=== PATIENT | male | born 1980 | race Caucasian/White ===

== ENCOUNTER 2022-09-09 17:27 | Emergency (ER) | payer MEDICAID, SELFPAY ==
[2022-09-09] VITALS (7 sets, daily range): BP systolic 123–151; BP diastolic 77–93; PULSE 99–120; RESP 14–18; TEMP 35.8–36.8; O2SAT 94–98
--- NOTE | 2022-09-09 18:06 | RAD_ITS ---
EXAM: XR LEFT HUMERUS, 2 OR MORE VIEWS CLINICAL INDICATION: injury TECHNIQUE: Frontal and lateral views of the left humerus. This report was created using [employer] report generation technology. COMPARISON: None. FINDINGS: BONES/JOINTS: Comminuted proximal humeral fracture. There is no dislocation. No sclerotic or destructive changes observed. SOFT TISSUES: Unremarkable. No soft tissue swelling or gas. No radiopaque foreign body. RAD/Humerus min 2 Views IMPRESSION: Comminuted proximal humeral fracture. Electronically Signed: Gio Newton MD at 19:46 EDT ,
[2022-09-09] MEDS: Ondansetron 4 MG/2 ML Vial IV (18:20)
[2022-09-09] MEDS: Morphine 4 MG/ML Syringe IV ×4 (18:20→20:40)
[2022-09-09 18:34] LABS: Absolute Lymphocyte Count 1.13 X10^3/uL (0.83-4.51); Absolute Neutrophil Count 2.8 X10^3/uL (2.0-7.7); Basophil% 1.9 % (0-1); Eosinophil# 0.27 X10^3/uL; Eosinophils% 5.2 % (0-5); Hematocrit 20.8 % (40-54); Lymphocyte # 1.13 X10^3/ul (0.83-4.51); Lymphocyte % 21.9 % (19-41); Mean Corp Hgb Conc 28.8 g/dL (32-36); Mean Corpuscular Hgb 23.2 pg (27.0-32.0); Mean Corpuscular Volume 80.3 fL (80-94); Mean Platelet Vol. 9.6 fl (6.2-12.0); Monocyte# 0.85 X10^3/uL; Monocyte% 16.5 % (0-10); NRBC Flagged by Analyzer 0 % (0-5); Neutrophil # 2.78 X10^3/uL (2.7-7.7); Neutrophil % 53.9 % (47-70); Platelet Count 155 K/mm3 (150-450); RBC Distribution Width SD 58.2 fl (35.1-43.9); Red Blood Count 2.59 M/mm3 (4.6-6.2); White Blood Count 5.2 K/mm3 (4.4-11.0)
--- NOTE | 2022-09-09 18:34 | RAD_ITS ---
INDICATION: injury EXAMINATION/TECHNIQUE: X-RAY - LEFT XR Forearm 2 Views 2 VIEWS COMPARISON: FINDINGS: SOFT TISSUES: No soft tissue swelling or gas. No radiopaque foreign body. BONES/JOINTS: No acute fracture or subluxation.. Normal alignment. Preservation of the joint space.. No sclerotic or destructive changes observed. RAD/Forearm 2 Views IMPRESSION: Negative. Electronically Signed: Gio Newton MD at 19:53 EDT ,
[2022-09-09 18:39] LABS: International Normalized Ratio 2.2; Prothrombin Time (Protime)PT. 24.2 SECONDS (11.7-14.9)
[2022-09-09 18:40] LABS: Differential Indicated SCAN CRITERIA MET; POSITIVE COUNT NO; POSITIVE DIFFERENTIAL NO; POSITIVE MORPHOLOGY NO
--- NOTE | 2022-09-09 18:40 | ED.RN ---
HEMOGLOBIN 6.0. DR GOMEZ
[2022-09-09 18:43] LABS: AST(SGOT) 80 U/L (15-37); Alanine Aminotransfer ALT/SGPT 37 U/L (16-61); Albumin, Serum 2.2 g/dL (3.2-5.0); Alkaline Phosphatase 145 U/L (45-117); Anion Gap 6 (5-15); BUN 4 mg/dL (7-18); BUN/Creat Ratio 4.2 RATIO (10-20); Bilirubin, Direct 1.91 mg/dL (0.00-0.30); Calcium,Total 7.7 mg/dL (8.5-10.1); Chloride 106 mmol/L (98-107); Creatinine, Serum 0.94 mg/dL (0.70-1.30); EST Glomerular Filtration Rate 93 mL/min (>60); Est Glom Filt Rate - Afr Amer 112 mL/min (>60); Globulin 4.9 g/dL (2.2-4.2); Glucose 140 mg/dL (74-106); Potassium 3.2 mmol/L (3.5-5.1); Protein, Total 7.1 g/dL (6.4-8.2); Sodium Level 134 mmol/L (136-145)
--- NOTE | 2022-09-09 18:51 | EDS_ITS ---
HPI History of Present Illness Chief Complaint: Upper Extremity Injury Informant: patient and EMS Narrative Narrative: Left hand male presents mechanical fall coming into his house. He moved here from [place]. Has not seen a doctor in 10 years. EMS called brought him into a modified splint holding his arm in. Its deformed and twisted 180 hand. No medications given. No head injuries. Noted that he had abdominal distention for which she reports its progressed over 6 months. Daily alcohol use. He had 2 drinks this morning. Denies nausea or vomiting. Denies any known allergies. Denies any diagnosed medical history. PFSH PFSH Home Medications NK 09/09/22 [History Last Taken Unknown] Allergy/AdvReac Type Severity Reaction Status Date / Time No Known Allergies Allergy Verified 09/09/22 17:34 Surgical History H/O foot surgery Social History Smoking Status: Current every day smoker tobacco type: cigarettes ROS ROS ED Constitutional Constitutional ED: Denies chills, fever(s) or sweats Eyes Eyes: Denies change in vision ENT ENT ED: Denies dysphagia or sore throat Cardiovascular Cardiovascular: Denies chest pain, leg edema, palpitations or racing heartbeat Respiratory/Chest Respiratory/Chest: Denies cough, dyspnea or dyspnea on exertion Gastrointestinal Gastrointestinal: Denies abdominal pain, diarrhea, nausea or vomiting Genitourinary Genitourinary ED: Denies dysuria, hematuria or urinary frequency Musculoskeletal Musculoskeletal: Reports extremity pain; Denies back pain or neck pain Integumentary Denies rash or wounds Neurologic Neurologic: Denies headache(s), paresthesias or weakness EXAM Physical Exam Const Vital Signs: 09/09/22 17:34 09/09/22 17:39 Temperature 96.4 F L Temperature Source Temporal Pulse Rate 99 Respiratory Rate 18 Respiratory Effort Normal Non-Labored Respiratory Pattern Normal Blood Pressure 133/86 H Blood Pressure Mean 101 Pulse Ox 97 Oxygen Delivery Method Room Air Positive well nourished, well developed and obese Constitutional Narrative: GCS 15, left arm tied held as a swath. General Appearance ED: well developed and NAD Nutritional Appearance: obese HEENT Reports moist mucous membranes normocephalic and atraumatic Eyes PERRL and EOMs intact bilaterally Eyes Narrative: Scleral icterus slightly General Eye ED: Yes normal appearance of both eyes Neck full ROM, no lymphadenopathy and supple General: Negative for tenderness Chest Wall inspection of chest normal and palpation of chest normal Chest: Negative for tenderness Resp normal respiratory effort and normal air movement Effort and Inspection: symmetric chest movement; Negative for respiratory distress Cardio regular rate, regular rhythm and no murmurs Peripheral Pulses: pulses 2+ throughout GI GI Narrative: Distended abdomen reducible umbilical hernia nontender Palpation: Negative for guarding or rebound tenderness present Back/Spine no CVA tenderness and no thoracic nor lumbar tenderness Extremity Extremity Narrative: Lower extremities nontender. Right upper extremity nontender. Left upper extre mity held closely by a modified swath, distal arm was rotated 180. Sensation intact distally radial pulse was intact. General Extremety ED: Negative for edema or tenderness General Extremity: Negative for edema Neuro oriented x3 Sensorium / Orientation: awake and alert Skin no rashes or lesions noted and no wounds MDM MDM MDM Narrative Medical decision making narrative: Interventions / MDM: Differential diagnosis: Left upper extremity fracture, liver cirrhosis, electrolyte abnormalities, alcohol dependence Diagnosis considered but do not suspect: N/A My EKG interpretation: N/A Imaging independently reviewed and interpreted by myself: Left forearm 2 views: No fracture or dislocation. Left humerus 1 view seen bedside he has a comminuted proximal humerus fracture. External documents reviewed: N/A Test considered but not ordered:N/A ED course: Patient mechanical fall to forearm left arm rotated 180 degrees distally. No open wounds. IV was established morphine Zofran given. 2 views humerus and forearm obtain concerning for comminuted proximal humeral fracture causing the rotation. Give additional pain medicine stating reduced and aligned bedside and splinted posterior long-arm splint with coaptation for stability. He was able to extend his extensor mechanism of the wrist therefore radial nerve is intact. History of alcohol clinical concerns for developing cirrhosis or hepatitis with his scleral icterus. His distended abdomen worsen over 6 months. He has no abdominal pain no fevers. Labs significant for hemoglobin of 6 guaiac obtained which was negative with brown stools. I sent for iron studies. He is ordered for 1 unit of blood. Consent was obtained. Also findings of sodium 134 potassium 3.2 creatinine 0.94. Direct bili 1.9 AST 80 ALT 37 alk phos 145 INR was 2.2 not on anticoag's. Vitamin B12 1421. Folate normal at 4.7. With his anemia and clinical signs of potential cirrhosis I do feel he will be nefit from admission. However with his fracture I spoke with on-call orthopedist Dr. Benjamin, who reviewed his imagings, he did feel this would need more urgent repair and recommended by an upper extremity specialist. Discussed with patient and mother, I spoke with [facility] transfer line who reach out to upper extremity specialist Dr. Vera, who recommended ED to ED transfer to be seen by orthopedics there for planned disposition. I spoke with the ED physician Dr. Johnson updated on patient's fracture and findings. He is excepted to the ED there. Patient and family updated. Awaiting transport. Re-evaluation: stable Disposition discussed with patient/family/significant other: Patient and mother Case discussed with consulting clinician: [place]ra orthopedist Dr. Benjamin, [facility] transferring ED physician Dr. Johnson, upper extremity orthopedist [facility] Dr. Vera Lab Data Labs: Laboratory Results - last 24 hr 09/09/22 09/09/22 09/09/22 17:45 17:45 17:45 WBC 5.2 RBC 2.59 L Hgb 6.0 L* Hct 20.8 L MCV 80.3 MCH 23.2 L MCHC 28.8 L RDW Std Deviation 58.2 H RDW Coeff of Jeff 20.0 H Plt Count 155 MPV 9.6 Immature Gran % (Auto) 0.600 Neut % (Auto) 53.9 Lymph % (Auto) 21.9 Platte % (Auto) 16.5 H Eos % (Auto) 5.2 H Baso % (Auto) 1.9 H Absolute Neuts (auto) 2.8 Absolute Lymphs (auto) 1.13 Nucleated RBC % 0 PT 24.2 H INR 2.2 Sodium 134 L Potassium 3.2 L Chloride 106 Carbon Dioxide 22.0 Anion Gap 6 BUN 4 L Creatinine 0.94 Est GFR (MDRD) Af Amer 112 Est GFR (MDRD) Non-Af 93 BUN/Creatinine Ratio 4.2 L Glucose 140 H Calcium 7.7 L Total Bilirubin 3.70 H Direct Bilirubin 1.91 H AST 80 H ALT 37 Alkaline Phosphatase 145 H Total Protein 7.1 Albumin 2.2 L Globulin 4.9 H Critical Care Time Critical Care Time: Yes Critical care time (excluding procedures): 30-74 minutes, Discussing w/Patient &/or Family/Broommaker, Discussing w/Consultants, Arranging Admission or Transfer, Performing Direct Patient Care at Bedside and - (50 minutes) Discharge Plan Triage Chief Complaint: Upper Extremity Injury ED Provider: Cameron Henderson Dx/Rx/DC Orders Clinical Impression: Comminuted left humeral fracture, Fall, Anemia, Alcohol dependence, Acute alcoholic hepatitis, Elevated INR, Iron deficiency anemia Prescriptions: No Action NK Primary Care Provider: Care Physician,No Primary Referrals: NOT,DEFINED [Non-Staff] - Disposition Disposition: DC/Tx to Another Type of HCF
[2022-09-09 19:03] LABS: Anisocytosis 1+; Hypochromasia 1+; Microcytosis 1+; Platelet Estimate ADEQUATE (ADEQ); Red Cell Morphology N CHROM NORMAL (NORM C&C); Target Cells RARE
[2022-09-09] MEDS: 0.9% Normal Saline 1,000 ML 1000 ML IV (19:20)
--- NOTE | 2022-09-09 19:45 | RAD_ITS ---
STUDY: XR Humerus Min 2 Views REASON FOR EXAM: Male, 42 years old. Post reduction TECHNIQUE: XR Humerus Min 2 Views COMPARISON: Study done earlier. FINDINGS: Plaster splint in place. Improved apposition of the fracture of the humerus. Oblique comminuted proximal humeral fracture. There is no demonstrated soft tissue abnormality. RAD/Humerus min 2 Views IMPRESSION: Improved apposition of the fracture of the humerus. Electronically Signed: Gio Newton MD at 20:21 EDT ,
--- NOTE | 2022-09-09 21:23 | ED.RN ---
[facility] called for transfer. Dr. Henderson on phone with transfer line
[2022-09-09 21:25] LABS: Vitamin B12 1421 pg/mL (211-911)
[2022-09-09 21:36] LABS: Ferritin 32 ng/mL (26-388); Iron 9 ug/dL (65-175); Iron Binding Capacity,Total 254 ug/dL (250-450); PERCENT IRON SATURATION 3.5 % (15.0-55.0)
[2022-09-10] VITALS (7 sets, daily range): BP systolic 133–153; BP diastolic 76–99; PULSE 113–119; RESP 14–18; TEMP 36.9–37.1; O2SAT 93–96
[2022-09-10] MEDS: Ondansetron 4 MG/2 ML Vial IV (01:30)
[2022-09-10] MEDS: Morphine 4 MG/ML Syringe IV (01:30)
[2022-09-10 13:31] LABS: Pathologist Review Reviewed
== END 2022-09-10 04:25 | disposition other institution (70) ==
PROVIDERS: Emergency Provider Emergency Medicine; Visit Provider Emergency Medicine
DX: S42.202A Unspecified fracture of upper end of left humerus, initial encounter for closed fracture (principal); F10.20 Alcohol dependence, uncomplicated; D50.9 Iron deficiency anemia, unspecified; F17.210 Nicotine dependence, cigarettes, uncomplicated; K70.10 Alcoholic hepatitis without ascites; E66.9 Obesity, unspecified; W19.XXXA Unspecified fall, initial encounter
CPT/HCPCS: 23605; 36430; 73060; 73090; 80048; 80076; 82274; 82607; 82728; 82746; 83540; 83550; 85025; 85610; 86850; 86900; 86901; 86920; 86922; 96361; 96374; 96376; 99285; J7040; P9016; A4216; J2405

== ENCOUNTER → 2022-10-15 | Outpatient (CLI) | payer OTHER, MEDICAID, SELFPAY ==
[2022-10-15 12:53] LABS: Absolute Lymphocyte Count 0.85 X10^3/uL (0.83-4.51); Absolute Neutrophil Count 3.8 X10^3/uL (2.0-7.7); Basophil# 0.09 X10^3/uL; Basophil% 1.6 % (0-1); Eosinophil# 0.22 X10^3/uL; Hematocrit 35.9 % (40-54); Hemoglobin 11.5 g/dL (13.0-16.5); Lymphocyte # 0.85 X10^3/ul (0.83-4.51); Lymphocyte % 15.5 % (19-41); Mean Corpuscular Hgb 27.3 pg (27.0-32.0); Mean Corpuscular Volume 85.1 fL (80-94); Mean Platelet Vol. 8.3 fl (6.2-12.0); Monocyte# 0.55 X10^3/uL; NRBC Flagged by Analyzer 0 % (0-5); Neutrophil # 3.76 X10^3/uL (2.7-7.7); Neutrophil % 68.5 % (47-70); POSITIVE MORPHOLOGY YES; Platelet Count 146 K/mm3 (150-450); RBC Distribution Width CV 27.9 % (11.6-14.6); RBC Distribution Width SD 80.7 fl (35.1-43.9); Red Blood Count 4.22 M/mm3 (4.6-6.2); White Blood Count 5.5 K/mm3 (4.4-11.0)
[2022-10-15 12:55] LABS: Differential Indicated SCAN CRITERIA MET
[2022-10-15 13:25] LABS: Anisocytosis 1+
[2022-10-15 13:33] LABS: ALB/GLOB Ratio 0.5 RATIO (0.9-2.4); AST(SGOT) 62 U/L (15-37); Alanine Aminotransfer ALT/SGPT 49 U/L (16-61); Alkaline Phosphatase 255 U/L (45-117); Anion Gap 9 (5-15); BUN 17 mg/dL (7-18); BUN/Creat Ratio 17.2 RATIO (10-20); Calcium,Total 8.9 mg/dL (8.5-10.1); Chloride 103 mmol/L (98-107); Cholesterol 199 mg/dL (200); Creatinine, Serum 0.99 mg/dL (0.70-1.30); EST Glomerular Filtration Rate 88 mL/min (>60); Est Glom Filt Rate - Afr Amer 106 mL/min (>60); Ferritin 131 ng/mL (26-388); Globulin 5.6 g/dL (2.2-4.2); Glucose 154 mg/dL (74-106); High Density Lipoprotein 76 mg/dL; Iron 87 ug/dL (65-175); Iron Binding Capacity,Total 350 ug/dL (250-450); PERCENT IRON SATURATION 24.9 % (15.0-55.0); Potassium 4.4 mmol/L (3.5-5.1); Protein, Total 8.6 g/dL (6.4-8.2); Sodium Level 135 mmol/L (136-145); Triglycerides 73 mg/dL; Very Low Density Lipoprotein 15 mg/dL (5-40)
[2022-10-17 12:09] LABS: Ceruloplasmin 17.1 mg/dL (16.0-31.0); Copper, Serum or Plasma 87 ug/dL (69-132)
== END | disposition home or self-care (01) ==
LOC: BIMLAB 10:55
PROVIDERS: PCP Internal Medicine; Visit Provider Internal Medicine
DX: K70.31 Alcoholic cirrhosis of liver with ascites (principal); R79.0 Abnormal level of blood mineral; Z13.6 Encounter for screening for cardiovascular disorders
CPT/HCPCS: 36415; 80053; 80061; 82390; 82525; 82728; 83540; 83550; 85025

== ENCOUNTER → 2022-10-24 | Outpatient (CLI) | payer OTHER, MEDICAID, SELFPAY ==
[2022-10-24 08:27] LABS: Hematocrit 35.8 % (40-54); Hemoglobin 11.6 g/dL (13.0-16.5); Mean Corp Hgb Conc 32.4 g/dL (32-36); Mean Corpuscular Hgb 27.7 pg (27.0-32.0); Mean Corpuscular Volume 85.4 fL (80-94); Mean Platelet Vol. 8.9 fl (6.2-12.0); POSITIVE MORPHOLOGY YES; Platelet Count 130 K/mm3 (150-450); Red Blood Count 4.19 M/mm3 (4.6-6.2); White Blood Count 7.6 K/mm3 (4.4-11.0)
[2022-10-24 08:35] LABS: International Normalized Ratio 1.5; Prothrombin Time (Protime)PT. 17.7 SECONDS (11.7-14.9)
[2022-10-24 08:55] LABS: Iron 69 ug/dL (65-175)
[2022-10-24 09:22] LABS: Scan Indicated on CBC? Y/N YES- FLAGS NOTED
[2022-10-25 04:07] LABS: AFP, Tumor Marker 9.5 ng/mL (0.0-6.9)
== END | disposition home or self-care (01) ==
LOC: LAB 07:44
PROVIDERS: PCP Internal Medicine; Referring Provider Internal Medicine Gastroenterology; Visit Provider Internal Medicine Gastroenterology
DX: K74.60 Unspecified cirrhosis of liver (principal)
CPT/HCPCS: 36415; 82105; 83540; 85027; 85610; 85730

== ENCOUNTER → 2022-11-10 | Outpatient (CLI) | payer OTHER, MEDICAID, SELFPAY ==
--- NOTE | 2022-11-10 10:39 | MRI_ITS ---
MR Abdomen WO/W Contrast 11/10/2022 11:11 AM COMPARISON: None CLINICAL HISTORY: CIRRHOSIS,ALCOHOL,ANEMIA,BLOOD LOSS, no pain TECHNIQUE: Multiplanar T1 and T2 weighted, diffusion and dynamic post-gadolinium images were obtained through the abdomen. FINDINGS: Liver: No suspicious arterially hyperenhancing or delayed washout lesion. There is moderate contour nodularity consistent with cirrhosis. Gallbladder: Unremarkable Spleen: Unremarkable Pancreas: Unremarkable Adrenal Glands: Unremarkable Kidneys: Unremarkable GI Tract: Unremarkable Lymphadenopathy: Absent Ascites: Absent Bones: No suspicious lesions MRI/MRI Abd WITH and W/O Contrast IMPRESSION: Cirrhotic liver without evidence of portal hypertension. No suspicious liver mass. Recommend continued HCC surveillance every 4-6 months. NOTE: The LI-RADS / OPTN classification of liver lesions has been adopted to standardize MRI and CT scan reporting in patients at risk for hepatocellular carcinoma. The imaging criteria for definite hepatocellular carcinoma are the same for the LI-RADS and OPTN systems. LI-RADS criteria and documentation are available online at www.acr.org/LIRADS LI-RADS 5 = OPTN 5 = Definitely hepatocellular carcinoma LI-RADS 4 = Probably hepatocellular carcinoma LI-RADS 3 = Indeterminate LI-RADS 2 = Probably benign LI-RADS 1 = Definitely benign END OF IMPRESSION: Electronically Signed: Denzel Julio MD at 19:46 EDT ,
== END | disposition home or self-care (01) ==
PROVIDERS: PCP Internal Medicine; Referring Provider Internal Medicine Gastroenterology; Visit Provider Internal Medicine Gastroenterology
DX: K70.30 Alcoholic cirrhosis of liver without ascites (principal); D50.9 Iron deficiency anemia, unspecified; D62 Acute posthemorrhagic anemia
CPT/HCPCS: 74183; A9575; A4216

== ENCOUNTER → 2023-01-05 | Outpatient (CLI) | payer OTHER, MEDICAID, SELFPAY ==
[2023-01-05 18:08] LABS: Hematocrit 34.8 % (40-54); Hemoglobin 11.9 g/dL (13.0-16.5); International Normalized Ratio 1.3; Mean Corp Hgb Conc 34.2 g/dL (32-36); Mean Corpuscular Hgb 33.1 pg (27.0-32.0); Mean Corpuscular Volume 96.9 fL (80-94); Mean Platelet Vol. 9.4 fl (6.2-12.0); Platelet Count 124 K/mm3 (150-450); Prothrombin Time (Protime)PT. 16.6 SECONDS (11.7-14.9); RBC Distribution Width CV 14.4 % (11.6-14.6); RBC Distribution Width SD 51.6 fl (35.1-43.9); Red Blood Count 3.59 M/mm3 (4.6-6.2); White Blood Count 5.4 K/mm3 (4.4-11.0)
[2023-01-05 18:09] LABS: Partial Thromboplast Time 40.4 Seconds (24.1-36.2)
[2023-01-05 18:45] LABS: ALB/GLOB Ratio 0.7 RATIO (0.9-2.4); AST(SGOT) 52 U/L (15-37); Alanine Aminotransfer ALT/SGPT 45 U/L (16-61); Albumin, Serum 3.2 g/dL (3.2-5.0); Alkaline Phosphatase 204 U/L (45-117); Anion Gap 6 (5-15); BUN 18 mg/dL (7-18); BUN/Creat Ratio 16.8 RATIO (10-20); Calcium,Total 8.9 mg/dL (8.5-10.1); Chloride 107 mmol/L (98-107); Creatinine, Serum 1.07 mg/dL (0.70-1.30); EST Glomerular Filtration Rate 80 mL/min (>60); Est Glom Filt Rate - Afr Amer 97 mL/min (>60); Globulin 4.4 g/dL (2.2-4.2); Glucose 86 mg/dL (74-106); Potassium 3.8 mmol/L (3.5-5.1); Protein, Total 7.6 g/dL (6.4-8.2); Sodium Level 137 mmol/L (136-145)
[2023-01-07 08:12] LABS: AFP, Tumor Marker 17.8 ng/mL (0.0-6.9)
== END | disposition home or self-care (01) ==
PROVIDERS: PCP Internal Medicine; Referring Provider Internal Medicine Gastroenterology; Visit Provider Internal Medicine Gastroenterology
DX: K74.60 Unspecified cirrhosis of liver (principal)
CPT/HCPCS: 36415; 80053; 82105; 85027; 85610; 85730

== ENCOUNTER → 2023-02-19 | Outpatient (CLI) | payer MEDICAID, SELFPAY ==
[2023-02-19 11:27] LABS: Anion Gap 3 (5-15); BUN 15 mg/dL (7-18); BUN/Creat Ratio 17.3 RATIO (10-20); Calcium,Total 8.8 mg/dL (8.5-10.1); Chloride 108 mmol/L (98-107); Creatinine, Serum 0.87 mg/dL (0.70-1.30); EST Glomerular Filtration Rate 102 mL/min (>60); Est Glom Filt Rate - Afr Amer 123 mL/min (>60); Glucose 92 mg/dL (74-106); Sodium Level 137 mmol/L (136-145)
== END | disposition home or self-care (01) ==
LOC: PAVLAB 10:49
PROVIDERS: PCP Internal Medicine; Referring Provider Internal Medicine Gastroenterology; Visit Provider Internal Medicine Gastroenterology
DX: K70.30 Alcoholic cirrhosis of liver without ascites (principal)
CPT/HCPCS: 36415; 80048

== ENCOUNTER → 2023-04-20 | Outpatient (CLI) | payer MEDICAID, SELFPAY ==
[2023-04-20 18:01] LABS: Hematocrit 40.3 % (40-54); Hemoglobin 13.8 g/dL (13.0-16.5); Mean Corp Hgb Conc 34.2 g/dL (32-36); Mean Corpuscular Hgb 32.4 pg (27.0-32.0); Mean Corpuscular Volume 94.6 fL (80-94); Mean Platelet Vol. 9.5 fl (6.2-12.0); Platelet Count 126 K/mm3 (150-450); RBC Distribution Width CV 13.7 % (11.6-14.6); RBC Distribution Width SD 47.4 fl (35.1-43.9); Red Blood Count 4.26 M/mm3 (4.6-6.2); White Blood Count 6.3 K/mm3 (4.4-11.0)
[2023-04-20 18:04] LABS: International Normalized Ratio 1.3; Prothrombin Time (Protime)PT. 15.9 SECONDS (11.7-14.9)
[2023-04-20 18:05] LABS: Partial Thromboplast Time 42.8 Seconds (24.1-36.2)
[2023-04-20 18:09] LABS: AST(SGOT) 41 U/L (15-37); Alanine Aminotransfer ALT/SGPT 44 U/L (16-61); Albumin, Serum 3.4 g/dL (3.2-5.0); Alkaline Phosphatase 190 U/L (45-117); Bilirubin, Direct 1.01 mg/dL (0.00-0.30); Globulin 4.3 g/dL (2.2-4.2); Protein, Total 7.7 g/dL (6.4-8.2)
[2023-04-22 04:07] LABS: AFP, Tumor Marker 11.6 ng/mL (0.0-6.9)
== END | disposition home or self-care (01) ==
LOC: MTLAB 14:25
PROVIDERS: PCP Internal Medicine; Referring Provider Internal Medicine Gastroenterology; Visit Provider Internal Medicine Gastroenterology
DX: K74.60 Unspecified cirrhosis of liver (principal)
CPT/HCPCS: 36415; 80076; 82105; 85027; 85610; 85730

== ENCOUNTER → 2023-04-24 | Outpatient (CLI) | payer MEDICAID, SELFPAY ==
--- NOTE | 2023-04-24 07:13 | US_ITS ---
STUDY: ABDOMINAL ULTRASOUND - RIGHT UPPER QUADRANT REASON FOR VISIT: Male, 43 years old elevated LFTs TECHNIQUE: Ultrasound evaluation of the right upper quadrant was performed with real-time and static herman-scale imaging. TECHNICAL QUALITY: Adequate. COMPARISON: None. FINDINGS: Liver: The liver measures 19.5 cm. There is a heterogeneous echogenicity of the liver. The bile ducts are within normal limits. The borders of the liver are nodular suggesting underlying cirrhosis. There is hepatic color flow. The direction of portal flow is hepatopetal. There is no demonstrated mass lesion. Gallbladder: There is a distended gallbladder. The gallbladder wall measures 2 mm. There is a negative sonographic Gifford''s sign. There is no pericholecystic fluid. There are multiple echogenic structures within the gallbladder, consistent with multiple gallstones. Common Bile Duct (C.B.D.): The common bile duct measures 6 mm. Pancreas: Normal size of the head, body and tail of the pancreas. There is normal echogenicity of the pancreas. There is no demonstrated pancreatic mass or cyst. Right Kidney: Normal size of the right kidney. The right kidney measures 10.9 x 6.8 x 5.2 cm. Normal renal cortex. The right cortex measures 1.5 cm. There is no demonstrated renal mass or cyst. There is no right hydronephrosis. US/Abdomen Limited IMPRESSION: Heterogeneous echotexture of the liver with nodular border suggesting underlying cirrhosis. No discrete lesion Distended gallbladder with multiple gallstones but no sonographic evidence of acute gallbladder disease. Specifically, there is no wall thickening, pericholecystic fluid or biliary dilatation, and the radio talk show host notes a negative Gifford sign Electronically Signed: Arnoldo Scott MD at 13:01 EST ,
== END | disposition home or self-care (01) ==
LOC: US 07:10
PROVIDERS: PCP Internal Medicine; Referring Provider Internal Medicine Gastroenterology; Visit Provider Internal Medicine Gastroenterology
DX: K70.30 Alcoholic cirrhosis of liver without ascites (principal); F10.10 Alcohol abuse, uncomplicated
CPT/HCPCS: 76705

== ENCOUNTER → 2023-10-07 | Outpatient (CLI) | payer MEDICAID, SELFPAY ==
[2023-10-07 10:16] LABS: Absolute Neutrophil Count 3.4 X10^3/uL (2.0-7.7); Basophil# 0.07 X10^3/uL; Basophil% 1.2 % (0-1); Eosinophil# 0.19 X10^3/uL; Eosinophils% 3.2 % (0-5); Hematocrit 39.7 % (40-54); Lymphocyte % 28.7 % (19-41); Mean Corp Hgb Conc 35.3 g/dL (32-36); Mean Corpuscular Hgb 32.7 pg (27.0-32.0); Mean Corpuscular Volume 92.8 fL (80-94); Mean Platelet Vol. 9.7 fl (6.2-12.0); Monocyte# 0.58 X10^3/uL; Monocyte% 9.8 % (0-10); NRBC Flagged by Analyzer 0 % (0-5); Neutrophil # 3.36 X10^3/uL (2.7-7.7); Neutrophil % 56.8 % (47-70); Platelet Count 130 K/mm3 (150-450); RBC Distribution Width CV 13.4 % (11.6-14.6); RBC Distribution Width SD 45.6 fl (35.1-43.9); Red Blood Count 4.28 M/mm3 (4.6-6.2); White Blood Count 5.9 K/mm3 (4.4-11.0)
[2023-10-07 11:01] LABS: ALB/GLOB Ratio 0.8 RATIO (0.9-2.4); AST(SGOT) 39 U/L (15-37); Alanine Aminotransfer ALT/SGPT 38 U/L (16-61); Albumin, Serum 3.2 g/dL (3.2-5.0); Alkaline Phosphatase 166 U/L (45-117); Anion Gap 8 (5-15); BUN 13 mg/dL (7-18); BUN/Creat Ratio 14.7 RATIO (10-20); Chloride 108 mmol/L (98-107); Cholesterol 184 mg/dL (200); Creatinine, Serum 0.88 mg/dL (0.70-1.30); EST Glomerular Filtration Rate 99 mL/min (>60); Est Glom Filt Rate - Afr Amer 120 mL/min (>60); Globulin 3.9 g/dL (2.2-4.2); Glucose 96 mg/dL (74-106); High Density Lipoprotein 76 mg/dL; Protein, Total 7.1 g/dL (6.4-8.2); Sodium Level 137 mmol/L (136-145); Triglycerides 65 mg/dL; Very Low Density Lipoprotein 13 mg/dL (5-40)
== END | disposition home or self-care (01) ==
LOC: LAB 09:01
PROVIDERS: PCP Internal Medicine; Referring Provider Internal Medicine; Visit Provider Internal Medicine
DX: K70.31 Alcoholic cirrhosis of liver with ascites (principal); F10.11 Alcohol abuse, in remission; Z13.6 Encounter for screening for cardiovascular disorders
CPT/HCPCS: 36415; 80053; 80061; 82306; 85025

== ENCOUNTER 2023-11-17 09:30 | Outpatient (CLI) | payer MEDICAID, SELFPAY ==
[2023-11-17 10:17] LABS: Hematocrit 42.4 % (40-54); Hemoglobin 14.3 g/dL (13.0-16.5); Mean Corp Hgb Conc 33.7 g/dL (32-36); Mean Corpuscular Hgb 32.2 pg (27.0-32.0); Mean Corpuscular Volume 95.5 fL (80-94); Mean Platelet Vol. 9.8 fl (6.2-12.0); Platelet Count 143 K/mm3 (150-450); RBC Distribution Width CV 13.6 % (11.6-14.6); RBC Distribution Width SD 47.6 fl (35.1-43.9); Red Blood Count 4.44 M/mm3 (4.6-6.2); White Blood Count 5.8 K/mm3 (4.4-11.0)
[2023-11-17 10:29] LABS: International Normalized Ratio 1.3; Prothrombin Time (Protime)PT. 16.1 SECONDS (11.7-14.9)
[2023-11-17 10:30] LABS: Partial Thromboplast Time 34.2 Seconds (24.1-36.2)
[2023-11-17 11:06] LABS: ALB/GLOB Ratio 0.8 RATIO (0.9-2.4); AST(SGOT) 38 U/L (15-37); Alanine Aminotransfer ALT/SGPT 42 U/L (16-61); Albumin, Serum 3.2 g/dL (3.2-5.0); Alkaline Phosphatase 181 U/L (45-117); Anion Gap 6 (5-15); BUN 15 mg/dL (7-18); BUN/Creat Ratio 14.3 RATIO (10-20); Calcium,Total 9.2 mg/dL (8.5-10.1); Chloride 111 mmol/L (98-107); Creatinine, Serum 1.05 mg/dL (0.70-1.30); EST Glomerular Filtration Rate 81 mL/min (>60); Est Glom Filt Rate - Afr Amer 98 mL/min (>60); Globulin 4.1 g/dL (2.2-4.2); Glucose 94 mg/dL (74-106); Potassium 4.3 mmol/L (3.5-5.1); Protein, Total 7.3 g/dL (6.4-8.2); Sodium Level 141 mmol/L (136-145)
[2023-11-18 15:09] LABS: AFP, Tumor Marker 6.2 ng/mL (0.0-6.9)
== END 2023-11-17 23:59 | disposition home or self-care (01) ==
LOC: LAB 09:32
PROVIDERS: PCP Internal Medicine; Referring Provider Internal Medicine Gastroenterology; Visit Provider Internal Medicine Gastroenterology
DX: K74.60 Unspecified cirrhosis of liver (principal); D69.6 Thrombocytopenia, unspecified
CPT/HCPCS: 36415; 80053; 82105; 85027; 85610; 85730

== ENCOUNTER → 2024-05-02 | Outpatient (CLI) | payer MEDICAID, SELFPAY ==
[2024-05-02 17:45] LABS: Hematocrit 42.1 % (40-54); Hemoglobin 14.3 g/dL (13.0-16.5); Mean Corpuscular Hgb 31.2 pg (27.0-32.0); Mean Corpuscular Volume 91.7 fL (80-94); Mean Platelet Vol. 9.7 fl (6.2-12.0); Platelet Count 156 K/mm3 (150-450); RBC Distribution Width CV 13.2 % (11.6-14.6); RBC Distribution Width SD 44.7 fl (35.1-43.9); Red Blood Count 4.59 M/mm3 (4.6-6.2); White Blood Count 7.6 K/mm3 (4.4-11.0)
[2024-05-02 17:48] LABS: International Normalized Ratio 1.3; Prothrombin Time (Protime)PT. 15.9 SECONDS (11.7-14.9)
[2024-05-02 17:49] LABS: Partial Thromboplast Time 33.4 Seconds (24.1-36.2)
[2024-05-02 18:46] LABS: ALB/GLOB Ratio 0.9 RATIO (0.9-2.4); AST(SGOT) 38 U/L (15-37); Alanine Aminotransfer ALT/SGPT 43 U/L (16-61); Albumin, Serum 3.5 g/dL (3.2-5.0); Alkaline Phosphatase 162 U/L (45-117); Anion Gap 4 (5-15); BUN 13 mg/dL (7-18); BUN/Creat Ratio 13.9 RATIO (10-20); Calcium,Total 9.5 mg/dL (8.5-10.1); Chloride 108 mmol/L (98-107); Creatinine, Serum 0.93 mg/dL (0.70-1.30); EST Glomerular Filtration Rate 93 mL/min (>60); Est Glom Filt Rate - Afr Amer 113 mL/min (>60); Globulin 4.1 g/dL (2.2-4.2); Glucose 102 mg/dL (74-106); Potassium 3.9 mmol/L (3.5-5.1); Protein, Total 7.6 g/dL (6.4-8.2); Sodium Level 137 mmol/L (136-145)
[2024-05-04 04:07] LABS: AFP, Tumor Marker 3.8 ng/mL (0.0-6.9)
== END | disposition home or self-care (01) ==
PROVIDERS: PCP Internal Medicine; Referring Provider Internal Medicine Gastroenterology; Visit Provider Internal Medicine Gastroenterology
DX: K74.60 Unspecified cirrhosis of liver (principal)
CPT/HCPCS: 36415; 80053; 82105; 85027; 85610; 85730

== ENCOUNTER → 2024-06-15 | Outpatient (CLI) | payer MEDICAID, SELFPAY ==
[2024-06-15 12:26] LABS: Absolute Lymphocyte Count 1.31 X10^3/uL (0.83-4.51); Basophil# 0.05 X10^3/uL; Basophil% 0.8 % (0-1); Eosinophil# 0.15 X10^3/uL; Eosinophils% 2.4 % (0-5); Hematocrit 42.1 % (40-54); Hemoglobin 14.1 g/dL (13.0-16.5); Lymphocyte # 1.31 X10^3/ul (0.83-4.51); Lymphocyte % 21.4 % (19-41); Mean Corp Hgb Conc 33.5 g/dL (32-36); Mean Corpuscular Hgb 30.8 pg (27.0-32.0); Mean Corpuscular Volume 91.9 fL (80-94); Monocyte# 0.64 X10^3/uL; Monocyte% 10.4 % (0-10); NRBC Flagged by Analyzer 0 % (0-5); Neutrophil # 3.96 X10^3/uL (2.7-7.7); Neutrophil % 64.7 % (47-70); Platelet Count 163 K/mm3 (150-450); RBC Distribution Width CV 13.6 % (11.6-14.6); RBC Distribution Width SD 46.1 fl (35.1-43.9); Red Blood Count 4.58 M/mm3 (4.6-6.2); White Blood Count 6.1 K/mm3 (4.4-11.0)
[2024-06-15 12:27] LABS: Erythrocyte Sedimentation Rate 19 mm/hr (0-20)
[2024-06-15 12:36] LABS: ALB/GLOB Ratio 0.8 RATIO (0.9-2.4); AST(SGOT) 34 U/L (15-37); Alanine Aminotransfer ALT/SGPT 42 U/L (16-61); Albumin, Serum 3.4 g/dL (3.2-5.0); Alkaline Phosphatase 189 U/L (45-117); Anion Gap 9 (5-15); BUN 12 mg/dL (7-18); BUN/Creat Ratio 13.9 RATIO (10-20); CRP < 2.90 mg/L (0.0-3.0); Calcium,Total 8.8 mg/dL (8.5-10.1); Chloride 109 mmol/L (98-107); Creatinine, Serum 0.86 mg/dL (0.70-1.30); EST Glomerular Filtration Rate 102 mL/min (>60); Est Glom Filt Rate - Afr Amer 123 mL/min (>60); Glucose 112 mg/dL (74-106); Potassium 4.4 mmol/L (3.5-5.1); Protein, Total 7.4 g/dL (6.4-8.2); Sodium Level 140 mmol/L (136-145)
== END | disposition home or self-care (01) ==
LOC: BIMLAB 09:10
PROVIDERS: PCP Internal Medicine; Visit Provider Physician Assistant
DX: D50.9 Iron deficiency anemia, unspecified (principal); K70.31 Alcoholic cirrhosis of liver with ascites
CPT/HCPCS: 36415; 80053; 85025; 85652; 86140

== ENCOUNTER → 2024-06-17 | Outpatient (CLI) | payer MEDICAID, SELFPAY ==
--- NOTE | 2024-06-17 08:30 | MRI_ITS ---
PROCEDURE: MRI ABD WITH AND W/O CONTRAST REASON FOR EXAM: Cirrhosis. Minor abdominal pain. TECHNIQUE: Multiplanar, multisequence MRI of the upper abdomen without and with intravenous gadolinium-based contrast. CONTRAST: 25 cc Clariscan intravenously. COMPARISON: MRI abdomen October 2022 FINDINGS: Liver: Severe cirrhosis. No liver lesions identified. Specifically, no arterially hyperenhancing lesions to suggest dysplastic nodule or hepatocellular carcinoma. Umbilical vein recanalization noted. Distal esophageal and perigastric varices noted. Biliary: Stones or sludge in the gallbladder with no signs of acute cholecystitis. Pancreas: Normal pancreas. No ductal dilatation. Spleen: Borderline spleen size at 13.7 cm. Spleen is otherwise unremarkable. Adrenals: Normal. Kidneys: Kidneys are normal bilaterally. Peritoneum / Retroperitoneum: No ascites. Lymph Nodes: No upper abdominal lymphadenopathy. Major Vessels: The abdominal aorta and IVC are unremarkable. The portal and hepatic veins are patent. Bones: Minimal superior endplate fracture of L1, chronic and unchanged. No suspicious marrow lesions. Miscellaneous: Moderate colonic stool suggesting constipation. Small fat containing umbilical hernia, herniated fat is edematous. Hernia defect measures approximately 1 cm in the herniated edematous fat measures approximately 4.2 cm. MRI/MRI Abd WITH and W/O Contrast IMPRESSION: Cirrhosis with no evidence of dysplastic nodule or hepatocellular carcinoma. 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 No ascites. Incidental findings as noted. Reading Location: [facility]
== END | disposition home or self-care (01) ==
LOC: MRI 08:07
PROVIDERS: PCP Internal Medicine; Referring Provider Internal Medicine Gastroenterology; Visit Provider Internal Medicine Gastroenterology
DX: K74.60 Unspecified cirrhosis of liver (principal)
CPT/HCPCS: 74183; A9575; A4216

== ENCOUNTER → 2024-11-05 | Outpatient (CLI) | payer MEDICAID, SELFPAY ==
--- OUTSIDE RECORDS SUMMARY | 2024-11-05 08:55 | XMS RPT_ITS | CCD ---
Author Organization [facility] Care Team Providers Care Production Support Specialist Name Role Phone Unavailable Primary Care Provider UnavailJEROME Adams Attending Unavailable TAMAR LAMAR Referring Unavailable SELENE FLEMING MD Primary Care Physician [phone] Care Physician, No Primary Primary Care Provider Unavailable Care Physician, No Primary Referring Provider Un available Dr. Selene Fleming Attending Provider LYN FITZGERALD, DR CHUN Attending UnavailSELENE Roman MD Primary Care Unavailable Dr. Selene Fleming Primary Care Provider Dr. Selene Fleming Attending Provider [phone] Dr. Selene Fleming Referring Provider DR ANUP NICHOLSON MD Attending SELENE Ceja MD Primary Care Unavailable SELENE FLEMING MD Primary Care Unavailable DR ANUP NICHOLSON MD Attending Dr. Selene Ceja MD Primary Care Provider [phone] Dr. Selene Fleming MD Attending Provider Dr. Selene Fleming MD Referring Provider Selene Fleming Primary Care Unavailable Anup Nicholson Attending Unavailable Anup Nicholson Referring Unavailable Anup Nicholson Attending Unavailable Anup Nicholson Referring Unavailable Selene Fleming Primary Care Unavailable Anup Nicholson Referring Unavailable Selene Fleming Primary Care Unavailable Anup Nicholson Attending Unavailable Israel Garcia Attending Unavailable Selene Fleming Primary Care Unavailable Selene Fleming Attending Unavailable Selene Fleming Referring Unavailable Selene Fleming Primary Care Unavailable Lonnie Selene Primary Care Unavailable Joshua Flemingia Attending Unavailable Serjio Flemingycia Referring Unavailable Lonnie Selene Referring Unavailable Joshua Flemingia Primary Care Unavailable Israel Garcia Attending Unavailable Medications Current Medications Medication Drug Class(es) Dates Sig (Normalized) Sig (Original) acamprosate calcium 333 mg delayed release oral tablet (4 sources) Start: 09-24-2022 End: 03-23-2023 take 2 tablets by mouth three times daily acamprosate 333 mg oral delayed release tablet TAKE 2 TABLETS BY MOUTH THREE TIMES DAILY Start Date: 10/29/22 Status: Ordered Repeat number: 1 Comment on above: Take 2 tablets by mo ut three times daily. calcium ascorbate 500 mg oral tablet (5 sources) Start: 10-15-2022 take 1 tablet by mouth once daily Ascorbate Calcium (Vitamin C) 500 mg tablet Active 500 mg PO DAILY October 15, 2022 12:00am carvedilol 3.125 mg oral tablet (4 sources) alpha-Adrenergic Sue, beta-Adrenergic Sue Start: 04-07-2023 carvedilol 3.125 mg oral tablet Dose : 3.125 mg = 1 tab(s), Oral, Daily, 0 Refill(s) Start Date: 07/11/24 Status: Ordered Repeat number: 1 FeroSul 325 mg (65 mg elemental iron) oral tablet (2 sources) Start: 10-29-2022 FeroSul 325 mg (65 mg elemental iron) oral tablet TAKE 1 TABLET BY MOUTH ON THURSDAY, THURSDAY AND THURSDAY Start Date: 10/29/22 Status: Ordered Repeat number: 1 Start: 10-29-2022 FeroSul 325 mg (65 mg elemental iron) oral tablet TAKE 1 TABLET BY MOUTH ON THURSDAY, THURSDAY AND THURSDAY Start Date: 10/29/22 Status: Ordered ferrous sulfate 325 mg oral tablet (10 sources) Start: 10-15-2022 take 1 tablet by mouth every other day Ferrous Sulfate 325 mg (65 mg iron) tablet Active 325 mg PO every other day October 15, 2022 12:00am Start: 09-19-2022 End: 10-19-2022 take 1 tablet by mouth once ferrous sulfate 325 mg (65 mg iron) tabl et Take 1 tablet by mouth every Thursday,Thursday,Thursday. 12 tablet 0 09/19/2022 10/19/2022 Active Comment on above: Take 1 tablet by namita th every Thursday,Thursday,Thursday. furosemide 40 mg oral tablet (20 sources) Loop Diuretic Start: 023 End: 025 take 1 tablet by mouth once daily Furosemide 40 mg tablet Active 40 mg PO DAILY October 24, 2024 8:33am Start: 10-15-2022 End: 04-07-2023 Furosemide 40 mg tablet Disc ontinued 60 mg PO DAILY March 31, 2023 1:28pm April 07, 2023 3:27pm Start: 10-15-2022 End: 04-07-2023 take 60 mg by mouth once daily Furosemide Discontinued 60 MG PO DAILY March 31, 2023 12:28pm April 07, 2023 2:27pm Start: 09-24-2022 End: 12-23-2022 take 1 tablet by mouth once daily furosemide (LASIX) 20 mg tablet Indications: Encounter for immunization Take 1 tablet by mouth once daily. 30 tablet 2 09/24/2022 12/23/2022 Active Start: 09-18-2022 take 1 tablet by namita th once daily furosemide (LASIX) 40 mg tablet Take 1 tablet by mouth once daily. 30 tablet 1 09/18/2022 Active Comment on above: Take 1 tablet by namita th once daily. lactulose 667 mg/ml oral solution (20 sources) Osmotic Laxative Start: 05-04-2023 End: 07-30-2024 Lactulose 20 gram/30 mL solution Active 30 g PO .4 times daily [id number] 30, 2024 12:54pm Start: 10-15-2022 End: 05-04-2023 take 30 g by mouth every other day Lactulose 20 gram/30 mL solution Discontinued 30 g PO .5 times daily [id number] 04, 2023 9:17am May 04, 2023 1:47pm Start: 09-24-2022 End: 12-23-2022 take 30 mL by mouth three times daily lactulose 20 gram/30 mL solution Indications: Alcoholic cirrhosis of liver with ascites (HCC) Take 30 mL by mouth three times daily. 2700 mL 2 09/24/2022 12/23/2022 Active Comment on above: Take 30 mL by mouth three times daily. M- Plus oral tablet (2 sources) Start: 10-29-2022 take 1 tablet by mouth once daily M- Plus oral tablet TAKE 1 TABLET BY MOUTH ONCE DAILY Start Date: 10/29/22 Status: Ordered Repeat number: 1 Start: 10-29-2022 take 1 tablet by mouth once da adia M-Emily Plus oral tablet TAKE 1 TABLET BY MOUTH ONCE DAILY Start Date: 10/29/22 Status: Ordered Nicotine (20 sources) Cholinergic Nicotinic Agonist Start: 10-29-2022 apply 1 dose transdermal route once daily NICOTINE TD 14MG/24HDIS APPLY 1 PATCH TOPICALLY ONCE DAILY Start Date: 10/29/22 Status: Ordered Repeat number: 1 Start: 10-29-2022 apply 1 dose transde rmal route once daily NICOTINE TD 14MG/24HDIS APPLY 1 PATCH TOPICALLY ONCE DAILY Start Date: 10/29/22 Status: Ordered Start: 10-15-2022 End: 10-15-2022 apply 1 dose transdermal route every twenty-four hours Nicotine 14 mg/24 hr patch 24 hour Active 1 NMA TD DAILY October 15, 2022 10:24am Start: 10-15-2022 Nicotine (Willian crilex) (Nicorette) 2 mg lozenge Active 2 mg BUCCAL Q4H as needed for nicotine cravings October 15, 2022 12:00am Start: 10-15-2022 End: 10-15-2022 apply 1 dose transdermal route once daily Nicotine Active 1 PATCH TD DAILY October 15, 2022 9:24am Start: 09-18-2022 apply 1 dose transde rmal route once daily nicotine (NICODERM) 14 mg/24 hr Apply 1 Patch as directed once daily. 28 Patch 0 09/18/2022 Active Comment on above: Apply 1 Patch as dir ected once daily. Pnv,Calcium 00-Ihgu-Eqlgz Acid (M-Emily Plus) 27 mg iron- 1 mg tablet (12 sources) Start: 09-01-2023 Pnv,Calcium 57-Ylfs-Mihen Acid (M-Emily Plus) 27 mg iron- 1 mg tablet Active 1 {tbl} PO DAILY September 01, 2023 12:21pm Start: 04-07-2023 End: 09-01-2023 Pnv,Calcium 22-Dbwg-Gdhnb Ac id (M-Emily Plus) 27 mg iron- 1 mg tablet Discontinued 1 {tbl} PO DAILY April 07, 2023 3:49pm September 01, 2023 12:21pm Start: 04-07-2023 take 1 tablet by namita th once daily Pnv,Calcium 32-Pbow-Nsvow Acid (M- Plus) 27 mg iron- 1 mg tablet Active 1 TABLET PO DAILY April 07, 2023 2:49pm Start: 01-15-2023 End: 04-07-2023 Pnv,Calcium 37-Bqnw-Rrwqj Ac id (M-Emily Plus) 27 mg iron- 1 mg tablet Discontinued 1 {tbl} PO DAILY January 15, 2023 3:07pm April 07, 2023 3:49pm Start: 01-15-2023 End: 04-07-2023 take 1 tablet by mouth once daily Pnv,Calcium 17-Dcvh-Ipspq Acid (M- Plus) 27 mg iron- 1 mg tablet Discontinued 1 TABLET PO DAILY January 15, 2023 2:07pm April 07, 2023 2:49pm Start: 10-15-2022 End: 01-15-2023 Pnv,Calcium 11-Hrbq-Ktxbn Ac id (M-Emily Plus) 27 mg iron- 1 mg tablet Discontinued 1 {tbl} PO DAILY October 15, 2022 12:00am January 15, 2023 3:07pm Start: 10-15-2022 End: 01-15-2023 take 1 tablet by mouth once daily Pnv,Calcium 99-Imna-Bqfly Acid (M- Plus) 27 mg iron- 1 mg tablet Discontinued 1 TABLET PO DAILY October 14, 2022 11:00pm January 15, 2023 2:07pm Start: 10-15-2022 take 1 tablet by namita th once daily Pnv,Calcium 36-Ccup-Zidoz Acid (M- Plus) 27 mg iron- 1 mg tablet Active 1 TABLET PO DAILY October 15, 2022 12:00am spironolactone 100 mg oral tablet (20 sources) Aldosterone Antagonist Start: 10-29-2022 take 1 tablet by mouth once daily spironolactone 100 mg oral tablet TAKE 1 & 1/2 (ONE & ONE-HALF) TABLETS BY MOUTH ONCE DAILY Start Date: 10/29/22 Status: Ordered Repeat number: 1 Start: 10-15-2022 End: 07-05-2024 Spironolactone 100 mg tablet Active 150 mg PO DAILY July 05, 2024 3:46pm Start: 10-15-2022 End: 04-21-2023 take 150 mg by mouth once daily Spironolactone Discontinued 150 MG PO DAILY April 17, 2023 3:54pm April 21, 2023 7:42pm Start: 09-24-2022 End: 12-23-2022 take 1 tablet by mouth once daily spironolactone (ALDACTONE) 50 mg tablet Indications: Alcoholic cirrhosis of liver with ascites (HCC) Take 1 tablet by mouth once daily. 30 tablet 2 09/24/2022 12/23/2022 Active Start: 09-18-2022 take 1 tablet by namita th once daily spironolactone (ALDACTONE) 100 mg tablet Take 1 tablet by mouth once daily. 30 tablet 1 09/18/2022 Active Comment on above: Take 1 tablet by namita th once daily. thiamine 100 mg oral tablet (20 sources) Start: 10-15-2022 End: 06-15-2023 take 1 tablet by mouth once daily Thiamine Hcl (Vitamin B1) 100 mg tablet Active 0 .ROUTE .COMPLEX 90 June 15, 2023 6:58pm Take 1 tablet by mouth once daily Start: 09-17-2022 End: 12-09-2022 take 1 tablet by mouth three times daily thiamine (VITAMIN B1) 100 mg tablet 1 tablet by ORAL/FEEDING TUBE route three times daily for 248 doses. 90 tablet 2 09/17/2022 12/09/2022 Active Comment on above: 1 tablet by ORAL/FEE DING TUBE route three times daily for 248 doses. Completed/Discontinued Medications Medication Drug Class(es) Dates Sig (Normalized) Sig (Original) M- PLUS 27 mg iron- 1 mg (2 sources) Start: 09-18-2022 take 1 tablet by mouth once daily M-EMILY PLUS 27 mg iron- 1 mg Take 1 tablet by mouth once daily. 0 09/18/2022 Active Comment on above: Take 1 tablet by namita th once daily. melatonin 3 mg oral capsule (10 sources) Start: 10-15-2022 End: 10-06-2023 take 1 capsule by mouth at bedtime as needed Melatonin 3 mg capsule Discontinued 3 mg PO BEDTIME as needed October 15, 2022 12:00am October 06, 2023 1:58pm Start: 09-17-2022 take 1 tablet by namita th every twenty-four hours as needed melatonin 3 mg tablet Take 1 tablet by mouth at bedtime as needed for for insomnia. 30 tablet 0 09/17/2022 Active Comment on above: Take 1 tablet by namita th at bedtime as needed for for insomnia. vitamin with folic acid 1 mg 60 mg iron-1 mg tab (5 sources) Start: 09-18-2022 take 1 tablet by mouth once daily vitamin with folic acid 1 mg 60 mg iron-1 mg tab Take 1 tablet by mouth once daily. 90 tablet 0 09/18/2022 Active Comment on above: Take 1 tablet by namita th once daily. simethicone 80 mg chewable tablet (5 sources) Start: 09-17-2022 take 1 tablet by mouth every six hours as needed simethicone, chewable (MYLICON) 80 mg chewable tablet Take 1 tablet by mouth four times daily as needed. 30 tablet 0 09/17/2022 Active Comment on above: Take 1 tablet by namita th four times daily as needed. Problems Active Problems Problem Classification Problem Date Documented Da te Episodic/Chronic Abdominal hernia (10 sources) Umbilical hernia; Translations: [Umbilical hernia without obstruction or gangrene] 10-15-2022 Episodic Abdominal pain (1 source) Right flank pain; Translations: [Unspecified abdominal pain] 06-15-2024 Episodic Administrative/social admission (2 sources) Persons encountering health services in other specified circumstances; Translations: [Other reasons for seeking consultation] 10-15-2022 Episodic Alcohol-related disorders (20 sources) Alcohol dependence; Translations: [Alcohol dependence, uncomplicated] Onset: 09-17-2022 09-09-2022 Chronic Anxiety disorders (5 sources) Mixed anxiety and depressive disorder; Translations: [Anxiety disorder, unspecified] 10-15-2022 Chronic Deficiency and other anemia (11 sources) Anemia; Translations: [Anemia, unspecified] 09-09-2022 Episodic Deficiency and other anemia (6 sources) Iron deficiency anemia; Translations: [Iron deficiency anemia, unspecified] 09-09-2022 Episodic Deficiency and other anemia (2 sources) Anemia, unspecified; Translations: [Anemia, unspecified] 10-15-2022 Episodic E Codes: Fall (6 sources) Fall; Translations: [Unspecified fall, initial encounter] 09-09-2022 Episodic Esophageal disorders (1 source) Secondary esophageal varices without bleeding; Translations: [Secondary esophageal varices without bleeding] Onset: 07-11-2024 Chronic Fracture of upper limb (19 sources) Fracture of humerus ; Translations: [Unspecified fracture of shaft of humerus, left arm, initial encounter for closed fracture] Onset: 09-17-2022 09-09-2022 Episodic Immunizations and screening for infectious disease (4 sources) Patient encounter status; Translations: [Encounter for immunization] Onset: 09-24-2022 Episodic Nonspecific chest pain (1 source) Pain of intercostal space; Translations: [Intercostal pain] 06-15-2024 Episodic Nutritional deficiencies (7 sources) Malnutrition (calorie); Translations: [Moderate protein-calorie malnutrition] Onset: 09-12-2022 09-17-2022 Chronic Other aftercare (2 sources) Encounter for follow-up examination after completed treatment for conditions other than malignant neoplasm; Translations: [Other follow-up examination] 10-15-2022 Episodic Other aftercare (1 source) Other intermediate (current) drug therapy; Translations: [Other intermediate (current) drug therapy] Onset: 07-11-2024 Episodic Other liver diseases (5 sources) Cirrhosis of liver; Translations: [Unspecified cirrhosis of liver] Onset: 09-10-2022 09-17-2022 Chronic Other liver diseases (5 sources) Hepatic failure; Translations: [Other cirrhosis of liver] Onset: 09-16-2022 09-17-2022 Chronic Other liver diseases (4 sources) Unspecified cirrhosis of liver; Translations: [Unspecified cirrhosis of liver] Onset: 11-03-2022 Chronic Other liver diseases (1 source) Portal hypertension; Translations: [Portal hypertension] Onset: 07-11-2024 Chronic Other male genital disorders (3 sources) Male erectile dysfunction, unspecified; Translations: [Impotence of organic origin] Onset: 10-31-2024 04-07-2023 Chronic Other nervous system disorders (2 sources) Meralgia paresthetica, unspecified lower limb; Translations: [Meralgia paresthetica] 04-07-2023 Chronic Other nutritional; endocrine; and metabolic disorders (2 sources) Disorder of copper metabolism, unspecified; Translations: [Disorders of copper metabolism] 10-15-2022 Chronic Other nutritional; endocrine; and metabolic disorders (1 source) Morbid obesity; Translations: [Morbid (severe) obesity due to excess calories] 10-31-2024 Chronic Other nutritional; endocrine; and metabolic disorders (1 source) Body mass index 30+ - obesity; Translations: [Obesity, unspecified] 10-31-2024 Chronic Other nutritional; endocrine; and metabolic disorders (1 source) Morbid (severe) obesity due to excess calories; Translations: [Morbid (severe) obesity due to excess calories] Onset: 10-31-2024 Chronic Other screening for suspected conditions (not mental disorders or infectious disease) (12 sources) INR raised; Translations: [Abnormal coagulation profile] Onset: 10-31-2024 09-09-2022 Episodic Substance-related disorders (16 sources) Nicotine dependence; Translations: [Nicotine dependence, unspecified, uncomplicated] Onset: 09-11-2022 09-17-2022 Chronic Unclassified (1 source) Left Shoulder Fracture Onset: 09-10-2022 Past or Other Problems Problem Classification Problem Date Documented Da te Episodic/Chronic Deficiency and other anemia (1 source) Iron deficiency anemia, unspecified; Translations: [Iron deficiency anemia, unspecified] Onset: 07-05-2024 Episodic Other skin disorders (2 sources) Rash and other nonspecific skin eruption; Translations: [Rash and other nonspecific skin eruption] 04-07-2023 Episodic Results Test Name Value Interpretation Reference Range Facility Internal Medicine Office Vis keon 10-29-2024 Internal Medicine Office Visit [facility] [address] [place] [id number] OFFICE VISIT Date of Service: 10/31/24 MR#: [id number] Acct: [id number] Name: CAROLYNN LEE Rep #: [id number] : 1980 Provider: Dr. Selene jeffrey MD Age/Sex: 44/M Location[place] [facility] Status: Signed Intake Vital Signs 05/02/24 14:01 06/15/24 07:59 10/31/24 14:38 Height 5 ft 11 in 5 ft 11 in 5 ft 11 in Weight: 310 lb BMI 43.2 BP 128/78 H Blood Pressure Location Lt brachial Position Sitting Respiration 18 Pulse 74 Pulse Source Monitor Temp 98 F Temp Source Temporal Pulse Oximetry (%) 98 Oxygen Delivery Method room air Intake Visit Reasons: 6 M FU Fios Line Installer Required: No Is patient in pain?: No Allergies No Known Allergies Allergy (Verified 10/31/24 14:28) Medications ???Medication ???Instructions ???Recorded ???Confirmed ???Type ascorbate calcium (vitamin C) 500 500 mg PO DAILY 10/15/22 10/31/24 History mg tablet ferrous sulfate 325 mg (65 mg 325 mg PO Q OTHER DAY 10/15/22 History iron) tablet nicotine (polacrilex) 2 mg buccal 2 mg buccal Q4H PRN nicotine 09/1710/31/24 Rx lozenge (Nicorette) cravings #108 ea nicotine 14 mg/24 hr daily 1 patch transdermal DAILY #28 ea 0 10/15/22 10/31/24 Rx transdermal patch carvedilol 3.125 mg tablet 3.125 mg PO QHS 04/07/23 10/31/24 History thiamine HCl (vitamin B1) 100 mg See Rx Instructions .Route 4 10/31/24 Rx tablet .COMPLEX #90 tabs vitamin with calcium 1 tab PO DAILY #90 tabs 09/01/23 0 10/31/24 Rx no.72-iron 27 mg-folic acid 1 mg tablet (M- Plus) spironolactone 100 mg tablet 150 mg (1.5 x 100 mg) PO DAILY #45 07/05/24 10/31/24 Rx tabs lactulose 20 gram/30 mL oral 30 g (45 mL) PO .4 times daily 10/31/24 Rx solution #1,200 mL furosemide 40 mg tablet 40 mg PO DAILY #90 tabs 10/24/24 0 10/31/24 Rx Nurse's Note: Pt states he has noticed weight has picked up a bit he states there has been no change in diet or exercise, he is still keeping an eye on portions, and eats the same meals. Pt inquiring about ED medication, he is more active in dating life, and states he is having some side effects from Lasix he is on. Pt is having issues getting an erection. [facility] Medical History Gallstones Anxiety and depression Asthma Alcohol abuse Surgical History History of esophageal surgery H/O esophagogastroduodenoscopy H/O foot surgery Family History Grandfather Alcoholism Father Alcoholism Anxiety Asthma Depression Diabetes Mental disorder Brother Anxiety Asthma Depression Mental disorder Sister Anxiety Depression Mental disorder Grandmother Diabetes Grandmother Heart disease Hypertension Social History (Updated 10/31/24 @ 14:[address] 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 1. Little interest or pleasure in doing things: not at all 2. Feeling down, depressed, or hopeless: not at all 3. Trouble falling or staying asleep, or sleeping too much: not at all 4. Feeling tired or having little energy: several days 5. Poor appetite or overeating: not at all 6. Feeling bad about yourself - or that you are a failure or have let yourself and your family down: not at all 7. Trouble concentrating on things, such as reading the newspaper or watching television: not at all 8. Moving or speaking so slowly that other people could have noticed? - Or the opposite - being so fidgety or restless that you have been moving around a lot more than usual: not at all 9. Thoughts that you would be better off or of hurting yourself in some way: not at all Total score: 1 If you checked off any problems, how difficult have these problems made it for you to do your work, take care of things at home, or get along with other people?: not difficult at all Source: Developed by Drs. Devonte Meehan, Cici Strange, Nima Barahona and colleagues, with an educational kamron from [employer]. [facility] HPI Details: CAROLYNN LEE, is a 44 M who presents to the office today for a follow up. He is due for some routine blood work. He is du (more content not included)... Normal [facility] MRI Abd WITH and W/O Contras ton 06-17-2024 MRI Abd WITH and W/O Contrast [facility] [address], [place] [address] MRI Abd WITH and W/O Contrast MR#: [id number] Acct: [id number] Name: CAROLYNN LEE Rep #: [id number] : 1980 M 44 From: Alma Medina DO PCP: Dr. Selene Fleming MD Status: REG CLI Study: MRI Abd WITH and W/O Contrast Date of Exam: Exam# [id number] Ordering Dr: Anup Nicholson MD PROCEDURE: MRI ABD WITH AND W/O CONTRAST REASON FOR EXAM: Cirrhosis. Minor abdominal pain. TECHNIQUE: Multiplanar, multisequence MRI of the upper abdomen without and with intravenous gadolinium-based contrast. CONTRAST: 25 cc Clariscan intravenously. COMPARISON: MRI abdomen October 2022 FINDINGS: Liver: Severe cirrhosis. No liver lesions identified. Specifically, no arterially hyperenhancing lesions to suggest dysplastic nodule or hepatocellular carcinoma. Umbilical vein recanalization noted. Distal esophageal and perigastric varices noted. Biliary: Stones or sludge in the gallbladder with no signs of acute cholecystitis. Pancreas: Normal pancreas. No ductal dilatation. Spleen: Borderline spleen size at 13.7 cm. Spleen is otherwise unremarkable. Adrenals: Normal. Kidneys: Kidneys are normal bilaterally. Peritoneum / Retroperitoneum: No ascites. Lymph Nodes: No upper abdominal lymphadenopathy. Major Vessels: The abdominal aorta and IVC are unremarkable. The portal and hepatic veins are patent. Bones: Minimal superior endplate fracture of L1, chronic and unchanged. No suspicious marrow lesions. Miscellaneous: Moderate colonic stool suggesting constipation. Small fat containing umbilical hernia, herniated fat is edematous. Hernia defect measures approximately 1 cm in the herniated edematous fat measures approximately 4.2 cm. MRI/MRI Abd WITH and W/O Contrast IMPRESSION: Cirrhosis with no evidence of dysplastic nodule or hepatocellular carcinoma. Distal esophageal and upper abdominal varices. No ascites. Incidental findings as noted. Reading Location: [facility] CC: Dr. Selene Fleming MD; Dr. Anup Nicholson MD Law Examiner: Signed Normal [facility] CBC W/Diff, Automatedon 05-19 Absolute Neut 4.0 X10 3/uL Normal 2.0-7.7 [facility] Comment on above: Performed By: #### L 101.9900, L100.0100, L500.4050, L501.6710 #### [facility] [address] [place], [address] Erythrocyte distribution width (RBC) [Ratio] 13.6 % Normal 11.6-14.6 [facility] Comment on above: Performed By: #### L 101.9900, L100.0100, L500.4050, L501.6710 #### [facility] [address] [place], [address] Hematocrit (Bld) [Volume fraction] 42.1 % Normal 40-54 [facility] Comment on above: Performed By: #### L 101.9900, L100.0100, L500.4050, L501.6710 #### [facility] [address] [place], [address] Hemoglobin (Bld) [Mass/Vol] 14.1 g/dL Normal 13.0-16.5 [facility] Comment on above: Performed By: #### L 101.9900, L100.0100, L500.4050, L501.6710 #### [facility] [address] [place], [address] MCH (RBC) [Entitic mass] 30.8 pg Normal 27.0-32.0 [facility] Comment on above: Performed By: #### L 101.9900, L100.0100, L500.4050, L501.6710 #### [facility] [address] [place], [address] MCHC (RBC) [Mass/Vol] 33.5 g/dL Normal 32-36 [facility] Comment on above: Performed By: #### L 101.9900, L100.0100, L500.4050, L501.6710 #### [facility] [address] [place], [address] MCV (RBC) [Entitic vol] 91.9 fL Normal 80-94 [facility] Comment on above: Performed By: #### L 101.9900, L100.0100, L500.4050, L501.6710 #### [facility] [address] [place], [address] Neutrophils/100 WBC (Bld) 64.7 % Normal 47-70 [facility] Comment on above: Performed By: #### L 101.9900, L100.0100, L500.4050, L501.6710 #### [facility] [address] [place], [address] Platelets (Bld) [#/Vol] 163 10*3/uL Normal 150-450 [facility] Comment on above: Performed By: #### L 101.9900, L100.0100, L500.4050, L501.6710 #### [facility] [address] [place], [address] RBC (Bld) [#/Vol] 4.58 10*6/uL Low 4.6-6.2 [facility] Comment on above: Performed By: #### L 101.9900, L100.0100, L500.4050, L501.6710 #### [facility] [address] [place], [address] RDW SD 46.1 fl High 35.1-43.9 [facility] Comment on above: Performed By: #### L 101.9900, L100.0100, L500.4050, L501.6710 #### [facility] [address] [place], [address] WBC (Bld) [#/Vol] 6.1 10*3/uL Normal 4.4-11.0 [facility] Comment on above: Performed By: #### L 101.9900, L100.0100, L500.4050, L501.6710 #### [facility] [address] [place], [address] CRPon 06-15-2024 C-REACTIVE PROT < 2.90 Normal 0.0-3.0 [facility] Comment on above: Result Comment: C-Re active Protein (CRP) provides useful information for the diagnosis, therapy and monitoring of inflammatory processes and associated diseases. For the evaluation of Relative Risk for Cardiovascular Disease, a High Sensitivity CRP (HSCRP) should be ordered. Performed By: #### L 101.9900, L100.0100, L500.4050, L501.6710 ####[facility] [address] [place], [address] Comprehensive Metabolic Prof ilon 06-15-2024 Albumin [Mass/Vol] 3.4 g/dL Normal 3.2-5.0 [facility] Comment on above: Performed By: #### L 101.9900, L100.0100, L500.4050, L501.6710 ####[facility] [address] [place], [address] Albumin/Globulin [Mass ratio] 0.8 {ratio} Low 0.9-2.4 [facility] Comment on above: Performed By: #### L 101.9900, L100.0100, L500.4050, L501.6710 ####[facility] [address] [place], [address] ALK P 189 U/L High 45-117 [facility] Comment on above: Performed By: #### L 101.9900, L100.0100, L500.4050, L501.6710 ####[facility] [address] [place], [address] ALT [Catalytic activity/Vol] 42 U/L Normal 16-61 [facility] Comment on above: Performed By: #### L 101.9900, L100.0100, L500.4050, L501.6710 ####[facility] [address] [place], [address] AST [Catalytic activity/Vol] 34 U/L Normal 15-37 [facility] Comment on above: Performed By: #### L 101.9900, L100.0100, L500.4050, L501.6710 ####[facility] [address] [place], [address] Bilirubin [Mass/Vol] 2.60 mg/dL High 0.20-1.00 [facility] Comment on above: Result Comment: For patients on eltrombopag therapy, use of Dimension Seibert TBIL is not recommended. Performed By: #### L 101.9900, L100.0100, L500.4050, L501.6710 ####[facility] [address] [place], [address] BUN/CRE 13.9 RATIO Normal 10-20 [facility] Comment on above: Performed By: #### L 101.9900, L100.0100, L500.4050, L501.6710 ####[facility] [address] [place], [address] CA,Total 8.8 mg/dL Normal 8.5-10.1 [facility] Comment on above: Performed By: #### L 101.9900, L100.0100, L500.4050, L501.6710 ####[facility] [address] [place], [address] Chloride [Moles/Vol] 109 mmol/L High 98-107 [facility] Comment on above: Performed By: #### L 101.9900, L100.0100, L500.4050, L501.6710 ####[facility] [address] [place], [address] CO2 [Moles/Vol] 22.0 mmol/L Normal 21.0-32.0 [facility] Comment on above: Performed By: #### L 101.9900, L100.0100, L500.4050, L501.6710 ####[facility] [address] [place], [address] Creatinine [Mass/Vol] 0.86 mg/dL Normal 0.70-1.30 [facility] Comment on above: Result Comment: The validity of the calculated GFR GFRAA in patients over 70 years has not been determined. Clinical correlation is essential. Performed By: #### L 101.9900, L100.0100, L500.4050, L501.6710 ####[facility] [address] [place], [address] EST GFR - AA 123 mL/min Normal >60 [facility] Comment on above: Result Comment: Afri can Cameroonian GFR Calc Performed By: #### L 101.9900, L100.0100, L500.4050, L501.6710 ####[facility] [address] [place], [address] GAP 9 Normal 5-15 [facility] Comment on above: Performed By: #### L 101.9900, L100.0100, L500.4050, L501.6710 ####[facility] [address] [place], [address] GFR/1.73 sq M.predicted among non-blacks MDRD (S/P/Bld) [Vol rate/Area] 102 mL/min/{1.73_m2} Normal >60 [facility] Comment on above: Result Comment: Non- GFR Calc Performed By: #### L 101.9900, L100.0100, L500.4050, L501.6710 ####[facility] [address] [place], [address] Globulin (S) [Mass/Vol] 4.0 g/dL Normal 2.2-4.2 [facility] Comment on above: Performed By: #### L 101.9900, L100.0100, L500.4050, L501.6710 ####[facility] [address] [place], [address] Glucose [Mass/Vol] 112 mg/dL High 74-106 [facility] Comment on above: Result Comment: Fast ing Glucose result from 100 to 125 mg/dL suggests IMPAIRED HOMEOSTASIS per A.D.A. criteria. Performed By: #### L 101.9900, L100.0100, L500.4050, L501.6710 ####[facility] [address] [place], [address] Potassium [Moles/Vol] 4.4 mmol/L Normal 3.5-5.1 [facility] Comment on above: Performed By: #### L 101.9900, L100.0100, L500.4050, L501.6710 ####[facility] [address] [place], [address] Sodium [Moles/Vol] 140 mmol/L Normal 136-145 [facility] Comment on above: Performed By: #### L 101.9900, L100.0100, L500.4050, L501.6710 ####[facility] [address] [place], [address] T PROT 7.4 g/dL Normal 6.4-8.2 [facility] Comment on above: Performed By: #### L 101.9900, L100.0100, L500.4050, L501.6710 ####[facility] [address] [place], [address] Urea nitrogen [Mass/Vol] 12 mg/dL Normal 7-18 [facility] Comment on above: Performed By: #### L 101.9900, L100.0100, L500.4050, L501.6710 ####[facility] [address] [place], [address] Erythrocyte Sed Rateon 06-15 SED RATE 19 mm/hr Normal 0-20 [facility] Comment on above: Performed By: #### L 101.9900, L100.0100, L500.4050, L501.6710 ####[facility] [address] [place], [address] Internal Medicine Office Vis ito 06-15-2024 Internal Medicine Office Visit [facility] [address] [place] [address] [place] [address] OFFICE VISIT Date of Service: 06/15/24 MR#: [id number] Acct: [id number] Name: CAROLYNN LEE Rep #: [id number] : 1980 Provider: RORY Campo Age/Sex: 44/M Location[place] [facility] Status: Signed Intake Vital Signs 05/02/24 14:01 06/15/24 07:59 Height 5 ft 11 in 5 ft 11 in Weight: 269 lb 284 lb BMI 37.5 39.6 BP 122/62 H 118/72 Blood Pressure Location Lt brachial Lt brachial Position Sitting Sitting Respiration 16 16 Pulse 84 74 Pulse Source Monitor Monitor Temp 97.8 F 97.4 F L Temp Source Temporal Temporal Pulse Oximetry (%) 98 99 Oxygen Delivery Method room air room air Intake Visit Reasons: ACUTE - ABDOMINAL PAIN/'LIVER AREA Chief Complaint: abd pain Fios Line Installer Required: No Accompanied by: Self Is patient in pain?: Yes (lower left ABD pain dependent upon position ) Pain scale (1-10): 1 Allergies No Known Allergies Allergy (Verified 06/15/24 07:55) Medications ???Medication ???Instructions ???Recorded ???Confirmed ???Type ascorbate calcium (vitamin C) 500 500 mg PO DAILY 10/15/22 06/15/24 History mg tablet ferrous sulfate 325 mg (65 mg 325 mg PO Q OTHER DAY 10/15/22 06/15/24 History iron) tablet nicotine (polacrilex) 2 mg buccal 2 mg buccal Q4H PRN nicotine 10/15/22 06/15/24 Rx lozenge (Nicorette) cravings #108 ea nicotine 14 mg/24 hr daily 1 patch transdermal DAILY #28 ea 10/15/22 06/15/24 Rx transdermal patch carvedilol 3.125 mg tablet 3.125 mg PO QHS 04/07/23 06/15/24 History thiamine HCl (vitamin B1) 100 mg See Rx Instructions .Route 06/15/23 06/15/24 Rx tablet .COMPLEX #90 tabs vitamin with calcium 1 tab PO DAILY #90 tabs 09/01/23 06/15/24 Rx no.72-iron 27 mg-folic acid 1 mg tablet (M- Plus) spironolactone 100 mg tablet 150 mg (1.5 x 100 mg) PO DAILY #45 12/30/23 06/15/24 Rx tabs furosemide 40 mg tablet 40 mg PO DAILY #45 tabs 02/01/24 06/15/24 Rx lactulose 20 gram/30 mL oral 30 g (45 mL) PO .4 times daily 02/19/24 06/15/24 Rx solution #1,200 mL [facility] Medical History Gallstones Anxiety and depression Asthma Alcohol abuse Surgical History H/O foot surgery Family History Grandfather Alcoholism Father Alcoholism Anxiety Asthma Depression Diabetes Mental disorder Brother Anxiety Asthma Depression Mental disorder Sister Anxiety Depression Mental disorder Grandmother Diabetes Grandmother Heart disease Hypertension Social History household members: family current occupational status: unemployed 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 He states that the pains are very localized to the side without any radiation of the pains. He does have a history of Cirrhosis of the liver as well as gallstones. He sees a specialist for the Cirrhosis and when he called them he couldn't get in until the end of next month and they told him to see his PCP. Pains are described as intermittent pains (Patient states that he is not having any pains the past 1-2 days). He has noticed that the pains have never been present in the morning and he notices them more towards the end of the day. He states that there can be some sharper pains that last a few seconds and that there can be dull pains towards the end of the day that can feel like they are there for hours. He states that he can feel a little soreness in the area if he pushes on the area at night or if he is on his feet and physically active later in the day. He has not noticed any relationship to food. He states that he has had a small increase in spicy foods that he has been consuming the past week. He denies having any nausea or vomiting and has not had any change in his bowels. He has not noticed any changes in his urinary habits having no symptoms of abnormalities. He does drink water and iced tea during the day. ROS Const Constitutional: No body ache, chills, excessive sweating, fatigue, fever(s), frequent falls, headache(s), snoring, weakness, weight change or change in appetite Eyes Eyes: No blurry vision, change in vision, eye pain or Light sensitivity ENT ENT: No abnorm (more content not included)... Normal [facility] AFP, Tumor Markeron 12-18-20 24 AFP TUMOR HILDA 3.8 ng/mL Normal 0.0-6.9 [facility] Comment on above: Order Comment: N Result Comment: [facility] Electrochemiluminescence Immunoassay (ECLIA) Values obtained with different assay methods or kits cannot be used interchangeably. Results cannot be interpreted as absolute evidence of the presence or absence of malignant disease. This test is not interpretable in females. Performed at: [address] [id number] Casing Splitter: Anup Martin PhD, Phone: [phone] Performed By: #### L 100.0500, L300.4310, L300.3900, L3300.0700, L500.4050 #### [facility] [address] [facility] [place], [address] CBC-Complete Blood Cnt No Di ffon 05-02-2024 Erythrocyte distribution width (RBC) [Ratio] 13.2 % Normal 11.6-14.6 [facility] Comment on above: Performed By: #### L 100.0500, L300.4310, L300.3900, L3300.0700, L500.4050 #### [facility] [address] [facility] [place], [address] Hematocrit (Bld) [Volume fraction] 42.1 % Normal 40-54 [facility] Comment on above: Performed By: #### L 100.0500, L300.4310, L300.3900, L3300.0700, L500.4050 #### [facility] [address] [place], [address] Hemoglobin (Bld) [Mass/Vol] 14.3 g/dL Normal 13.0-16.5 [facility] Comment on above: Performed By: #### L 100.0500, L300.4310, L300.3900, L3300.0700, L500.4050 #### [facility] [address] [place], [address] MCH (RBC) [Entitic mass] 31.2 pg Normal 27.0-32.0 [facility] Comment on above: Performed By: #### L 100.0500, L300.4310, L300.3900, L3300.0700, L500.4050 #### [facility] [address] [place], [address] MCHC (RBC) [Mass/Vol] 34.0 g/dL Normal 32-36 [facility] Comment on above: Performed By: #### L 100.0500, L300.4310, L300.3900, L3300.0700, L500.4050 #### [facility] [address] [place], [address] MCV (RBC) [Entitic vol] 91.7 fL Normal 80-94 [facility] Comment on above: Performed By: #### L 100.0500, L300.4310, L300.3900, L3300.0700, L500.4050 #### [facility] [address] [place], [address] Platelet mean volume (Bld) [Entitic vol] 9.7 fL Normal 6.2-12.0 [facility] Comment on above: Performed By: #### L 100.0500, L300.4310, L300.3900, L3300.0700, L500.4050 #### [facility] [address] [place], [address] Platelets (Bld) [#/Vol] 156 10*3/uL Normal 150-450 [facility] Comment on above: Performed By: #### L 100.0500, L300.4310, L300.3900, L3300.0700, L500.4050 #### [facility] [address] [place], [address] RBC (Bld) [#/Vol] 4.59 10*6/uL Low 4.6-6.2 [facility] Comment on above: Performed By: #### L 100.0500, L300.4310, L300.3900, L3300.0700, L500.4050 #### [facility] [address] [place], [address] RDW SD 44.7 fl High 35.1-43.9 [facility] Comment on above: Performed By: #### L 100.0500, L300.4310, L300.3900, L3300.0700, L500.4050 #### [facility] [address] [place], [address] WBC (Bld) [#/Vol] 7.6 10*3/uL Normal 4.4-11.0 [facility] Comment on above: Performed By: #### L 100.0500, L300.4310, L300.3900, L3300.0700, L500.4050 #### [facility] [address] [place], [address] Comprehensive Metabolic Prof [facility] 05-02-2024 Albumin [Mass/Vol] 3.5 g/dL Normal 3.2-5.0 [facility] Comment on above: Performed By: #### L 100.0500, L300.4310, L300.3900, L3300.0700, L500.4050 #### [facility] [address] [place], [address] Albumin/Globulin [Mass ratio] 0.9 {ratio} Normal 0.9-2.4 [facility] Comment on above: Performed By: #### L 100.0500, L300.4310, L300.3900, L3300.0700, L500.4050 #### [facility] [address] [place], [address] ALK P 162 U/L High 45-117 [facility] Comment on above: Performed By: #### L 100.0500, L300.4310, L300.3900, L3300.0700, L500.4050 #### [facility] [address] [place], [address] ALT [Catalytic activity/Vol] 43 U/L Normal 16-61 [facility] Comment on above: Performed By: #### L 100.0500, L300.4310, L300.3900, L3300.0700, L500.4050 #### [facility] [address] [place], [address] AST [Catalytic activity/Vol] 38 U/L High 15-37 [facility] Comment on above: Performed By: #### L 100.0500, L300.4310, L300.3900, L3300.0700, L500.4050 #### [facility] [address] [place], [address] Bilirubin [Mass/Vol] 2.40 mg/dL High 0.20-1.00 [facility] Comment on above: Result Comment: For patients on eltrombopag therapy, use of Dimension Seibert TBIL is not recommended. Performed By: #### L 100.0500, L300.4310, L300.3900, L3300.0700, L500.4050 #### [facility] [address] [place], [address] BUN/CRE 13.9 RATIO Normal 10-20 [facility] Comment on above: Performed By: #### L 100.0500, L300.4310, L300.3900, L3300.0700, L500.4050 #### [facility] [address] [place], [address] CA,Total 9.5 mg/dL Normal 8.5-10.1 [facility] Comment on above: Performed By: #### L 100.0500, L300.4310, L300.3900, L3300.0700, L500.4050 #### [facility] [address] [place], [address] Chloride [Moles/Vol] 108 mmol/L High 98-107 [facility] Comment on above: Performed By: #### L 100.0500, L300.4310, L300.3900, L3300.0700, L500.4050 #### [facility] [address] [place], [address] CO2 [Moles/Vol] 25.0 mmol/L Normal 21.0-32.0 [facility] Comment on above: Performed By: #### L 100.0500, L300.4310, L300.3900, L3300.0700, L500.4050 #### [facility] [address] [place], [address] Creatinine [Mass/Vol] 0.93 mg/dL Normal 0.70-1.30 [facility] Comment on above: Result Comment: The validity of the calculated GFR GFRAA in patients over 70 years has not been determined. Clinical correlation is essential. Performed By: #### L 100.0500, L300.4310, L300.3900, L3300.0700, L500.4050 #### [facility] [address] [place], [address] EST GFR - AA 113 mL/min Normal >60 [facility] Comment on above: Result Comment: Afri can Cameroonian GFR Calc Performed By: #### L 100.0500, L300.4310, L300.3900, L3300.0700, L500.4050 #### [facility] [address] [place], [address] GAP 4 Low 5-15 [facility] Comment on above: Performed By: #### L 100.0500, L300.4310, L300.3900, L3300.0700, L500.4050 #### [facility] [address] [place], [address] GFR/1.73 sq M.predicted among non-blacks MDRD (S/P/Bld) [Vol rate/Area] 93 mL/min/{1.73_m2} Normal >60 [facility] Comment on above: Result Comment: Non- GFR Calc Performed By: #### L 100.0500, L300.4310, L300.3900, L3300.0700, L500.4050 #### [facility] [address] [place], [address] Globulin (S) [Mass/Vol] 4.1 g/dL Normal 2.2-4.2 [facility] Comment on above: Performed By: #### L 100.0500, L300.4310, L300.3900, L3300.0700, L500.4050 #### [facility] [address] [place], [address] Glucose [Mass/Vol] 102 mg/dL Normal 74-106 [facility] Comment on above: Result Comment: Fast ing Glucose result from 100 to 125 mg/dL suggests IMPAIRED HOMEOSTASIS per A.D.A. criteria. Performed By: #### L 100.0500, L300.4310, L300.3900, L3300.0700, L500.4050 #### [facility] [address] [place], [address] Potassium [Moles/Vol] 3.9 mmol/L Normal 3.5-5.1 [facility] Comment on above: Performed By: #### L 100.0500, L300.4310, L300.3900, L3300.0700, L500.4050 #### [facility] [address] [place], [address] Sodium [Moles/Vol] 137 mmol/L Normal 136-145 [facility] Comment on above: Performed By: #### L 100.0500, L300.4310, L300.3900, L3300.0700, L500.4050 #### [facility] [address] [place], [address] T PROT 7.6 g/dL Normal 6.4-8.2 [facility] Comment on above: Performed By: #### L 100.0500, L300.4310, L300.3900, L3300.0700, L500.4050 #### [facility] [address] [place], [address] Urea nitrogen [Mass/Vol] 13 mg/dL Normal 7-18 [facility] Comment on above: Performed By: #### L 100.0500, L300.4310, L300.3900, L3300.0700, L500.4050 #### [facility] [address] [place], [address] Partial Thromboplast Timeon 05-02-2024 aPTT Coag (Bld) [Time] 33.4 s Normal 24.1-36.2 [facility] Comment on above: Performed By: #### L 100.0500, L300.4310, L300.3900, L3300.0700, L500.4050 #### [facility] [address] [place], [address] Prothrombin Time w/INRon INR Coag (PPP) [Relative time] 1.3 {INR} Normal [facility] Comment on above: Performed By: #### L 100.0500, L300.4310, L300.3900, L3300.0700, L500.4050 #### [facility] [address] [place], [address] PT Coag (PPP) [Time] 15.9 s High 11.7-14.9 [facility] Comment on above: Performed By: #### L 100.0500, L300.4310, L300.3900, L3300.0700, L500.4050 #### [facility] [place], [address] Internal Medicine Office Vis keon 04-28-2024 Internal Medicine Office Visit [facility] [address] [place] [address] OFFICE VISIT Date of Service: 05/02/24 MR#: [id number] Acct: [id number] Name: CAROLYNN LEE Rep #: [id number] : 1980 Provider: Dr. Selene jeffrey MD Age/Sex: 44/M Location[place] [facility] Status: Signed Intake Vital Signs 10/06/23 13:56 05/02/24 14:01 Height 5 ft 11 in 5 ft 11 in Weight: 269 lb BMI 37.5 BP 122/62 H Blood Pressure Location Lt brachial Position Sitting Respiration 16 Pulse 84 Pulse Source Monitor Temp 97.8 F Temp Source Temporal Pulse Oximetry (%) 98 Oxygen Delivery Method room air Intake Visit Reasons: 6 M FU Chief Complaint: 6 M FU Fios Line Installer Required: No Accompanied by: Self Is patient in pain?: No Allergies No Known Allergies Allergy (Verified 05/02/24 13:58) Medications ???Medication ???Instructions ???Recorded ???Confirmed ???Type ascorbate calcium (vitamin C) 500 500 mg PO DAILY 10/15/22 05/02/24 History mg tablet ferrous sulfate 325 mg (65 mg 325 mg PO Q OTHER DAY 10/15/22 05/02/24 History iron) tablet nicotine (polacrilex) 2 mg buccal 2 mg buccal Q4H PRN nicotine 10/15/22 05/02/24 Rx lozenge (Nicorette) cravings #108 ea nicotine 14 mg/24 hr daily 1 patch transdermal DAILY #28 ea 10/15/22 05/02/24 Rx transdermal patch carvedilol 3.125 mg tablet 3.125 mg PO QHS 04/07/23 05/02/24 History thiamine HCl (vitamin B1) 100 mg See Rx Instructions .Route 06/15/23 05/02/24 Rx tablet .COMPLEX #90 tabs vitamin with calcium 1 tab PO DAILY #90 tabs 09/01/23 05/02/24 Rx no.72-iron 27 mg-folic acid 1 mg tablet (M-Emily Plus) spironolactone 100 mg tablet 150 mg (1.5 x 100 mg) PO DAILY #45 12/30/23 05/02/24 Rx tabs furosemide 40 mg tablet 40 mg PO DAILY #45 tabs 02/01/24 05/02/24 Rx lactulose 20 gram/30 mL oral 30 g (45 mL) PO .4 times daily 02/19/24 05/02/24 Rx solution #1,200 mL [facility] Medical History Gallstones Anxiety and depression Asthma Alcohol abuse Surgical History H/O foot surgery Family History Grandfather Alcoholism Father Alcoholism Anxiety Asthma Depression Diabetes Mental disorder Brother Anxiety Asthma Depression Mental disorder Sister Anxiety Depression Mental disorder Grandmother Diabetes Grandmother Heart disease Hypertension Social History (Updated 05/02/24 @ 14:03 by Maritza White MA) household members: family current occupational status: unemployed 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 He is up to date on his routine blood work. He isn't due for any screening and doesn't want a flu shot. He states he is still smoking 5-10 cigarettes per day. He reports the patches were working but he would sometimes still get cravings. He reports overall, he is eating healthy and monitoring his portions. He is active at work, walking more than 10,000 steps per day. The patient continues to do well off the alcohol. He continues to follow with AA routinely, around 4-6 meetings per week. He reports next week will be 20 months sober. He has been doing well without it. He continues to follow with gastroenterology regularly and sees him again later today. He is taking his medications as prescribed without problems, but does feel his legs are swelling up a little more. He hasn't been as vigilant in terms of monitoring his salt intake or his weights. He has not needed any paracenteses since he was last seen. He has no questions or concerns at this time. ROS Const Constitutional: Positive for fatigue (at end of day) and weight change; No body ache, chills, excessive sweating, fever(s), frequent falls, headache(s), snoring, weakness or change in appetite Eyes Eyes: No blurry vision, change in vision, eye pain or Light sensitivity ENT ENT: Positive for nasal congestion (from smoking); No abnormal hearing, ear or mastoid pain, tinnitus, headache(s), neck pain or sore throat Resp Respiratory: Positive for cough (from smoking); No shortness of breath, snoring or wheezing Cardio Cardiology: Positive for other (leg swelling); No chest pain at rest, chest pain with exertion, excessive sweating, dyspnea on exertion, lightheadedness, orthopnea or palpitations Gastro GI: No abdomina (more content not included)... Normal [facility] AFP, Tumor Markeron 11-18-19 24 AFP TUMOR HILDA 6.2 ng/mL Normal 0.0-6.9 [facility] Comment on above: Order Comment: NUNK Result Comment: [facility] Electrochemiluminescence Immunoassay (ECLIA) Values obtained with different assay methods or kits cannot be used interchangeably. Results cannot be interpreted as absolute evidence of the presence or absence of malignant disease. This test is not interpretable in females. Performed at: [facility] [address] [id number] Casing Splitter: Anup Martin PhD, Phone: [phone] Performed By: #### L 300.3900, L3300.0700, L100.0500, L500.4050, L300.4310 ####[facility] [address] [place], [address] CBC-Complete Blood Cnt No Di ffon 11-17-2023 Erythrocyte distribution width (RBC) [Ratio] 13.6 % Normal 11.6-14.6 [facility] Comment on above: Performed By: #### L 300.3900, L3300.0700, L100.0500, L500.4050, L300.4310 ####[facility] [address] [place], [address] Hematocrit (Bld) [Volume fraction] 42.4 % Normal 40-54 [facility] Comment on above: Performed By: #### L 300.3900, L3300.0700, L100.0500, L500.4050, L300.4310 ####[facility] [address] [place], [address] Hemoglobin (Bld) [Mass/Vol] 14.3 g/dL Normal 13.0-16.5 [facility] Comment on above: Performed By: #### L 300.3900, L3300.0700, L100.0500, L500.4050, L300.4310 ####[facility] [address] [place], [address] MCH (RBC) [Entitic mass] 32.2 pg High 27.0-32.0 [facility] Comment on above: Performed By: #### L 300.3900, L3300.0700, L100.0500, L500.4050, L300.4310 ####[facility] [address] [place], [address] MCHC (RBC) [Mass/Vol] 33.7 g/dL Normal 32-36 [facility] Comment on above: Performed By: #### L 300.3900, L3300.0700, L100.0500, L500.4050, L300.4310 ####[facility] [address] [place], [address] MCV (RBC) [Entitic vol] 95.5 fL High 80-94 [facility] Comment on above: Performed By: #### L 300.3900, L3300.0700, L100.0500, L500.4050, L300.4310 ####[facility] [address] [place], [address] Platelet mean volume (Bld) [Entitic vol] 9.8 fL Normal 6.2-12.0 [facility] Comment on above: Performed By: #### L 300.3900, L3300.0700, L100.0500, L500.4050, L300.4310 ####[facility] [address] [place], [address] Platelets (Bld) [#/Vol] 143 10*3/uL Low 150-450 [facility] Comment on above: Performed By: #### L 300.3900, L3300.0700, L100.0500, L500.4050, L300.4310 ####[facility] [address] [place], [address] RBC (Bld) [#/Vol] 4.44 10*6/uL Low 4.6-6.2 [facility] Comment on above: Performed By: #### L 300.3900, L3300.0700, L100.0500, L500.4050, L300.4310 ####[facility] [address] [place], [address] RDW SD 47.6 fl High 35.1-43.9 [facility] Comment on above: Performed By: #### L 300.3900, L3300.0700, L100.0500, L500.4050, L300.4310 ####[facility] [address] [place], [address] WBC (Bld) [#/Vol] 5.8 10*3/uL Normal 4.4-11.0 [facility] Comment on above: Performed By: #### L 300.3900, L3300.0700, L100.0500, L500.4050, L300.4310 ####[facility] [address] [place], [address] Comprehensive Metabolic Prof ilon 11-17-2023 Albumin [Mass/Vol] 3.2 g/dL Normal 3.2-5.0 [facility] Comment on above: Order Comment: UNK Performed By: #### L 300.3900, L3300.0700, L100.0500, L500.4050, L300.4310 ####[facility] [address] [place], [address] Albumin/Globulin [Mass ratio] 0.8 {ratio} Low 0.9-2.4 [facility] Comment on above: Order Comment: UNK Performed By: #### L 300.3900, L3300.0700, L100.0500, L500.4050, L300.4310 ####[facility] [address] [place], [address] ALK P 181 U/L High 45-117 [facility] Comment on above: Order Comment: UNK Performed By: #### L 300.3900, L3300.0700, L100.0500, L500.4050, L300.4310 ####[facility] [address] [place], [address] ALT [Catalytic activity/Vol] 42 U/L Normal 16-61 [facility] Comment on above: Order Comment: UNK Performed By: #### L 300.3900, L3300.0700, L100.0500, L500.4050, L300.4310 ####[facility] [address] [place], [address] AST [Catalytic activity/Vol] 38 U/L High 15-37 [facility] Comment on above: Order Comment: UNK Performed By: #### L 300.3900, L3300.0700, L100.0500, L500.4050, L300.4310 ####[facility] [address] [place], [address] Bilirubin [Mass/Vol] 2.50 mg/dL High 0.20-1.00 [facility] Comment on above: Order Comment: UNK Result Comment: For patients on eltrombopag therapy, use of Dimension Seibert TBIL is not recommended. Performed By: #### L 300.3900, L3300.0700, L100.0500, L500.4050, L300.4310 ####[facility] [address] [place], [address] BUN/CRE 14.3 RATIO Normal 10-20 [facility] Comment on above: Order Comment: UNK Performed By: #### L 300.3900, L3300.0700, L100.0500, L500.4050, L300.4310 ####[facility] [address] [place], [address] CA,Total 9.2 mg/dL Normal 8.5-10.1 [facility] Comment on above: Order Comment: UNK Performed By: #### L 300.3900, L3300.0700, L100.0500, L500.4050, L300.4310 ####[facility] [address] [place], [address] Chloride [Moles/Vol] 111 mmol/L High 98-107 [facility] Comment on above: Order Comment: UNK Performed By: #### L 300.3900, L3300.0700, L100.0500, L500.4050, L300.4310 ####[facility] [address] [place], [address] CO2 [Moles/Vol] 24.0 mmol/L Normal 21.0-32.0 [facility] Comment on above: Order Comment: UNK Performed By: #### L 300.3900, L3300.0700, L100.0500, L500.4050, L300.4310 ####[facility] [address] [place], [address] Creatinine [Mass/Vol] 1.05 mg/dL Normal 0.70-1.30 [facility] Comment on above: Order Comment: UNK Result Comment: The validity of the calculated GFR GFRAA in patients over 70 years has not been determined. Clinical correlation is essential. Performed By: #### L 300.3900, L3300.0700, L100.0500, L500.4050, L300.4310 ####[facility] [address] [place], [address] EST GFR - AA 98 mL/min Normal >60 [facility] Comment on above: Order Comment: UNK Result Comment: Afri can Cameroonian GFR Calc Performed By: #### L 300.3900, L3300.0700, L100.0500, L500.4050, L300.4310 ####[facility] [address] [place], [address] GAP 6 Normal 5-15 [facility] Comment on above: Order Comment: UNK Performed By: #### L 300.3900, L3300.0700, L100.0500, L500.4050, L300.4310 ####[facility] [address] [place], [address] GFR/1.73 sq M.predicted among non-blacks MDRD (S/P/Bld) [Vol rate/Area] 81 mL/min/{1.73_m2} Normal >60 [facility] Comment on above: Order Comment: UNK Result Comment: Non- GFR Calc Performed By: #### L 300.3900, L3300.0700, L100.0500, L500.4050, L300.4310 ####[facility] [address] [place], [address] Globulin (S) [Mass/Vol] 4.1 g/dL Normal 2.2-4.2 [facility] Comment on above: Order Comment: UNK Performed By: #### L 300.3900, L3300.0700, L100.0500, L500.4050, L300.4310 ####[facility] [address] [place], [address] Glucose [Mass/Vol] 94 mg/dL Normal 74-106 [facility] Comment on above: Order Comment: UNK Performed By: #### L 300.3900, L3300.0700, L100.0500, L500.4050, L300.4310 ####[facility] [address] [place], [address] Potassium [Moles/Vol] 4.3 mmol/L Normal 3.5-5.1 [facility] Comment on above: Order Comment: UNK Performed By: #### L 300.3900, L3300.0700, L100.0500, L500.4050, L300.4310 ####[facility] [address] [place], [address] Sodium [Moles/Vol] 141 mmol/L Normal 136-145 [facility] Comment on above: Order Comment: UNK Performed By: #### L 300.3900, L3300.0700, L100.0500, L500.4050, L300.4310 ####[facility] [address] [place], [address] T PROT 7.3 g/dL Normal 6.4-8.2 [facility] Comment on above: Order Comment: UNK Performed By: #### L 300.3900, L3300.0700, L100.0500, L500.4050, L300.4310 ####[facility] [address] [place], [address] Urea nitrogen [Mass/Vol] 15 mg/dL Normal 7-18 [facility] Comment on above: Order Comment: UNK Performed By: #### L 300.3900, L3300.0700, L100.0500, L500.4050, L300.4310 ####[facility] [address] [place], [address] Partial Thromboplast Timeon 11-17-2023 aPTT Coag (Bld) [Time] 34.2 s Normal 24.1-36.2 [facility] Comment on above: Performed By: #### L 300.3900, L3300.0700, L100.0500, L500.4050, L300.4310 ####[facility] [address] [place], [address] Prothrombin Time w/INRon INR Coag (PPP) [Relative time] 1.3 {INR} Normal [facility] Comment on above: Performed By: #### L 300.3900, L3300.0700, L100.0500, L500.4050, L300.4310 ####[facility] [address] [place], [address] PT Coag (PPP) [Time] 16.1 s High 11.7-14.9 [facility] Comment on above: Performed By: #### L 300.3900, L3300.0700, L100.0500, L500.4050, L300.4310 ####[facility] [address] [place], [place], [phone] Basophil percentageOrdered B y: Anup Nicholson on 04-20-2023 Bilirubin [Mass/Vol] 4.00 mg/dL 0.20-1.00 [facility] Comment on above: For patients on eltr ombopag therapy, use of Dimension Seibert TBIL is not recommended. Protein [Mass/Vol] 7.7 g/dL 6.4-8.2 [facility] WBC (Bld) [#/Vol] 6.3 10*3/uL 4.4-11.0 [facility] Blood erythrocytes count (nu mber/volume)Ordered By: Anup Nicholson on 04-20-2023 RBC (Bld) [#/Vol] 4.26 10*6/uL 4.6-6.2 [facility] Blood hemoglobin measurement (mass/volume)Ordered By: Anup Nicholson on 04-20-2023 Hemoglobin (Bld) [Mass/Vol] 13.8 g/dL 13.0-16.5 [facility] Blood platelet mean volumeOr dered By: Anup Nicholson on 04-20-2023 Platelet mean volume (Bld) [Entitic vol] 9.5 fL 6.2-12.0 [facility] Determination of erythrocyte mean corpuscular volume (MCV)Ordered By: Anup Nicholson on 04-20-2023 MCV (RBC) [Entitic vol] 94.6 fL 80-94 [facility] Direct bilirubinOrdered By: Anup Nicholson on 04-20-2023 Bilirubin.direct [Mass/Vol] 1.01 mg/dL 0.00-0.30 [facility] Hematocrit Auto (Bld) [Volum e fraction]Ordered By: Anup Nicholson on 04-20-2023 Hematocrit (Bld) [Volume fraction] 40.3 % 40-54 [facility] INR in Blood by Coagulation assayOrdered By: Anup Nicholson on 04-20-2023 INR Coag (Bld) [Relative time] 1.3 {INR} [facility] Laboratory - Chemistry and C hemistry - challengeOrdered By: Anup Nicholson on 04-20-2023 ALP [Catalytic activity/Vol] 190 U/L 45-117 [facility] ALT [Catalytic activity/Vol] 44 U/L 16-61 [facility] Globulin (S) [Mass/Vol] 4.3 g/dL 2.2-4.2 [facility] Laboratory - CoagulationOrde red By: Anup Nicholson on 04-20-2023 aPTT Coag (Bld) [Time] 42.8 s 24.1-36.2 [facility] PT Coag (PPP) [Time] 15.9 s 11.7-14.9 [facility] Laboratory - Hematology and Cell countsOrdered By: Anup Nicholson on 04-20-2023 Erythrocyte distribution width (RBC) [Entitic vol] 47.4 fL 35.1-43.9 [facility] Erythrocyte distribution width (RBC) [Ratio] 13.7 % 11.6-14.6 [facility] MCH (RBC) [Entitic mass] 32.4 pg 27.0-32.0 [facility] MCHC Auto (RBC) [Mass/Vol]Or dered By: Anup Nicholson on 04-20-2023 MCHC (RBC) [Mass/Vol] 34.2 g/dL 32-36 [facility] Platelets bldOrdered By: Rodolfo Nicholson on 04-20-2023 Platelets (Bld) [#/Vol] 126 10*3/uL 150-450 [facility] Serum or plasma albumin janine urement (mass/volume)Ordered By: Anup Nicholson on 04-20-2023 Albumin [Mass/Vol] 3.4 g/dL 3.2-5.0 [facility] Serum or plasma avhtx-4-vuly protein tumor marker measurement (units/volume)Ordered By: Anup Nicholson on 04-20-2023 AFP.tumor marker Qn 11.6 ng/mL 0.0-6.9 [facility] Comment on above: [facility] El ectrochemiluminescence Immunoassay(ECLIA)Values obtained with different assay methods or kits cannotbe used interchangeably. Results cannot be interpreted asabsolute evidence of the presence or absence of malignantdisease.This test is not interpretable in females.Performed at: [address] [id number] Director: Anup Martin PhD, Phone: [phone] Thin prep Papanicolaou smear with manual screeningOrdered By: Anup Nicholson on 04-20-2023 Thin prep Papanicolaou smear with manual screening 41 U/L 15-37 [facility] Basophil percentageOrdered B y: Anup Nicholson on 02-19-2023 Chloride [Moles/Vol] 108 mmol/L 98-107 [facility] Glucose [Mass/Vol] 92 mg/dL 74-106 [facility] Potassium [Moles/Vol] 4.0 mmol/L 3.5-5.1 [facility] Sodium [Moles/Vol] 137 mmol/L 136-145 [facility] Laboratory - Chemistry and C hemistry - challengeOrdered By: Anup Nicholson on 02-19-2023 CO2 [Moles/Vol] 26.0 mmol/L 21.0-32.0 [facility] Urea nitrogen/Creatinine [Mass ratio] 17.3 mg/mg 10-20 [facility] No Panel InformationOrdered By: Anup Nicholson on 02-19-2023 Estimated GFR (MDRD) Amer 123 mL/min >60 [facility] Comment on above: GFR Calc Estimated GFR (MDRD) Non-Af Amer 102 mL/min >60 [facility] Comment on above: Non- GFR Calc Serum or plasma calcium janine urement (mass/volume)Ordered By: Anup Nicholson on 02-19-2023 Calcium [Mass/Vol] 8.8 mg/dL 8.5-10.1 [facility] Serum or plasma creatinine m easurement (mass/volume)Ordered By: Anup Nicholson on 02-19-2023 Creatinine [Mass/Vol] 0.87 mg/dL 0.70-1.30 [facility] Comment on above: The validity of the calculated GFR & GFRAA in patients over 70 years has not been determined. Clinical correlation is essential. Serum or plasma urea nitroge n measurement (mass/volume)Ordered By: Anup Nicholson on 02-19-2023 Urea nitrogen [Mass/Vol] 15 mg/dL 7-18 [facility] Thin prep Papanicolaou smear with manual screeningOrdered By: Anup Nicholson on 02-19-2023 Thin prep Papanicolaou smear with manual screening 3 5-15 [facility] Basophil percentageOrdered B y: Anup Nicholson on 01-05-2023 Bilirubin [Mass/Vol] 4.20 mg/dL 0.20-1.00 [facility] Comment on above: For patients on eltr ombopag therapy, use of Dimension Seibert TBIL is not recommended. Chloride [Moles/Vol] 107 mmol/L 98-107 [facility] Glucose [Mass/Vol] 86 mg/dL 74-106 [facility] Potassium [Moles/Vol] 3.8 mmol/L 3.5-5.1 [facility] Protein [Mass/Vol] 7.6 g/dL 6.4-8.2 [facility] Sodium [Moles/Vol] 137 mmol/L 136-145 [facility] WBC (Bld) [#/Vol] 5.4 10*3/uL 4.4-11.0 [facility] Blood erythrocytes count (nu mber/volume)Ordered By: Anup Nicholson on 01-05-2023 RBC (Bld) [#/Vol] 3.59 10*6/uL 4.6-6.2 [facility] Blood hemoglobin measurement (mass/volume)Ordered By: Anup Nicholson on 01-05-2023 Hemoglobin (Bld) [Mass/Vol] 11.9 g/dL 13.0-16.5 [facility] Blood platelet mean volumeOr dered By: Anup Nicholson on 01-05-2023 Platelet mean volume (Bld) [Entitic vol] 9.4 fL 6.2-12.0 [facility] Determination of erythrocyte mean corpuscular volume (MCV)Ordered By: Anup Nicholson on 01-05-2023 MCV (RBC) [Entitic vol] 96.9 fL 80-94 [facility] Hematocrit Auto (Bld) [Volum e fraction]Ordered By: Anup Nicholson on 01-05-2023 Hematocrit (Bld) [Volume fraction] 34.8 % 40-54 [facility] INR in Blood by Coagulation assayOrdered By: Anup Nicholson on 01-05-2023 INR Coag (Bld) [Relative time] 1.3 {INR} [facility] - Chemistry and C hemistry - challengeOrdered By: Anup Nicholson on 01-05-2023 ALP [Catalytic activity/Vol] 204 U/L 45-117 [facility] ALT [Catalytic activity/Vol] 45 U/L 16-61 [facility] CO2 [Moles/Vol] 24.0 mmol/L 21.0-32.0 [facility] Globulin (S) [Mass/Vol] 4.4 g/dL 2.2-4.2 [facility] Urea nitrogen/Creatinine [Mass ratio] 16.8 mg/mg 10-20 [facility] - CoagulationOrde red By: Anup Nicholson on 01-05-2023 aPTT Coag (Bld) [Time] 40.4 s 24.1-36.2 [facility] PT Coag (PPP) [Time] 16.6 s 11.7-14.9 [facility] Laboratory - Hematology and Cell countsOrdered By: Anup Nicholson on 01-05-2023 Erythrocyte distribution width (RBC) [Entitic vol] 51.6 fL 35.1-43.9 [facility] Erythrocyte distribution width (RBC) [Ratio] 14.4 % 11.6-14.6 [facility] MCH (RBC) [Entitic mass] 33.1 pg 27.0-32.0 [facility] MCHC Auto (RBC) [Mass/Vol]Or dered By: Anup Nicholson on 01-05-2023 MCHC (RBC) [Mass/Vol] 34.2 g/dL 32-36 [facility] No Panel InformationOrdered By: Anup Nicholson on 01-05-2023 Estimated GFR (MDRD) Amer 97 mL/min >60 [facility] Comment on above: GFR Calc Estimated GFR (MDRD) Non-Af Amer 80 mL/min >60 [facility] Comment on above: Non- GFR Calc Platelets bldOrdered By: Rodolfo Nicholson on 01-05-2023 Platelets (Bld) [#/Vol] 124 10*3/uL 150-450 [facility] Serum or plasma albumin janine urement (mass/volume)Ordered By: Anup Nicholson on 01-05-2023 Albumin [Mass/Vol] 3.2 g/dL 3.2-5.0 [facility] Serum or plasma albumin/glob ulin mass ratioOrdered By: Anup Nicholson on 01-05-2023 Albumin/Globulin [Mass ratio] 0.7 {ratio} 0.9-2.4 [facility] Serum or plasma amdbl-8-dzvp protein tumor marker measurement (units/volume)Ordered By: Anup Nicholson on 01-05-2023 AFP.tumor marker Qn 17.8 ng/mL 0.0-6.9 [facility] Comment on above: [email or web address] El ectrochemiluminescence Immunoassay(ECLIA)Values obtained with different assay methods or kits cannotbe used interchangeably. Results cannot be interpreted asabsolute evidence of the presence or absence of malignantdisease.This test is not interpretable in females.Performed at: [facility] [id number] Director: Anup Martin PhD, Phone: [phone] Serum or plasma calcium janine urement (mass/volume)Ordered By: Anup Nicholson on 01-05-2023 Calcium [Mass/Vol] 8.9 mg/dL 8.5-10.1 [facility] Serum or plasma creatinine m easurement (mass/volume)Ordered By: Anup Nicholson on 01-05-2023 Creatinine [Mass/Vol] 1.07 mg/dL 0.70-1.30 [facility] Comment on above: The validity of the calculated GFR & GFRAA in patients over 70 years has not been determined. Clinical correlation is essential. Serum or plasma urea nitroge n measurement (mass/volume)Ordered By: Anup Nicholson on 01-05-2023 Urea nitrogen [Mass/Vol] 18 mg/dL 7-18 [facility] Thin prep Papanicolaou smear with manual screeningOrdered By: Anup Nicholson on 01-05-2023 Thin prep Papanicolaou smear with manual screening 52 U/L 15-37 [facility] Thin prep Papanicolaou smear with manual screening 6 5-15 [facility] Final Surgical Pathology Rep [facility] 11-05-2022 Final Surgical Pathology Report . Pathology Reports Accession: Collected Date/Time: Received Date/Time: Pathologist: [id number] 11/03/2022 10:29 EDT 11/04/2022 07:41 EDT JOHN MA MD Final Surgical Pathology Report DIAGNOSIS: ESOPHAGUS, BIOPSY: - GASTRIC FUNDIC AND CARDIAC TYPE MUCOSA WITH MILD CHRONIC INFLAMMATION. NO INTESTINAL METAPLASIA. SQUAMOUS MUCOSA IS NOT PRESENT. 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 TS-1 Lindy Kc, Grossing Evaporator Operator/ Dr. John Ma, Pathologist Dictated by Lindy Kc MICROSCOPIC DESCRIPTION: The microscopic examination is performed, except in the case of Gross Only. Electronically Signed by Pathology Report verified by [facility] JOHN MA Sign out Date: 11/05/2022 14:51 Performing Lab: [facility], [address] [place] [address] Pathology Dept Disclaimer If ancillary studies were utilized, the following Laboratory Developed Test (LDT) disclaimer will apply: Under CLIA requirements, [facility] is qualified to perform high complexity testing. For all ancillary stains, positive and negative controls stain appropriately. Performance characteristics of immunohistochemical and chromogenic in-situ hybridization tests have been determined by [facility]. These tests are used for clinical purposes, They should not be regarded as investigational or for research. Normal [facility] ([place]) Basophil percentageOrdered B y: Anup Nicholson on 10-24-2022 WBC (Bld) [#/Vol] 7.6 10*3/uL 4.4-11.0 [facility] Blood erythrocytes count (nu mber/volume)Ordered By: Anup Nicholson on 10-24-2022 RBC (Bld) [#/Vol] 4.19 10*6/uL 4.6-6.2 [facility] Blood hemoglobin measurement (mass/volume)Ordered By: Anup Nicholson on 10-24-2022 Hemoglobin (Bld) [Mass/Vol] 11.6 g/dL 13.0-16.5 [facility] Blood manual differential co mment interpretation (narrative result)Ordered By: Anup Nicholson on 10-24-2022 Manual differential comment Hever (Bld) [Interp] COMMENT [facility] Comment on above: SLIDE SCANNED - DIMO RPHIC RBC POPULATION NOTED UPON SLIDE REVIEW Blood platelet mean volumeOr dered By: Anup Nicholson on 10-24-2022 Platelet mean volume (Bld) [Entitic vol] 8.9 fL 6.2-12.0 [facility] Determination of erythrocyte mean corpuscular volume (MCV)Ordered By: Anup Nicholson on 10-24-2022 MCV (RBC) [Entitic vol] 85.4 fL 80-94 [facility] Hematocrit Auto (Bld) [Volum e fraction]Ordered By: Anup Nicholson on 10-24-2022 Hematocrit (Bld) [Volume fraction] 35.8 % 40-54 [facility] INR in Blood by Coagulation assayOrdered By: Anup Nicholson on 10-24-2022 INR Coag (Bld) [Relative time] 1.5 {INR} [facility] Iron measurement (mass/mass) Ordered By: Anup Nicholson on 10-24-2022 Iron (Unsp spec) [Mass/Mass] 69 ug/dL 65-175 [facility] Laboratory - CoagulationOrde red By: Anup Nicholson on 10-24-2022 aPTT Coag (Bld) [Time] 40.0 s 24.1-36.2 [facility] PT Coag (PPP) [Time] 17.7 s 11.7-14.9 [facility] Laboratory - Hematology and Cell countsOrdered By: Anup Nicholson on 10-24-2022 MCH (RBC) [Entitic mass] 27.7 pg 27.0-32.0 [facility] MCHC Auto (RBC) [Mass/Vol]Or dered By: Anup Nicholson on 10-24-2022 MCHC (RBC) [Mass/Vol] 32.4 g/dL 32-36 [facility] No Panel InformationOrdered By: Anup Nicholson on 10-24-2022 RDW Coefficient of Variation Not Reportable [facility] RDW Standard Deviation Not Reportable [facility] Platelets bldOrdered By: Rodolfo Nicholson on 10-24-2022 Platelets (Bld) [#/Vol] 130 10*3/uL 150-450 [facility] Serum or plasma [id number] protein tumor marker measurement (units/volume)Ordered By: Anup Nicholson on 10-24-2022 AFP.tumor marker Qn 9.5 ng/mL 0.0-6.9 [facility] Comment on above: [facility] [employer] El ectrochemiluminescence Immunoassay(ECLIA)Values obtained with different assay methods or kits cannotbe used interchangeably. Results cannot be interpreted asabsolute evidence of the presence or absence of malignantdisease.This test is not interpretable in females.Performed at: - [facility] [id number] Director: Anup Martin PhD, Phone: [phone] Absolute lymphocyte countOrd ered By: Selene Fleming on 10-15-2022 Lymphocytes Auto (Unsp spec) [#/Vol] 0.85 10*3/uL 0.83-4.51 [facility] Basophil percentageOrdered B y: Selene Fleming on 10-15-2022 Basophils/100 WBC (Bld) 1.6 % 0-1 [facility] Bilirubin [Mass/Vol] 3.00 mg/dL 0.20-1.00 [facility] Comment on above: For patients on eltr ombopag therapy, use of Dimension Seibert TBIL is not recommended. Chloride [Moles/Vol] 103 mmol/L 98-107 [facility] Cholesterol [Mass/Vol] 199 mg/dL <200 [facility] Comment on above: <200 mg/dL Desirable 200-240 mg/dL Borderline >240 mg/dL High Risk Eosinophils/100 WBC (Bld) 4.0 % 0-5 [facility] Glucose [Mass/Vol] 154 mg/dL 74-106 [facility] Comment on above: Fasting Glucose resu lt greater than or equal to 126 mg/dL suggests DIABETES MELLITUS per A.D.A. criteria. Neutrophils (Bld) [#/Vol] 3.8 10*3/uL 2.0-7.7 [facility] Neutrophils/100 WBC (Bld) 68.5 % 47-70 [facility] Potassium [Moles/Vol] 4.4 mmol/L 3.5-5.1 [facility] Protein [Mass/Vol] 8.6 g/dL 6.4-8.2 [facility] Sodium [Moles/Vol] 135 mmol/L 136-145 [facility] Triglyceride [Mass/Vol] 73 mg/dL <199 [facility] Comment on above: The drugs N-Acetylcy steine and Metamizole may falsely depress this assay.Serum Triglycerides Reference Interval Normal <150 mg/dL Borderline high 150 - 199 mg/dL High 200 - 499 mg/dL Very High > or = 500 mg/dL WBC (Bld) [#/Vol] 5.5 10*3/uL 4.4-11.0 [facility] Blood erythrocytes count (nu mber/volume)Ordered By: Selene Fleming on 10-15-2022 RBC (Bld) [#/Vol] 4.22 10*6/uL 4.6-6.2 [facility] Blood hemoglobin measurement (mass/volume)Ordered By: Selene Fleming on 10-15-2022 Hemoglobin (Bld) [Mass/Vol] 11.5 g/dL 13.0-16.5 [facility] Blood lymphocytes/100 leukoc ytesOrdered By: Selene Fleming on 10-15-2022 Lymphocytes/100 WBC (Bld) 15.5 % 19-41 [facility] Blood monocytes/100 leukocyt esOrdered By: Selene Fleming on 10-15-2022 Monocytes/100 WBC (Bld) 10.0 % 0-10 [facility] Blood platelet mean volumeOr dered By: Selene Fleming on 10-15-2022 Platelet mean volume (Bld) [Entitic vol] 8.3 fL 6.2-12.0 [facility] Determination of erythrocyte mean corpuscular volume (MCV)Ordered By: Selene Fleming on 10-15-2022 MCV (RBC) [Entitic vol] 85.1 fL 80-94 [facility] Hematocrit Auto (Bld) [Volum e fraction]Ordered By: Selene Fleming on 10-15-2022 Hematocrit (Bld) [Volume fraction] 35.9 % 40-54 [facility] Iron measurement (mass/mass) Ordered By: Selene Fleming on 10-15-2022 Iron (Unsp spec) [Mass/Mass] 87 ug/dL 65-175 [facility] Laboratory - Chemistry and C hemistry - challengeOrdered By: Selene Fleming on 10-15-2022 ALP [Catalytic activity/Vol] 255 U/L 45-117 [facility] ALT [Catalytic activity/Vol] 49 U/L 16-61 [facility] CO2 [Moles/Vol] 23.0 mmol/L 21.0-32.0 [facility] Globulin (S) [Mass/Vol] 5.6 g/dL 2.2-4.2 [facility] Urea nitrogen/Creatinine [Mass ratio] 17.2 mg/mg 10-20 [facility] Laboratory - Hematology and Cell countsOrdered By: Selene Fleming on 10-15-2022 Anisocytosis Ql (Bld) 1+ [facility] Erythrocyte distribution width (RBC) [Entitic vol] 80.7 fL 35.1-43.9 [facility] Erythrocyte distribution width (RBC) [Ratio] 27.9 % 11.6-14.6 [facility] Immature granulocytes/100 WBC (Bld) 0.400 % 0.0-0.9 [facility] Comment on above: IG% - Immature Granu locytes (promyelocytes, myelocytes and metamyelocytes) > 1% indicates that a LEFT SHIFT is Present. MCH (RBC) [Entitic mass] 27.3 pg 27.0-32.0 [facility] Nucleated RBC/100 WBC (Bld) [Ratio] 0 % 0-5 [facility] MCHC Auto (RBC) [Mass/Vol]Or dered By: Selene Fleming on 10-15-2022 MCHC (RBC) [Mass/Vol] 32.0 g/dL 32-36 [facility] No Panel InformationOrdered By: Selene Fleming on 10-15-2022 Ceruloplasmin 17.1 mg/dL 16.0-31.0 [facility] Estimated GFR (MDRD) Amer 106 mL/min >60 [facility] Comment on above: GFR Calc Estimated GFR (MDRD) Non-Af Amer 88 mL/min >60 [facility] Comment on above: Non- GFR Calc Total Iron Binding Capacity 350 ug/dL 250-450 [facility] Platelets bldOrdered By: Félix Fleming on 10-15-2022 Platelets (Bld) [#/Vol] 146 10*3/uL 150-450 [facility] Serum or plasma albumin janine urement (mass/volume)Ordered By: Selene Fleming on 10-15-2022 Albumin [Mass/Vol] 3.0 g/dL 3.2-5.0 [facility] Serum or plasma albumin/glob ulin mass ratioOrdered By: Selene Fleming on 10-15-2022 Albumin/Globulin [Mass ratio] 0.5 {ratio} 0.9-2.4 [facility] Serum or plasma calcium janine urement (mass/volume)Ordered By: Selene Fleming on 10-15-2022 Calcium [Mass/Vol] 8.9 mg/dL 8.5-10.1 [facility] Serum or plasma cholesterol in HDL measurement (mass/volume)Ordered By: Selene Fleming on 10-15-2022 Cholesterol in HDL [Mass/Vol] 76 mg/dL >40 [facility] Comment on above: The drugs N-Acetylcy steine and Metamizole may falsely depress this assay. Reference Range HDL <40 mg/dL Low HDL Cholesterol HDL >or= 60 mg/dL High HDL Cholesterol Serum or plasma cholesterol in VLDL measurement (mass/volume)Ordered By: Selene Fleming on 10-15-2022 Cholesterol in VLDL [Mass/Vol] 15 mg/dL 5-40 [facility] Serum or plasma creatinine m easurement (mass/volume)Ordered By: Selene Fleming on 10-15-2022 Creatinine [Mass/Vol] 0.99 mg/dL 0.70-1.30 [facility] Comment on above: The validity of the calculated GFR & GFRAA in patients over 70 years has not been determined. Clinical correlation is essential. Serum or plasma ferritin jesse surement (mass/volume)Ordered By: Selene Fleming on 10-15-2022 Ferritin [Mass/Vol] 131 ng/mL 26-388 [facility] Serum or plasma iron saturat ion measurement (mass fraction)Ordered By: Selene Fleming on 10-15-2022 Iron saturation [Mass fraction] 24.9 % 15.0-55.0 [facility] Serum or plasma low density lipoprotein (LDL) cholesterol measurement (mass/volume)Ordered By: Selene Fleming on 10-15-2022 Cholesterol in LDL [Mass/Vol] 108 mg/dL 0-130 [facility] Serum or plasma urea nitroge n measurement (mass/volume)Ordered By: Selene Fleming on 10-15-2022 Urea nitrogen [Mass/Vol] 17 mg/dL 7-18 [facility] Thin prep Papanicolaou smear with manual screeningOrdered By: Selene Fleming on 10-15-2022 Thin prep Papanicolaou smear with manual screening 62 U/L 15-37 [facility] Thin prep Papanicolaou smear with manual screening 9 5-15 [facility] Thin prep Papanicolaou smear with manual screening 87 ug/dL 69-132 [facility] Comment on above: Detection Limit = 5P erformed at: [facility] [address] [id number] Director: Anup Martin PhD, Phone: [phone] at: [facility] [address] [id number] Director: Av Horn MD, Phone: [phone] [facility] Telephone (AGGASTW) CAROLYNN LEE ([id number]) 1980 M Date Time Provider Department 10/02/22 VIOLET CURRAN AGGASTW During your visit today, we recorded the following information about you: Rasta Gonsalves 10/02/2022 11:45 AM Signed OFFICE SPOKE WITH THE PATIENT AND THE PATIENT STATED THAT OUR OFFICE IS OUT OF NETWORK. PT DECLINED APPT Rasta Gonsalves October 02, 2022 11:44 AM Allergies As of Date: 10/02/2022 (No Known Allergies) Date Reviewed: 09/24/2022 Reviewed by: Carmelo Buenrostro LPN - Fully Assessed Reason for Visit: Appointment [186] Prescriptions as of 10/02/2022 - M-EMILY PLUS 27 mg iron- 1 mg Take 1 tablet by mouth once daily. - spironolactone (ALDACTONE) 50 mg tablet Take 1 tablet by mouth once daily. - furosemide (LASIX) 20 mg tablet Take 1 tablet by mouth once daily. - acamprosate DR (CAMPRAL) 333 mg tablet Take 2 tablets by mouth three times daily. - lactulose 20 gram/30 mL solution Take 30 mL by mouth three times daily. - ferrous sulfate 325 mg (65 mg iron) tablet Take 1 tablet by mouth every Thursday,Thursday,Thursday. - furosemide (LASIX) 40 mg tablet Take 1 tablet by mouth once daily. - melatonin 3 mg tablet Take 1 tablet by mouth at bedtime as needed for for insomnia. - nicotine (NICODERM) 14 mg/24 hr Apply 1 Patch as directed once daily. - spironolactone (ALDACTONE) 100 mg tablet Take 1 tablet by mouth once daily. - thiamine (VITAMIN B1) 100 mg tablet 1 tablet by ORAL/FEEDING TUBE route three times daily for 248 doses. - simethicone, chewable (MYLICON) 80 mg chewable tablet Take 1 tablet by mouth four times daily as needed. - vitamin with folic acid 1 mg 60 mg iron-1 mg tab Take 1 tablet by mouth once daily. Problem List As Of Date 10/02/2022 Noted Resolved Cirrhosis (HCC) [K74.60] 09/10/2022 Nicotine use disorder, F17.2 [F17.200] 09/11/2022 Malnutrition of moderate degree (HCC) [E44.0] 09/12/2022 Decompensated liver disease (HCC) [K74.69] 09/16/2022 Closed displaced segmental fracture of shaft of*09/17/2022 Encounter Status:Closed by RASTA GONSALVES on 10/02/22 Normal [facility] CBC W Auto Differential pane l (Bld)on 09-24-2022 Basophils (Bld) [#/Vol] 0.13 10*3/uL High <0.11 [facility] Comment on above: Order Comment: Speci men Type: BLOOD SPECIMENOrdering Facility: [facility] Address: [address] [place] [id number] Performed By: #### 5 7021-8 ####[facility] LABORATORYCLIA [id number] [place] [address] [place] Basophils/100 WBC (Bld) 1.6 % Normal [facility] Comment on above: Order Comment: Speci men Type: BLOOD SPECIMENOrdering Facility: [facility] Address: [address] [place] [address] Performed By: #### 5 7021-8 ####[facility] LABORATORYCLIA [id number] [address] Differential cell count method Nom (Bld) Auto Normal [facility] Comment on above: Order Comment: Speci men Type: BLOOD SPECIMENOrdering Facility: [facility] Address: [address] [place] [address] Performed By: #### 5 7021-8 ####[facility] LABORATORYCLIA [id number] [address] Eosinophils (Bld) [#/Vol] 0.41 10*3/uL Normal <0.46 [facility] Comment on above: Order Comment: Speci men Type: BLOOD SPECIMENOrdering Facility: [facility] Address: [address] [place] [address] Performed By: #### 5 7021-8 ####[facility] LABORATORYCLIA [id number] [address] Eosinophils/100 WBC (Bld) 5.0 % Normal [facility] Comment on above: Order Comment: Speci men Type: BLOOD SPECIMENOrdering Facility: [facility] Address: [address] [place] [address] Performed By: #### 5 7021-8 ####[facility] LABORATORYCLIA [id number] [address] Erythrocyte distribution width (RBC) [Ratio] 26.5 % High 11.5-15.0 [facility] Comment on above: Order Comment: Speci men Type: BLOOD SPECIMENOrdering Facility: [facility] Address: [address] [place] [address] Performed By: #### 5 7021-8 ####[facility] LABORATORYCLIA [id number] [address] Hematocrit (Bld) [Volume fraction] 28.2 % Low 39.0-51.0 [facility] Comment on above: Order Comment: Speci men Type: BLOOD SPECIMENOrdering Facility: [facility] Address: [address] [place] [address] Performed By: #### 5 7021-8 ####[facility] LABORATORYCLIA [id number] [place] [address] [place] Hemoglobin (Bld) [Mass/Vol] 8.8 g/dL Low 13.0-17.0 [facility] Comment on above: Order Comment: Speci men Type: BLOOD SPECIMENOrdering Facility: [facility] Address: [address] [place] [address] Performed By: #### 5 7021-8 ####[facility] LABORATORYCLIA [id number] [address] [place] Immature granulocytes (Bld) [#/Vol] 0.03 10*3/uL Normal <0.10 [facility] Comment on above: Order Comment: Speci men Type: BLOOD SPECIMENOrdering Facility: [facility] Address: [address] [place] [address] Performed By: #### 5 7021-8 ####[facility] LABORATORYCLIA [id number] [address] [place] Immature granulocytes/100 WBC (Bld) 0.4 % Normal [facility] Comment on above: Order Comment: Speci men Type: BLOOD SPECIMENOrdering Facility: [facility] Address: [address] [place] [address] Performed By: #### 5 7021-8 ####[facility] LABORATORYCLIA [id number] [place] [address] [place] Lymphocytes (Bld) [#/Vol] 1.07 10*3/uL Normal 1.00-4.00 [facility] Comment on above: Order Comment: Speci men Type: BLOOD SPECIMENOrdering Facility: [facility] Address: [address] [place] [address] Performed By: #### 5 7021-8 ####[facility] LABORATORYCLIA [id number] [address] Lymphocytes/100 WBC (Bld) 13.0 % Normal [facility] Comment on above: Order Comment: Speci men Type: BLOOD SPECIMENOrdering Facility: [facility] Address: [address] [place] [address] Performed By: #### 5 7021-8 ####[facility] LABORATORYCLIA [id number] [address] MCH (RBC) [Entitic mass] 26.1 pg Normal 26.0-34.0 [facility] Comment on above: Order Comment: Speci men Type: BLOOD SPECIMENOrdering Facility: [facility] Address: [address] [place] [address] Performed By: #### 5 7021-8 ####[facility] LABORATORYCLIA [id number] [address] MCHC (RBC) [Mass/Vol] 31.2 g/dL Normal 30.5-36.0 [facility] Comment on above: Order Comment: Speci men Type: BLOOD SPECIMENOrdering Facility: [facility] Address: [address] [place] [address] Performed By: #### 5 7021-8 ####[facility] LABORATORYCLIA [id number] [address] MCV (RBC) [Entitic vol] 83.7 fL Normal 80.0-100.0 [facility] Comment on above: Order Comment: Speci men Type: BLOOD SPECIMENOrdering Facility: [facility] Address: [address] [place] [address] Performed By: #### 5 7021-8 ####[facility] LABORATORYCLIA [id number] [address] Monocytes (Bld) [#/Vol] 1.03 10*3/uL High <0.87 [facility] Comment on above: Order Comment: Speci men Type: BLOOD SPECIMENOrdering Facility: [facility] Address: [address] [place] [address] Performed By: #### 5 7021-8 ####[facility]ORATORYCLIA [id number] [address] [place] Monocytes/100 WBC (Bld) 12.5 % Normal [facility] Comment on above: Order Comment: Speci men Type: BLOOD SPECIMENOrdering Facility: [facility] Address: [address] [place] [address] Performed By: #### 5 7021-8 ####[facility] LABORATORYCLIA [id number] [address] [place] Neutrophils (Bld) [#/Vol] 5.57 10*3/uL Normal 1.45-7.50 [facility] Comment on above: Order Comment: Speci men Type: BLOOD SPECIMENOrdering Facility: [facility] Address: [address] [place] [address] Performed By: #### 5 7021-8 ####[facility] LABORATORYCLIA [id number] [address] [place] Neutrophils/100 WBC (Bld) 67.5 % Normal [facility] Comment on above: Order Comment: Speci men Type: BLOOD SPECIMENOrdering Facility: [facility] Address: [address] [place] [address] Performed By: #### 5 7021-8 ####[facility]ORATORYCLIA [id number] [address] [place] Nucleated RBC (Bld) [#/Vol] 10*3/uL Normal <0.01 [facility] Comment on above: Order Comment: Speci men Type: BLOOD SPECIMENOrdering Facility: [facility] Address: [address] [place] [address] Performed By: #### 5 7021-8 ####[facility]ATORYCLIA [id number] [address] [place] Nucleated RBC/100 WBC (Bld) [Ratio] 0.0 /100 WBC Normal [facility] Comment on above: Order Comment: Speci men Type: BLOOD SPECIMENOrdering Facility: [facility] Address: [address] [place] [address] Performed By: #### 5 7021-8 ####[facility] LABORATORYCLIA [id number] [place] [address] [place] Platelet mean volume (Bld) [Entitic vol] 8.4 fL Low 9.0-12.7 [facility] Comment on above: Order Comment: Speci men Type: BLOOD SPECIMENOrdering Facility: [facility] Address: [address] [place] [address] Performed By: #### 5 7021-8 ####[facility] LABORATORYCLIA [id number] [place] [address] [place] Platelets (Bld) [#/Vol] 200 10*3/uL Normal 150-400 [facility] Comment on above: Order Comment: Speci men Type: BLOOD SPECIMENOrdering Facility: [facility] Address: [address] [place] [address] Performed By: #### 5 7021-8 ####[facility] LABORATORYCLIA [id number] [place] [address] [place] RBC (Bld) [#/Vol] 3.37 10*6/uL Low 4.20-6.00 [facility] Comment on above: Order Comment: Speci men Type: BLOOD SPECIMENOrdering Facility: [facility] Address: [address] [place] [address] Performed By: #### 5 7021-8 ####[facility] LABORATORYCLIA [id number] [address] [place] WBC (Bld) [#/Vol] 8.24 10*3/uL Normal 3.70-11.00 [facility] Comment on above: Order Comment: Speci men Type: BLOOD SPECIMENOrdering Facility: [facility] Address: [address] [place] [address] Performed By: #### 5 7021-8 ####[facility] LABORATORYCLIA [id number] [place] [address] [place] Basophils (Bld) [#/Vol] 0.13 10*3/uL High <0.11 k/uL [facility] Basophils/100 WBC (Bld) 1.6 % [facility] Differential cell count method Nom (Bld) Auto [facility] Eosinophils (Bld) [#/Vol] 0.41 10*3/uL <0.46 k/uL [facility] Eosinophils/100 WBC (Bld) 5.0 % [facility] Erythrocyte distribution width (RBC) [Ratio] 26.5 % High 11.5 - 15.0 % [facility] Hematocrit (Bld) [Volume fraction] 28.2 % Low 39.0 - 51.0 % [facility] Hemoglobin (Bld) [Mass/Vol] 8.8 g/dL Low 13.0 - 17.0 g/dL [facility] Immature granulocytes (Bld) [#/Vol] 0.03 10*3/uL <0.10 k/uL [facility] Immature granulocytes/100 WBC (Bld) 0.4 % [facility] Lymphocytes (Bld) [#/Vol] 1.07 10*3/uL 1.00 - 4.00 k/uL [facility] Lymphocytes/100 WBC (Bld) 13.0 % [facility] MCH (RBC) [Entitic mass] 26.1 pg 26.0 - 34.0 pg [facility] MCHC (RBC) [Mass/Vol] 31.2 g/dL 30.5 - 36.0 g/dL [facility] MCV (RBC) [Entitic vol] 83.7 fL 80.0 - 100.0 fL [facility] Monocytes (Bld) [#/Vol] 1.03 10*3/uL High <0.87 k/uL [facility] Monocytes/100 WBC (Bld) 12.5 % [facility] Neutrophils (Bld) [#/Vol] 5.57 10*3/uL 1.45 - 7.50 k/uL [facility] Neutrophils/100 WBC (Bld) 67.5 % [facility] Nucleated RBC (Bld) [#/Vol] <0.01 k/uL [facility] Nucleated RBC/100 WBC (Bld) [Ratio] 0.0 /100 WBC [facility] Platelet mean volume (Bld) [Entitic vol] 8.4 fL Low 9.0 - 12.7 fL [facility] Platelets (Bld) [#/Vol] 200 10*3/uL 150 - 400 k/uL [facility] RBC (Bld) [#/Vol] 3.37 10*6/uL Low 4.20 - 6.0 0 m/uL [facility] WBC (Bld) [#/Vol] 8.24 10*3/uL 3.70 - 11. 00 k/uL [facility] CNOVon 09-24-2022 CNOV Office Visit ([facility]) CAROLYNN LEE ([id number]) 1980 M Date Time Provider Department 09/24/22 10:20 AM JEROME STUART During your visit today, we recorded the following information about you: Temperature Pulse Respiration Blood pressure 98.2 degrees 86/minute 18/minute 126/65 Weight Height 108.4 kg 1.778 m Jerome Stuart DO 09/24/2022 4:19 PM Signed [facility] Jerome Stuart DO ASSESSMENT/PLAN: 1. Alcoholic cirrhosis of liver with ascites (HCC) - ICD9: 571.2, ICD10: K70.31 (primary diagnosis) Alcohol use: Patient highly motivated to continue to abstain from drinking. Reports to have good social support system and enrolled with AA. Start acamprosate 333 mg 3 times daily to negate any cravings. Refrained from methylnaltrexone given cirrhosis. Fluid status: Patient still looks fluid overloaded and Will increase diuretic regimen: Spironolactone 150 and Lasix 60. Placed BMP and magnesium to be completed within 1 week to monitor for any electrolyte abnormalities. Administered hep A hep B vaccine today in office. Consult to gastroenterology placed for further evaluation including evaluation and work-up for possible transplant and esophageal varices surveillance. Will start patient on lactulose today if with a goal of 2-3 bowel movements per day titrate as needed. Unable to calculate an accurate [place] or MELD score at today's visit, will reassess after obtaining repeat CMP and PT/INR within a week. Educated patient on increasing protein intake and decreasing salt intake. Reinforced the importance of continuing to stay abstinent from alcohol going forward. At this time, no need for weekly or scheduled paracentesis unless patient noted to have refractory ascites in the setting of diuretic use. Patient voiced understanding and agreement with plan. 2. Encounter for immunization - ICD9: V03.89, ICD10: Z23 - HEP A-HEP B VACCINE ([place]) 3. Closed displaced segmental fracture of shaft of left humerus with routine healing, subsequent encounter - ICD9: V54.11, ICD10: S42.362D -Arranging follow-up with orthopedics closer to home -Since discharge overall stable and able to manage left sling Jerome Nava Stuart, DO SUBJECTIVE: Carolynn Lee is a 42 year old male here today for hospital follow up[09/10/2022-09/18/2022]. Patient initially presented from outside ED in the setting of mechanical fall leading to left humeral fracture. At the time of work-up, patient noted to have anemia requiring PRBC transfusion and concerns for new onset cirrhosis. Patient was admitted under house medicine services, during this time he underwent IR guided paracentesis with a total removal of 29 L during the admission subsequently requiring albumin transfusion. Patient was diagnosed with new onset decompensated cirrhosis likely in the setting of alcohol use with no evidence of infectious or autoimmune etiologies. Hospital course was complicated by additional blood transfusion and informal heme-onc consult work-up revealed low copper and low ceruloplasmin. At the time of discharge hemoglobin was noted to be 7.5. Patient was initiated on Lasix and spironolactone which was slowly titrated up to 40: 100 at the time of discharge. In regards to his left humeral fracture, orthopedics had placed humeral cuff with repeat x-ray showing good alignment. PT OT evaluated patient safe to be discharged home. Since being discharged, patient tried to follow-up with orthopedics on outpatient basis however given lack of insurance coverage patient will redirect his follow-up with [facility]. Patient working on setting up follow-up with orthopedics closer to home in [place]. At today's visit, patient was accompanied by mom. Overall patient appeared to be pleasant in nature. Upon further discussion, patient notes to have about 23 years of alcohol use starting at age 29 he noted an increased and alcohol intake consisting of 1-2 mixed drinks daily. Over the past year, patient admits to having 5-6 daily mixed drinks. He states that this was at a time of great emotional stress and was living alone which allowed him to continue this habit throughout. Since being discharged, patient is currently living with family consisting of mom dad and grandma. He understands the importance of continuing to stay abstinence and has implemented social support, alcohol Anonymous at this time. Prior to discharge from the hospital patient states that weight was 260 with the humeral cuff present. On Thursday, patient weighed himself and noted to be 251 and is reported to be 239 pounds today. Has been tolerating diuretics well at home. Noticed blood in stool x1 due to constipation. Denies any chest pain shortness of breath, nausea, vomiting, diarrhea, abdominal pain, reciprocal sleep schedule pattern or any other acute (more content not included)... Normal [facility] CAROLYNN LEE ([id number]) 1980 M Date Time Provider Department 09/23/22 [facility] During your visit today, we recorded the following information about you: Elena Shelley 09/23/2022 11:06 AM Signed Patient returned my call and gave his insurance information. Put in all is insurance information and it cam back as an out of network insurance. Informed him that we do not take his insurance and if he would like to make an appointment he would pay out of pocket. [facility] Patient said that we would go to his PCP and call his insurance company to find some one in network. Elena Shelley September 23, 2022 11:05 AM Allergies As of Date: 09/23/2022 (No Known Allergies) Date Reviewed: 09/17/2022 Reviewed by: Maryam Dubose RN - Fully Assessed Reason for Visit: Appointment [186] Prescriptions as of 09/23/2022 - ferrous sulfate 325 mg (65 mg iron) tablet Take 1 tablet by mouth every Thursday,Thursday,Thursday. - furosemide (LASIX) 40 mg tablet Take 1 tablet by mouth once daily. - melatonin 3 mg tablet Take 1 tablet by mouth at bedtime as needed for for insomnia. - nicotine (NICODERM) 14 mg/24 hr Apply 1 Patch as directed once daily. - spironolactone (ALDACTONE) 100 mg tablet Take 1 tablet by mouth once daily. - thiamine (VITAMIN B1) 100 mg tablet 1 tablet by ORAL/FEEDING TUBE route three times daily for 248 doses. - simethicone, chewable (MYLICON) 80 mg chewable tablet Take 1 tablet by mouth four times daily as needed. - vitamin with folic acid 1 mg 60 mg iron-1 mg tab Take 1 tablet by mouth once daily. Problem List As Of Date 09/23/2022 Noted Resolved Cirrhosis (HCC) [K74.60] 09/10/2022 Nicotine use disorder, F17.2 [F17.200] 09/11/2022 Malnutrition of moderate degree (HCC) [E44.0] 09/12/2022 Decompensated liver disease (HCC) [K74.69] 09/16/2022 Closed displaced segmental fracture of shaft of*09/17/2022 Encounter Status:Closed by ELENA SHELLEY on 09/23/22 [facility] 09-22-2022 CNPN Telephone (AGPOB1) CAROLYNN LEE ([id number]) 1980 M Date Time Provider Department 09/22/22 [facility] VERAB1 During your visit today, we recorded the following information about you: Elena Shelley 09/22/2022 8:36 AM Signed Called patient to schedule hospital follow up appointment per Dr. Vera. Patient did not answer. Left message to call the office back and also gave the number to financial clearance as the patient does not have insurance on file. Elena Shelley September 22, 2022 8:36 AM Allergies As of Date: 09/22/2022 (No Known Allergies) Date Reviewed: 09/17/2022 Reviewed by: Maryam Dubose RN - Fully Assessed Reason for Visit: Appointment [186] Prescriptions as of 09/22/2022 - ferrous sulfate 325 mg (65 mg iron) tablet Take 1 tablet by mouth every Thursday,Thursday,Thursday. - furosemide (LASIX) 40 mg tablet Take 1 tablet by mouth once daily. - melatonin 3 mg tablet Take 1 tablet by mouth at bedtime as needed for for insomnia. - nicotine (NICODERM) 14 mg/24 hr Apply 1 Patch as directed once daily. - spironolactone (ALDACTONE) 100 mg tablet Take 1 tablet by mouth once daily. - thiamine (VITAMIN B1) 100 mg tablet 1 tablet by ORAL/FEEDING TUBE route three times daily for 248 doses. - simethicone, chewable (MYLICON) 80 mg chewable tablet Take 1 tablet by mouth four times daily as needed. - vitamin with folic acid 1 mg 60 mg iron-1 mg tab Take 1 tablet by mouth once daily. Problem List As Of Date 09/22/2022 Noted Resolved Cirrhosis (HCC) [K74.60] 09/10/2022 Nicotine use disorder, F17.2 [F17.200] 09/11/2022 Malnutrition of moderate degree (HCC) [E44.0] 09/12/2022 Decompensated liver disease (HCC) [K74.69] 09/16/2022 Closed displaced segmental fracture of shaft of*09/17/2022 Encounter Status:Closed by ELENA SHELLEY on 09/22/22 [facility] 09-19-2022 CNPN Telephone (PODCCP) VONCAROLYNN Gibbs ([id number]) 1980 M Date Time Provider Department 09/19/22 N/A (HISTORICAL) PODCCP During your visit today, we recorded the following information about you: Allergies As of Date: 09/19/2022 (No Known Allergies) Date Reviewed: 09/17/2022 Reviewed by: Maryam Dubose RN - Fully Assessed Reason for Visit: Follow Up Phone Call [2113] Cmt: Post Discharge F/U - attempt made. No answer Prescriptions as of 09/19/2022 - ferrous sulfate 325 mg (65 mg iron) tablet Take 1 tablet by mouth every Thursday,Thursday,Thursday. - furosemide (LASIX) 40 mg tablet Take 1 tablet by mouth once daily. - melatonin 3 mg tablet Take 1 tablet by mouth at bedtime as needed for for insomnia. - nicotine (NICODERM) 14 mg/24 hr Apply 1 Patch as directed once daily. - spironolactone (ALDACTONE) 100 mg tablet Take 1 tablet by mouth once daily. - thiamine (VITAMIN B1) 100 mg tablet 1 tablet by ORAL/FEEDING TUBE route three times daily for 248 doses. - simethicone, chewable (MYLICON) 80 mg chewable tablet Take 1 tablet by mouth four times daily as needed. - vitamin with folic acid 1 mg 60 mg iron-1 mg tab Take 1 tablet by mouth once daily. Problem List As Of Date 09/19/2022 Noted Resolved Cirrhosis (HCC) [K74.60] 09/10/2022 Nicotine use disorder, F17.2 [F17.200] 09/11/2022 Malnutrition of moderate degree (HCC) [E44.0] 09/12/2022 Decompensated liver disease (HCC) [K74.69] 09/16/2022 Closed displaced segmental fracture of shaft of*09/17/2022 Encounter Status:Closed by FRANCISCO TRAN on 09/19/[address] [facility] Basic metabolic 2000 panelon 09-18-2022 Anion gap [Moles/Vol] 8 mmol/L Low 9-18 [facility] Comment on above: Order Comment: Speci men Type: BLOOD SPECIMENOrdering Facility: [facility] Address: [address] [address] Performed By: #### 2 4325-3, 80917-7 ####[facility] LABORATORYCLIA [id number] [place] [address] [place] Calcium [Mass/Vol] 7.9 mg/dL Low 8.5-10.2 [facility] Comment on above: Order Comment: Speci men Type: BLOOD SPECIMENOrdering Facility: [facility] Address: [address] [place] [address] Performed By: #### 2 4324-3, 76072-9 ####[facility]ORATORYCLIA [id number] [place] [address] [place] Chloride [Moles/Vol] 103 mmol/L Normal 97-105 [facility] Comment on above: Order Comment: Speci men Type: BLOOD SPECIMENOrdering Facility: [facility] Address: [address] [place] [address] Performed By: #### 2 3, 68199-1 ####[facility] LABORATORYCLIA [id number] [place] [address] [place] CO2 [Moles/Vol] 23 mmol/L Normal 22-30 [facility] Comment on above: Order Comment: Speci men Type: BLOOD SPECIMENOrdering Facility: [facility] Address: [address] [address] Performed By: #### 2 4324-3, 25181-6 ####[facility]ORATORYCLIA [id number] [place] [address] [place] Creatinine [Mass/Vol] 0.73 mg/dL Normal 0.73-1.22 [facility] Comment on above: Order Comment: Speci men Type: BLOOD SPECIMENOrdering Facility: [facility] Address: [address] [address] Performed By: #### 2 4324-3, 41152-6 ####[facility] LABORATORYCLIA [id number] [place] [address] [place] ESTIMATED GLOMERULAR FILTRATION RATE 116 mL/min/1.73m??? Normal >=60 [facility] Comment on above: Order Comment: Eran mendoza Type: BLOOD SPECIMENOrdering Facility: [facility] Address: [address] [place] [address] Result Comment: Yeni mated Glomerular Filtration Rate (eGFR) is calculated using the 2020 CKD-EPI creatinine equation. This equation utilizes serum creatinine, sex, and age as parameters. The creatinine assay has traceable calibration to isotope dilution-mass spectrometry. Refer to KDIGO guidelines for clinical interpretation. In patients with unstable renal function, e.g. those with acute kidney injury, the eGFR may not accurately reflect actual GFR. Performed By: #### 2 4325-3, 67506-3 ####[facility]ORESVILLEIA [id number] [place] [address] [place] Glucose [Mass/Vol] 130 mg/dL High 74-99 [facility] Comment on above: Order Comment: Eran mendoza Type: BLOOD SPECIMENOrdering Facility: [facility] Address: [address] [place] [address] Result Comment: The [place] Diabetes Association (ADA) provides guidance for cutoff values for fasting glucose and random glucose. The ADA defines fasting as no caloric intake for at least 8 hours. Fasting plasma glucose results between 100 to 125 mg/dL indicate increased risk for diabetes (prediabetes). Fasting plasma glucose results greater than or equal to 126 mg/dL meet the criteria for diagnosis of diabetes. In the absence of unequivocal hyperglycemia, results should be confirmed by repeat testing. In a patient with classic symptoms of hyperglycemia or hyperglycemic crisis, random plasma glucose results greater than or equal to 200 mg/dL meet the criteria for diagnosis of diabetes. Reference: Standards of Medical Care in Diabetes 2016, [place] [employer] Association. Diabetes Care. 2016.39(Suppl 1). Performed By: #### 2 4325-3, 46785-5 ####[facility] LABORATORYCLIA [id number] [place] [address] [place] Potassium [Moles/Vol] 3.9 mmol/L Normal 3.7-5.1 [facility] Comment on above: Order Comment: Specradha mendoza Type: BLOOD SPECIMENOrdering Facility: [facility] Address: [address] [place] [address] Performed By: #### 2 4325-3, 51075-1 ####[facility] LABORATORYCLIA [id number] [address] STATES OF [facility] Sodium [Moles/Vol] 134 mmol/L Low 136-144 [facility] Comment on above: Order Comment: Speci men Type: BLOOD SPECIMENOrdering Facility: [facility] Address: [address] [place] [address] Performed By: #### 2 4325-3, 08725-9 ####[facility] LABORATORYCLIA [id number] [address] Urea nitrogen [Mass/Vol] 9 mg/dL Normal 9-24 [facility] Comment on above: Order Comment: Speci men Type: BLOOD SPECIMENOrdering Facility: [facility] Address: [address] [place] [address] Performed By: #### 2 4325-3, 65190-6 ####[facility] LABORATORYCLIA [id number] [address] CASE MANAGEMon 09-18-2022 CASE MANAGEM HNO ID: [id number] Author: EMELYN Arzate Service: ? Author Type: Layout Worker Type: Care Mgt Progress Note Filed: 09/18/2022 3:03 PM Note Text: CARE MANAGEMENT DISCHARGE NOTE SERVICE DATE: September 18, 2022 SERVICE TIME: 3:01 PM Admission Date: 09/10/2022 LOS: 8 days Discharge Arrangement Discharge Arrangement: Home with Parent Services Arranged Home, follow up with specialists/pcp at d/c Provider Name: Dr. Edwards Caregiver Assessment Transportation Arrangements Transportation Arrangements: Car Destination: Home Handoff Communication: Additional Information: N/A SW met with pt and mother Victoria at bedside. Pt states he is refusing inpatient or outpatient options for alcohol at this time, states he will be successful with 12 step community. Pt states he has a solid foundation with recovery community and no active cravings, does not believe he needs additional resources. Mother to transport pt home. SIGNATURE: EMELYN Arzate PATIENT NAME: Carolynn Lee DATE: September 18, 2022 TIME: 3:01 PM CONTACT #: [id number] Normal [facility] CBC panel Auto (Bld)on 09-18 Erythrocyte distribution width (RBC) [Ratio] 23.3 % High 11.5-15.0 [facility] Comment on above: Order Comment: Speci men Type: BLOOD SPECIMENOrdering Facility: [facility] Address: [address] [place] [address] Performed By: #### 5 8410-2 ####[facility] LABORATORYCLIA [id number] [address] Hematocrit (Bld) [Volume fraction] 24.8 % Low 39.0-51.0 [facility] Comment on above: Order Comment: Speci men Type: BLOOD SPECIMENOrdering Facility: [facility] Address: [address] [place] [address] Performed By: #### 5 8410-2 ####[facility] LABORATORYCLIA [id number] [address] [place] Hemoglobin (Bld) [Mass/Vol] 7.5 g/dL Low 13.0-17.0 [facility] Comment on above: Order Comment: Speci men Type: BLOOD SPECIMENOrdering Facility: [facility] Address: [address] [place] [address] Performed By: #### 5 8410-2 ####[facility] LABORATORYCLIA [id number] [address] [place] MCH (RBC) [Entitic mass] 24.6 pg Low 26.0-34.0 [facility] Comment on above: Order Comment: Speci men Type: BLOOD SPECIMENOrdering Facility: [facility] Address: [address] [place] [address] Performed By: #### 5 8410-2 ####[facility] LABORATORYCLIA [id number] [address] STATES [facility] MCHC (RBC) [Mass/Vol] 30.2 g/dL Low 30.5-36.0 [facility] Comment on above: Order Comment: Speci men Type: BLOOD SPECIMENOrdering Facility: [facility] Address: [address] [place] [address] Performed By: #### 5 8410-2 ####[facility] LABORATORYCLIA [id number] [address] MCV (RBC) [Entitic vol] 81.3 fL Normal 80.0-100.0 [facility] Comment on above: Order Comment: Speci men Type: BLOOD SPECIMENOrdering Facility: [facility] Address: [address] [place] [address] Performed By: #### 5 8410-2 ####[facility] LABORATORYCLIA [id number] [address] Nucleated RBC (Bld) [#/Vol] 10*3/uL Normal <0.01 [facility] Comment on above: Order Comment: Speci men Type: BLOOD SPECIMENOrdering Facility: [facility] Address: [address] [place] [address] Performed By: #### 5 8410-2 ####[facility] LABORATORYCLIA [id number] [address] [place] Platelet mean volume (Bld) [Entitic vol] 9.0 fL Normal 9.0-12.7 [facility] Comment on above: Order Comment: Speci men Type: BLOOD SPECIMENOrdering Facility: [facility] Address: [address] [place] [address] Performed By: #### 5 8410-2 ####[facility] LABORATORYCLIA [id number] [address] Platelets (Bld) [#/Vol] 159 10*3/uL Normal 150-400 [facility] Comment on above: Order Comment: Speci men Type: BLOOD SPECIMENOrdering Facility: [facility] Address: [address] Performed By: #### 5 8410-2 ####[facility] LABORATORYCLIA [id number] [address] OF [facility] RBC (Bld) [#/Vol] 3.05 10*6/uL Low 4.20-6.00 [facility] Comment on above: Order Comment: Speci men Type: BLOOD SPECIMENOrdering Facility: [facility] Address: [address] [address] Performed By: #### 5 8410-2 ####[facility] LABORATORYCLIA [id number] [address] WBC (Bld) [#/Vol] 7.54 10*3/uL Normal 3.70-11.00 [facility] Comment on above: Order Comment: Speci men Type: BLOOD SPECIMENOrdering Facility: [facility] Address: [address] [place] [address] Performed By: #### 5 8410-2 ####[facility] LABORATORYCLIA [id number] [address] CNDSon 09-18-2022 [facility] HNO ID: [id number] Author: Cedric Almeida DO Service: Hospital Medicine Author Type: Resident Type: Discharge Summary Filed: 09/18/2022 5:19 PM Note Text: Attestation signed by John Edwards MD at 10/12/2022 5:23 PM [facility] ATTENDING ATTESTATION: I saw and evaluated the patient on rounds on 09/18/22. Discussed case with the medicine team and agree with resident's findings and plan as documented in the resident's note. Greater than 30 minutes spent on discharge planning. John Edwards MD DISCHARGE SUMMARY PATIENT NAME: Carolynn Lee ADMISSION DATE: 09/10/2022 DISCHARGE DATE: 09/18/2022 Attending Physician: No att. providers found Code Status: Full Code Highest Readmission Risk Score: 15 The 30 day readmissions risk score is derived from an internally validated risk model which evaluates patient level characteristics, utilization history, medication orders and lab results up until the day of discharge. Patients with a score of 40 or above are considered highest risk for readmission. Specific patient level drivers will be listed at the bottom of the summary. The 30 day readmissions risk score is derived from an internally validated risk model which evaluates patient level characteristics, utilization history, medication orders and lab results up until the day of discharge. Patients with a score of 40 or above are considered highest risk for readmission. Specific patient level drivers will be listed at the bottom of the summary. PRINCIPAL PROBLEM: Cirrhosis (HCC) HPI: Carolynn Lee is a 42-year-old male with no past medical history due to not seeing any providers who notably was found to have alcohol use disorder. Patient initially presented to outside ED for mechanical fall leading to left femoral fracture. While in the outside ED he was notably found to have anemia requiring PRBC transfusion as well as concerning signs for new onset cirrhosis. Operations During Hospitalization: None Procedures During Hospitalization: Paracentesis Hospital Course: aCrolynn Lee is a 42-year-old male with no past medical history due to not seeing any providers who notably was found to have alcohol use disorder. Patient initially presented to outside ED for mechanical fall leading to left femoral fracture. While in the outside ED he was notably found to have anemia requiring PRBC transfusion as well as concerning signs for new onset cirrhosis. Patient transferred to [facility] following transfusion and was admitted to regular nursing floor for further work-up of patient's new onset cirrhosis and anemia. While admitted to house medicine service further work-up for cirrhosis showed concerning signs for ascites on ascitic fluid survey. Patient underwent IR guided paracentesis with removal of 19 L after which patient did require albumin transfusion. Work-up for causes of cirrhosis did not show any infectious or autoimmune causes likely in the setting of patient's alcohol use. Patient initially placed on CIWA but did not require any Ativan was continued on thiamine, folic acid replacement. Patient's anemia shortly complicated hospital stay requiring additional blood transfusions hematology/oncology was curb sided who suggested further work-up that showed low copper with follow-up low ceruloplasmin to be followed by GI as outpatient. Additionally iron studies showed concern for iron deficiency anemia patient started on p.o. iron supplementation to be continued at time of discharge. Patient remained hemodynamically stable but did require additional paracentesis with subsequent albumin infusion. Lasix and spironolactone was slowly titrated up to be continued at time of discharge. Patient continued to be seen by orthopedic surgery at which point humeral cuff was placed and repeat x-ray showed good alignment. Patient is to be followed by orthopedic surgery as an outpatient in 1 week. Patient evaluated PT OT with no skilled needs is going to be discharged home. Patient to follow in [place] for immediate follow-ups due to living in [place] and difficulty getting set up with new PCP and GI in that area. Patient to establish care with [facility] and to be established with a GI for subsequent outpatient varices screening. Additionally patient will need evaluation for liver transplant as an outpatient. Patient's new medications sent to preferred pharmacy with the addition of nicotine patch for tobacco cessation. Patient instructed not to continue NSAIDs at time of discharge as previously had been taking. Active Hospital Problems as of 09/18/2022 Noted - Resolved [facility] * (Principal) Cirrhosis (HCC) 09/10/2022 - Present Yes Nicotine use disorder, F17.2 09/11/2022 - Present Unknown (more content not included)... Normal [facility] Hepatic function 2000 panelo n 09-18-2022 Albumin [Mass/Vol] 2.7 g/dL Low 3.9-4.9 [facility] Comment on above: Order Comment: Speci men Type: BLOOD SPECIMENOrdering Facility: [facility] Address: [address] [place] [id number] Performed By: #### 2 4325-3, 24989-5 ####[facility] LABORATORYCLIA [id number] [address] OF [place] ALP [Catalytic activity/Vol] 110 U/L Normal 38-113 [facility] Comment on above: Order Comment: Speci men Type: BLOOD SPECIMENOrdering Facility: [facility] Address: [address] [place] [address] Performed By: #### 2 4325-3, 52299-1 ####[facility] LABORATORYCLIA [id number] [place] [address] [place] ALT With P-5'-P [Catalytic activity/Vol] 26 U/L Normal 10-54 [facility] Comment on above: Order Comment: Speci men Type: BLOOD SPECIMENOrdering Facility: [facility] Address: [address] [place] [address] Performed By: #### 2 4325-3, 11025-8 ####[facility] LABORATORYCLIA [id number] [address] STATES [place] AST With P-5'-P [Catalytic activity/Vol] 50 U/L High 14-40 [facility] Comment on above: Order Comment: Speci men Type: BLOOD SPECIMENOrdering Facility: [facility] Address: [address] [place] [address] Performed By: #### 2 4324-3, 01380-9 ####[facility] LABORATORYCLIA [id number] [address] [place] Bilirubin [Mass/Vol] 3.3 mg/dL High 0.2-1.3 [facility] Comment on above: Order Comment: Speci men Type: BLOOD SPECIMENOrdering Facility: [facility] Address: [address] [place] [address] Performed By: #### 2 5-3, 01296-3 ####[facility] LABORATORYCLIA [id number] [address] Bilirubin.conjugated [Mass/Vol] 0.9 mg/dL High <0.2 [facility] Comment on above: Order Comment: Speci men Type: BLOOD SPECIMENOrdering Facility: [facility] Address: [address] [address] Performed By: #### 2 4325-3, 97836-0 ####[facility] LABORATORYCLIA [id number] [address] [place] Protein [Mass/Vol] 5.9 g/dL Low 6.3-8.0 [facility] Comment on above: Order Comment: Speci men Type: BLOOD SPECIMENOrdering Facility: [facility] Address: [address] [place] [address] Performed By: #### 2 4325-3, 62698-4 ####[facility] LABORATORYCLIA [id number] [address] OF [facility] Basic metabolic 2000 panelon 09-17-2022 Anion gap [Moles/Vol] 8 mmol/L Low 9-18 [facility] Comment on above: Order Comment: Speci men Type: BLOOD SPECIMEN [facility] Address: [address] [place] [address] Performed By: #### T SCR #### [facility] CLIA [id number] [address] STATES OF [facility] Calcium [Mass/Vol] 8.0 mg/dL Low 8.5-10.2 [facility] Comment on above: Order Comment: Speci men Type: BLOOD SPECIMEN [facility] Address: [address] [place] [address] Performed By: #### T SCR #### [facility] CLIA [id number] [address] [place] Chloride [Moles/Vol] 102 mmol/L Normal 97-105 [facility] Comment on above: Order Comment: Speci men Type: BLOOD SPECIMEN [facility] Address: [address] [place] [address] Performed By: #### T SCR #### [facility] CLIA [id number] 1 [place] [address] [place] CO2 [Moles/Vol] 24 mmol/L Normal 22-30 [facility] Comment on above: Order Comment: Eran mendoza Type: BLOOD SPECIMEN [facility] Address: [address] [address] Performed By: #### T SCR #### [facility] CLIA [id number] [address] Creatinine [Mass/Vol] 0.75 mg/dL Normal 0.73-1.22 [facility] Comment on above: Order Comment: Jdi men Type: BLOOD SPECIMEN [facility] Address: [address] [place] [address] Performed By: #### T SCR #### [facility] CLIA [id number] [address] ESTIMATED GLOMERULAR FILTRATION RATE 115 mL/min/1.73m??? Normal >=60 [facility] Comment on above: Order Comment: Jdradha mendoza Type: BLOOD SPECIMEN [facility] Address: [address] [place] [address] Result Comment: Yeni mated Glomerular Filtration Rate (eGFR) is calculated using the 2020 CKD-EPI creatinine equation. This equation utilizes serum creatinine, sex, and age as parameters. The creatinine assay has traceable calibration to isotope dilution-mass spectrometry. Refer to KDIGO guidelines for clinical interpretation. In patients with unstable renal function, e.g. those with acute kidney injury, the eGFR may not accurately reflect actual GFR. Performed By: #### T SCR #### [facility] CLIA [id number] [address] Glucose [Mass/Vol] 135 mg/dL High 74-99 [facility] Comment on above: Order Comment: Eran mendoza Type: BLOOD SPECIMEN [facility] Address: [address] [place] [address] Result Comment: The [place] Diabetes Association (ADA) provides guidance for cutoff values for fasting glucose and random glucose. The ADA defines fasting as no caloric intake for at least 8 hours. Fasting plasma glucose results between 100 to 125 mg/dL indicate increased risk for diabetes (prediabetes). Fasting plasma glucose results greater than or equal to 126 mg/dL meet the criteria for diagnosis of diabetes. In the absence of unequivocal hyperglycemia, results should be confirmed by repeat testing. In a patient with classic symptoms of hyperglycemia or hyperglycemic crisis, random plasma glucose results greater than or equal to 200 mg/dL meet the criteria for diagnosis of diabetes. Reference: Standards of Medical Care in Diabetes 2016, [place] [employer] Association. Diabetes Care. 2016.39(Suppl 1). Performed By: #### T SCR #### [facility] CLIA [id number] [address] Potassium [Moles/Vol] 3.9 mmol/L Normal 3.7-5.1 [facility] Comment on above: Order Comment: Jdi men Type: BLOOD SPECIMEN [facility] Address: [address] [place] [address] Performed By: #### T SCR #### [facility] CLIA [id number] [address] Sodium [Moles/Vol] 134 mmol/L Low 136-144 [facility] Comment on above: Order Comment: Jdi kelly Type: BLOOD SPECIMEN [facility] Address: [address] [place] [address] Performed By: #### T SCR #### [facility] CLIA [id number] [address] Urea nitrogen [Mass/Vol] 9 mg/dL Normal 9-24 [facility] Comment on above: Order Comment: Speci men Type: BLOOD SPECIMEN [facility] Address: [address] [place] [address] Performed By: #### T SCR #### [facility] CLIA [id number] [address] CBC panel Auto (Bld)on 09-17 Erythrocyte distribution width (RBC) [Ratio] 22.8 % High 11.5-15.0 [facility] Comment on above: Order Comment: Jdi men Type: BLOOD SPECIMENOrdering Facility: [facility] Address: [address] [address] Performed By: #### 5 8410-2 ####[facility] LABORATORYCLIA [id number] [address] Hematocrit (Bld) [Volume fraction] 23.4 % Low 39.0-51.0 [facility] Comment on above: Order Comment: Speci men Type: BLOOD SPECIMENOrdering Facility: [facility] Address: [address] [place] [address] Performed By: #### 5 8410-2 ####[facility] LABORATORYCLIA [id number] [address] Hemoglobin (Bld) [Mass/Vol] 7.2 g/dL Low 13.0-17.0 [facility] Comment on above: Order Comment: Speci men Type: BLOOD SPECIMENOrdering Facility: [facility] Address: [address] [place] [address] Performed By: #### 5 8410-2 ####[facility] LABORATORYCLIA [id number] [address] STATES [facility] MCH (RBC) [Entitic mass] 24.9 pg Low 26.0-34.0 [facility] Comment on above: Order Comment: Speci men Type: BLOOD SPECIMENOrdering Facility: [facility] Address: [address] [place] [address] Performed By: #### 5 8410-2 ####[facility] LABORATORYCLIA [id number] [address] MCHC (RBC) [Mass/Vol] 30.8 g/dL Normal 30.5-36.0 [facility] Comment on above: Order Comment: Speci men Type: BLOOD SPECIMENOrdering Facility: [facility] Address: [address] [place] [address] Performed By: #### 5 8410-2 ####[facility] LABORATORYCLIA [id number] [address] MCV (RBC) [Entitic vol] 81.0 fL Normal 80.0-100.0 [facility] Comment on above: Order Comment: Speci men Type: BLOOD SPECIMENOrdering Facility: [facility] Address: [address] [address] Performed By: #### 5 8410-2 ####[facility] LABORATORYCLIA [id number] [address] [place] Nucleated RBC (Bld) [#/Vol] 10*3/uL Normal <0.01 [facility] Comment on above: Order Comment: Speci men Type: BLOOD SPECIMENOrdering Facility: [facility] Address: [address] [place] [address] Performed By: #### 5 8410-2 ####[facility] LABORATORYCLIA [id number] [place] [address] [place] Platelet mean volume (Bld) [Entitic vol] 8.7 fL Low 9.0-12.7 [facility] Comment on above: Order Comment: Speci men Type: BLOOD SPECIMENOrdering Facility: [facility] Address: [address] [address] Performed By: #### 5 8410-2 ####[facility] LABORATORYCLIA [id number] [address] [place] Platelets (Bld) [#/Vol] 146 10*3/uL Low 150-400 [facility] Comment on above: Order Comment: Speci men Type: BLOOD SPECIMENOrdering Facility: [facility] Address: [address] [address] Performed By: #### 5 8410-2 ####[facility] LABORATORYCLIA [id number] [place] [address] [place] RBC (Bld) [#/Vol] 2.89 10*6/uL Low 4.20-6.00 [facility] Comment on above: Order Comment: Speci men Type: BLOOD SPECIMENOrdering Facility: [facility] Address: [address] [place] [address] Performed By: #### 5 8410-2 ####[facility] LABORATORYCLIA [id number] [address] [place] WBC (Bld) [#/Vol] 6.35 10*3/uL Normal 3.70-11.00 [facility] Comment on above: Order Comment: Speci men Type: BLOOD SPECIMENOrdering Facility: [facility] Address: [address] [place] [address] Performed By: #### 5 8410-2 ####[facility] LABORATORYCLIA [id number] [address] OF [place] Hepatic function 2000 panelo n 09-17-2022 Albumin [Mass/Vol] 2.7 g/dL Low 3.9-4.9 [facility] Comment on above: Order Comment: Speci men Type: BLOOD SPECIMEN [facility] Address: [address] [place] [address] Performed By: #### T SCR #### [facility] CLIA [id number] [address] ALP [Catalytic activity/Vol] 111 U/L Normal 38-113 [facility] Comment on above: Order Comment: Speci men Type: BLOOD SPECIMEN [facility] Address: [address] [place] [address] Performed By: #### T SCR #### [facility] CLIA [id number] [address] ALT With P-5'-P [Catalytic activity/Vol] 23 U/L Normal 10-54 [facility] Comment on above: Order Comment: Speci men Type: BLOOD SPECIMEN [facility] Address: [address] [place] [address] Performed By: #### T SCR #### [facility] CLIA [id number] [address] [place] AST With P-5'-P [Catalytic activity/Vol] 45 U/L High 14-40 [facility] Comment on above: Order Comment: Speci men Type: BLOOD SPECIMEN [facility] Address: [address] [address] Performed By: #### T SCR #### [facility] CLIA [id number] [address] Bilirubin [Mass/Vol] 3.6 mg/dL High 0.2-1.3 [facility] Comment on above: Order Comment: Speci men Type: BLOOD SPECIMEN [facility] Address: [address] [address] Performed By: #### T SCR #### [facility] CLIA [id number] [address] Bilirubin.conjugated [Mass/Vol] 1.0 mg/dL High <0.2 [facility] Comment on above: Order Comment: Speci men Type: BLOOD SPECIMEN [facility] Address: [address] [place] [address] Performed By: #### T SCR #### [facility] CLIA [id number] [address] Protein [Mass/Vol] 5.5 g/dL Low 6.3-8.0 [facility] Comment on above: Order Comment: Speci men Type: BLOOD SPECIMEN [facility] Address: [address] [place] [address] Performed By: #### T SCR #### [facility] CLIA [id number] [address] OF [facility] NUTRITIONon 09-17-2022 NUTRITION HNO ID: [id number] Author: Nidia Stratton RD Service: Nutrition Therapy Author Type: Registered Dietitian Type: Nutrition Filed: 09/17/2022 1:07 PM Note Text: NUTRITION THERAPY PROGRESS NOTE SERVICE DATE: 09/17/2022 SERVICE TIME: 1115 Nutrition Assessment: Recommended Malnutrition Diagnosis: Moderate Protein-Calorie Malnutrition (09/12/22 1150 : Laurence Whitfield RD) Estimated kilocalorie needs: 0739-6453 Calorie Calculation Method: 30-35 kcals/kg Estimated protein needs (grams): 90-121 Grams protein determined by: 1.2 - 1.6 g/kg Care Plan: Continue current diet Supplements: Ensure Max;Zone Perfect Bar Monitor and Evaluation: Meet greater than 75% of estimated needs, Monitor fluid/electrolyte balance, Monitor bowel function, Monitor labs, I/Os, vital signs, weight Discharge Recommendations: Diet Diet: low sodium diet Oral Supplements: high protein beverage/snacks of choice 1-2x/day between meals. Interval History: LOS day 7, last reviewed by RD on 09/12. Pt with new onset ETOH induced cirrhosis being treated s/p fall for L humeral fracture; paracentesis 09/15 with 10L removal. Meal intakes showing ~75% of meals + ensure max TID. Last BM 09/12. Meds and labs reviewed. Anthropometrics: Weight: 117.8 kg (259 lb 12.8 oz) Dosing Weight: 75.3 kg (166 lb) UTD, no weight history in Epic and patient unsure of UBW d/t fluid status Usual Weight Obtained From: Patient There is no height or weight on file to calculate BMI. Morbidly Obese (BMI 46.6 based on reported height of 70) Weight change percentage over time: UTD Intake History: Current Nutrition Intake: Greater than 75% estimated energy needs Current Intake Over time: Greater than or equal to 5 days Pt endorses eating >75% of meals and drinking ensure despite 1 observed in room. Emphasized importance of high protein diet and limiting sodium, pt acknowledged understanding. Would like to trade an ensure for a zone bar. Discussed healthy diet regimen at home, encourage double protein portions if choose not to have ONS. Diet Orders (From admission, onward) Start Ordered 09/12/22 1445 DIET SUPPLEMENTS START NOW Question Answer Comment Supplement 1 ENSURE MAX CHOCOLATE Supplement 1 Frequency BREAKFAST Supplement 1 Frequency DINNER 09/12/22 1444 09/12/22 1445 DIET HEART HEALTHY START NOW Question: Heart Healthy Answer: 2 GM SODIUM (LOW SAT FAT) 09/12/22 1444 MNT Billing: $ Reassessment: 1-15 minutes SIGNATURE: Nidia Stratton RD PATIENT NAME: Carolynn Lee DATE: September 17, 2022 TIME: 9:00 AM Normal [facility] THERAPY NTon 09-17-2022 THERAPY NT HNO ID: [id number] Author: Forrest Nicolas PT Service: Physical Therapy Author Type: Physical Therapist Type: Therapy (PT/OT/Speech/Resp) Filed: 09/17/2022 11:44 AM Note Text: PHYSICAL THERAPY MISSED VISIT SERVICE DATE: 09/17/2022 SERVICE TIME: 1142 to 1142 ROOM: [place] [address] Patient not seen due to No Skilled Needs. Declines needs for further therapy services while in house. Has been up ambulating the floor multiple times throughout the day independently with low risk of falls. PT will sign off at this time . Please re-consult should status change. SIGNATURE: Forrest Nicolas PT PATIENT NAME: Carolynn Lee DATE: September 17, 2022 TIME: 11:44 AM Normal [facility] XR HUMERUS 2V AP/LAT LTon XR HUMERUS 2V AP/LAT LT * * *Final Report* * * DATE OF EXAM: Sep 17 2022 3:35PM AKX [id number] - XR HUMERUS 2V AP/LAT LT / PROCEDURE REASON: Fracture, humerus * * * * Physician Interpretation * * * * LEFT HUMERUS CLINICAL INDICATION: Follow-up left humerus fracture COMPARISON: 09/14/2022 FINDINGS/ IMPRESSION: There is a comminuted displaced fracture of the proximal third of the humeral shaft. Major distal fracture fragment is displaced medially and anteriorly. There is improvement in previously described angulation. Associated soft tissue swelling. Law Examiner: PSCB Transcribe Date/Time: Sep 18 2022 11:57A Dictated by : ALMA CORREA MD This examination was interpreted and the report reviewed and electronically signed by: ALMA CORREA MD on Sep 18 2022 11:59AM EST [id number] Normal [facility] Basic metabolic 2000 panelon 09-16-2022 Anion gap [Moles/Vol] 9 mmol/L Normal 9-18 [facility] Comment on above: Order Comment: Speci men Type: BLOOD SPECIMEN [facility] Address: [address] [place], [place] [id number] Performed By: #### T SCR #### [facility] CLIA [id number] [address] STATES OF [facility] Calcium [Mass/Vol] 7.9 mg/dL Low 8.5-10.2 [facility] Comment on above: Order Comment: Speci men Type: BLOOD SPECIMEN [facility] Address: [address] [address] Performed By: #### T SCR #### [facility] CLIA [id number] [address] [place] Chloride [Moles/Vol] 102 mmol/L Normal 97-105 [facility] Comment on above: Order Comment: Speci men Type: BLOOD SPECIMEN [facility] Address: [address] [place] [address] Performed By: #### T SCR #### [facility] CLIA [id number] [address] STATES [facility] CO2 [Moles/Vol] 24 mmol/L Normal 22-30 [facility] Comment on above: Order Comment: Speci men Type: BLOOD SPECIMEN [facility] Address: [address] [place] [address] Performed By: #### T SCR #### [facility] CLIA [id number] [address] STATES [facility] Creatinine [Mass/Vol] 0.74 mg/dL Normal 0.73-1.22 [facility] Comment on above: Order Comment: Speci men Type: BLOOD SPECIMEN [facility] Address: [address] [place] [address] Performed By: #### T SCR #### [facility] CLIA [id number] [address] OF [place] ESTIMATED GLOMERULAR FILTRATION RATE 115 mL/min/1.73m??? Normal >=60 [facility] Comment on above: Order Comment: Speci men Type: BLOOD SPECIMEN [facility] Address: [address] [place] [address] Result Comment: Yeni mated Glomerular Filtration Rate (eGFR) is calculated using the 2020 CKD-EPI creatinine equation. This equation utilizes serum creatinine, sex, and age as parameters. The creatinine assay has traceable calibration to isotope dilution-mass spectrometry. Refer to KDIGO guidelines for clinical interpretation. In patients with unstable renal function, e.g. those with acute kidney injury, the eGFR may not accurately reflect actual GFR. Performed By: #### T SCR #### [facility] CLIA [id number] 1 [place] [address] [place] Glucose [Mass/Vol] 106 mg/dL High 74-99 [facility] Comment on above: Order Comment: Speci men Type: BLOOD SPECIMEN [facility] Address: [address] [place] [address] Result Comment: The [place] Diabetes Association (ADA) provides guidance for cutoff values for fasting glucose and random glucose. The ADA defines fasting as no caloric intake for at least 8 hours. Fasting plasma glucose results between 100 to 125 mg/dL indicate increased risk for diabetes (prediabetes). Fasting plasma glucose results greater than or equal to 126 mg/dL meet the criteria for diagnosis of diabetes. In the absence of unequivocal hyperglycemia, results should be confirmed by repeat testing. In a patient with classic symptoms of hyperglycemia or hyperglycemic crisis, random plasma glucose results greater than or equal to 200 mg/dL meet the criteria for diagnosis of diabetes. Reference: Standards of Medical Care in Diabetes 2016, [place] [employer]. Diabetes Care. 2016.39(Suppl 1). Performed By: #### T SCR #### [facility] CLIA [id number] 1 [place] [address] [place] Potassium [Moles/Vol] 3.9 mmol/L Normal 3.7-5.1 [facility] Comment on above: Order Comment: Speci men Type: BLOOD SPECIMEN [facility] Address: [address] [place] [id number] Performed By: #### T SCR #### [facility] CLIA [id number] 1 [place] [address] [place] Sodium [Moles/Vol] 135 mmol/L Low 136-144 [facility] Comment on above: Order Comment: Speci men Type: BLOOD SPECIMEN [facility] Address: [address] [place] [address] Performed By: #### T SCR #### [facility] CLIA [id number] [address] Urea nitrogen [Mass/Vol] 8 mg/dL Low 9-24 [facility] Comment on above: Order Comment: Eran men Type: BLOOD SPECIMEN [facility] Address: [address] Performed By: #### T SCR #### [facility] CLIA [id number] [address] CASE MANAGEMon 09-16-2022 CASE MANAGEM HNO ID: [id number] Author: EMELYN Arzate Service: ? Author Type: Layout Worker Type: Care Mgt Progress Note Filed: 09/16/2022 11:02 AM Note Text: CARE MANAGEMENT PROGRESS NOTE SERVICE DATE: 09/16/2022 SERVICE TIME: 10:51 AM LOS: 6 days SW met with pt's mother at bedside. Per other, mother had questions regarding pts hepatology appointments, was suggested she talk to MD for referral at d/c. Mother also had questions regarding disability application. Mother directed to apply through social security office, and if he needed medical information regarding pts disability, he can go through his PCP office to attain information that would qualify pt. Per mother, pt is going home with her at d/c, and is going to attempt 12 step recovery route before inpatient treatment options. SIGNATURE: EMELYN Arzate PATIENT NAME: Carolynn Lee DATE: September 16, 2022 TIME: 10:51 AM PAGER/CONTACT #: [phone] Normal [facility] CBC panel Auto (Bld)on 09-16 Erythrocyte distribution width (RBC) [Ratio] 22.9 % High 11.5-15.0 [facility] Comment on above: Order Comment: Eran kelly Type: BLOOD SPECIMEN [facility] Address: [address] [place] [address] Performed By: #### C ONABO #### [facility] CLIA [id number] [address] Hematocrit (Bld) [Volume fraction] 23.7 % Low 39.0-51.0 [facility] Comment on above: Order Comment: Speci men Type: BLOOD SPECIMEN Ordering Facility: [facility] Address: [address] [place] [address] Performed By: #### C ONABO #### [facility] CLIA [id number] [address] OF [facility] Hemoglobin (Bld) [Mass/Vol] 7.1 g/dL Low 13.0-17.0 [facility] Comment on above: Order Comment: Speci men Type: BLOOD SPECIMEN Ordering Facility: [facility] Address: [address] [place] [address] Performed By: #### C ONABO #### [facility] CLIA [id number] [address] MCH (RBC) [Entitic mass] 24.5 pg Low 26.0-34.0 [facility] Comment on above: Order Comment: Speci men Type: BLOOD SPECIMEN Ordering Facility: [facility] Address: [address] [place] [address] Performed By: #### C ONABO #### [facility] CLIA [id number] [address] MCHC (RBC) [Mass/Vol] 30.0 g/dL Low 30.5-36.0 [facility] Comment on above: Order Comment: Speci men Type: BLOOD SPECIMEN Ordering Facility: [facility] Address: [address] [place] [address] Performed By: #### C ONABO #### [facility] CLIA [id number] [address] MCV (RBC) [Entitic vol] 81.7 fL Normal 80.0-100.0 [facility] Comment on above: Order Comment: Speci men Type: BLOOD SPECIMEN Ordering Facility: [facility] Address: [address] [address] Performed By: #### C ONABO #### [facility] CLIA [id number] [address] OF [place] Nucleated RBC (Bld) [#/Vol] 10*3/uL Normal <0.01 [facility] Comment on above: Order Comment: Speci men Type: BLOOD SPECIMEN Ordering Facility: [facility] Address: [address] [address] Performed By: #### C ONABO #### [facility] CLIA [id number] [address] [place] Platelet mean volume (Bld) [Entitic vol] 9.1 fL Normal 9.0-12.7 [facility] Comment on above: Order Comment: Speci men Type: BLOOD SPECIMEN Ordering Facility: [facility] Address: [address] [address] Performed By: #### C ONABO #### [facility] CLIA [id number] [address] OF [place] Platelets (Bld) [#/Vol] 143 10*3/uL Low 150-400 [facility] Comment on above: Order Comment: Speci men Type: BLOOD SPECIMEN Ordering Facility: [facility] Address: [address] [address] Performed By: #### C ONABO #### [facility] CLIA [id number] [address] [place] RBC (Bld) [#/Vol] 2.90 10*6/uL Low 4.20-6.00 [facility] Comment on above: Order Comment: Speci men Type: BLOOD SPECIMEN Ordering Facility: [facility] Address: [address] [address] Performed By: #### C ONABO #### [facility] CLIA [id number] [address] WBC (Bld) [#/Vol] 5.66 10*3/uL Normal 3.70-11.00 [facility] Comment on above: Order Comment: Speci men Type: BLOOD SPECIMEN Ordering Facility: [facility] Address: [address] [place] [address] Performed By: #### C ONABO #### [facility] CLIA [id number] [address] OF [place] Hepatic function 2000 panelo n 09-16-2022 Albumin [Mass/Vol] 2.8 g/dL Low 3.9-4.9 [facility] Comment on above: Order Comment: Speci men Type: BLOOD SPECIMEN Ordering Facility: [facility] Address: [address] [place] [address] Performed By: #### T SCR #### [facility] CLIA [id number] [address] ALP [Catalytic activity/Vol] 101 U/L Normal 38-113 [facility] Comment on above: Order Comment: Speci men Type: BLOOD SPECIMEN Ordering Facility: [facility] Address: [address] [place] [address] Performed By: #### T SCR #### [facility] CLIA [id number] [address] ALT With P-5'-P [Catalytic activity/Vol] 22 U/L Normal 10-54 [facility] Comment on above: Order Comment: Speci men Type: BLOOD SPECIMEN Ordering Facility: [facility] Address: [address] [place] [address] Performed By: #### T SCR #### [facility] CLIA [id number] [address] AST With P-5'-P [Catalytic activity/Vol] 45 U/L High 14-40 [facility] Comment on above: Order Comment: Speci men Type: BLOOD SPECIMEN Ordering Facility: [facility] Address: [address] [address] Performed By: #### T SCR #### [facility] CLIA [id number] [address] OF [place] Bilirubin [Mass/Vol] 4.1 mg/dL High 0.2-1.3 [facility] Comment on above: Order Comment: Speci men Type: BLOOD SPECIMEN Ordering Facility: [facility] Address: [address] [place] [address] Performed By: #### T SCR #### [facility] CLIA [id number] [address] Bilirubin.conjugated [Mass/Vol] 1.0 mg/dL High <0.2 [facility] Comment on above: Order Comment: Speci men Type: BLOOD SPECIMEN Ordering Facility: [facility] Address: [address] [place] [address] Performed By: #### T SCR #### [facility] CLIA [id number] [address] STATES [facility] Protein [Mass/Vol] 5.6 g/dL Low 6.3-8.0 [facility] Comment on above: Order Comment: Speci men Type: BLOOD SPECIMEN Ordering Facility: [facility] Address: [address] [place] [address] Performed By: #### T SCR #### [facility] CLIA [id number] [address] OF [place] BF MANUAL DIFFon 09-15-2022 DIF TTL, BODY FLUID 100 cells counted Normal [facility] Comment on above: Order Comment: Speci men Type: BODY FLUID SPECIMENOrdering Facility: [facility] Address: [address] [place] [address] Performed By: #### C CBF, [id number], [id number] ####[facility] LABORATORYCLIA [id number] [address] [place] LYMPH%, BF 11 % Low 18-36 [facility] Comment on above: Order Comment: Speci men Type: BODY FLUID SPECIMENOrdering Facility: [facility] Address: [address] [place] [address] Performed By: #### C CBF, [id number], [id number] ####[facility]ORYCLIA [id number] [address] [place] MACRO%, BF 67 % Normal 64-80 [facility] Comment on above: Order Comment: Speci men Type: BODY FLUID SPECIMENOrdering Facility: [facility] Address: [address] [place] [address] Performed By: #### C CBF, [id number], [id number] ####[facility]ORATORYCLIA [id number] [place] [address] [place] MESO %, BF 11 % High 0-2 [facility] Comment on above: Order Comment: Speci men Type: BODY FLUID SPECIMENOrdering Facility: [facility] Address: [address] [place] [address] Performed By: #### C CBF, [id number], [id number] ####[facility]ORYCLIA [id number] [address] [place] MONO% BF 7 % Normal [facility] Comment on above: Order Comment: Speci men Type: BODY FLUID SPECIMENOrdering Facility: [facility] Address: [address] [place] [address] Performed By: #### C CBF, [id number], [id number] ####[facility]ORYCLIA [id number] [address] OF [facility] OTHER CL%, BF 4 % Normal [facility] Comment on above: Order Comment: Speci men Type: BODY FLUID SPECIMENOrdering Facility: [facility] Address: [address] [place] [address] Result Comment: Path review to follow. Performed By: #### C CBF, [id number], [id number] ####[facility]ORYCLIA [id number] [address] OF [facility] BF STAFF REVIEW (LAB ORDER)o n 09-15-2022 BF REVIEW Reviewed by Vipin Solis MD [facility] Comment on above: Order Comment: Speci men Type: BODY FLUID SPECIMENOrdering Facility: [facility] Address: [address] [address] Performed By: #### C CBF, [id number], [id number] ####[facility]ORYCLIA [id number] [address] BF STAFF COMMENTS Negative [facility] Comment on above: Order Comment: Speci men Type: BODY FLUID SPECIMENOrdering Facility: [facility] Address: [address] [address] Performed By: #### C CBF, [id number], [id number] ####[facility]ATORYCLIA [id number] [address] BODY FLUID CELL COUNTon 05-0 Clarity (Unsp spec) Not Indicated Normal Clear [facility] Comment on above: Order Comment: Speci men Type: BODY FLUID SPECIMENOrdering Facility: [facility] Address: [address] [address] Performed By: #### C CBF, [id number], [id number] ####[facility]ORYCLIA [id number] [address] Color (Body fld) Not Indicated Normal Yellow [facility] Comment on above: Order Comment: Speci men Type: BODY FLUID SPECIMENOrdering Facility: [facility] Address: [address] [address] Performed By: #### C CBF, [id number], [id number] ####[facility]ORYCLIA [id number] [address] RBC Manual cnt (Body fld) [#/Vol] <2000 Normal <2000 [facility] Comment on above: Order Comment: Speci men Type: BODY FLUID SPECIMENOrdering Facility: [facility] Address: [address] [address] Performed By: #### C CBF, [id number], [id number] ####[facility]ORYCLIA [id number] [address] Specimen source Nom (Body fld) ASCITES FLUID Normal [facility] Comment on above: Order Comment: Speci men Type: BODY FLUID SPECIMENOrdering Facility: [facility] Address: [address] [place] [address] Performed By: #### C CBF, [id number], [id number] ####[facility] LABORATORYCLIA [id number] [address] WBC Manual cnt (Body fld) [#/Vol] 69 /uL Normal <1000 [facility] Comment on above: Order Comment: Speci men Type: BODY FLUID SPECIMENOrdering Facility: [facility] Address: [address] [place] [address] Performed By: #### C CBF, [id number], [id number] ####[facility] LABORATORYCLIA [id number] [address] BRIEF OP NOTon 09-15-2022 BRIEF OP NOT HNO ID: [id number] Author: Destiny Kam PA-C Service: Radiology Author Type: Physician Foreign Language Professor Type: Brief Op Note Filed: 09/15/2022 12:20 PM Note Text: BRIEF OP NOTE LOG ID: [id number] Surgery/Procedure Date: 09/15/2022 Surgeon(s)/Proceduralist(s) and Foreign Language Professor(s): Destiny Kam PA-C Procedure(s): paracentesis Anesthesia: local 5 ml lidocaine Findings: RLQ 10,000 ml clear yellow fluid Estimated Blood Loss: <3 ml Specimens: Yes Complications: none Pre-Op/Pre-Procedure Diagnosis: ascites Post-Op/Post-Procedure Diagnosis: same SIGNATURE: Destiny Kam PA-C PATIENT NAME: Carolynn Lee DATE: September 15, 2022 TIME: 11:58 AM PAGER/CONTACT #: Normal [facility] Basic metabolic 2000 panelon 09-15-2022 Anion gap [Moles/Vol] 8 mmol/L Low 9-18 [facility] Comment on above: Order Comment: Speci men Type: BLOOD SPECIMENOrdering Facility: [facility] Address: [address] [address] Performed By: #### 2 276-4, 37495-7, 21148-2 ####[facility] LABORATORYCLIA [id number] [place] [address] [place] Calcium [Mass/Vol] 7.9 mg/dL Low 8.5-10.2 [facility] Comment on above: Order Comment: Speci men Type: BLOOD SPECIMENOrdering Facility: [facility] Address: [address] [address] Performed By: #### 2 276-4, 09581-6, 50221-3 ####[facility] LABORATORYCLIA [id number] [place] [address] [place] Chloride [Moles/Vol] 104 mmol/L Normal 97-105 [facility] Comment on above: Order Comment: Speci men Type: BLOOD SPECIMENOrdering Facility: [facility] Address: [address] [place] [address] Performed By: #### 2 276-4, , 32371-8 ####[facility] LABORATORYCLIA [id number] [place] [address] [place] CO2 [Moles/Vol] 22 mmol/L Normal 22-30 [facility] Comment on above: Order Comment: Speci men Type: BLOOD SPECIMENOrdering Facility: [facility] Address: [address] [address] Performed By: #### 2 276-4, 38280-6, 60140-7 ####[facility]ORATORYCLIA [id number] [place] [address] [place] Creatinine [Mass/Vol] 0.70 mg/dL Low 0.73-1.22 [facility] Comment on above: Order Comment: Speci men Type: BLOOD SPECIMENOrdering Facility: [facility] Address: [address] [place] [address] Performed By: #### 2 276-4, 34615-5, 08395-3 ####[facility]ORESVILLEIA [id number] [place] [address] [place] ESTIMATED GLOMERULAR FILTRATION RATE 117 mL/min/1.73m??? Normal >=60 [facility] Comment on above: Order Comment: Eran mendoza Type: BLOOD SPECIMENOrdering Facility: [facility] Address: [address] [place] [address] Result Comment: Yeni mated Glomerular Filtration Rate (eGFR) is calculated using the 2020 CKD-EPI creatinine equation. This equation utilizes serum creatinine, sex, and age as parameters. The creatinine assay has traceable calibration to isotope dilution-mass spectrometry. Refer to KDIGO guidelines for clinical interpretation. In patients with unstable renal function, e.g. those with acute kidney injury, the eGFR may not accurately reflect actual GFR. Performed By: #### 2 276-4, 76981-3, 57380-9 ####[facility]ESVILLEIA [id number] [place] [address] [place] Glucose [Mass/Vol] 121 mg/dL High 74-99 [facility] Comment on above: Order Comment: Eran mendoza Type: BLOOD SPECIMENOrdering Facility: [facility] Address: [address] [place] [address] Result Comment: The [place] Diabetes Association (ADA) provides guidance for cutoff values for fasting glucose and random glucose. The ADA defines fasting as no caloric intake for at least 8 hours. Fasting plasma glucose results between 100 to 125 mg/dL indicate increased risk for diabetes (prediabetes). Fasting plasma glucose results greater than or equal to 126 mg/dL meet the criteria for diagnosis of diabetes. In the absence of unequivocal hyperglycemia, results should be confirmed by repeat testing. In a patient with classic symptoms of hyperglycemia or hyperglycemic crisis, random plasma glucose results greater than or equal to 200 mg/dL meet the criteria for diagnosis of diabetes. Reference: Standards of Medical Care in Diabetes 2016, [place] [employer] Association. Diabetes Care. 2016.39(Suppl 1). Performed By: #### 2 276-4, 60687-5, 46170-4 ####[facility]ESVILLEIA [id number] [place] [id number] [place] Potassium [Moles/Vol] 3.8 mmol/L Normal 3.7-5.1 [facility] Comment on above: Order Comment: Speci men Type: BLOOD SPECIMENOrdering Facility: [facility] Address: [address] [place] [address] Performed By: #### 2 276-4, 63185-6, 67302-8 ####[facility] LABORATORYCLIA [id number] [address] Sodium [Moles/Vol] 134 mmol/L Low 136-144 [facility] Comment on above: Order Comment: Speci men Type: BLOOD SPECIMENOrdering Facility: [facility] Address: [address] [place] [address] Performed By: #### 2 276-4, 50691-5, 60368-0 ####[facility] LABORATORYCLIA [id number] [address] STATES OF [facility] Urea nitrogen [Mass/Vol] 10 mg/dL Normal 9-24 [facility] Comment on above: Order Comment: Speci men Type: BLOOD SPECIMENOrdering Facility: [facility] Address: [address] [place] [address] Performed By: #### 2 276-4, 50078-5, 85404-3 ####[facility] LABORATORYCLIA [id number] [address] CBC panel Auto (Bld)on 09-15 Erythrocyte distribution width (RBC) [Ratio] 22.4 % High 11.5-15.0 [facility] Comment on above: Order Comment: Speci men Type: BLOOD SPECIMEN Ordering Facility: [facility] Address: [address] [place] [address] Performed By: #### D AGT #### [facility] CLIA [id number] [address] Hematocrit (Bld) [Volume fraction] 24.0 % Low 39.0-51.0 [facility] Comment on above: Order Comment: Speci men Type: BLOOD SPECIMEN Ordering Facility: [facility] Address: [address] [address] Performed By: #### D AGT #### [facility] CLIA [id number] [address] Hemoglobin (Bld) [Mass/Vol] 7.4 g/dL Low 13.0-17.0 [facility] Comment on above: Order Comment: Speci men Type: BLOOD SPECIMEN Ordering Facility: [facility] Address: [address] [place] [address] Performed By: #### D AGT #### [facility] CLIA [id number] [address] MCH (RBC) [Entitic mass] 24.9 pg Low 26.0-34.0 [facility] Comment on above: Order Comment: Speci men Type: BLOOD SPECIMEN Ordering Facility: [facility] Address: [address] [place] [address] Performed By: #### D AGT #### [facility] CLIA [id number] [address] MCHC (RBC) [Mass/Vol] 30.8 g/dL Normal 30.5-36.0 [facility] Comment on above: Order Comment: Speci men Type: BLOOD SPECIMEN Ordering Facility: [facility] Address: [address] [place] [address] Performed By: #### D AGT #### [facility] CLIA [id number] [address] MCV (RBC) [Entitic vol] 80.8 fL Normal 80.0-100.0 [facility] Comment on above: Order Comment: Speci men Type: BLOOD SPECIMEN Ordering Facility: [facility] Address: [address] [place] [address] Performed By: #### D AGT #### [facility] CLIA [id number] [address] Nucleated RBC (Bld) [#/Vol] 10*3/uL Normal <0.01 [facility] Comment on above: Order Comment: Speci men Type: BLOOD SPECIMEN Ordering Facility: [facility] Address: [address] [address] Performed By: #### D AGT #### [facility] CLIA [id number] [address] [place] Platelet mean volume (Bld) [Entitic vol] 9.3 fL Normal 9.0-12.7 [facility] Comment on above: Order Comment: Speci men Type: BLOOD SPECIMEN Ordering Facility: [facility] Address: [address] [address] Performed By: #### D AGT #### [facility] CLIA [id number] [address] [place] Platelets (Bld) [#/Vol] 145 10*3/uL Low 150-400 [facility] Comment on above: Order Comment: Speci men Type: BLOOD SPECIMEN Ordering Facility: [facility] Address: [address] [address] Performed By: #### D AGT #### [facility] CLIA [id number] [address] [place] RBC (Bld) [#/Vol] 2.97 10*6/uL Low 4.20-6.00 [facility] Comment on above: Order Comment: Speci men Type: BLOOD SPECIMEN Ordering Facility: [facility] Address: [address] [address] Performed By: #### D AGT #### [facility] CLIA [id number] [address] [place] WBC (Bld) [#/Vol] 6.93 10*3/uL Normal 3.70-11.00 [facility] Comment on above: Order Comment: Speci men Type: BLOOD SPECIMEN Ordering Facility: [facility] Address: [address] [address] Performed By: #### D AGT #### [facility] CLIA [id number] [address] Erythrocyte distribution width (RBC) [Ratio] 22.3 % High 11.5-15.0 [facility] Comment on above: Order Comment: Speci men Type: BLOOD SPECIMENOrdering Facility: [facility] Address: [address] [place] [address] Performed By: #### 5 8410-2 ####[facility] LABORATORYCLIA [id number] [address] OF [facility] Hematocrit (Bld) [Volume fraction] 23.5 % Low 39.0-51.0 [facility] Comment on above: Order Comment: Speci men Type: BLOOD SPECIMENOrdering Facility: [facility] Address: [address] [place] [address] Performed By: #### 5 8410-2 ####[facility] LABORATORYCLIA [id number] [address] Hemoglobin (Bld) [Mass/Vol] 7.1 g/dL Low 13.0-17.0 [facility] Comment on above: Order Comment: Speci men Type: BLOOD SPECIMENOrdering Facility: [facility] Address: [address] [place] [address] Performed By: #### 5 8410-2 ####[facility] LABORATORYCLIA [id number] [address] [place] MCH (RBC) [Entitic mass] 24.6 pg Low 26.0-34.0 [facility] Comment on above: Order Comment: Speci men Type: BLOOD SPECIMENOrdering Facility: [facility] Address: [address] [place] [address] Performed By: #### 5 8410-2 ####[facility] LABORATORYCLIA [id number] [address] STATES [facility] MCHC (RBC) [Mass/Vol] 30.2 g/dL Low 30.5-36.0 [facility] Comment on above: Order Comment: Speci men Type: BLOOD SPECIMENOrdering Facility: [facility] Address: [address] [place] [address] Performed By: #### 5 8410-2 ####[facility] LABORATORYCLIA [id number] [address] MCV (RBC) [Entitic vol] 81.3 fL Normal 80.0-100.0 [facility] Comment on above: Order Comment: Speci men Type: BLOOD SPECIMENOrdering Facility: [facility] Address: [address] [address] Performed By: #### 5 8410-2 ####[facility] LABORATORYCLIA [id number] [address] Nucleated RBC (Bld) [#/Vol] 10*3/uL Normal <0.01 [facility] Comment on above: Order Comment: Speci men Type: BLOOD SPECIMENOrdering Facility: [facility] Address: [address] [place] [address] Performed By: #### 5 8410-2 ####[facility] LABORATORYCLIA [id number] [address] Platelet mean volume (Bld) [Entitic vol] 9.2 fL Normal 9.0-12.7 [facility] Comment on above: Order Comment: Speci men Type: BLOOD SPECIMENOrdering Facility: [facility] Address: [address] [place] [address] Performed By: #### 5 8410-2 ####[facility] LABORATORYCLIA [id number] [address] Platelets (Bld) [#/Vol] 143 10*3/uL Low 150-400 [facility] Comment on above: Order Comment: Speci men Type: BLOOD SPECIMENOrdering Facility: [facility] Address: [address] [place] [address] Performed By: #### 5 8410-2 ####[facility] LABORATORYCLIA [id number] [address] [place] RBC (Bld) [#/Vol] 2.89 10*6/uL Low 4.20-6.00 [facility] Comment on above: Order Comment: Speci men Type: BLOOD SPECIMENOrdering Facility: [facility] [facility] Address: [address] [place] [address] Performed By: #### 5 8410-2 ####[facility] LABORATORYCLIA [id number] [place] [address] [place] WBC (Bld) [#/Vol] 6.01 10*3/uL Normal 3.70-11.00 [facility] Comment on above: Order Comment: Speci men Type: BLOOD SPECIMENOrdering Facility: [facility] Address: [address] [place] [address] Performed By: #### 5 8410-2 ####[facility] LABORATORYCLIA [id number] [address] [place] Ferritin SerPl-ncon 2022 Ferritin [Mass/Vol] 49.5 ng/mL Normal 30.3-565.7 [facility] Comment on above: Order Comment: Speci men Type: BLOOD SPECIMENOrdering Facility: [facility] Address: [address] [place] [address] Performed By: #### 2 276-4, 51543-3, 15729-4 ####[facility] LABORATORYCLIA [id number] [place] [address] [place] Iron and Iron binding capaci panelon 09-15-2022 Iron [Mass/Vol] 16 ug/dL Low 41-186 [facility] Comment on above: Order Comment: Speci men Type: BLOOD SPECIMENOrdering Facility: [facility] Address: [address] [place] [address] Performed By: #### 2 276-4, 03194-4, 30596-9 ####[facility] LABORATORYCLIA [id number] [address] [place] Iron binding capacity [Mass/Vol] 185 ug/dL Low 232-386 [facility] Comment on above: Order Comment: Speci men Type: BLOOD SPECIMENOrdering Facility: [facility] Address: [place] [address] Performed By: #### 2 276-4, 55375-0, 81432-0 ####[facility]CLIA [id number] [place] [address] [facility] Iron saturation [Mass fraction] 8.6 % Low 15.0-57.0 [facility] Comment on above: Order Comment: Eran mendoza Type: BLOOD SPECIMENOrdering Facility: [facility] Address: [place] [address] Performed By: #### 2 276-4, 70273-4, 62754-6 ####[facility] LABORATORYCLIA [id number] [place] [id number] [facility] PT panel Coag (PPP)on 2022 INR Coag (PPP) [Relative time] 1.7 {INR} High 0.9-1.3 [facility] Comment on above: Order Comment: Specradha mendoza Type: BLOOD SPECIMEN [facility] Address: [address] [place] [address] Result Comment: Sobia min K Antagonist (VKA) Therapeutic Range: INR 2 to 3 (Target INR of 2.5) Note: For patients treated with VKA drugs, such as warfarin, the [place] [employer] 2012 Guideline recommends a therapeutic INR range of 2 to 3 (target INR of 2.5). This recommendation includes high-risk patients with antiphospholipid syndrome with previous arterial or venous thromboembolism, current-generation mechanical or bioprosthetic aortic heart valve replacement. Note: Patients with mechanical aortic valve replacement and additional risk factors for thromboembolic events (atrial fibrillation, previous thromboembolism, LV dysfunction, hypercoagulable conditions) or an older generation mechanical AVR (i.e., ball in-Cage) or any mechanical MVR should have a INR therapeutic range of 2.5 to 3.5 (target INR of 3). Kapil QUEEN, et al. Chest 2012, 141:7S-47S Dedra LEONARD et al. [facility] 2017, 70: 252-289 Performed By: #### C ONABO #### [facility] CLIA [id number] [address] OF [facility] PT Coag (PPP) [Time] 17.3 s High 9.7-13.0 [facility] Comment on above: Order Comment: Speci men Type: BLOOD SPECIMEN [facility] Address: [place] [phone] Performed By: #### C ONABO #### [facility] CLIA [id number] [address] OF [facility] US PARACENTESIS BIon 023 US PARACENTESIS BI * * *Final Report* * * DATE OF EXAM: Sep 15 2022 12:22PM [facility] 2038 - US PARACENTESIS BI / PROCEDURE REASON: Ascites * * * * Physician Interpretation * * * * EXAM TITLE: ULTRASOUND GUIDED PARACENTESIS DATE: 09/15/2022 COMPARISON: US Ascites survey 09/14/2022 CLINICAL INDICATION/HISTORY: Ascites TECHNIQUE: Informed consent was obtained from the patient. The patient was placed in a supine position and with ultrasound guidance an appropriate skin entry site in the right abdomen was identified, prepped, and anesthetized. With ultrasound guidance a 5-Romanian Yueh needle and sheath was passed into the peritoneal space and 10,000 cc of clear yellow fluid was withdrawn. Specimens were sent for laboratory evaluation. There were no apparent complications. FINDINGS: Ultrasound revealed a generous amount of ascites containing no debris. IMPRESSION: Technically successful ultrasound guided paracentesis yielded 10,000 cc of clear yellow fluid. Law Examiner: PSCB Transcribe Date/Time: Sep 15 2022 12:40P Dictated by : RORY FINNEGAN This examination was interpreted and the report reviewed and electronically signed by: RORY FINNEGAN on Sep 15 2022 12:41PM EST [id number] Normal [facility] Basic metabolic 2000 panelon 09-14-2022 Anion gap [Moles/Vol] 8 mmol/L Low 9-18 [facility] Comment on above: Order Comment: Speci men Type: BLOOD SPECIMEN [facility] Address: [place] [phone] Performed By: #### D AGT #### [facility] CLIA [id number] [address] [place] Calcium [Mass/Vol] 8.1 mg/dL Low 8.5-10.2 [facility] Comment on above: Order Comment: Speci men Type: BLOOD SPECIMEN [facility] Address: [address] [place] [address] Performed By: #### D AGT #### [facility] CLIA [id number] [address] [place] Chloride [Moles/Vol] 102 mmol/L Normal 97-105 [facility] Comment on above: Order Comment: Speci men Type: BLOOD SPECIMEN [facility] Address: [address] [place] [address] Performed By: #### D AGT #### [facility] CLIA [id number] [address] OF [facility] CO2 [Moles/Vol] 21 mmol/L Low 22-30 [facility] Comment on above: Order Comment: Speci men Type: BLOOD SPECIMEN [facility] Address: [address] [place] [address] Performed By: #### D AGT #### [facility] CLIA [id number] [address] [place] Creatinine [Mass/Vol] 0.72 mg/dL Low 0.73-1.22 [facility] Comment on above: Order Comment: Speci men Type: BLOOD SPECIMEN [facility] Address: [address] [place] [address] Performed By: #### D AGT #### [facility] CLIA [id number] [address] ESTIMATED GLOMERULAR FILTRATION RATE 116 mL/min/1.73m??? Normal >=60 [facility] Comment on above: Order Comment: Speci men Type: BLOOD SPECIMEN [facility] Address: [address] [place] [address] Result Comment: Yeni mated Glomerular Filtration Rate (eGFR) is calculated using the 2020 CKD-EPI creatinine equation. This equation utilizes serum creatinine, sex, and age as parameters. The creatinine assay has traceable calibration to isotope dilution-mass spectrometry. Refer to KDIGO guidelines for clinical interpretation. In patients with unstable renal function, e.g. those with acute kidney injury, the eGFR may not accurately reflect actual GFR. Performed By: #### D AGT #### [facility] CLIA [id number] 1 [place] [address] [place] Glucose [Mass/Vol] 127 mg/dL High 74-99 [facility] Comment on above: Order Comment: Eran mendoza Type: BLOOD SPECIMEN [facility] Address: [address] [place], [place] [phone] Result Comment: The [place] [employer] (ADA) provides guidance for cutoff values for fasting glucose and random glucose. The ADA defines fasting as no caloric intake for at least 8 hours. Fasting plasma glucose results between 100 to 125 mg/dL indicate increased risk for diabetes (prediabetes). Fasting plasma glucose results greater than or equal to 126 mg/dL meet the criteria for diagnosis of diabetes. In the absence of unequivocal hyperglycemia, results should be confirmed by repeat testing. In a patient with classic symptoms of hyperglycemia or hyperglycemic crisis, random plasma glucose results greater than or equal to 200 mg/dL meet the criteria for diagnosis of diabetes. Reference: Standards of Medical Care in Diabetes 2016, [place] [employer]. Diabetes Care. 2016.39(Suppl 1). Performed By: #### D AGT #### [facility] CLIA [id number] 1 [place] [address] [place] Potassium [Moles/Vol] 3.7 mmol/L Normal 3.7-5.1 [facility] Comment on above: Order Comment: Eran mendoza Type: BLOOD SPECIMEN [facility] Address: [address] [place], [place] [phone] Performed By: #### D AGT #### [facility] CLIA [id number] 1 [place] [address] [place] Sodium [Moles/Vol] 131 mmol/L Low 136-144 [facility] Comment on above: Order Comment: Speci men Type: BLOOD SPECIMEN [facility] Address: [address] [place] [address] Performed By: #### D AGT #### [facility] CLIA [id number] [address] STATES OF [facility] Urea nitrogen [Mass/Vol] 9 mg/dL Normal 9-24 [facility] Comment on above: Order Comment: Speci men Type: BLOOD SPECIMEN [facility] Address: [address] [place] [address] Performed By: #### D AGT #### [facility] CLIA [id number] [address] OF [facility] CBC panel Auto (Bld)on 09-14 Erythrocyte distribution width (RBC) [Ratio] 21.5 % High 11.5-15.0 [facility] Comment on above: Order Comment: Speci men Type: BLOOD SPECIMENOrdering Facility: [facility] Address: [address] [place] [address] Performed By: #### 5 8410-2 ####[facility] LABORATORYCLIA [id number] [address] STATES OF [facility] Hematocrit (Bld) [Volume fraction] 27.0 % Low 39.0-51.0 [facility] Comment on above: Order Comment: Speci men Type: BLOOD SPECIMENOrdering Facility: [facility] Address: [address] [place] [address] Performed By: #### 5 8410-2 ####[facility] LABORATORYCLIA [id number] [address] [place] Hemoglobin (Bld) [Mass/Vol] 8.4 g/dL Low 13.0-17.0 [facility] Comment on above: Order Comment: Speci men Type: BLOOD SPECIMENOrdering Facility: [facility] Address: [address] [place] [address] Performed By: #### 5 8410-2 ####[facility] LABORATORYCLIA [id number] [address] MCH (RBC) [Entitic mass] 25.4 pg Low 26.0-34.0 [facility] Comment on above: Order Comment: Speci men Type: BLOOD SPECIMENOrdering Facility: [facility] Address: [address] [place] [address] Performed By: #### 5 8410-2 ####[facility] LABORATORYCLIA [id number] [address] MCHC (RBC) [Mass/Vol] 31.1 g/dL Normal 30.5-36.0 [facility] Comment on above: Order Comment: Speci men Type: BLOOD SPECIMENOrdering Facility: [facility] Address: [address] [place] [address] Performed By: #### 5 8410-2 ####[facility] LABORATORYCLIA [id number] [address] MCV (RBC) [Entitic vol] 81.6 fL Normal 80.0-100.0 [facility] Comment on above: Order Comment: Speci men Type: BLOOD SPECIMENOrdering Facility: [facility] Address: [address] [place] [address] Performed By: #### 5 8410-2 ####[facility] LABORATORYCLIA [id number] [address] Nucleated RBC (Bld) [#/Vol] 10*3/uL Normal <0.01 [facility] Comment on above: Order Comment: Speci men Type: BLOOD SPECIMENOrdering Facility: [facility] Address: [address] [place] [address] Performed By: #### 5 8410-2 ####[facility] LABORATORYCLIA [id number] [address] Platelet mean volume (Bld) [Entitic vol] 9.6 fL Normal 9.0-12.7 [facility] Comment on above: Order Comment: Speci men Type: BLOOD SPECIMENOrdering Facility: [facility] Address: [facility] [place] [address] Performed By: #### 5 8410-2 ####[facility] LABORATORYCLIA [id number] [place] [id number] [facility] Platelets (Bld) [#/Vol] 160 10*3/uL Normal 150-400 [facility] Comment on above: Order Comment: Speci men Type: BLOOD SPECIMENOrdering Facility: [facility] Address: [place] [address] Performed By: #### 5 8410-2 ####[facility] LABORATORYCLIA [id number] [address] RBC (Bld) [#/Vol] 3.31 10*6/uL Low 4.20-6.00 [facility] Comment on above: Order Comment: Speci men Type: BLOOD SPECIMENOrdering Facility: [facility] Address: [address] [place] [address] Performed By: #### 5 8410-2 ####[facility] LABORATORYCLIA [id number] [address] WBC (Bld) [#/Vol] 6.67 10*3/uL Normal 3.70-11.00 [facility] Comment on above: Order Comment: Speci men Type: BLOOD SPECIMENOrdering Facility: [facility] Address: [place] [address] Performed By: #### 5 8410-2 ####[facility] LABORATORYCLIA [id number] [place] [id number] [facility] US ASCITES SURVEYon 09-15-19 US ASCITES SURVEY * * *Final Report* * * DATE OF EXAM: Sep 14 2022 2:00AM RICHIE 1016 - US ASCITES SURVEY / PROCEDURE REASON: Ascites * * * * Physician Interpretation * * * * EXAM TITLE: US ASCITES SURVEY DATE: 09/14/2022 INDICATION: Abdominal distention. Clinical concern for ascites. COMPARISON: CT scan of the abdomen dated 09/11/2022 All images are captured and stored in a permanent archive. Sonographic imaging of the abdomen shows large amount of ascites throughout all 4 quadrants of the abdomen. IMPRESSION: Large amount of ascites throughout the abdomen and pelvis. Law Examiner: RADHAB Transcribe Date/Time: Sep 14 2022 7:14A Dictated by : NARCISO CASTANO MD This examination was interpreted and the report reviewed and electronically signed by: NARCISO CASTANO MD on Sep 14 2022 7:15AM EST [id number] Normal [facility] Urinalysis complete panel (U )on 09-14-2022 Bilirubin Ql (U) 1+ Abnormal Negative [facility] Comment on above: Order Comment: Speci men Type: URINE SPECIMENOrdering Facility: [facility] Address: [address] [place] [address] Result Comment: Sugg est correlation with clinical findings and serum bilirubin if clinically indicated. Performed By: #### 2 4356-8 ####[facility] LABORATORYCLIA [id number] [place] [address] [place] Clarity (Unsp spec) Clear Normal Clear [facility] Comment on above: Order Comment: Speci men Type: URINE SPECIMENOrdering Facility: [facility] Address: [address] [place] [address] Performed By: #### 2 4356-8 ####[facility] LABORATORYCLIA [id number] [place] [address] [place] Color (U) Dark Yellow Abnormal yellow [facility] Comment on above: Order Comment: Speci men Type: URINE SPECIMENOrdering Facility: [facility] Address: [address] [place] [address] Performed By: #### 2 4356-8 ####[facility] LABORATORYCLIA [id number] [place] [address] [place] Epithelial cells LM.HPF (Urine sed) [#/Area] Few Normal [facility] Comment on above: Order Comment: Speci men Type: URINE SPECIMENOrdering Facility: [facility] Address: [address] [place] [address] Performed By: #### 2 4356-8 ####[facility] LABORATORYCLIA [id number] [address] Glucose Test strip (U) [Mass/Vol] Negative Normal Trace, Negative [facility] Comment on above: Order Comment: Speci men Type: URINE SPECIMENOrdering Facility: [facility] Address: [address] [place] [address] Performed By: #### 2 4356-8 ####[facility] LABORATORYCLIA [id number] [address] Hemoglobin Ql (U) 2+ Abnormal Negative, Trace [facility] Comment on above: Order Comment: Speci men Type: URINE SPECIMENOrdering Facility: [facility] Address: [address] [place] [address] Performed By: #### 2 4356-8 ####[facility] LABORATORYCLIA [id number] [address] Ketones Ql (U) Trace Normal Negative, Trace [facility] Comment on above: Order Comment: Speci men Type: URINE SPECIMENOrdering Facility: [facility] Address: [address] [place] [address] Performed By: #### 2 4356-8 ####[facility] LABORATORYCLIA [id number] [address] Leukocyte esterase Test strip Ql (U) 250 Iza/uL Abnormal Negative, 25 Iza/uL [facility] Comment on above: Order Comment: Speci men Type: URINE SPECIMENOrdering Facility: [facility] Address: [address] [place] [address] Performed By: #### 2 4356-8 ####[facility] LABORATORYCLIA [id number] [address] Nitrite Ql (U) Negative Normal Negative [facility] Comment on above: Order Comment: Speci men Type: URINE SPECIMENOrdering Facility: [facility] Address: [address] [place] [address] Performed By: #### 2 4356-8 ####[facility] LABORATORYCLIA [id number] [address] [place] pH (U) 6.0 [pH] Normal 5.0-8.0 [facility] Comment on above: Order Comment: Speci men Type: URINE SPECIMENOrdering Facility: [facility] Address: [address] [place] [address] Performed By: #### 2 4356-8 ####[facility] LABORATORYCLIA [id number] [address] [place] Protein (U) [Mass/Vol] 1+ Abnormal Trace, Negative [facility] Comment on above: Order Comment: Speci men Type: URINE SPECIMENOrdering Facility: [facility] Address: [address] [place] [address] Performed By: #### 2 4356-8 ####[facility] MOORESVILLEIA [id number] [address] STATES [facility] RBC LM.HPF (Urine sed) [#/Area] 11-25 /HPF Abnormal 0-3 /HPF [facility] Comment on above: Order Comment: Speci men Type: URINE SPECIMENOrdering Facility: [facility] Address: [address] [place] [address] Performed By: #### 2 4356-8 ####[facility]CLIA [id number] [address] [place] Specific gravity (U) [Rel density] 1.031 High 1.005-1.030 [facility] Comment on above: Order Comment: Speci men Type: URINE SPECIMENOrdering Facility: [facility] Address: [address] [place] [address] Performed By: #### 2 4356-8 ####[facility] LABORATORYCLIA [id number] [address] Urobilinogen Ql (U) 2+ Abnormal Negative [facility] Comment on above: Order Comment: Speci men Type: URINE SPECIMENOrdering Facility: [facility] Address: [address] [place] [address] Performed By: #### 2 4356-8 ####[facility] LABORATORYCLIA [id number] [place] [address] [place] WBC LM.HPF (Urine sed) [#/Area] 11-25 /HPF Abnormal 0-5 /HPF [facility] Comment on above: Order Comment: Speci men Type: URINE SPECIMENOrdering Facility: [facility] Address: [address] [place] [address] Performed By: #### 2 4356-8 ####[facility] LABORATORYCLIA [id number] [address] [place] XR HUMERUS 2V AP/LAT LTon XR HUMERUS 2V AP/LAT LT * * *Final Report* * * DATE OF EXAM: Sep 14 2022 6:05AM AKX 5354 - XR HUMERUS 2V AP/LAT LT / PROCEDURE REASON: Fracture, humerus * * * * Physician Interpretation * * * * EXAM TITLE: XR HUMERUS 2V AP/LAT LT DATE: 09/14/2022 INDICATION: Left humerus fracture. COMPARISON: None. AP and lateral views left humerus taken through a cast shows oblique fracture through the midshaft of the left humerus. There is pronounced varus angulation of the distal fracture fragment. IMPRESSION: Displaced fracture midshaft left humerus. Films taken through a cast. Law Examiner: MEHDI Transcribe Date/Time: Sep 14 2022 7:02A Dictated by : NARCISO CASTANO MD This examination was interpreted and the report reviewed and electronically signed by: NARCISO CASTANO MD on Sep 14 2022 7:03AM EST [id number] Normal [facility] Basic metabolic 2000 panelon 09-13-2022 Anion gap [Moles/Vol] 10 mmol/L Normal 9-18 [facility] Comment on above: Order Comment: Speci men Type: BLOOD SPECIMEN [facility] Address: [address] [place] [address] Performed By: #### C ONABO #### [facility] CLIA [id number] [address] [place] Calcium [Mass/Vol] 7.0 mg/dL Low 8.5-10.2 [facility] Comment on above: Order Comment: Speci men Type: BLOOD SPECIMEN [facility] Address: [address] [place] [address] Performed By: #### C ONABO #### [facility] CLIA [id number] 1 [place] [address] [place] Chloride [Moles/Vol] 106 mmol/L High 97-105 [facility] Comment on above: Order Comment: Speci men Type: BLOOD SPECIMEN [facility] Address: [address] [place] [address] Performed By: #### C ONABO #### [facility] CLIA [id number] 1 [place] [address] [place] CO2 [Moles/Vol] 21 mmol/L Low 22-30 [facility] Comment on above: Order Comment: Speci men Type: BLOOD SPECIMEN [facility] Address: [address] [place] [address] Performed By: #### C ONABO #### [facility] CLIA [id number] [address] [place] Creatinine [Mass/Vol] 0.66 mg/dL Low 0.73-1.22 [facility] Comment on above: Order Comment: Speci men Type: BLOOD SPECIMEN [facility] Address: [address] [place] [address] Performed By: #### C ONABO #### [facility] CLIA [id number] [address] [place] ESTIMATED GLOMERULAR FILTRATION RATE 119 mL/min/1.73m??? Normal >=60 [facility] Comment on above: Order Comment: Speci men Type: BLOOD SPECIMEN [facility] Address: [address] [place] [address] Result Comment: Yeni mated Glomerular Filtration Rate (eGFR) is calculated using the 2020 CKD-EPI creatinine equation. This equation utilizes serum creatinine, sex, and age as parameters. The creatinine assay has traceable calibration to isotope dilution-mass spectrometry. Refer to KDIGO guidelines for clinical interpretation. In patients with unstable renal function, e.g. those with acute kidney injury, the eGFR may not accurately reflect actual GFR. Performed By: #### C ONABO #### [facility] CLIA [id number] 1 [place] [address] [place] Glucose [Mass/Vol] 125 mg/dL High 74-99 [facility] Comment on above: Order Comment: Speci men Type: BLOOD SPECIMEN Ordering Facility: [facility] Address: [address] [address] Result Comment: The [place] Diabetes Association (ADA) provides guidance for cutoff values for fasting glucose and random glucose. The ADA defines fasting as no caloric intake for at least 8 hours. Fasting plasma glucose results between 100 to 125 mg/dL indicate increased risk for diabetes (prediabetes). Fasting plasma glucose results greater than or equal to 126 mg/dL meet the criteria for diagnosis of diabetes. In the absence of unequivocal hyperglycemia, results should be confirmed by repeat testing. In a patient with classic symptoms of hyperglycemia or hyperglycemic crisis, random plasma glucose results greater than or equal to 200 mg/dL meet the criteria for diagnosis of diabetes. Reference: Standards of Medical Care in Diabetes 2016, [place] Diabetes Association. Diabetes Care. 2016.39(Suppl 1). Performed By: #### C ONABO #### [facility] CLIA [id number] [address] [place] Potassium [Moles/Vol] 3.0 mmol/L Low 3.7-5.1 [facility] Comment on above: Order Comment: Speci men Type: BLOOD SPECIMEN Ordering Facility: [facility] Address: [address] [phone] Performed By: #### C ONABO #### [facility] CLIA [id number] 1 [place] [address] [place] Sodium [Moles/Vol] 137 mmol/L Normal 136-144 [facility] Comment on above: Order Comment: Speci men Type: BLOOD SPECIMEN Ordering Facility: [facility] Address: [address] [address] Performed By: #### C ONABO #### [facility] CLIA [id number] [address] Urea nitrogen [Mass/Vol] 8 mg/dL Low 9-24 [facility] Comment on above: Order Comment: Speci men Type: BLOOD SPECIMEN Ordering Facility: [facility] Address: [address] [address] Performed By: #### C ONABO #### [facility] CLIA [id number] [address] CBC panel Auto (Bld)on 09-13 Erythrocyte distribution width (RBC) [Ratio] 20.2 % High 11.5-15.0 [facility] Comment on above: Order Comment: Speci men Type: BLOOD SPECIMEN Ordering Facility: [facility] Address: [address] [place] [address] Performed By: #### D AGT #### [facility] CLIA [id number] [address] Hematocrit (Bld) [Volume fraction] 22.9 % Low 39.0-51.0 [facility] Comment on above: Order Comment: Speci men Type: BLOOD SPECIMEN Ordering Facility: [facility] Address: [address] [place] [address] Performed By: #### D AGT #### [facility] CLIA [id number] [address] OF [facility] Hemoglobin (Bld) [Mass/Vol] 7.1 g/dL Low 13.0-17.0 [facility] Comment on above: Order Comment: Speci men Type: BLOOD SPECIMEN Ordering Facility: [facility] Address: [address] [place] [address] Performed By: #### D AGT #### [facility] CLIA [id number] [address] [place] [address] [place] MCH (RBC) [Entitic mass] 24.9 pg Low 26.0-34.0 [facility] Comment on above: Order Comment: Speci men Type: BLOOD SPECIMEN Ordering Facility: [facility] Address: [address] [address] Performed By: #### D AGT #### [facility] CLIA [id number] [address] MCHC (RBC) [Mass/Vol] 31.0 g/dL Normal 30.5-36.0 [facility] Comment on above: Order Comment: Speci men Type: BLOOD SPECIMEN Ordering Facility: [facility] Address: [address] [address] Performed By: #### D AGT #### [facility] CLIA [id number] [address] MCV (RBC) [Entitic vol] 80.4 fL Normal 80.0-100.0 [facility] Comment on above: Order Comment: Speci men Type: BLOOD SPECIMEN Ordering Facility: [facility] Address: [address] [address] Performed By: #### D AGT #### [facility] CLIA [id number] [address] Nucleated RBC (Bld) [#/Vol] 10*3/uL Normal <0.01 [facility] Comment on above: Order Comment: Speci men Type: BLOOD SPECIMEN Ordering Facility: [facility] Address: [address] [address] Performed By: #### D AGT #### [facility] CLIA [id number] [address] Platelet mean volume (Bld) [Entitic vol] 9.3 fL Normal 9.0-12.7 [facility] Comment on above: Order Comment: Speci men Type: BLOOD SPECIMEN Ordering Facility: [facility] Address: [address] [address] Performed By: #### D AGT #### [facility] CLIA [id number] [address] Platelets (Bld) [#/Vol] 133 10*3/uL Low 150-400 [facility] Comment on above: Order Comment: Speci men Type: BLOOD SPECIMEN Ordering Facility: [facility] Address: [address] [place] [address] Performed By: #### D AGT #### [facility] CLIA [id number] [address] RBC (Bld) [#/Vol] 2.85 10*6/uL Low 4.20-6.00 [facility] Comment on above: Order Comment: Speci men Type: BLOOD SPECIMEN Ordering Facility: [facility] Address: [address] [place] [address] Performed By: #### D AGT #### [facility] CLIA [id number] [address] WBC (Bld) [#/Vol] 6.89 10*3/uL Normal 3.70-11.00 [facility] Comment on above: Order Comment: Speci men Type: BLOOD SPECIMEN Ordering Facility: [facility] Address: [address] [place] [address] Performed By: #### D AGT #### [facility] CLIA [id number] [address] CBC W Auto Differential pane l (Bld)on 09-12-2022 Basophils (Bld) [#/Vol] 0.08 10*3/uL Normal <0.11 [facility] Comment on above: Order Comment: Speci men Type: BLOOD SPECIMEN Ordering Facility: [facility] Address: [address] [place] [address] Performed By: #### D AGT #### [facility] CLIA [id number] [address] Basophils/100 WBC (Bld) 1.1 % Normal [facility] Comment on above: Order Comment: Speci men Type: BLOOD SPECIMEN Ordering Facility: [facility] Address: [address] [place] [address] Performed By: #### D AGT #### [facility] CLIA [id number] [address] Differential cell count method Nom (Bld) Auto Normal [facility] Comment on above: Order Comment: Speci men Type: BLOOD SPECIMEN Ordering Facility: [facility] Address: [address] [place] [address] Performed By: #### D AGT #### [facility] CLIA [id number] [address] Eosinophils (Bld) [#/Vol] 0.16 10*3/uL Normal <0.46 [facility] Comment on above: Order Comment: Speci men Type: BLOOD SPECIMEN Ordering Facility: [facility] Address: [address] [place] [address] Performed By: #### D AGT #### [facility] CLIA [id number] [address] Eosinophils/100 WBC (Bld) 2.3 % Normal [facility] Comment on above: Order Comment: Speci men Type: BLOOD SPECIMEN Ordering Facility: [facility] Address: [address] [place] [address] Performed By: #### D AGT #### [facility] CLIA [id number] [address] Erythrocyte distribution width (RBC) [Ratio] 20.0 % High 11.5-15.0 [facility] Comment on above: Order Comment: Speci men Type: BLOOD SPECIMEN Ordering Facility: [facility] Address: [address] [place] [address] Performed By: #### D AGT #### [facility] CLIA [id number] [address] [place] Hematocrit (Bld) [Volume fraction] 23.1 % Low 39.0-51.0 [facility] Comment on above: Order Comment: Speci men Type: BLOOD SPECIMEN Ordering Facility: [facility] Address: [address] [place] [address] Performed By: #### D AGT #### [facility] CLIA [id number] [address] OF [facility] Hemoglobin (Bld) [Mass/Vol] 7.1 g/dL Low 13.0-17.0 [facility] Comment on above: Order Comment: Speci men Type: BLOOD SPECIMEN Ordering Facility: [facility] Address: [address] [place] [address] Performed By: #### D AGT #### [facility] CLIA [id number] [address] Immature granulocytes (Bld) [#/Vol] 10*3/uL Normal <0.10 [facility] Comment on above: Order Comment: Speci men Type: BLOOD SPECIMEN Ordering Facility: [facility] Address: [address] [place] [address] Performed By: #### D AGT #### [facility] CLIA [id number] [address] Immature granulocytes/100 WBC (Bld) 0.3 % Normal [facility] Comment on above: Order Comment: Speci men Type: BLOOD SPECIMEN Ordering Facility: [facility] Address: [address] [place] [address] Performed By: #### D AGT #### [facility] CLIA [id number] [address] [place] Lymphocytes (Bld) [#/Vol] 1.16 10*3/uL Normal 1.00-4.00 [facility] Comment on above: Order Comment: Speci men Type: BLOOD SPECIMEN Ordering Facility: [facility] Address: [address] [place] [address] Performed By: #### D AGT #### [facility] CLIA [id number] [address] Lymphocytes/100 WBC (Bld) 16.7 % Normal [facility] Comment on above: Order Comment: Speci men Type: BLOOD SPECIMEN Ordering Facility: [facility] Address: [address] [address] Performed By: #### D AGT #### [facility] CLIA [id number] [address] MCH (RBC) [Entitic mass] 24.7 pg Low 26.0-34.0 [facility] Comment on above: Order Comment: Speci men Type: BLOOD SPECIMEN Ordering Facility: [facility] Address: [address] [place] [address] Performed By: #### D AGT #### [facility] CLIA [id number] [address] MCHC (RBC) [Mass/Vol] 30.7 g/dL Normal 30.5-36.0 [facility] Comment on above: Order Comment: Speci men Type: BLOOD SPECIMEN Ordering Facility: [facility] Address: [address] [address] Performed By: #### D AGT #### [facility] CLIA [id number] [address] MCV (RBC) [Entitic vol] 80.2 fL Normal 80.0-100.0 [facility] Comment on above: Order Comment: Speci men Type: BLOOD SPECIMEN Ordering Facility: [facility] Address: [address] [address] Performed By: #### D AGT #### [facility] CLIA [id number] [address] Monocytes (Bld) [#/Vol] 1.26 10*3/uL High <0.87 [facility] Comment on above: Order Comment: Speci men Type: BLOOD SPECIMEN Ordering Facility: [facility] Address: [address] [address] Performed By: #### D AGT #### [facility] CLIA [id number] [address] [place] Monocytes/100 WBC (Bld) 18.1 % Normal [facility] Comment on above: Order Comment: Speci men Type: BLOOD SPECIMEN Ordering Facility: [facility] Address: [address] [place] [address] Performed By: #### D AGT #### [facility] CLIA [id number] [address] [place] Neutrophils (Bld) [#/Vol] 4.28 10*3/uL Normal 1.45-7.50 [facility] Comment on above: Order Comment: Speci men Type: BLOOD SPECIMEN Ordering Facility: [facility] Address: [address] [place] [address] Performed By: #### D AGT #### [facility] [place] [id number] [address] Neutrophils/100 WBC (Bld) 61.5 % Normal [facility] Comment on above: Order Comment: Speci men Type: BLOOD SPECIMEN Ordering Facility: [facility] Address: [address] [place] [address] Performed By: #### D AGT #### [facility] [place] [id number] [address] Nucleated RBC (Bld) [#/Vol] 10*3/uL Normal <0.01 [facility] Comment on above: Order Comment: Speci men Type: BLOOD SPECIMEN Ordering Facility: [facility] Address: [address] [place] [address] Performed By: #### D AGT #### [facility] CLIA [id number] [address] OF [facility] Nucleated RBC/100 WBC (Bld) [Ratio] 0.0 /100 WBC Normal [facility] Comment on above: Order Comment: Speci men Type: BLOOD SPECIMEN Ordering Facility: [facility] Address: [address] [place] [address] Performed By: #### D AGT #### [facility] CLIA [id number] [address] Platelet mean volume (Bld) [Entitic vol] 9.6 fL Normal 9.0-12.7 [facility] Comment on above: Order Comment: Speci men Type: BLOOD SPECIMEN Ordering Facility: [facility] Address: [address] [place] [address] Performed By: #### D AGT #### [facility] CLIA [id number] [address] [place] Platelets (Bld) [#/Vol] 135 10*3/uL Low 150-400 [facility] Comment on above: Order Comment: Speci men Type: BLOOD SPECIMEN Ordering Facility: [facility] Address: [address] [place] [address] Performed By: #### D AGT #### [facility] CLIA [id number] [address] [place] RBC (Bld) [#/Vol] 2.88 10*6/uL Low 4.20-6.00 [facility] Comment on above: Order Comment: Speci men Type: BLOOD SPECIMEN Ordering Facility: [facility] Address: [address] [place] [address] Performed By: #### D AGT #### [facility] CLIA [id number] [address] [place] WBC (Bld) [#/Vol] 6.96 10*3/uL Normal 3.70-11.00 [facility] Comment on above: Order Comment: Speci men Type: BLOOD SPECIMEN Ordering Facility: [facility] Address: [address] [place] [address] Performed By: #### D AGT #### [facility] CLIA [id number] [address] [place] BEE DIRECTon 09-12-2022 DAGT, POLYSPECIFIC AHG Negative Normal [facility] Comment on above: Order Comment: Speci men Type: BLOOD SPECIMEN Ordering Facility: [facility] Address: [address] [address] Performed By: #### D AGT #### [facility] CLIA [id number] [address] COPPER BLOODon 09-12-2022 Copper [Mass/Vol] 56 ug/dL Low 70-140 [facility] Comment on above: Order Comment: Speci men Type: BLOOD SPECIMEN Ordering Facility: [facility] Address: [address] [address] Result Comment: This test was developed and its performance characteristics determined by [facility] [place] [facility] It has not been cleared or approved by the FDA. -[facility] is regulated under CLIA as qualified to perform high-complexity testing. This test is used for clinical purposes. It should not be regarded as investigational or for research. Performed By: #### D AGT #### [facility] CLIA [id number] [address] Ceruloplasmin SerPl-mCncon 0 09-12-2022 Ceruloplasmin [Mass/Vol] 13 mg/dL Low 15-30 [facility] Comment on above: Order Comment: Speci men Type: BLOOD SPECIMENOrdering Facility: [facility] Address: [address] [place] [address] Performed By: #### 2 064-4, 17766-4 ####[facility] LABCLIA [id number] [facility] [id number] [place] [address] [place] Comprehensive metabolic 2000 panelon 09-12-2022 Albumin [Mass/Vol] 2.5 g/dL Low 3.9-4.9 [facility] Comment on above: Order Comment: Speci men Type: BLOOD SPECIMENOrdering Facility: [facility] Address: [address] [place] [address] Performed By: #### 2 4323-8 ####[facility] LABORATORYCLIA [id number] [address] [place] ALP [Catalytic activity/Vol] 104 U/L Normal 38-113 [facility] Comment on above: Order Comment: Speci men Type: BLOOD SPECIMENOrdering Facility: [facility] Address: [address] [place] [address] Performed By: #### 2 4323-8 ####[facility] LABORATORYCLIA [id number] [address] [place] ALT With P-5'-P [Catalytic activity/Vol] 21 U/L Normal 10-54 [facility] Comment on above: Order Comment: Speci men Type: BLOOD SPECIMENOrdering Facility: [facility] Address: [address] [place] [address] Performed By: #### 2 4323-8 ####[facility] LABORATORYCLIA [id number] [address] [place] Anion gap [Moles/Vol] 7 mmol/L Low 9-18 [facility] Comment on above: Order Comment: Speci men Type: BLOOD SPECIMENOrdering Facility: [facility] Address: [address] [place] [address] Performed By: #### 2 4323-8 ####[facility] LABORATORYCLIA [id number] [address] [place] AST With P-5'-P [Catalytic activity/Vol] 43 U/L High 14-40 [facility] Comment on above: Order Comment: Speci men Type: BLOOD SPECIMENOrdering Facility: [facility] Address: [address] [place] [address] Performed By: #### 2 4323-8 ####[facility] LABORATORYCLIA [id number] [address] [place] Bilirubin [Mass/Vol] 5.0 mg/dL High 0.2-1.3 [facility] Comment on above: Order Comment: Speci men Type: BLOOD SPECIMENOrdering Facility: [facility] Address: [address] [place] [address] Performed By: #### 2 4323-8 ####[facility] LABORATORYCLIA [id number] [address] [place] Calcium [Mass/Vol] 8.1 mg/dL Low 8.5-10.2 [facility] Comment on above: Order Comment: Speci men Type: BLOOD SPECIMENOrdering Facility: [facility] Address: [address] [place] [address] Performed By: #### 2 4323-8 ####[facility] LABORATORYCLIA [id number] [address] [place] Chloride [Moles/Vol] 104 mmol/L Normal 97-105 [facility] Comment on above: Order Comment: Speci men Type: BLOOD SPECIMENOrdering Facility: [facility] Address: [address] [place] [address] Performed By: #### 2 4323-8 ####[facility] LABORATORYCLIA [id number] [address] STATES OF [facility] CO2 [Moles/Vol] 23 mmol/L Normal 22-30 [facility] Comment on above: Order Comment: Speci men Type: BLOOD SPECIMENOrdering Facility: [facility] Address: [address] [place] [address] Performed By: #### 2 4323-8 ####[facility] LABORATORYCLIA [id number] [address] [place] Creatinine [Mass/Vol] 0.70 mg/dL Low 0.73-1.22 [facility] Comment on above: Order Comment: Speci men Type: BLOOD SPECIMENOrdering Facility: [facility] Address: [address] [place] [address] Performed By: #### 2 4323-8 ####[facility] LABORATORYCLIA [id number] [address] ESTIMATED GLOMERULAR FILTRATION RATE 117 mL/min/1.73m??? Normal >=60 [facility] Comment on above: Order Comment: Speci men Type: BLOOD SPECIMENOrdering Facility: [facility] Address: [facility] [place] [phone] Result Comment: Yeni mated Glomerular Filtration Rate (eGFR) is calculated using the 2020 CKD-EPI creatinine equation. This equation utilizes serum creatinine, sex, and age as parameters. The creatinine assay has traceable calibration to isotope dilution-mass spectrometry. Refer to KDIGO guidelines for clinical interpretation. In patients with unstable renal function, e.g. those with acute kidney injury, the eGFR may not accurately reflect actual GFR. Performed By: #### 2 4323-8 ####[facility] LABORATORYCLIA [id number] [place] [address] [place] Glucose [Mass/Vol] 154 mg/dL High 74-99 [facility] Comment on above: Order Comment: Eran mendoza Type: BLOOD SPECIMENOrdering Facility: [facility] Address: [address] [place] [address] Result Comment: The [place] [employer] (ADA) provides guidance for cutoff values for fasting glucose and random glucose. The ADA defines fasting as no caloric intake for at least 8 hours. Fasting plasma glucose results between 100 to 125 mg/dL indicate increased risk for diabetes (prediabetes). Fasting plasma glucose results greater than or equal to 126 mg/dL meet the criteria for diagnosis of diabetes. In the absence of unequivocal hyperglycemia, results should be confirmed by repeat testing. In a patient with classic symptoms of hyperglycemia or hyperglycemic crisis, random plasma glucose results greater than or equal to 200 mg/dL meet the criteria for diagnosis of diabetes. Reference: Standards of Medical Care in Diabetes 2016, [place] [employer]. Diabetes Care. 2016.39(Suppl 1). Performed By: #### 2 4323-8 ####[facility] LABORATORYCLIA [id number] [place] [address] [place] Potassium [Moles/Vol] 3.6 mmol/L Low 3.7-5.1 [facility] Comment on above: Order Comment: Eran mendoza Type: BLOOD SPECIMENOrdering Facility: [facility] Address: [address] [phone] Performed By: #### 2 4323-8 ####[facility] LABORATORYCLIA [id number] [address] [place] Protein [Mass/Vol] 5.5 g/dL Low 6.3-8.0 [facility] Comment on above: Order Comment: Speci men Type: BLOOD SPECIMENOrdering Facility: [facility] Address: [address] [place] [address] Performed By: #### 2 4323-8 ####[facility] LABORATORYCLIA [id number] [place] [address] [place] Sodium [Moles/Vol] 134 mmol/L Low 136-144 [facility] Comment on above: Order Comment: Speci men Type: BLOOD SPECIMENOrdering Facility: [facility] Address: [address] [place] [address] Performed By: #### 2 4323-8 ####[facility] LABORATORYCLIA [id number] [address] [place] Urea nitrogen [Mass/Vol] 5 mg/dL Low 9-24 [facility] Comment on above: Order Comment: Speci men Type: BLOOD SPECIMENOrdering Facility: [facility] Address: [address] [place] [address] Performed By: #### 2 4323-8 ####[facility] LABORATORYCLIA [id number] [place] [address] [place] EPO SerPl-aCncon 09-12-2022 Erythropoietin (EPO) Qn 109.6 mIU/mL High 2.6-18.5 [facility] Comment on above: Order Comment: Speci men Type: BLOOD SPECIMENOrdering Facility: [facility] Address: [address] [place] [address] Performed By: #### 2 064-4, 90667-2 ####[facility] LABCLIA [id number] [place] [address] [place] Haptoglob SerPl-mCncon 09-12 Haptoglobin [Mass/Vol] 34 mg/dL Normal 31-238 [facility] Comment on above: Order Comment: Speci men Type: BLOOD SPECIMEN [facility]ing Facility[facility] Address: [address] [place] [address] Performed By: #### C ONABO #### [facility] CLIA [id number] [address] Hgb Bld-mCncon 09-12-2022 Hemoglobin (Bld) [Mass/Vol] 7.5 g/dL Low 13.0-17.0 [facility] Comment on above: Order Comment: Speci men Type: BLOOD SPECIMENOrdering Facility: [facility] Address: [address] [place] [address] Performed By: #### 7 18-7 ####[facility] LABORATORYCLIA [id number] [address] [place] LDH SerPl-cCncon 09-12-2022 LDH [Catalytic activity/Vol] 193 U/L Normal 135-225 [facility] Comment on above: Order Comment: Speci men Type: BLOOD SPECIMEN [facility] Address: [address] [place] [address] Performed By: #### C ONABO #### [facility] [place] [id number] [address] NUTRITIONon 09-12-2022 NUTRITION HNO ID: [id number] Author: Laurence Whitfield RD Service: Nutrition Therapy Author Type: Registered Dietitian Type: Nutrition Filed: 09/12/2022 2:43 PM Note Text: NUTRITION THERAPY INITIAL ASSESSMENT SERVICE DATE: 09/12/2022 SERVICE TIME: 11:50 Nutrition Assessment: Recommended Malnutrition Diagnosis: Moderate Protein-Calorie Malnutrition In the context of: Chronic Illness or Injury Based on: Muscle Loss, Subcutaneous Fat Loss, Insufficient Energy Intake Nutrition Diagnosis: Problem: Increased nutrient needs Related to: Catabolic illness As evidenced by: Medical condition Estimated kilocalorie needs: 7264-4890 Calorie Calculation Method: 30-35 kcals/kg Estimated protein needs (grams): 90-121 Grams protein determined by: 1.2 - 1.6 g/kg Care Plan: Change diet to low sodium Supplements: Ensure Max Cirrhosis Nutrition Therapy provided per patient AND family request Monitor and Evaluation: Meet greater than 75% of estimated needs, Monitor fluid/electrolyte balance, Monitor bowel function, Monitor labs, I/Os, vital signs, weight Discharge Recommendations: Diet;Oral Supplements Diet: low sodium Oral Supplements: Ensure Max or equivalent 1-2x/day as needed HPI: 42 year old male presenting after a fall and found to have a L humerus fx, acute anemia, and new-onset cirrhosis. Intake History: Nutrition Intake Prior to Admission: Less than 75% estimated energy needs greater than or equal to 1 month. Only 1 full meal/day since May per pt d/t abdominal swelling/fullness. Diet Orders (From admission, onward) Start Ordered 09/11/22829 DIET REGULAR START NOW 09/11/22823 Anthropometrics: Weight: (!) 147.7 kg (325 lb 9.9 oz) Dosing Weight: 75.3 kg (166 lb) UTD, no weight history in Epic and patient unsure of UBW d/t fluid status Usual Weight Obtained From: Patient There is no height or weight on file to calculate BMI. Morbidly Obese (BMI 46.6 based on reported height of 70) Weight change percentage over time: UTD Last 20 Encounter Wt Readings: Date: Wt: 09/10/2022 147.7 kg (325 lb 9.9 oz) Physical Exam: Subcutaneous fat loss: Mild Muscle loss: Mild Potential micronutrient deficiency: Eyes Edema/Ascites: Upper extremities, Lower extremities, Generalized, Ascites Upper Extremity: Mild 1+ Lower Extremity: Severe 3 - 4 GI Symptoms: Nausea, Vomiting, Diarrhea, Constipation, Early satiety, Bloating Functional Status: Regressed Potential Signs of Inflammation: Chronic condition, Hypoalbuminemia, Imaging studies cirrhosis MNT Billing: $ Initial Assessment: 16-30 minutes SIGNATURE: Laurence Whitfield RD PATIENT NAME: Carolynn Lee DATE: September 12, 2022 TIME: 11:50 AM Normal [facility] PT panel Coag (PPP)on 2022 INR Coag (PPP) [Relative time] 2.0 {INR} High 0.9-1.3 [facility] Comment on above: Order Comment: Speci men Type: BLOOD SPECIMENOrdering Facility: [facility] Address: [address] [place] [phone] Result Comment: Sobia min K Antagonist (VKA) Therapeutic Range: INR 2 to 3 (Target INR of 2.5) Note: For patients treated with VKA drugs, such as warfarin, the [place] [employer] 2012 Guideline recommends a therapeutic INR range of 2 to 3 (target INR of 2.5). This recommendation includes high-risk patients with antiphospholipid syndrome with previous arterial or venous thromboembolism, current-generation mechanical or bioprosthetic aortic heart valve replacement. Note: Patients with mechanical aortic valve replacement and additional risk factors for thromboembolic events (atrial fibrillation, previous thromboembolism, LV dysfunction, hypercoagulable conditions) or an older generation mechanical AVR (i.e., ball in-Cage) or any mechanical MVR should have a INR therapeutic range of 2.5 to 3.5 (target INR of 3). Kapil GH, et al. Chest 2012, 141:7S-47S Dedra RA, et al. [facility] 2017, 70: 252-289 Performed By: #### 3 4528-0 ####[facility] LABORATORYCLIA [id number] [address] OF [facility] PT Coag (PPP) [Time] 20.3 s High 9.7-13.0 [facility] Comment on above: Order Comment: Speci kelly Type: BLOOD SPECIMENOrdering Facility: [facility] Address: [address] [address] Performed By: #### 3 4528-0 ####[facility] LABORATORYCLIA [id number] [address] Retics #on 09-12-2022 Reticulocytes (Bld) [#/Vol] 0.18935 10*3/uL Normal 0.018-0.100 [facility] Comment on above: Order Comment: Speci men Type: BLOOD SPECIMEN [facility] Address: [address] [address] Performed By: #### D AGT #### [facility] CLIA [id number] [address] Reticulocytes (Bld) [#/Vol]o n 09-12-2022 Reticulocytes/100 RBC (Bld) 2.2 % High 0.4-2.0 [facility] Comment on above: Order Comment: Speci men Type: BLOOD SPECIMEN [facility] Address: [address] [place] [address] Performed By: #### D AGT #### [facility] [id number] [address] TEG PANEL INTERPon 3 INTERPRETATION(THROM BOGRAPH) Normal [facility] Comment on above: Order Comment: Speci men Type: BLOOD SPECIMEN [facility] Address: [address] [place] [address] Result Comment: Perf orming Pathologist: Chloe Gupta Signing Pathologist: Chloe Gupta Interpretation: Normal - see comment below. A thromboelastograph (TEG) study was performed using citrate-anticoagulated whole blood. The R value, a measure of coagulation function, is within the normal range. This indicates normal coagulation function. The Angle, a measure of fibrinogen function, is within the normal range. This is indicative of normal fibrinogen concentration or function. The Maximal Amplitude (MA), a measure of platelet function, is within the normal range. The Ly30, a measure of fibrinolysis function, is normal. This is indicative of normal fibrinolytic function. The Coagulation Index (CI), a measure of hemostasis function, is within the normal range. The CI is a calculated parameter based on the other TEG results. Performed By: #### C ONABO #### [facility] [id number] [address] [place] [address] THERAPY NTon 09-12-2022 THERAPY NT HNO ID: [id number] Author: Enoch Barron, PT Service: Physical Therapy Author Type: Physical Therapist Type: Therapy (PT/OT/Speech/Resp) Filed: 09/12/2022 11:49 AM Note Text: Physical Therapy Evaluation SERVICE DATE: 09/12/2022 SERVICE TIME: 1006 to 1022 ROOM: [place] [address] Recommended Discharge Disposition: Home Recommended Discharge Disposition Comments: with family assist Anticipated Discharge Needs: Physical Assist at Home Physical Assist at Home for: Cleaning, Laundry, Shopping, Transportation, Meals Recommended Discharge Equipment: No equipment needs anticipated PT 6 Clicks Score: 20 Precautions/Activity Restrictions: Fall Risk, Weight Bearing Restrictions Extremity With Weight Bearing Restricted: Left Upper Extremity Left Upper Extremity Weight Bearing Status: NWB Current Hospital Course: 42 yo male admitted for fall resulting in L segmental humeral shaft fx. Per ortho, no surgical intervention. Internal medicine following for mgmt of cirrhosis, s/p thoracentesis 09/11 removing 19,300 ml of fluid Reason for Hospital Admission: Fall with humerus fx Relevant Past Medical History: alcohol use disorder Response to Therapy Interventions: Good Participation in Activities Continued Skilled Needs Due to: Functional Mobility/Skill Impairments, Safety Concerns Physical Therapy Problem List: Safety Deficits, Impaired Self Care, Functional Mobility Impairment, Balance Impaired Treatment Interventions: Education, Strengthening, Functional Mobility Training, Neuromuscular Re-education, Balance Training Home Environment Patient Lives With: Family Assistance Available: 24-Hour Entry To Home: No Stairs Number Of Stairs To Bed/Bath: flight (planning to stay on main floor in recliner with 1/2 bath nearby) Tub/Shower Type: walkin shower in grandmothers in law suite Laundry: family completes Prior Functional Level: Within Functional Limits Prior Functional Level Comments: patient completely independent prior to admission, denies any other falls Baseline Cognition: Oriented to place, Oriented to self, Oriented to time, Oriented to situation Patient Report: Pt pleasant and agreeable to PT. CURRENT FUNCTIONAL STATUS: Most recent performance Current Functional Mobility Assist Level Additional Information Rolling Supine to Sit Sit to Supine Scooting Sit to Stand Contact Guard Assistance Stand to Sit Contact Guard Assistance Bed to Chair Toilet/Commode Gait Stand By Assistance Gait Device: None Gait Distance (feet): 200 Stairs Curb Step Car Transfer Blank arce indicate activity not attempted General Deviations/Observations: Rosemarie decreased, Step length decreased Range of Motion: WFL Strength: WFL Except, Strength Limitation Comments Strength Limitation Comments: left arm not assessed Balance: Static Standing, Dynamic Standing Static Standing Balance: Good Patient able to maintain balance without handhold support, limited postural sway Dynamic Standing Balance: Fair Patient accepts minimal challenge, able to maintain balance while turning head/trunk -HLM: 7: Walk 25 feet or more Learning/Educational Needs: Discharge Plan, Functional Activities/Mobility, Rehabilitation Techniques and Procedures, Safety Goals for Plan of Care: Patient/Caregiver Goals: Go Home, Walk Transfer Supine to/from Sit with: Independent Transfer Sit to/from Stand with: Independent Ambulate with: Independent Distance: 500 Device: No Device Ambulate Up and Down Curb Step with: Supervision Device: Rail Rehab Potential: Good Patient will be discontinued from Physical Therapy when no further skilled needs are identified in this setting. PLAN: PT Frequency: 3 times per week (1-3) Plan of Care developed with: Patient TREATMENT INTERVENTIONS: Therapy Diagnosis: Reduced mobility-other Interventions Provided: Evaluation $ Evaluation-Low (13841) Billed Units: 1 unit Training AND Education Provided in: Anatomy and Impact on Deficits, Benefits of In-Hospital Mobility, Discharge Planning, Gait Pattern, Reduction of Deviations, Role of Physical Therapy The Following Therapeutic Skills Were Used: Cues for Sequencing/Proper Technique for Activity, Cuing Tactile, Cuing Verbal Skilled Treatment Time (minutes): 16 Please see discipline specific clinical documentation flowsheet for complete details for this therapy evaluation/treatment. SIGNATURE: Enoch Barron PT PATIENT NAME: Carolynn Lee DATE: September 12, 2022 TIME: 11:48 AM Normal [facility] THERAPY NT HNO ID: [id number] Author: MAYLIN Payne/L Service: Occupational Therapy Author Type: Occupational Therapist Type: Therapy (PT/OT/Speech/Resp) Filed: 09/12/2022 10:56 AM Note Text: Occupational Therapy Evaluation SERVICE DATE: 09/12/2022 SERVICE TIME: 918 to 950 ROOM: [place] [address] Recommended Discharge Disposition: Home Recommended Discharge Disposition Comments: home with assist from family for ADLs/iADLs. Patient planning to stay on first floor with bathroom nearby and has good family support. Patient will eventually require outpatient OT to maximize L UE strength/ROM when cleared Anticipated Discharge Needs: Physical Assist at Home Physical Assist at Home for: Cleaning, Laundry, Meals, Self Care, Shopping, Transportation OT 6 Clicks Score: 16 Precautions/Activity Restrictions: Fall Risk, Weight Bearing Restrictions Extremity With Weight Bearing Restricted: Left Upper Extremity Left Upper Extremity Weight Bearing Status: NWB Current Hospital Course: 42 yo male admitted for fall resulting in L segmental humeral shaft fx. Per ortho, no surgical intervention. Internal medicine following for mgmt of cirrhosis, s/p thoracentesis 09/11 removing 19,300 ml of fluid Reason for Hospital Admission: Fall with humerus fx Relevant Past Medical History: alcohol use disorder Response to Therapy Interventions: Good Participation in Activities, Pain Continued Skilled Needs Due to: Functional Impairment Occupational Therapy Problem List: Impaired Self Care, Decreased Activity Tolerance, Decreased Strength, Functional Mobility Impairment, Decreased Range Of Motion, Pain Cognition/Communication Deficits Responsiveness: Alert, Awake Follows Commands: 3-step Commands Treatment Interventions: Education, Self Care/Home Management, Functional Mobility Training, Balance Training, Energy Conservation Training Home Environment Patient Lives With: Family Assistance Available: 24-Hour Entry To Home: No Stairs Number Of Stairs To Bed/Bath: flight (planning to stay on main floor in recliner with 1/2 bath nearby) Tub/Shower Type: walkin shower in grandmothers in law suite Laundry: family completes Prior Functional Level: Within Functional Limits Prior Functional Level Comments: patient completely independent prior to admission, denies any other falls Baseline Cognition: Oriented to place, Oriented to self, Oriented to time, Oriented to situation 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 Occupational Factors Life Roles: Family Member Identified Strengths: Good Support System, Motivation, Access to Healthcare Identified Barriers: Difficulty with ADLs/IADLs, Managing Pain Patient Report: patient pleasant and agreeable to OT CURRENT FUNCTIONAL STATUS: Most recent performance Current Activities of Daily Living Assist Level Additional Information Feeding Set Up Grooming Minimal Assistance Bathing Upper Body Minimal Assistance Bathing Lower Body Moderate Assistance Dressing Upper Body Minimal Assistance Dressing Lower Body Moderate Assistance Toileting Contact Guard Assistance Functional Mobility Assist Level Additional Information Rolling Supine to Sit Moderate Assistance Sit to Supine Scooting Sit to Stand Minimal Assistance Stand to Sit Contact Guard Assistance Bed to Chair Toilet/Commode Contact Guard Assistance Shower Functional Mobility Contact Guard Assistance None Educated patient on role of OT in the acute care setting. Educated on non weight bearing for L UE and provided patient with large sling to increase independence with functional mobility, pain mgmt, and ADL performance. Patient reports that sling is helping manage pain well and he doesn't have to manually hold arm up for mobility. Facilitated safe functional mobility to/from bathroom to assess functional mobility, activity tolerance, and ADL independence; provided min verbal cuing for safe navigation and CGA to ensure safety (fall guarding). Facilitated safe toilet transfer with min verbal cuing and educated patient on proper hand placement to increase safety awareness. Patient able to stand from toilet with SBA. Once back in bedside chair, provided pillow support and ice for edema mgmt. Educated patient on how to perform UB dressing with verbal cues to don clothing on L UE first. Blank arce indicate activity not attempted Hand Dominance: Left Range of Motion: Upper Extremity Comments R Upper Extremity ROM Comments: WFL L Upper Extremity ROM Comments: not tested due to bulky splint dressing for fx Strength: Upper Extremity Comments Right Upper Extremity Strength Comments: WFL Left Upper Extremity Strength Comments: not tested due to bulky splint dressing for fx Balance: Static Sitting, Dynamic Sitting, Static Standing, Dynamic Standing Static Sitting Balance: Fair Patient able to maintain balance with handhold support, may require occa (more content not included)... Normal [facility] THROMBOGRAPH PANELon 023 Clot angle TEG (Bld) [Angle] 66.4 degrees Normal 47.0-74.0 [facility] Comment on above: Order Comment: Eran mendoza Type: BLOOD SPECIMEN [facility] Address: [address] [place] [address] Performed By: #### C ONABO #### [facility] CLIA [id number] [address] [place] [address] [place] Clot Lysis 30 Min post maximum clot amplitude TEG (Bld) [Length fraction] 0.0 % Normal 0.0-8.0 [facility] Comment on above: Order Comment: Eran mendoza Type: BLOOD SPECIMEN [facility] Address: [address] [place] [address] Performed By: #### C ONABO #### [facility] CLIA [id number] [address] [place] [address] [place] Clotting time TEG (Bld) 5.2 minutes Normal 4.0-10.0 [facility] Comment on above: Order Comment: Eran mendoza Type: BLOOD SPECIMEN [facility] Address: [address] [place] [address] Performed By: #### C ONABO #### [facility] CLIA [id number] [address] [place] [address] [place] Coagulation index TEG Qn (Bld) -0.4 Normal -4.6-3.2 [facility] Comment on above: Order Comment: Eran mendoza Type: BLOOD SPECIMEN [facility] Address: [address] [place] [address] Result Comment: The Coagulation Index, a secondary parameter, is labeled by the press loader as for research use only and is used per the press loader's instructions. Its performance characteristics were determined by [facility]'s Devonte Desiree [facility] Pathology and Laboratory Medicine [place] in a manner consistent with CLIA requirements. This test has not been cleared by the U.S. Food and Drug Administration. Performed By: #### C ONABO #### [facility] CLIA [id number] [address] Maximum clot firmness TEG (Bld) [Length] 52.2 mm Normal 51.0-75.0 [facility] Comment on above: Order Comment: Eran mendoza Type: BLOOD SPECIMEN [facility] Address: [address] [place] [address] Performed By: #### C ONABO #### [facility] CLIA [id number] [address] Vit [facility] Cobalamin (Vitamin B12) [Mass/Vol] 1126 pg/mL Normal 232-1245 [facility] Comment on above: Order Comment: Eran mendoza Type: BLOOD SPECIMEN [facility] Address: [address] [place] [address] Performed By: #### C ONABO #### [facility] CLIA [id number] [address] [place] ALLIED HEALTHon 09-11-2022 ALLIED HEALTH HNO ID: [id number] Author: RT Jovanna(R) Service: Radiology Author Type: Technologist Type: Allied Health Filed: 09/11/2022 10:34 AM Note Text: Radiology Service Progress Note DATE OF SERVICE: September 11, 2022 TIME: 10:34 AM PATIENT IDENTITY VERIFICATION COMPLETED USING TWO (2) STANDARD IDENTIFIERS: Name and Date of confirmed by patient verbally and Name and Date of confirmed by identification band. FALL SCREENING: Has the patient had 2 falls in the last year or 1 fall with injury or currently using an Ambulatory Assistive Device (Walker, Cane, Wheelchair, Crutches, etc.)? Inpatient: Screened on floor PATIENT GENDER DATA: Male PATIENT RELEVANT IMPLANT DATA REVIEWED: Not Applicable ALLERGIES: Reviewed and unchanged CONTRAST ALLERGY: NO. EXAM: CT -CONTRAST INDUCED NEPHROPATHY RISK FACTORS: Not applicable CREATININE: Creatinine Date Value Ref Range Status 09/11/2022 0.70 (L) 0.73 - 1.22 mg/dL Final 09/10/2022 0.69 (L) 0.73 - 1.22 mg/dL Final Estimated Glomerular Filtration Rate Date Value Ref Range Status 09/11/2022 117 >=60 mL/min/1.73m? Final Comment: Estimated Glomerular Filtration Rate (eGFR) is calculated using the 2020 CKD-EPI creatinine equation. This equation utilizes serum creatinine, sex, and age as parameters. The creatinine assay has traceable calibration to isotope dilution-mass spectrometry. Refer to KDIGO guidelines for clinical interpretation. In patients with unstable renal function, e.g. those with acute kidney injury, the eGFR may not accurately reflect actual GFR. P.O.C.T. RESULTS: N/A September 11, 2022 TREATMENT: N/A PERIPHERAL IV DATA: Inpatient - refer to [facility] documentation RADIOLOGY DEPARTMENT: CT; Exam(s) Completed: Abdomen/Pelvis SIGNATURE: RT Jovanna(R) PATIENT NAME: Carolynn Lee DATE: September 11, 2022 TIME: 10:34 AM Normal [facility] Bilirub Conj SerPl-mCncon Bilirubin.conjugated [Mass/Vol] 1.5 mg/dL High <0.2 [facility] Comment on above: Order Comment: Speci men Type: BLOOD SPECIMEN [facility] Address: [address] [place] [phone] Performed By: #### C ONABO #### [facility] CLIA [id number] 1 [place] [address] [place] CBC W Auto Differential pane l (Bld)on 09-11-2022 Basophils (Bld) [#/Vol] 0.12 10*3/uL High <0.11 [facility] Comment on above: Order Comment: Speci men Type: BLOOD SPECIMENOrdering Facility: [facility] Address: [address] [address] Performed By: #### 5 7021-8, [id number] ####[facility]ORYCLIA [id number] [place] [address] [place] Basophils/100 WBC (Bld) 1.5 % Normal [facility] Comment on above: Order Comment: Speci men Type: BLOOD SPECIMENOrdering Facility: [facility] Address: [address] [place] [address] Performed By: #### 5 7021-8, [id number] ####[facility]ORYCLIA [id number] [address] [place] Differential cell count method Nom (Bld) Auto Normal [facility] Comment on above: Order Comment: Speci men Type: BLOOD SPECIMENOrdering Facility: [facility] Address: [address] [address] Performed By: #### 5 7021-8, [id number] ####[facility]ORYCLIA [id number] [place] [address] [place] Eosinophils (Bld) [#/Vol] 0.23 10*3/uL Normal <0.46 [facility] Comment on above: Order Comment: Speci men Type: BLOOD SPECIMENOrdering Facility: [facility] Address: [address] [address] Performed By: #### 5 7021-8, [id number] ####[facility]ORYCLIA [id number] [address] STATES OF [place] Eosinophils/100 WBC (Bld) 2.8 % Normal [facility] Comment on above: Order Comment: Speci men Type: BLOOD SPECIMENOrdering Facility: [facility] Address: [address] [address] Performed By: #### 5 7021-8, [id number] ####[facility] LABORATORYCLIA [id number] [address] Erythrocyte distribution width (RBC) [Ratio] 19.0 % High 11.5-15.0 [facility] Comment on above: Order Comment: Speci men Type: BLOOD SPECIMENOrdering Facility: [facility] Address: [address] [place] [address] Performed By: #### 5 7021-8, [id number] ####[facility] LABORATORYCLIA [id number] [address] Hematocrit (Bld) [Volume fraction] 27.3 % Low 39.0-51.0 [facility] Comment on above: Order Comment: Speci men Type: BLOOD SPECIMENOrdering Facility: [facility] Address: [address] [place] [address] Performed By: #### 5 7021-8, [id number] ####[facility] LABORATORYCLIA [id number] [address] OF [facility] Hemoglobin (Bld) [Mass/Vol] 8.2 g/dL Low 13.0-17.0 [facility] Comment on above: Order Comment: Speci men Type: BLOOD SPECIMENOrdering Facility: [facility] Address: [address] [place] [address] Performed By: #### 5 7021-8, [id number] ####[facility] LABORATORYCLIA [id number] [address] [place] Immature granulocytes (Bld) [#/Vol] 0.05 10*3/uL Normal <0.10 [facility] Comment on above: Order Comment: Speci men Type: BLOOD SPECIMENOrdering Facility: [facility] Address: [address] [place] [address] Performed By: #### 5 7021-8, [id number] ####[facility] LABORATORYCLIA [id number] [address] Immature granulocytes/100 WBC (Bld) 0.6 % Normal [facility] Comment on above: Order Comment: Speci men Type: BLOOD SPECIMENOrdering Facility: [facility] Address: [address] [place] [address] Performed By: #### 5 7021-8, [id number] ####[facility] LABORATORYCLIA [id number] [address] STATES OF [facility] Lymphocytes (Bld) [#/Vol] 1.25 10*3/uL Normal 1.00-4.00 [facility] Comment on above: Order Comment: Speci men Type: BLOOD SPECIMENOrdering Facility: [facility] Address: [address] [place] [address] Performed By: #### 5 7021-8, [id number] ####[facility] LABORATORYCLIA [id number] [address] STATES OF [facility] Lymphocytes/100 WBC (Bld) 15.2 % Normal [facility] Comment on above: Order Comment: Speci men Type: BLOOD SPECIMENOrdering Facility: [facility] Address: [address] [place] [address] Performed By: #### 5 7021-8, [id number] ####[facility] LABORATORYCLIA [id number] [address] [place] MCH (RBC) [Entitic mass] 24.3 pg Low 26.0-34.0 [facility] Comment on above: Order Comment: Speci men Type: BLOOD SPECIMENOrdering Facility: [facility] Address: [address] [place] [address] Performed By: #### 5 7021-8, [id number] ####[facility] LABORATORYCLIA [id number] [address] STATES [facility] MCHC (RBC) [Mass/Vol] 30.0 g/dL Low 30.5-36.0 [facility] Comment on above: Order Comment: Speci men Type: BLOOD SPECIMENOrdering Facility: [facility] Address: [address] [place] [address] Performed By: #### 5 7021-8, [id number] ####[facility]ORATORYCLIA [id number] [place] [address] [place] MCV (RBC) [Entitic vol] 80.8 fL Normal 80.0-100.0 [facility] Comment on above: Order Comment: Speci men Type: BLOOD SPECIMENOrdering Facility: [facility] Address: [address] [place] [address] Performed By: #### 5 7021-8, [id number] ####[facility] LABORATORYCLIA [id number] [place] [address] [place] Monocytes (Bld) [#/Vol] 1.35 10*3/uL High <0.87 [facility] Comment on above: Order Comment: Speci men Type: BLOOD SPECIMENOrdering Facility: [facility] Address: [address] [place] [address] Performed By: #### 5 7021-8, [id number] ####[facility] LABORATORYCLIA [id number] [address] [place] Monocytes/100 WBC (Bld) 16.4 % Normal [facility] Comment on above: Order Comment: Speci men Type: BLOOD SPECIMENOrdering Facility: [facility] Address: [address] [place] [address] Performed By: #### 5 7021-8, [id number] ####[facility]ORATORYCLIA [id number] [place] [address] [place] Neutrophils (Bld) [#/Vol] 5.24 10*3/uL Normal 1.45-7.50 [facility] Comment on above: Order Comment: Speci men Type: BLOOD SPECIMENOrdering Facility: [facility] Address: [address] [place] [address] Performed By: #### 5 7021-8, [id number] ####[facility]ORATORYCLIA [id number] [place] [address] [place] Neutrophils/100 WBC (Bld) 63.5 % Normal [facility] Comment on above: Order Comment: Speci men Type: BLOOD SPECIMENOrdering Facility: [facility] Address: [address] [address] Performed By: #### 5 7021-8, [id number] ####[facility] LABORATORYCLIA [id number] [address] [place] Nucleated RBC (Bld) [#/Vol] 0.02 10*3/uL High <0.01 [facility] Comment on above: Order Comment: Speci men Type: BLOOD SPECIMENOrdering Facility: [facility] Address: [address] [address] Performed By: #### 5 7021-8, [id number] ####[facility] LABORATORYCLIA [id number] [address] [place] Nucleated RBC/100 WBC (Bld) [Ratio] 0.2 /100 WBC Normal [facility] Comment on above: Order Comment: Speci men Type: BLOOD SPECIMENOrdering Facility: [facility] Address: [address] [address] Performed By: #### 5 7021-8, [id number] ####[facility] LABORATORYCLIA [id number] [place] [address] [place] Platelet mean volume (Bld) [Entitic vol] 9.2 fL Normal 9.0-12.7 [facility] Comment on above: Order Comment: Speci men Type: BLOOD SPECIMENOrdering Facility: [facility] Address: [address] [address] Performed By: #### 5 7021-8, [id number] ####[facility] LABORATORYCLIA [id number] [place] [address] [place] Platelets (Bld) [#/Vol] 150 10*3/uL Normal 150-400 [facility] Comment on above: Order Comment: Speci men Type: BLOOD SPECIMENOrdering Facility: [facility] Address: [address] [address] Performed By: #### 5 7021-8, [id number] ####[facility] LABORATORYCLIA [id number] [place] [address] [place] RBC (Bld) [#/Vol] 3.38 10*6/uL Low 4.20-6.00 [facility] Comment on above: Order Comment: Speci men Type: BLOOD SPECIMENOrdering Facility: [facility] Address: [address] [place] [address] Performed By: #### 5 7021-8, [id number] ####[facility] LABORATORYCLIA [id number] [address] WBC (Bld) [#/Vol] 8.24 10*3/uL Normal 3.70-11.00 [facility] Comment on above: Order Comment: Speci men Type: BLOOD SPECIMENOrdering Facility: [facility] Address: [address] [place] [address] Performed By: #### 5 7021-8, [id number] ####[facility] LABORATORYCLIA [id number] [address] OF [facility] CT ABD/PEL W IVCONon 023 CT ABD/PEL W IVCON * * *Final Report* * * DATE OF EXAM: Sep 11 2022 10:33AM [facility] 0530 - CT ABD/PEL W IVCON / PROCEDURE REASON: Cirrhosis * * * * Physician Interpretation * * * * EXAMINATION: CT ABDOMEN AND PELVIS WITH IV CONTRAST CLINICAL HISTORY: Cirrhosis TECHNIQUE: CT of the abdomen and pelvis was performed using standard technique, scanning from just above the dome of the diaphragm to the symphysis pubis. MQ: CTAP_3 Contrast: IV: 150 ml of Omnipaque 300 Oral: 450 ml of Omni 300 10-25ml diluted with water CT Radiation dose: Integrated Dose-length product (DLP) for this visit = 1180 mGy*cm. CT Dose Reduction Employed: Automated exposure control(AEC) and iterative recon COMPARISON: Ultrasound dated 09/11/2022 RESULT: Liver: Changes in the liver consistent with cirrhosis. The liver is somewhat small and nodular in contour with increased size of fissures. No definite focal lesion is seen within the liver. Hypodensity is seen in the anterior aspect of segment 3 left lobe of the liver and this most likely represents artifact. Hepatic vasculature: Portal vein is patent. Hepatic artery patent with conventional anatomy. Large venous collateral from recanalized umbilical vein. Large venous collaterals also seen in the lesser omentum and around the distal esophagus. Splenic vein and SMV are patent. Biliary: Sludge and/or small stones layering dependently in the gallbladder. No bile duct dilatation. Spleen: No mass. No splenomegaly. Pancreas: No mass or duct dilation. Adrenals: No mass. Kidneys: Kidneys are unremarkable. GI tract: No dilated or thick-walled bowel. Lymph nodes: No abdominal or pelvic lymphadenopathy. Mesentery/Peritoneum: Moderate amount of ascites throughout the abdomen and pelvis. Retroperitoneum: No mass. Vasculature: Abdominal aorta is not aneurysmally dilated. Pelvis: Moderate amount of ascites in the pelvis. Bones/Soft Tissues: Diffuse soft tissue edema within the abdominal and pelvic mcdonnell most consistent with anasarca. Mild compression deformity of. It has lost approximately 10% of its vertebral body height. Indeterminate age. Lower thorax: Small left-sided pleural fusion with associated atelectasis at left base Building Maintenance Worker (topogram) images: No significant additional findings. IMPRESSION: 1. Changes of cirrhosis in the liver. No focal parenchymal abnormality on this exam. This study however was not performed as a multiphase hepatic CT scan to assess for hepatic lesions. Recommend follow-up as clinically indicated. 2. Changes of portal hypertension with fairly extensive venous collateralization. 3. Moderate amount of ascites throughout the abdomen and pelvis. 4. Anasarca. Law Examiner: MEHDI Transcribe Date/Time: Sep 11 2022 11:26A Dictated by : NARCISO CASTANO MD This examination was interpreted and the report reviewed and electronically signed by: NARCISO CASTANO MD on Sep 11 2022 11:56AM EST [id number] Normal [facility] Comprehensive metabolic 2000 panelon 09-11-2022 Albumin [Mass/Vol] 3.1 g/dL Low 3.9-4.9 [facility] Comment on above: Order Comment: Speci men Type: BLOOD SPECIMEN [facility] Address: [address] [place] [phone] Performed By: #### C ONABO #### [facility] CLIA [id number] [address] ALP [Catalytic activity/Vol] 116 U/L High 38-113 [facility] Comment on above: Order Comment: Speci men Type: BLOOD SPECIMEN [facility] Address: [address] [place] [address] Performed By: #### C ONABO #### [facility] CLIA [id number] [address] ALT With P-5'-P [Catalytic activity/Vol] 23 U/L Normal 10-54 [facility] Comment on above: Order Comment: Speci men Type: BLOOD SPECIMEN [facility] Address: [address] [place] [address] Performed By: #### C ONABO #### [facility] CLIA [id number] [address] Anion gap [Moles/Vol] 11 mmol/L Normal 9-18 [facility] Comment on above: Order Comment: Speci men Type: BLOOD SPECIMEN [facility] Address: [address] [place] [address] Performed By: #### C ONABO #### [facility] CLIA [id number] [address] AST With P-5'-P [Catalytic activity/Vol] 52 U/L High 14-40 [facility] Comment on above: Order Comment: Speci men Type: BLOOD SPECIMEN [facility] Address: [address] [place] [address] Performed By: #### C ONABO #### [facility] CLIA [id number] [address] Bilirubin [Mass/Vol] 6.3 mg/dL High 0.2-1.3 [facility] Comment on above: Order Comment: Speci men Type: BLOOD SPECIMEN [facility] Address: [address] [address] Performed By: #### C ONABO #### [facility] CLIA [id number] [address] Calcium [Mass/Vol] 8.4 mg/dL Low 8.5-10.2 [facility] Comment on above: Order Comment: Speci men Type: BLOOD SPECIMEN [facility] Address: [address] [address] Performed By: #### C ONABO #### [facility] CLIA [id number] [address] [place] Chloride [Moles/Vol] 103 mmol/L Normal 97-105 [facility] Comment on above: Order Comment: Speci men Type: BLOOD SPECIMEN [facility] Address: [address] [place] [address] Performed By: #### C ONABO #### [facility] CLIA [id number] [address] STATES OF [facility] CO2 [Moles/Vol] 22 mmol/L Normal 22-30 [facility] Comment on above: Order Comment: Speci men Type: BLOOD SPECIMEN [facility] Address: [address] [place] [address] Performed By: #### C ONABO #### [facility] CLIA [id number] [address] [place] Creatinine [Mass/Vol] 0.70 mg/dL Low 0.73-1.22 [facility] Comment on above: Order Comment: Speci men Type: BLOOD SPECIMEN [facility] Address: [address] [place] [address] Performed By: #### C ONABO #### [facility] CLIA [id number] [address] [place] ESTIMATED GLOMERULAR FILTRATION RATE 117 mL/min/1.73m??? Normal >=60 [facility] Comment on above: Order Comment: Eran mendoza Type: BLOOD SPECIMEN [facility] Address: [address] [phone] Result Comment: Yeni mated Glomerular Filtration Rate (eGFR) is calculated using the 2020 CKD-EPI creatinine equation. This equation utilizes serum creatinine, sex, and age as parameters. The creatinine assay has traceable calibration to isotope dilution-mass spectrometry. Refer to KDIGO guidelines for clinical interpretation. In patients with unstable renal function, e.g. those with acute kidney injury, the eGFR may not accurately reflect actual GFR. Performed By: #### C ONABO #### [facility] CLIA [id number] 1 [place] [address] [place] Glucose [Mass/Vol] 121 mg/dL High 74-99 [facility] Comment on above: Order Comment: Eran mendoza Type: BLOOD SPECIMEN [facility] Address: [address] [place], [place] [address] Result Comment: The [place] Diabetes Association (ADA) provides guidance for cutoff values for fasting glucose and random glucose. The ADA defines fasting as no caloric intake for at least 8 hours. Fasting plasma glucose results between 100 to 125 mg/dL indicate increased risk for diabetes (prediabetes). Fasting plasma glucose results greater than or equal to 126 mg/dL meet the criteria for diagnosis of diabetes. In the absence of unequivocal hyperglycemia, results should be confirmed by repeat testing. In a patient with classic symptoms of hyperglycemia or hyperglycemic crisis, random plasma glucose results greater than or equal to 200 mg/dL meet the criteria for diagnosis of diabetes. Reference: Standards of Medical Care in Diabetes 2016, [place] [employer]. Diabetes Care. 2016.39(Suppl 1). Performed By: #### C ONABO #### [facility] CLIA [id number] 1 [place] [address] [place] Potassium [Moles/Vol] 3.9 mmol/L Normal 3.7-5.1 [facility] Comment on above: Order Comment: Eran mendoza Type: BLOOD SPECIMEN [facility] Address: [address] [phone] Performed By: #### C ONABO #### [facility] CLIA [id number] [address] [place] Protein [Mass/Vol] 6.8 g/dL Normal 6.3-8.0 [facility] Comment on above: Order Comment: Speci men Type: BLOOD SPECIMEN [facility] Address: [address] [place] [address] Performed By: #### C ONABO #### [facility] CLIA [id number] [address] Sodium [Moles/Vol] 136 mmol/L Normal 136-144 [facility] Comment on above: Order Comment: Speci men Type: BLOOD SPECIMEN [facility] Address: [address] [place] [address] Performed By: #### C ONABO #### [facility] CLIA [id number] [address] Urea nitrogen [Mass/Vol] 5 mg/dL Low 9-24 [facility] Comment on above: Order Comment: Speci men Type: BLOOD SPECIMEN [facility] Address: [address] [place] [address] Performed By: #### C ONABO #### [facility] CLIA [id number] [address] [place] PATH INTERP CBCDIF (LAB REFL EX ORDER-NO BILL)on 09-11-2022 [employer] 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 Hever (Unsp spec) [Interp] Reviewed by Caridad Lauren MD [facility] Comment on above: Order Comment: Speci men Type: BLOOD SPECIMENOrdering Facility: [facility] Address: [address] [place] [address] Performed By: #### 5 7021-8, [id number] ####[facility] LABORATORYCLIA [id number] [address] [place] STAFF REVIEW, CBCDIF Normal [facility] Comment on above: Order Comment: Speci men Type: BLOOD SPECIMENOrdering Facility: [facility] Address: [address] [address] Result Comment: Norm ocytic anemia. Dimorphic RBCs with few target cells and elliptocytes. Absolute monocytosis. Performed By: #### 5 7021-8, [id number] ####[facility] LABORATORYCLIA [id number] [address] PT panel Coag (PPP)on 2022 INR Coag (PPP) [Relative time] 2.0 {INR} High 0.9-1.3 [facility] Comment on above: Order Comment: Speci men Type: BLOOD SPECIMEN [facility] Address: [address] [address] Result Comment: Sobia min K Antagonist (VKA) Therapeutic Range: INR 2 to 3 (Target INR of 2.5) Note: For patients treated with VKA drugs, such as warfarin, the [place] [employer] 2012 Guideline recommends a therapeutic INR range of 2 to 3 (target INR of 2.5). This recommendation includes high-risk patients with antiphospholipid syndrome with previous arterial or venous thromboembolism, current-generation mechanical or bioprosthetic aortic heart valve replacement. Note: Patients with mechanical aortic valve replacement and additional risk factors for thromboembolic events (atrial fibrillation, previous thromboembolism, LV dysfunction, hypercoagulable conditions) or an older generation mechanical AVR (i.e., ball in-Cage) or any mechanical MVR should have a INR therapeutic range of 2.5 to 3.5 (target INR of 3). Kapil GH, et al. Chest 2012, 141:7S-47S Dedra RA, et al. [facility] 2017, 70: 252-289 Performed By: #### T SCR #### [facility] CLIA [id number] [address] PT Coag (PPP) [Time] 20.3 s High 9.7-13.0 [facility] Comment on above: Order Comment: Speci men Type: BLOOD SPECIMEN [facility] Address: [address] [address] Performed By: #### T SCR #### [facility] CLIA [id number] 1 [place] [address] [place] US ABD RIGHT UPPER QUADRANTo n 09-11-2022 US ABD RIGHT UPPER QUADRANT * * *Final Report* * * DATE OF EXAM: Sep 11 2022 7:25AM [facility] 1032 - US ABD RIGHT UPPER QUADRANT / PROCEDURE REASON: Cirrhosis * * * * Physician Interpretation * * * * EXAMINATION: RIGHT UPPER QUADRANT AND SPLEEN ULTRASOUND CLINICAL HISTORY: Hepatic cirrhosis TECHNIQUE: Sonography of the right upper quadrant and spleen was performed. Images were obtained and stored in a permanent archive. MQ: URUQ_2 COMPARISON: None. RESULT: Pancreas: Not well seen. The visualized portions appear normal. Liver: Echotexture: Coarse Echogenicity: Increased Surface contour: Nodular Lesions: None. Biliary: No intrahepatic biliary duct dilation. CBD: 0.5 cm at the hilum. Gallbladder: Normal caliber -Contents: Cholelithiasis and sludge present -Wall: Normal -Other: No pericholecystic fluid. Right Kidney: No hydronephrosis. 12.5 cm in length. Ascites: Moderate volume abdominal ascites Spleen: The craniocaudal length of the spleen is 12.4 cm, normal. There are no splenic lesions. IMPRESSION: Cirrhotic hepatic morphology. Moderate volume ascites. Combination of stones and sludge within the gallbladder. Law Examiner: MEHDI Transcribe Date/Time: Sep 11 2022 7:35A Dictated by : CARMEN BRIGHT MD This examination was interpreted and the report reviewed and electronically signed by: CARMEN BRIGHT MD on Sep 11 2022 7:37AM EST [id number] Normal [facility] ALLIED HEALTHon 09-10-2022 ALLIED HEALTH HNO ID: [id number] Author: RT David(R) Service: Radiology Author Type: Technologist Type: Allied Health Filed: 09/10/2022 9:07 AM Note Text: Radiology Service Progress Note PATIENT NAME: Carolynn Lee DATE OF SERVICE: September 10, 2022 TIME: 9:07 AM PATIENT IDENTITY VERIFICATION COMPLETED USING TWO (2) IDENTIFIERS: Name and Date of confirmed by patient verbally and Name and Date of confirmed by identification band. FALL SCREENING: Has the patient had 2 falls in the last year or 1 fall with injury or currently using an Ambulatory Assistive Device (Walker, Cane, Wheelchair, Crutches, etc.)? Inpatient: Screened on floor PATIENT GENDER DATA: Male PATIENT RELEVANT IMPLANT DATA REVIEWED: Not Applicable RADIOLOGY DEPARTMENT: General X-ray: Exam(s) Completed: Chest X-Ray PERIPHERAL IV DATA: Not applicable SIGNED BY: Divina Hayes RT(R) September 10, 2022 9:07 AM Normal [facility] RONN BY IFA SCREENon 09-11-19 23 Nuclear Ab IF (S) [Titer] Negative Normal Negative [facility] Comment on above: Order Comment: Speci men Type: BLOOD SPECIMEN [facility] Address: [address] [place] [address] Result Comment: Anti -nuclear antibody test is used as an aid in diagnosis of systemic autoimmune diseases. Where positive and clinically warranted, follow-up using disease-specific testing is recommended. Low positive titers are not uncommon with advanced age, certain chronic infections, and malignancies among others. Test methodology: Indirect fluorescence immunoassay (IFA) using HEp-2 cells. Performed By: #### T SCR #### [facility] CLIA [id number] 1 [place] [address] [place] Albumin (Body fld) [Mass/Vol ]on 09-10-2022 Fluid Nom (Body fld) ASCITES FLUID Normal [facility] Comment on above: Order Comment: Speci men Type: BODY FLUID SPECIMENOrdering Facility: [facility] Address: [address] [place] [address] Performed By: #### 1 747-5 ####[facility] [facility] LABCLIA [id number] [facility] [id number] LABORATORYCLIA [id number] [place] [address] [place] Albumin Fld-mCncon 3 Albumin (Body fld) [Mass/Vol] 0.7 g/dL Normal See Comment [facility] Comment on above: Order Comment: Speci men Type: BODY FLUID SPECIMENOrdering Facility: [facility] Address: [address] [place] [address] Result Comment: Body Fluid Albumin may be used in classifying ascitic fluid into high-gradient or low-gradient fluids as determined by the serum-ascites albumin gradient, which is calculated as (serum albumin) - (ascites albumin). The serum and fluid specimens should be drawn with a minimal intervening time interval to appropriately analyze the gradient. Gradients greater than or equal to 1.1 g/dL are considered high, which reflects a high hydrostatic pressure, commonly caused by: cirrhosis or other processes generating portal hypertension. In samples where gradients are less than 1.1 g/dL, ascites generated from conditions without portal hypertension should be considered. Reference: 1. CLSI. Analysis of Body Fluids in Clinical Chemistry Approved Guideline. CLSI document C49A. RORY Duque: Clinical Laboratory Standards [place]: 2007. 2. Rasheeda BURCH. Serum to ascites albumin gradient. UpToDate. 2015. Accessed on August 29, 2015. This test was developed and its performance characteristics determined by [facility] Pathology and Laboratory Medicine [place] ([facility]). It has not been cleared or approved by the FDA. -[facility] is regulated under CLIA as qualified to perform high-complexity testing. This test is used for clinical purposes. It should not be regarded as investigational or for research. Performed By: #### 1 747-5 ####[facility] LABCLIA [id number] [facility] [id number] STATES OF [facility] LABORATORYCLIA [id number] [place] [address] [place] Albumin SerPl-mCncon 023 Albumin [Mass/Vol] 2.6 g/dL Low 3.9-4.9 [facility] Comment on above: Order Comment: Speci men Type: BLOOD SPECIMEN Order[facility] Address: [address] [place] [phone] Performed By: #### D AGT #### [facility] CLIA [id number] [address] [place] [address] [place] BF MANUAL DIFFon 09-10-2022 DIF TTL, BODY FLUID 100 cells counted Normal [facility] Comment on above: Order Comment: Speci men Type: BLOOD SPECIMEN Ordering Facility: [facility] Address: [address] [place] [address] Performed By: #### D AGT #### [facility] CLIA [id number] [address] LYMPH%, BF 3 % Low 18-36 [facility] Comment on above: Order Comment: Speci men Type: BLOOD SPECIMEN [facility] Facility[facility] Address: [address] [place] [address] Performed By: #### D AGT #### [facility] CLIA [id number] [address] MACRO%, BF 60 % Low 64-80 [facility] Comment on above: Order Comment: Speci men Type: BLOOD SPECIMEN [facility] Facility[facility] Address: [address] [place] [address] Performed By: #### D AGT #### [facility] CLIA [id number] [address] MESO %, BF 16 % High 0-2 [facility] Comment on above: Order Comment: Speci men Type: BLOOD SPECIMEN Ordering Facility[facility] Address: [address] [place] [address] Performed By: #### D AGT #### [facility] CLIA [id number] [address] MONO% BF 19 % Normal [facility] Comment on above: Order Comment: Speci men Type: BLOOD SPECIMEN Ordering Facility: [facility] Address: [address] [place] [address] Performed By: #### D AGT #### [facility] CLIA [id number] [address] NEUT%, BF 2 % High 0-1 [facility] Comment on above: Order Comment: Speci men Type: BLOOD SPECIMEN [facility] Facility[facility] Address: [address] [place] [address] Performed By: #### D AGT #### [facility] CLIA [id number] [address] BODY FLUID CELL COUNTon - Clarity (Unsp spec) Clear Normal Clear [facility] Comment on above: Order Comment: Speci men Type: BLOOD SPECIMEN Order[facility] Address: [address] [place] [address] Performed By: #### D AGT #### [facility] CLIA [id number] [address] Color (Body fld) Yellow Normal Yellow [facility] Comment on above: Order Comment: Speci men Type: BLOOD SPECIMEN [facility] Address: [address] [place] [address] Performed By: #### D AGT #### [facility] CLIA [id number] [address] RBC Manual cnt (Body fld) [#/Vol] <2000 Normal <2000 [facility] Comment on above: Order Comment: Speci men Type: BLOOD SPECIMEN [facility] Address: [address] [place] [address] Performed By: #### D AGT #### [facility] CLIA [id number] [address] Specimen source Nom (Body fld) ASCITES FLUID Normal [facility] Comment on above: Order Comment: Speci men Type: BLOOD SPECIMEN [facility] Address: [address] [place] [address] Performed By: #### D AGT #### [facility] CLIA [id number] [address] WBC Manual cnt (Body fld) [#/Vol] 40 /uL Normal <1000 [facility] Comment on above: Order Comment: Speci men Type: BLOOD SPECIMEN [facility] Address: [address] [place] [address] Performed By: #### D AGT #### [facility] CLIA [id number] [address] BRIEF OP NOTon 09-10-2022 BRIEF OP NOT HNO ID: [id number] Author: Margo Fuentes APRN.CNP Service: Interventional Radiology Author Type: Nurse Practitioner Type: Brief Op Note Filed: 09/10/2022 2:45 PM Note Text: BRIEF OP NOTE LOG ID: [id number] Surgery/Procedure Date: 09/10/2022 Surgeon(s)/Proceduralist(s) and Foreign Language Professor(s): Margo Fuentes APRN.CNP Procedure(s): paracentesis Anesthesia: local 5 ml lidocaine Findings: 19,300 ml clear yellow fluid Estimated Blood Loss: <3 ml Specimens: Yes Complications: none Pre-Op/Pre-Procedure Diagnosis: ascites Post-Op/Post-Procedure Diagnosis: same SIGNATURE: Margo Fuentes APRN.CNP PATIENT NAME: Carolynn Lee DATE: September 10, 2022 TIME: 1:46 PM PAGER/CONTACT #: Normal [facility] Bacteria Fld Culton 09-11-19 23 Bacteria identified Cx Nom (Body fld) CULTURE, BODY FLD: No growth 5 days GRAM STAIN: No organisms seen No Polymorphonuclear Leukocytes Normal [facility] Comment on above: Performed By: #### 6 11-4 ####[facility] LABORATORYCLIA [id number] [address] CASE MGT INIT ASSESon 2022 CASE MGT INIT ASSES HNO ID: [id number] Author: EMEYLN Arzate Service: ? Author Type: Layout Worker Type: Care Mgt Initial Assessment Filed: 09/10/2022 1:56 PM Note Text: CARE MANAGEMENT: ASSESSMENT AND DISCHARGE PLAN SERVICE DATE: September 10, 2022 SERVICE TIME: 1:52 PM PCP: No primary care provider on file. Primary Contact: No emergency contact information on file. Admission Status: Inpatient Insurance Provider: N/A Discharge Planning requested by: Per Department Practice Potential Transition Plans Home;To Be Determined Advance Directives Current Advance Directive: None Event Promoter Attempted to Assist with AD Completion: Yes Action: Education Provided Current Living Arrangements and Support Lives with: Alone Type of Residence: Private Residence (House) Support: Family members How do you manage to accomplish the following: Independent: Ambulation;Bathe/Shower;Sarmad ss;Meals/Meal Prep;Going to the bathroom;Medication Management Current Services/Equipment Current Post-Acute Service(s): None Discharge Planning Patient Goal(s): Be able to go home [place] of Choice Explained: [place] of Choice Given: No Reason Not Given: No placements necessary Are you interested in bedside delivery of your medications? Yes Discharge Planning Participant(s): Family;Patient Patient/Family Comments: Pt wants to go home Caregiver Assessment: and ALCOHOL USE/ABUSE CAGE ASSESSMENT Two or More Affirmative Responses Suggest a Client is a Problem Drinker. - Have you felt the need to cut down on your drinking? Yes - Do you feel annoyed by people complaining about your drinking? Yes - Do you ever feel guilty about your drinking? Yes - Do you ever drink an eye-technical training manager in the morning to relieve shakes? Yes Transport at Discharge: Transportation Arrangements: Car Needs Prior to Discharge: Needs Prior to Discharge: To Be Determined Post-Acute Discharge Plan: Home Pt and mother at bedside. Pt from home with mom, no pcp in the last 10 years, no DME, no o2, no hx of SNF or HHC. 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 Pt states he had court ordered IOP and AA meetings, and enjoyed them. Pt declined resources at this time, is going to be looking into josh PCPs he states and will get resources from his future pcp. Pt and mother educated on options for pt with treatment options. Pt anticipates going home with mother to transport once stable. SIGNATURE: EMELYN Arzate PATIENT NAME: Carolynn Lee DATE: September 10, 2022 TIME: 1:52 PM CONTACT #: [id number] Normal [facility] CBC W Auto Differential pane l (Bld)on 09-10-2022 Basophils (Bld) [#/Vol] 0.08 10*3/uL Normal <0.11 [facility] Comment on above: Order Comment: Speci men Type: BLOOD SPECIMENOrdering Facility: [facility] Address: [address] [place] [address] Performed By: #### 5 7021-8 ####[facility] LABORATORYCLIA [id number] [address] [place] Basophils/100 WBC (Bld) 1.2 % Normal [facility] Comment on above: Order Comment: Speci men Type: BLOOD SPECIMENOrdering Facility: [facility] Address: [address] [place] [address] Performed By: #### 5 7021-8 ####[facility] LABORATORYCLIA [id number] [address] [place] Differential cell count method Nom (Bld) Auto Normal [facility] Comment on above: Order Comment: Speci men Type: BLOOD SPECIMENOrdering Facility: [facility] Address: [address] [place] [address] Performed By: #### 5 7021-8 ####[facility] LABORATORYCLIA [id number] [address] [place] Eosinophils (Bld) [#/Vol] 0.25 10*3/uL Normal <0.46 [facility] Comment on above: Order Comment: Speci men Type: BLOOD SPECIMENOrdering Facility: [facility] Address: [address] [place] [address] Performed By: #### 5 7021-8 ####[facility] LABORATORYCLIA [id number] [address] OF [place] Eosinophils/100 WBC (Bld) 3.9 % Normal [facility] Comment on above: Order Comment: Speci men Type: BLOOD SPECIMENOrdering Facility: [facility] Address: [address] [place] [address] Performed By: #### 5 7021-8 ####[facility] LABORATORYCLIA [id number] [address] [place] Erythrocyte distribution width (RBC) [Ratio] 19.1 % High 11.5-15.0 [facility] Comment on above: Order Comment: Speci men Type: BLOOD SPECIMENOrdering Facility: [facility] Address: [address] [place] [address] Performed By: #### 5 7021-8 ####[facility] LABORATORYCLIA [id number] [address] Hematocrit (Bld) [Volume fraction] 22.4 % Low 39.0-51.0 [facility] Comment on above: Order Comment: Speci men Type: BLOOD SPECIMENOrdering Facility: [facility] Address: [address] [place] [address] Performed By: #### 5 7021-8 ####[facility] LABORATORYCLIA [id number] [address] OF [place] Hemoglobin (Bld) [Mass/Vol] 6.5 g/dL Low 13.0-17.0 [facility] Comment on above: Order Comment: Speci men Type: BLOOD SPECIMENOrdering Facility: [facility] Address: [address] [place] [address] Performed By: #### 5 7021-8 ####[facility] LABORATORYCLIA [id number] [address] Immature granulocytes (Bld) [#/Vol] 0.03 10*3/uL Normal <0.10 [facility] Comment on above: Order Comment: Speci men Type: BLOOD SPECIMENOrdering Facility: [facility] Address: [address] [place] [address] Performed By: #### 5 7021-8 ####[facility] LABORATORYCLIA [id number] [address] Immature granulocytes/100 WBC (Bld) 0.5 % Normal [facility] Comment on above: Order Comment: Speci men Type: BLOOD SPECIMENOrdering Facility: [facility] Address: [address] [place] [address] Performed By: #### 5 7021-8 ####[facility] LABORATORYCLIA [id number] [address] [place] Lymphocytes (Bld) [#/Vol] 1.37 10*3/uL Normal 1.00-4.00 [facility] Comment on above: Order Comment: Speci men Type: BLOOD SPECIMENOrdering Facility: [facility] Address: [address] [place] [address] Performed By: #### 5 7021-8 ####[facility] LABORATORYCLIA [id number] [address] Lymphocytes/100 WBC (Bld) 21.4 % Normal [facility] Comment on above: Order Comment: Speci men Type: BLOOD SPECIMENOrdering Facility: [facility] Address: [address] [place] [address] Performed By: #### 5 7021-8 ####[facility] LABORATORYCLIA [id number] [address] [place] MCH (RBC) [Entitic mass] 23.7 pg Low 26.0-34.0 [facility] Comment on above: Order Comment: Speci men Type: BLOOD SPECIMENOrdering Facility: [facility] Address: [address] [place] [address] Performed By: #### 5 7021-8 ####[facility] LABORATORYCLIA [id number] [address] STATES OF [facility] MCHC (RBC) [Mass/Vol] 29.0 g/dL Low 30.5-36.0 [facility] Comment on above: Order Comment: Speci men Type: BLOOD SPECIMENOrdering Facility: [facility] Address: [address] [place] [address] Performed By: #### 5 7021-8 ####[facility] LABORATORYCLIA [id number] [address] STATES [facility] MCV (RBC) [Entitic vol] 81.8 fL Normal 80.0-100.0 [facility] Comment on above: Order Comment: Speci men Type: BLOOD SPECIMENOrdering Facility: [facility] Address: [address] [place] [address] Performed By: #### 5 7021-8 ####[facility] LABORATORYCLIA [id number] [place] [address] [place] Monocytes (Bld) [#/Vol] 1.18 10*3/uL High <0.87 [facility] Comment on above: Order Comment: Speci men Type: BLOOD SPECIMENOrdering Facility: [facility] Address: [address] [place] [address] Performed By: #### 5 7021-8 ####[facility] LABORATORYCLIA [id number] [address] [place] Monocytes/100 WBC (Bld) 18.4 % Normal [facility] Comment on above: Order Comment: Speci men Type: BLOOD SPECIMENOrdering Facility: [facility] Address: [address] [place] [address] Performed By: #### 5 7021-8 ####[facility] LABORATORYCLIA [id number] [address] [place] Neutrophils (Bld) [#/Vol] 3.50 10*3/uL Normal 1.45-7.50 [facility] Comment on above: Order Comment: Speci men Type: BLOOD SPECIMENOrdering Facility: [facility] Address: [address] [place] [address] Performed By: #### 5 7021-8 ####[facility] LABORATORYCLIA [id number] [address] [place] Neutrophils/100 WBC (Bld) 54.6 % Normal [facility] Comment on above: Order Comment: Speci men Type: BLOOD SPECIMENOrdering Facility: [facility] Address: [address] [place] [address] Performed By: #### 5 7021-8 ####[facility] LABORATORYCLIA [id number] [place] [address] [place] Nucleated RBC (Bld) [#/Vol] 10*3/uL Normal <0.01 [facility] Comment on above: Order Comment: Speci men Type: BLOOD SPECIMENOrdering Facility: [facility] Address: [address] [place] [address] Performed By: #### 5 7021-8 ####[facility] LABORATORYCLIA [id number] [address] [place] Nucleated RBC/100 WBC (Bld) [Ratio] 0.0 /100 WBC Normal [facility] Comment on above: Order Comment: Speci men Type: BLOOD SPECIMENOrdering Facility: [facility] Address: [address] [place] [address] Performed By: #### 5 7021-8 ####[facility] LABORATORYCLIA [id number] [address] [place] Platelet mean volume (Bld) [Entitic vol] 9.3 fL Normal 9.0-12.7 [facility] Comment on above: Order Comment: Speci men Type: BLOOD SPECIMENOrdering Facility: [facility] Address: [address] [place] [address] Performed By: #### 5 7021-8 ####[facility] LABORATORYCLIA [id number] [address] [place] Platelets (Bld) [#/Vol] 151 10*3/uL Normal 150-400 [facility] Comment on above: Order Comment: Speci men Type: BLOOD SPECIMENOrdering Facility: [facility] Address: [address] [place] [address] Performed By: #### 5 7021-8 ####[facility] LABORATORYCLIA [id number] [place] [address] [place] RBC (Bld) [#/Vol] 2.74 10*6/uL Low 4.20-6.00 [facility] Comment on above: Order Comment: Speci men Type: BLOOD SPECIMENOrdering Facility: [facility] Address: [address] [place] [address] Performed By: #### 5 7021-8 ####[facility] LABORATORYCLIA [id number] [place] [address] [place] WBC (Bld) [#/Vol] 6.41 10*3/uL Normal 3.70-11.00 [facility] Comment on above: Order Comment: Speci men Type: BLOOD SPECIMENOrdering Facility: [facility] Address: [address] [place] [address] Performed By: #### 5 7021-8 ####[facility] LABORATORYCLIA [id number] [address] CONFIRM BLOOD TYPEon 023 ABO A Normal [facility] Comment on above: Order Comment: Speci men Type: BLOOD SPECIMEN [facility] Address: [address] [place] [address] Performed By: #### C ONABO #### [facility] CLIA [id number] [address] Rh Nom (Bld) Positive Normal [facility] Comment on above: Order Comment: Speci men Type: BLOOD SPECIMEN [facility] Address: [address] [place] [address] Performed By: #### C ONABO #### [facility] CLIA [id number] [address] CONSULTon 09-10-2022 CONSULT HNO ID: [id number] Author: Salvador Vera MD Service: Orthopaedic Surgery Author Type: Physician Type: Consults Filed: 09/10/2022 1:02 PM Note Text: Orthopaedic Surgery Consultation Note Reason for Consultation: Left segmental humeral shaft fracture Consulting Physician: Salvador Vera MD Date: September 10, 2022 Time: 5:08 AM History of Present Illness 42 year old male being evaluated today regarding leg segmental humeral shaft fracture. Patient states that he was walking into his house yesterday afternoon when he fell and landed on his left shoulder. He had immediate pain and obvious deformity to the left arm following the injury. He was transferred to an outside emergency department where imaging was performed which demonstrated a above fracture. He was placed in a coaptation splint before being transferred to [facility] emergency department for further evaluation. Patient endorses significant pain to the left humerus. Denies any numbness or tingling in his left upper extremity. Denies any other orthopedic related complaints. Patient with a history of EtOH abuse and recently diagnosed with cirrhosis. Review of Systems 10-point ROS negative except as in HPI. History No past medical history on file. No past surgical history on file. There are no preventive care reminders to display for this patient. A review of the patient's history was completed and is otherwise non-contributory to the patient's presenting condition. Medications No prescriptions on file. Allergies Patient has no allergy information on record. Family History No family history on file. Social History Employer And Job Title: None on file Years Of Education Completed: Not specified Marital Status: Not specified Physical Examination Vitals BP 136/88 Pulse (!) 113 Temp 36.7 ?C (98.1 ?F) Resp 13 Wt 90.7 kg (200 lb) General AANDO. NAD. Cooperative throughout entire interview. Appropriate mood and affect. Left upper extremity Mild swelling. No erythema or ecchymosis No open wounds or lacerations. TTP about left humerus SILT Ax/M/U/R. Motor intact Ax/AIN/PIN/U. Compartments soft and compressible R/U pulses palpable; BCR all digits. Physical examination otherwise non-contributory to consultation. Labs No results for input(s): NA, K, CHLOR, CO2, BUN, CREAT, GLUC, ANION, CA, MG, P, ALB, AST, ALT, ALKPHOS, TBILI, DBILI, PHOSINTL, WBC, HB, HCT, PLT, LACT, INR, PH, PCO2, PO2, BE, HCO3 in the last 72 hours. Invalid input(s): [facility] Imaging X-rays of the left shoulder, humerus, elbow were obtained, reviewed, and interpreted. Images show a segmental humeral shaft fracture with significant angulation and shortening. Post reduction XR of left humerus following application of coaptation splint demonstrate improved angulation of the fracture. On the lateral image, the fracture is shortened as well as slightly angulated apex anterior. No dislocation appreciated in the shoulder or elbow Assessment Carolynn Lee is a 42 year old male left segmental humeral shaft fracture Plan Management per medicine Pain control Weight-bearing status: NWB LUE Antibiotic(s): non from orthopedic standpoint Diet: NPO for now Maintain splint to left arm DVT ppx: per primary Imaging: No new orthopedic surgery imaging No plan for orthopedic surgery intervention. Plan to treat conservatively in splint and pain control Disposition: per primary Discussed with Dr. Vera who agrees with the above recommendations. Kalpesh Wilcox MD Orthopaedic Surgery - PGY 2 5:08 AM 09/10/2022 Pager #[phone] Attending Note I personally saw and examined the patient. I reviewed the resident's note. I agree with the resident's assessment and plan unless otherwise noted. Discussed overall situation with patient and family member. Left segmental humerus fracture shows satisfactory alignment in current splint. We will attempt conservative management at this time. This was discussed with the patient and family member. I discussed the significant complications that can result from surgical intervention with his current condition. We will repeat x-rays in 3 to 5 days to check alignment. If fracture significantly displaces, we can rediscuss potential surgical intervention if necessary. They expressed understanding. Nonweightbearing left upper extremity. Signature: Salvador Vera MD Date: 09/10/2022 Time: 1:00 PM Normal [facility] Comprehensive metabolic 2000 panelon 09-10-2022 Albumin [Mass/Vol] 2.9 g/dL Low 3.9-4.9 [facility] Comment on above: Order Comment: Speci men Type: BLOOD SPECIMENOrdering Facility: [facility] Address: [address] [address] Performed By: #### 2 4323-8, 46137-0, 92434-5, 5194-3 ####[facility] LABORATORYCLIA [id number] [address] STATES OF [facility] ALP [Catalytic activity/Vol] 147 U/L High 38-113 [facility] Comment on above: Order Comment: Speci men Type: BLOOD SPECIMENOrdering Facility: [facility] Address: [address] [address] Performed By: #### 2 4323-8, 03666-6, 67713-2, 519-3 ####[facility] LABORATORYCLIA [id number] [address] [place] ALT With P-5'-P [Catalytic activity/Vol] 28 U/L Normal 10-54 [facility] Comment on above: Order Comment: Speci men Type: BLOOD SPECIMENOrdering Facility: [facility] Address: [address] [place] [address] Performed By: #### 2 4323-8, 32318-0, 64346-8, 5195-3 ####[facility] LABORATORYCLIA [id number] [place] [address] [place] Anion gap [Moles/Vol] 10 mmol/L Normal 9-18 [facility] Comment on above: Order Comment: Speci men Type: BLOOD SPECIMENOrdering Facility: [facility] Address: [address] [place] [address] Performed By: #### 2 4323-8, 11085-3, 87300-3, 5195-3 ####[facility] LABORATORYCLIA [id number] [place] [address] [place] AST With P-5'-P [Catalytic activity/Vol] 64 U/L High 14-40 [facility] Comment on above: Order Comment: Speci men Type: BLOOD SPECIMENOrdering Facility: [facility] Address: [address] [place] [address] Performed By: #### 2 4323-8, 69847-7, 15531-5, 5195-3 ####[facility]ISCLIA [id number] [place] [address] [place] Bilirubin [Mass/Vol] 4.4 mg/dL High 0.2-1.3 [facility] Comment on above: Order Comment: Speci men Type: BLOOD SPECIMENOrdering Facility: [facility] Address: [address] [place] [address] Performed By: #### 2 4323-8, 39613-3, 05239-9, 5195-3 ####[facility] LABORATORYCLIA [id number] [address] [place] Calcium [Mass/Vol] 8.0 mg/dL Low 8.5-10.2 [facility] Comment on above: Order Comment: Speci men Type: BLOOD SPECIMENOrdering Facility: [facility] Address: [address] [address] Performed By: #### 2 4323-8, 66150-2, 06674-9, 5195-3 ####[facility] LABORATORYCLIA [id number] [address] [place] Chloride [Moles/Vol] 103 mmol/L Normal 97-105 [facility] Comment on above: Order Comment: Speci men Type: BLOOD SPECIMENOrdering Facility: [facility] Address: [address] [place] [address] Performed By: #### 2 4323-8, 04216-9, 19173-4, 5195-3 ####[facility]CL[facility] [id number] [address] STATES OF [facility] CO2 [Moles/Vol] 22 mmol/L Normal 22-30 [facility] Comment on above: Order Comment: Speci men Type: BLOOD SPECIMENOrdering Facility: [facility] Address: [address] [place] [address] Performed By: #### 2 4323-8, 74647-7, 48963-3, 5195-3 ####[facility]CLIA [id number] [address] OF [facility] Creatinine [Mass/Vol] 0.69 mg/dL Low 0.73-1.22 [facility] Comment on above: Order Comment: Speci men Type: BLOOD SPECIMENOrdering Facility: [facility] Address: [address] [place] [address] Performed By: #### 2 4323-8, 53357-7, 25782-1, 5195-3 ####[facility] LABORATORYCLIA [id number] [address] ESTIMATED GLOMERULAR FILTRATION RATE 118 mL/min/1.73m??? Normal >=60 [facility] Comment on above: Order Comment: Speci men Type: BLOOD SPECIMENOrdering Facility: [facility] Address: [address] [place] [address] Result Comment: Yeni mated Glomerular Filtration Rate (eGFR) is calculated using the 2020 CKD-EPI creatinine equation. This equation utilizes serum creatinine, sex, and age as parameters. The creatinine assay has traceable calibration to isotope dilution-mass spectrometry. Refer to KDIGO guidelines for clinical interpretation. In patients with unstable renal function, e.g. those with acute kidney injury, the eGFR may not accurately reflect actual GFR. Performed By: #### 2 4323-8, 88427-6, 90462-9, 5195-3 ####[facility] LABORATORYCLIA [id number] [place] [address] [place] Glucose [Mass/Vol] 116 mg/dL High 74-99 [facility] Comment on above: Order Comment: Eran mendoza Type: BLOOD SPECIMENOrdering Facility: [facility] Address: [address] [place] [address] Result Comment: The [place] Diabetes Association (ADA) provides guidance for cutoff values for fasting glucose and random glucose. The ADA defines fasting as no caloric intake for at least 8 hours. Fasting plasma glucose results between 100 to 125 mg/dL indicate increased risk for diabetes (prediabetes). Fasting plasma glucose results greater than or equal to 126 mg/dL meet the criteria for diagnosis of diabetes. In the absence of unequivocal hyperglycemia, results should be confirmed by repeat testing. In a patient with classic symptoms of hyperglycemia or hyperglycemic crisis, random plasma glucose results greater than or equal to 200 mg/dL meet the criteria for diagnosis of diabetes. Reference: Standards of Medical Care in Diabetes 2016, [place] [employer]. Diabetes Care. 2016.39(Suppl 1). Performed By: #### 2 4323-8, 33021-5, 80836-4, 3 ####[facility] LABORATORYCLIA [id number] [place] [address] [place] Potassium [Moles/Vol] 3.2 mmol/L Low 3.7-5.1 [facility] Comment on above: Order Comment: Eran mendoza Type: BLOOD SPECIMENOrdering Facility: [facility] Address: [address] [place] [address] Performed By: #### 2 4323-8, 29877-2, 22436-3, 5195-3 ####[facility] LABORATORYCLIA [id number] [address] STATES OF [facility] Protein [Mass/Vol] 6.7 g/dL Normal 6.3-8.0 [facility] Comment on above: Order Comment: Speci men Type: BLOOD SPECIMENOrdering Facility: [facility] Address: [address] [place] [address] Performed By: #### 2 4323-8, 83259-3, 72815-1, 5195-3 ####[facility] LABORATORYCLIA [id number] [address] OF [facility] Sodium [Moles/Vol] 135 mmol/L Low 136-144 [facility] Comment on above: Order Comment: Speci men Type: BLOOD SPECIMENOrdering Facility: [facility] Address: [address] [place] [address] Performed By: #### 2 4323-8, 34419-1, 00650-8, 5195-3 ####[facility] LABORATORYCLIA [id number] [address] Urea nitrogen [Mass/Vol] 4 mg/dL Low 9-24 [facility] Comment on above: Order Comment: Speci men Type: BLOOD SPECIMENOrdering Facility: [facility] Address: [address] [place] [address] Performed By: #### 2 4323-8, 53718-2, 67400-0, 5195-3 ####[facility] LABORATORYCLIA [id number] [address] OF [facility] ED NOTEon 09-10-2022 ED NOTE HNO ID: [id number] Author: Gio Springer RN Service: ? Author Type: Registered Nurse Type: ED Notes Filed: 09/10/2022 4:57 AM Note Text: Bed: 28-ED Expected date: Expected time: Means of arrival: Comments: josh Isbell [facility] ED PROV NOTEon 09-10-2022 ED PROV NOTE HNO ID: [id number] Author: Beni Albarran DO Service: Emergency Medicine Author Type: Resident Type: ED Provider Notes Filed: 09/10/2022 5:31 AM Note Text: Attestation signed by Emile Watkins MD at 10/07/2022 4:38 AM Attending Note I personally saw the patient and performed a substantive portion of the visit including all aspects of the medical decision making. I supervised and was present for sanchez portions of any procedures performed by the resident. I agree with the resident's findings and plan with the following revisions and/or additions: Signature: Emile Watkins MD ED Provider Note Patient Name: Carolynn Lee : 1980 SERVICE DATE: 09/10/22 History Patient presents with: Multiple Concerns: Transfer from [place]. Pt has a shoulder fracture that was casted, and also a new onset of cirrhosis. Pt also had a low hemoglobin, PRBCs were given prior to arrrival. HPI The patient is a 42-year-old male who presents today as a transfer from [facility] for a right proximal humerus fracture and new onset cirrhosis. He states he has not seen a physician in 10 years. He currently drinks 3-4 mixed drinks a day. He states sometimes it is more, sometimes it is less. Yesterday at approximately 5 PM, he fell onto his left arm. At [place], he had x-ray imaging that showed a proximal comminuted humerus fracture. Laboratory studies were also remarkable for anemia with a hemoglobin of 6.0 in which she received 1 unit of PRBCs. He is also found to have new onset cirrhosis with ascites. Laboratory studies were remarkable for a hyponatremia with a sodium of 134 and a hypokalemia with a potassium of 3.2. Direct bilirubin was 1.9. AST 80 and ALT 37. Alk phosphatase at 145. INR elevated at 2.2 without any anticoagulation. Currently, the patient endorses 10 out of 10 pain into his left humerus. He presents with a coaptation splint and denies any numbness or tingling in his hand. No past medical history on file. No past surgical history on file. No family history on file. Social History Tobacco Use Smoking status: Not on file Smokeless tobacco: Not on file Substance and Sexual Activity Alcohol use: Not on file Drug use: Not on file Sexual activity: Not on file ALLERGIES No Known Allergies Review of Systems Reason unable to perform ROS: See HPI. Physical Exam Vitals [09/10/22 0501] BP Pulse Temp Temp src Resp SpO2 Weight Height 136/88 (!) 113 36.7 ?C (98.1 ?F) -- 13 -- 90.7 kg (200 lb) -- Physical Exam Vitals and nursing note reviewed. Constitutional: General: He is not in acute distress. Appearance: Normal appearance. He is not ill-appearing. HENT: Head: Normocephalic and atraumatic. Right Ear: External ear normal. Left Ear: External ear normal. Nose: Nose normal. Mouth/Throat: Mouth: Mucous membranes are moist. Pharynx: Oropharynx is clear. Eyes: General: Scleral icterus present. Conjunctiva/sclera: Conjunctivae normal. Pupils: Pupils are equal, round, and reactive to light. Cardiovascular: Rate and Rhythm: Regular rhythm. Tachycardia present. Pulses: Normal pulses. Heart sounds: Normal heart sounds. No murmur heard. No friction rub. No gallop. Pulmonary: Effort: Pulmonary effort is normal. No respiratory distress. Breath sounds: Normal breath sounds. No stridor. No wheezing or rales. Abdominal: General: Abdomen is flat. There is no distension. Palpations: There is fluid wave. Tenderness: There is no abdominal tenderness. There is no guarding or rebound. Hernia: A hernia is present. Hernia is present in the umbilical area. Comments: The patient has ascites present with an umbilical hernia. No tenderness upon palpation. Musculoskeletal: General: No swelling, deformity or signs of injury. Cervical back: Normal range of motion and neck supple. Right lower leg: No edema. Left lower leg: No edema. Comments: The patient has a coaptation splint on the left humerus. Radial pulses 2+ bilaterally. The patient is able to wiggle his fingers without any difficulty. No discoloration noted. Compartments are soft. Lymphadenopathy: Cervical: No cervical adenopathy. Skin: General: Skin is warm. Capillary Refill: Capillary refill takes less than 2 seconds. Coloration: Skin is not jaundiced or pale. Neurological: General: No focal deficit present. Mental Status: He is alert and oriented to person, place, and time. Mental status is at baseline. Psychiatric: Mood and Affect: Mood normal. Behavior: Behavior normal. Thought Content: Thought content normal. Judgment: Judgment normal. Diagnostic Testing ED Labs Ordered and Reviewed - No data to display Procedures ED Course / Clinical Impression ED Course as of 09/10/22 0526 O (more content not included)... Normal [facility] HAV IgM Ser Qlon 09-10-2022 HAV IgM Ql (S) Non-Reactive Normal Nonreactive [facility] Comment on above: Order Comment: Speci kelly Type: BLOOD SPECIMENOrdering Facility: [facility] Address: [address] [place] [address] Result Comment: No e vidence of recent infection with Hepatitis A virus. Performed By: #### 2 4323-8, 64695-3, 65406-5, 5194-3 ####[facility] LABORATORYCLIA [id number] [address] [place] HBV core IgM Ser Qlon 2022 HBV core IgM Ql (S) Non-Reactive Normal Nonreactive [facility] Comment on above: Order Comment: Speci kelly Type: BLOOD SPECIMENOrdering Facility: [facility] Address: [address] [place] [address] Result Comment: No e vidence of recent infection with Hepatitis B virus. Should recent infection be suspected, repeat testing may be considered 3-4 weeks after this draw. Performed By: #### 2 4323-8, 45376-5, 18570-3, 5-3 ####[facility] LABORATORYCLIA [id number] [address] [place] HBV surface Ag Ser Qlon 08-17 HBV surface Ag Ql (S) Non-Reactive Normal Nonreactive [facility] Comment on above: Order Comment: Eran mendoza Type: BLOOD SPECIMENOrdering Facility: [facility] Address: [address] [place] [address] Performed By: #### 2 4323-8, 49566-8, 12628-0, 5195-3 ####[facility] LABORATORYCLIA [id number] [address] OF [facility] HCV Ab Ser Qlon 09-10-2022 HCV Ab Ql (S) Non-Reactive Normal Nonreactive [facility] Comment on above: Order Comment: Eran mendoza Type: BLOOD SPECIMEN [facility] Address: [address] [place] [address] Result Comment: The result suggests no evidence of active infection with Hepatitis C virus. Should recent infection be suspected, repeat testing may be considered 4-6 weeks after this draw. Performed By: #### T SCR #### [facility] CLIA [id number] [address] OF [facility] HISTORY PHYSICALon HISTORY PHYSICAL HNO ID: [id number] Author: Cedric Almeida DO Service: Hospital Medicine Author Type: Resident Type: HANDP Filed: 09/10/2022 6:46 AM Note Text: Attestation signed by Aracelis Casas MD at 09/10/2022 5:40 PM Attending Note I discussed with resident on 09/10/2022. The patient was not examined by the attending. I reviewed the resident's note. I agree with the resident's assessment and plan unless otherwise noted. Signature: Aracelis Casas MD Date: 09/10/2022. Time: 5:40 PM [facility] PATIENT NAME: Carolynn Lee ADMITTED FOR: DATE: 09/10/2022 Subjective HPI Mr. Carolynn Lee is a 42 year old male with no past medical history secondary to not seeing providers. -Alcohol use disorder Patient presented to [facility] with a chief complaint of mechanical fall to outside ED. Patient states that last evening he was attempting to walk back into his mother's home at which point he caught the lip of his foot on the step and fell landing on his left arm. He did feel like his arm dislocated. It was at this time that he decided to go to the ED. He presented to ED in [place]. While at outside ED was hemodynamically stable. Initial work-up did show labs consistent with hemoglobin 6.0 per verbal signout from ED. Patient received 1 unit PRBC transfusion. Imaging did not show any acute fractures or osseous abnormalities of the left upper extremity. Further labs did show concerns for new onset cirrhosis with elevations of AST/ALT. In speaking with the patient he does have a history of alcohol use disorder. He states that he drinks 2-3 alcoholic drinks a day mostly hard liquor with some mixer that he states ranges between a pint and a quart per drink. He states that some days he drinks more some days he drinks less but he has been doing this for several years. He does have a remote history of substance use including psychedelics but no injectables or IV substances. He denies any recent travel. Denies any risky sexual behavior. Denies any history of known cirrhosis or prior work-up. Has no family medical history of cirrhosis though he does state that his father was an alcoholic. Previously has never had any concerns for withdrawal though has never stopped drinking. He states that his last drink was 25 in the AM. He does state that he is abdomen has been generally becoming more distended over the past several months in addition he is also noted an periumbilical hernia which is nonpainful. He denies any abdominal pain. Denies any signs of GI bleeding such as hemoptysis, hematemesis, melanotic stools or dark tarry stools. Regarding his anemia he does state that he has off-and-on nosebleeds last of which being over the past few days. Denies any family medical history of autoimmune diseases. Review of Systems Constitutional: Negative for fatigue and fever. HENT: Negative for sore throat and trouble swallowing. Eyes: Negative for visual disturbance. Respiratory: Negative for cough, shortness of breath and wheezing. Cardiovascular: Negative for chest pain, palpitations and leg swelling. Gastrointestinal: Positive for abdominal distention. Negative for abdominal pain, blood in stool, constipation, diarrhea, nausea and vomiting. Genitourinary: Negative for difficulty urinating and dysuria. Musculoskeletal: Negative for arthralgias and neck stiffness. Skin: Negative for rash. Neurological: Negative for dizziness, tremors, seizures, weakness, numbness and headaches. Hematological: Does not bruise/bleed easily. Psychiatric/Behavioral: Negative for self-injury and suicidal ideas. No past medical history on file. No past surgical history on file. No family history on file. No current facility-administered medications on file prior to encounter. No current outpatient medications on file prior to encounter. Objective OBJECTIVE Patient Vitals for the past 4 hrs: BP Pulse Temp Resp 09/10/22 0501 136/88 (!) 113 36.7 ?C (98.1 ?F) 13 There is no height or weight on file to calculate BMI., No results found for: HBA1C No intake or output data in the 24 hours ending 09/10/22 0639 Physical Exam Vitals and nursing note reviewed. Constitutional: General: He is not in acute distress. Appearance: Normal appearance. He is not diaphoretic. HENT: Mouth/Throat: Mouth: Mucous membranes are moist. Pharynx: Oropharynx is clear. Eyes: Extraocular Movements: Extraocular movements intact. Cardiovascular: Rate and Rhythm: Regular rhythm. Tachycardia present. Pulses: Normal pulses. Heart sounds: Normal heart sounds. No murmur heard. No friction rub. No gallop. Pulmonary: Effort: Pulmonary effort is normal. Breath sounds: Normal breath sounds. No wheezing, rhonchi or rales. Abdominal: General: Abd (more content not included)... Normal [facility] Magnesium SerPl-mCncon 09-10 Magnesium [Mass/Vol] 1.8 mg/dL Normal 1.7-2.3 [facility] Comment on above: Order Comment: Eran mendoza Type: BLOOD SPECIMEN [facility] Address: [address] [place] [address] Performed By: #### T SCR #### [facility] CLIA [id number] [address] Mitochondria Ab IF Ql (S)on 09-10-2022 Mitochondria M2 Ab IA Qn (S) 3.6 Units Normal <=20.0 [facility] Comment on above: Order Comment: Eran mendoza Type: BLOOD SPECIMEN [facility] Address: [address] [place] [address] Performed By: #### T SCR #### [facility] [place] [id number] [address] Mitochondria M2 Ab Ql (S) Negative Normal Negative [facility] Comment on above: Order Comment: Eran mendoza Type: BLOOD SPECIMEN [facility] Address: [address] [place] [address] Result Comment: Anti -mitochondrial antibody test is used as an aid in diagnosis of primary biliary cholangitis. Clinical correlation is required. Performed By: #### T SCR #### [facility] CLIA [id number] [address] PT panel Coag (PPP)on 2022 INR Coag (PPP) [Relative time] 1.7 {INR} High 0.9-1.3 [facility] Comment on above: Order Comment: Eran kelly Type: BLOOD SPECIMENOrdering Facility: [facility] Address: [address] [place] [address] Result Comment: Sobia min K Antagonist (VKA) Therapeutic Range: INR 2 to 3 (Target INR of 2.5) Note: For patients treated with VKA drugs, such as warfarin, the [place] [employer] 2012 Guideline recommends a therapeutic INR range of 2 to 3 (target INR of 2.5). This recommendation includes high-risk patients with antiphospholipid syndrome with previous arterial or venous thromboembolism, current-generation mechanical or bioprosthetic aortic heart valve replacement. Note: Patients with mechanical aortic valve replacement and additional risk factors for thromboembolic events (atrial fibrillation, previous thromboembolism, LV dysfunction, hypercoagulable conditions) or an older generation mechanical AVR (i.e., ball in-Cage) or any mechanical MVR should have a INR therapeutic range of 2.5 to 3.5 (target INR of 3). Kapil GH, et al. Chest 2012, 141:7S-47S Dedra RA, et al. [facility] 2017, 70: 252-289 Performed By: #### 3 4528-0 ####[facility] LABORATORYCLIA [id number] [address] [place] PT Coag (PPP) [Time] 17.7 s High 9.7-13.0 [facility] Comment on above: Order Comment: Eran mendoza Type: BLOOD SPECIMENOrdering Facility: [facility] Address: [address] [address] Performed By: #### 3 4528-0 ####[facility] LABORATORYCLIA [id number] [address] Prot Fld-mCncon 09-10-2022 Protein (Body fld) [Mass/Vol] 1.8 g/dL Normal See Comment [facility] Comment on above: Order Comment: Eran mendoza Type: BODY FLUID SPECIMENOrdering Facility: [facility] Address: [address] [place] [address] Result Comment: Sero us fluids: Effusions are the accumulation of clinically detected fluid in any of the serous cavities. Effusions are further into transudates and exudates, which aid in determining the etiology of the effusion. Transudate: Body fluid total protein measurement < 3.0 g/dL. A ratio of serous fluid total protein to a concurrent serum total protein < 0.5 indicates a transudate. Exudate: Body fluid total protein measurement >= 3.0 g/dL. A ratio of serous fluid total protein to a concurrent serum total protein >= 0.5 indicates an exudate. Reference: 1. CLSI. Analysis of Body Fluids in Clinical Chemistry Approved Guideline. CLSI document C49A. RORY Duque: Clinical Laboratory Standards [place]: 2007. Performed By: #### 2 881-1 ####[facility] LABCLIA [id number] [facility] [id number] OF [place] Smooth muscle Ab Ql (S)on ACTIN SMOOTH MUSCLE IGG QUALITATIVE Negative Normal Negative [facility] Comment on above: Order Comment: Speci men Type: BLOOD SPECIMEN [facility] Address: [address] [place] [address] Performed By: #### T SCR #### [facility] CLIA [id number] [address] ACTIN SMOOTH MUSCLE IGG QUANTITATIVE 11 Units Normal <20 [facility] Comment on above: Order Comment: Speci men Type: BLOOD SPECIMEN Ordering Facility: [facility] Address: [address] [place] [address] Performed By: #### T SCR #### [facility] CLIA [id number] [address] TOX SCREEN ROUT URon 023 Amphetamines Confirm (U) [Mass/Vol] Negative Normal Negative [facility] Comment on above: Order Comment: Speci men Type: URINE SPECIMENOrdering Facility: [facility] Address: [address] [place] [address] Result Comment: Cuto ff threshold at 1000 ng/mL. Performed By: #### U TOX2 ####[facility] LABORATORYCLIA [id number] [address] OF [place] BAR[place]URATES, URINE Negative Normal Negative [facility] Comment on above: Order Comment: Speci men Type: URINE SPECIMENOrdering Facility: [facility] Address: [address] [place] [address] Result Comment: Cuto ff threshold at 200 ng/mL. Performed By: #### U TOX2 ####[facility] LABORATORYCLIA [id number] [place] [address] [place] BENZODIAZEPINES, UR Negative Normal Negative [facility] Comment on above: Order Comment: Speci men Type: URINE SPECIMENOrdering Facility: [facility] Address: [address] [place] [address] Result Comment: Cuto ff threshold at 200 ng/mL. Performed By: #### U TOX2 ####[facility]ORYCLIA [id number] [address] [place] CANNABINOIDS,URINE Positive Abnormal Negative [facility] Comment on above: Order Comment: Speci men Type: URINE SPECIMENOrdering Facility: [facility] Address: [address] [place] [address] Result Comment: Cuto ff threshold at 50 ng/mL. Performed By: #### U TOX2 ####[facility]ATORYCLIA [id number] [address] Cocaine Ql (U) Negative Normal Negative [facility] Comment on above: Order Comment: Speci men Type: URINE SPECIMENOrdering Facility: [facility] Address: [address] [place] [address] Result Comment: Cuto ff threshold at 300 ng/mL. Performed By: #### U TOX2 ####[facility]ORY[facility] [id number] [address] [place] Ethanol (U) [Mass/Vol] 125 mg/dL High <11 [facility] Comment on above: Order Comment: Speci men Type: URINE SPECIMENOrdering Facility: [facility] Address: [address] [place] [address] Performed By: #### U TOX2 ####[facility]ORY[facility]IA [id number] [address] Opiates Screen Ql (U) Positive Abnormal Negative [facility] Comment on above: Order Comment: Speci men Type: URINE SPECIMENOrdering Facility: [facility] Address: [address] [place] [address] Result Comment: Cuto ff threshold at 300 ng/mL. Performed By: #### U TOX2 ####[facility]ORY[facility]IA [id number] [address] oxyCODONE cutoff Screen (U) [Mass/Vol] Negative Normal Negative [facility] Comment on above: Order Comment: Speci men Type: URINE SPECIMENOrdering Facility: [facility] Address: [address] [address] Result Comment: Cuto ff threshold at 100 ng/mL. Performed By: #### U TOX2 ####[facility] LABORATORYCLIA [id number] [address] Phencyclidine Ql (U) Negative Normal Negative [facility] Comment on above: Order Comment: Speci men Type: URINE SPECIMENOrdering Facility: [facility] Address: [address] [place] [address] Result Comment: Cuto ff threshold at 25 ng/mL. Performed By: #### U TOX2 ####[facility] LABORATORYCLIA [id number] [address] TYPE + SCREENon 09-10-2022 ABO A Normal [facility] Comment on above: Order Comment: Speci men Type: BLOOD SPECIMEN Ordering Facility: [facility] Address: [address] [place] [address] Performed By: #### T SCR #### [facility] CLIA [id number] [address] HISTORICAL AB SCR STATUS Negative Normal [facility] Comment on above: Order Comment: Speci men Type: BLOOD SPECIMEN Ordering Facility: [facility] Address: [address] [address] Performed By: #### T SCR #### [facility] CLIA [id number] [address] Rh Nom (Bld) Positive Normal [facility] Comment on above: Order Comment: Speci men Type: BLOOD SPECIMEN Ordering Facility: [facility] Address: [address] [address] Performed By: #### T SCR #### [facility] CLIA [id number] 1 [place] [address] [facility] OF [place] TYPE AND SCREEN EXPIRATION 09/13/2022 23:59 Normal [facility] Comment on above: Order Comment: Speci men Type: BLOOD SPECIMEN Ordering Facility: [facility] Address: [place] [address] Performed By: #### T SCR #### [facility] CLIA [id number] 1 [place] [address] [facility] US ASCITES SURVEYon 09-11-19 23 US ASCITES SURVEY * * *Final Report* * * DATE OF EXAM: Sep 10 2022 1:59PM [place] [id number] - US ASCITES SURVEY / PROCEDURE REASON: Ascites * * * * Physician Interpretation * * * * EXAM TITLE: US ASCITES SURVEY DATE: 09/10/2022 COMPARISON: None. CLINICAL INDICATION/HISTORY: Abdominal distention TECHNIQUE: Four-quadrant sonographic ascites survey. Images stored in a permanent archive. FINDINGS: At least moderate ascites noted within all 4 quadrants. IMPRESSION: At least moderate ascites present within all 4 quadrants. Law Examiner: MEHDI Transcribe Date/Time: Sep 10 2022 2:00P Dictated by : HAYLEY GILBERT MD This examination was interpreted and the report reviewed and electronically signed by: HAYLEY GILBERT MD on Sep 10 2022 2:01PM EST [id number] Normal [facility] US PARACENTESIS BIon 023 US PARACENTESIS BI * * *Final Report* * * DATE OF EXAM: Sep 10 2022 2:53PM [facility] 203 - PARACENTESIS BI / PROCEDURE REASON: Ascites * * * * Physician Interpretation * * * * EXAM TITLE: ULTRASOUND GUIDED PARACENTESIS CLINICAL HISTORY: Ascites PROCEDURE DATE: 09/10/2022 COMPARISON: Ascites survey dated 09/10/2022 TECHNIQUE: Informed consent was obtained from the patient. The patient was placed in a supine position and with ultrasound guidance an appropriate skin entry site in the right abdomen was identified, prepped, and anesthetized. With ultrasound guidance a 5-Romanian Yuey needle and sheath was passed into the peritoneal space and 19,300 cc of clear yellow fluid was withdrawn. Specimens were sent for laboratory evaluation. There were no apparent complications. RESULT: Ultrasound revealed a generous amount of ascites containing no debris. IMPRESSION: Technically successful ultrasound guided paracentesis yielded 19,300 cc of clear yellow fluid. Bedside RN was present for entire procedure. Law Examiner: MEHDI Transcribe Date/Time: Sep 10 2022 3:12P Dictated by : MARGO FUENTES CNP This examination was interpreted and the report reviewed and electronically signed by: MARGO FUENTES CNP on Sep 10 2022 3:13PM EST [id number] Normal [facility] Urinalysis complete panel (U )on 09-10-2022 Bilirubin Ql (U) Negative Normal Negative [facility] Comment on above: Order Comment: Speci men Type: BLOOD SPECIMEN Ordering Facility: [facility] Address: [address] [place] [address] Performed By: #### D AGT #### [facility] CLIA [id number] [address] [place] Clarity (Unsp spec) Clear Normal Clear [facility] Comment on above: Order Comment: Speci men Type: BLOOD SPECIMEN Ordering Facility: [facility] Address: [address] [place] [address] Performed By: #### D AGT #### [facility] CLIA [id number] [address] [place] [address] [place] Color (U) Yellow Normal yellow [facility] Comment on above: Order Comment: Speci men Type: BLOOD SPECIMEN Ordering Facility: [facility] Address: [address] [place] [address] Performed By: #### D AGT #### [facility] CLIA [id number] [address] [place] Glucose Test strip (U) [Mass/Vol] Negative Normal Trace, Negative [facility] Comment on above: Order Comment: Speci men Type: BLOOD SPECIMEN Ordering Facility: [facility] Address: [address] [place] [address] Performed By: #### D AGT #### [facility] CLIA [id number] [address] Hemoglobin Ql (U) Negative Normal Negative, Trace [facility] Comment on above: Order Comment: Speci men Type: BLOOD SPECIMEN Ordering Facility: [facility] Address: [address] [place] [address] Performed By: #### D AGT #### [facility] CLIA [id number] [address] Hyaline casts (Urine sed) [#/Area] 1-3 /LPF Abnormal 0 /LPF [facility] Comment on above: Order Comment: Speci men Type: BLOOD SPECIMEN Ordering Facility: [facility] Address: [address] [place] [address] Performed By: #### D AGT #### [facility] CLIA [id number] [address] Ketones Ql (U) Negative Normal Negative, Trace [facility] Comment on above: Order Comment: Speci men Type: BLOOD SPECIMEN Ordering Facility: [facility] Address: [address] [address] Performed By: #### D AGT #### [facility] CLIA [id number] [address] Leukocyte esterase Test strip Ql (U) Negative Normal Negative, 25 Iza/uL [facility] Comment on above: Order Comment: Speci men Type: BLOOD SPECIMEN Ordering Facility: [facility] Address: [address] [address] Performed By: #### D AGT #### [facility] CLIA [id number] [address] Nitrite Ql (U) Negative Normal Negative [facility] Comment on above: Order Comment: Speci men Type: BLOOD SPECIMEN Ordering Facility: [facility] Address: [address] [address] Performed By: #### D AGT #### [facility] CLIA [id number] [address] pH (U) 6.0 [pH] Normal 5.0-8.0 [facility] Comment on above: Order Comment: Speci men Type: BLOOD SPECIMEN Ordering Facility: [facility] Address: [address] [place] [address] Performed By: #### D AGT #### [facility] CLIA [id number] [address] Protein (U) [Mass/Vol] Negative Normal Trace, Negative [facility] Comment on above: Order Comment: Speci men Type: BLOOD SPECIMEN Ordering Facility: [facility] Address: [address] [place] [address] Performed By: #### D AGT #### [facility] CLIA [id number] [address] STATES [facility] RBC LM.HPF (Urine sed) [#/Area] 0-3 /HPF Normal 0-3 /HPF [facility] Comment on above: Order Comment: Speci men Type: BLOOD SPECIMEN Ordering Facility: [facility] Address: [address] [place] [address] Performed By: #### D AGT #### [facility] CLIA [id number] [address] Specific gravity (U) [Rel density] 1.011 Normal 1.005-1.030 [facility] Comment on above: Order Comment: Speci men Type: BLOOD SPECIMEN Ordering Facility: [facility] Address: [address] [place] [address] Performed By: #### D AGT #### [facility] CLIA [id number] [address] Urobilinogen Ql (U) 2+ Abnormal Negative [facility] Comment on above: Order Comment: Speci men Type: BLOOD SPECIMEN Ordering Facility: [facility] Address: [address] [place] [address] Performed By: #### D AGT #### [facility] CLIA [id number] [address] OF [facility] WBC LM.HPF (Urine sed) [#/Area] 0-5 /HPF Normal 0-5 /HPF [facility] Comment on above: Order Comment: Speci men Type: BLOOD SPECIMEN Ordering Facility: [facility] Address: [place] [address] Performed By: #### D AGT #### [facility] CLIA [id number] [address] OF [facility] XR CHEST 1V FRONTALon 2022 XR CHEST 1V FRONTAL * * *Final Report* * * DATE OF EXAM: Sep 10 2022 9:08AM AKX [id number] - XR CHEST 1V FRONTAL / PROCEDURE REASON: Shortness of breath * * * * Physician Interpretation * * * * EXAMINATION: CHEST RADIOGRAPH (SINGLE VIEW AP OR PA) CLINICAL HISTORY: Shortness of breath MQ: XC1_5 Comparison: None RESULT: Lines, tubes, and devices: None. Lungs and pleura: Suboptimal inspiration. Mild bibasilar atelectasis. No large airspace consolidation or pleural effusion. No pneumothorax. Cardiomediastinal silhouette: Normal cardiomediastinal silhouette. Other: None IMPRESSION: No acute radiographic abnormality. Law Examiner: PSCB Transcribe Date/Time: Sep 10 2022 9:13A Dictated by : HAYLEY GILBERT MD This examination was interpreted and the report reviewed and electronically signed by: HAYLEY GILBERT MD on Sep 10 2022 9:14AM EST [id number] Normal [facility] Absolute lymphocyte countOrd ered By: Dr. Henderson on 09-09-2022 Lymphocytes Auto (Unsp spec) [#/Vol] 1.13 10*3/uL 0.83-4.51 [facility] Basophil percentageOrdered B y: Dr. Henderson on 09-09-2022 Basophils/100 WBC (Bld) 1.9 % 0-1 [facility] Bilirubin [Mass/Vol] 3.70 mg/dL 0.20-1.00 [facility] Comment on above: For patients on eltr ombopag therapy, use of Dimension Seibert TBIL is not recommended. Chloride [Moles/Vol] 106 mmol/L 98-107 [facility] Eosinophils/100 WBC (Bld) 5.2 % 0-5 [facility] Glucose [Mass/Vol] 140 mg/dL 74-106 [facility] Comment on above: Fasting Glucose resu lt greater than or equal to 126 mg/dL suggests DIABETES MELLITUS per A.D.A. criteria. Neutrophils (Bld) [#/Vol] 2.8 10*3/uL 2.0-7.7 [facility] Neutrophils/100 WBC (Bld) 53.9 % 47-70 [facility] Potassium [Moles/Vol] 3.2 mmol/L 3.5-5.1 [facility] Protein [Mass/Vol] 7.1 g/dL 6.4-8.2 [facility] Sodium [Moles/Vol] 134 mmol/L 136-145 [facility] WBC (Bld) [#/Vol] 5.2 10*3/uL 4.4-11.0 [facility] Blood erythrocytes count (nu mber/volume)Ordered By: Dr. Henderson on 09-09-2022 RBC (Bld) [#/Vol] 2.59 10*6/uL 4.6-6.2 [facility] Blood hemoglobin measurement (mass/volume)Ordered By: Dr. Henderson on 09-09-2022 Hemoglobin (Bld) [Mass/Vol] 6.0 g/dL 13.0-16.5 [facility] Comment on above: CRITICAL VALUE VERIF IED. CALLED TO JACQUIE EDDY RN ED09/[id number] Carolynn Torres.RESULTS READ BACK BY SAME . Blood lymphocytes/100 leukoc ytesOrdered By: Dr. Henderson on 09-09-2022 Lymphocytes/100 WBC (Bld) 21.9 % 19-41 [facility] Blood monocytes/100 leukocyt esOrdered By: Dr. Henderson on 09-09-2022 Monocytes/100 WBC (Bld) 16.5 % 0-10 [facility] Blood platelet adequacy dete ction by light microscopyOrdered By: Dr. Henderson on 09-09-2022 Platelets LM Ql (Bld) ADEQUATE ADEQ [facility] Blood platelet mean volumeOr dered By: Dr. Henderson on 09-09-2022 Platelet mean volume (Bld) [Entitic vol] 9.6 fL 6.2-12.0 [facility] Blood vacuolated neutrophils detection by light microscopyOrdered By: Dr. Henderson on 09-09-2022 Neutrophils.vacuolat ed LM Ql (Bld) . [facility] Determination of erythrocyte mean corpuscular volume (MCV)Ordered By: Dr. Henderson on 09-09-2022 MCV (RBC) [Entitic vol] 80.3 fL 80-94 [facility] Direct bilirubinOrdered By: Dr. Henderson on 09-09-2022 Bilirubin.direct [Mass/Vol] 1.91 mg/dL 0.00-0.30 [facility] Hematocrit Auto (Bld) [Volum e fraction]Ordered By: Dr. Henderson on 09-09-2022 Hematocrit (Bld) [Volume fraction] 20.8 % 40-54 [facility] Hypochromatic red blood cell detectionOrdered By: Dr. Henderson on 09-09-2022 Hypochromia Ql (Bld) 1+ [facility] INR in Blood by Coagulation assayOrdered By: Dr. Henderson on 09-09-2022 INR Coag (Bld) [Relative time] 2.2 {INR} [facility] Iron measurement (mass/mass) Ordered By: Dr. Henderson on 09-09-2022 Iron (Unsp spec) [Mass/Mass] 9 ug/dL 65-175 [facility] Laboratory - Chemistry and C hemistry - challengeOrdered By: Dr. Henderson on 09-09-2022 Cobalamin (Vitamin B12) [Mass/Vol] 1421 pg/mL 211-911 [facility] ALP [Catalytic activity/Vol] 145 U/L 45-117 [facility] ALT [Catalytic activity/Vol] 37 U/L 16-61 [facility] CO2 [Moles/Vol] 22.0 mmol/L 21.0-32.0 [facility] Globulin (S) [Mass/Vol] 4.9 g/dL 2.2-4.2 [facility] Urea nitrogen/Creatinine [Mass ratio] 4.2 mg/mg 10-20 [facility] - CoagulationOrde red By: Dr. Henderson on 09-09-2022 PT Coag (PPP) [Time] 24.2 s 11.7-14.9 [facility] Laboratory - Hematology and Cell countsOrdered By: Dr. Henderson on 09-09-2022 Anisocytosis Ql (Bld) 1+ [facility] Erythrocyte distribution width (RBC) [Entitic vol] 58.2 fL 35.1-43.9 [facility] Erythrocyte distribution width (RBC) [Ratio] 20.0 % 11.6-14.6 [facility] Immature granulocytes/100 WBC (Bld) 0.600 % 0.0-0.9 [facility] Comment on above: IG% - Immature Granu locytes (promyelocytes, myelocytes and metamyelocytes) > 1% indicates that a LEFT SHIFT is Present. MCH (RBC) [Entitic mass] 23.2 pg 27.0-32.0 [facility] Nucleated RBC/100 WBC (Bld) [Ratio] 0 % 0-5 [facility] MCHC Auto (RBC) [Mass/Vol]Or dered By: Dr. Henderson on 09-09-2022 MCHC (RBC) [Mass/Vol] 28.8 g/dL 32-36 [facility] No Panel InformationOrdered By: Dr. Henderson on 09-09-2022 Estimated GFR (MDRD) Amer 112 mL/min >60 [facility] Comment on above: GFR Calc Estimated GFR (MDRD) Non-Af Amer 93 mL/min >60 [facility] Comment on above: Non- GFR Calc Total Iron Binding Capacity 254 ug/dL 250-450 [facility] Platelets bldOrdered By: Dr. Henderson on 09-09-2022 Platelets (Bld) [#/Vol] 155 10*3/uL 150-450 [facility] RBC morphologyOrdered By: Dr Katerine Henderson on 09-09-2022 RBC morphology finding Nom (Bld) N CHROM NORMAL NORM C&C [facility] Review by pathologistOrdered By: Dr. Henderson on 09-09-2022 Pathologist review Hever (Unsp spec) [Interp] Jasmyne lemon [facility] Review by pathologistOrdered By: Cameron Henderson on 09-09-2022 Pathologist review Hever (Unsp spec) [Interp] Reviewed [facility] Comment on above: Previous reported re sult: Jasmyne lemon Edited by: RGOOD on 09/10/22:1331Normocytic anemia with target cells.Clinical correlation suggested. Khalif Cardoso D.O. 09/10/22 AMENDED REPORT 09/10/22 1331 PATH REV previously reported as: September Serum or plasma albumin janine urement (mass/volume)Ordered By: Dr. Henderson on 09-09-2022 Albumin [Mass/Vol] 2.2 g/dL 3.2-5.0 [facility] Serum or plasma calcium janine urement (mass/volume)Ordered By: Dr. Henderson on 09-09-2022 Calcium [Mass/Vol] 7.7 mg/dL 8.5-10.1 [facility] Serum or plasma creatinine m easurement (mass/volume)Ordered By: Dr. Henderson on 09-09-2022 Creatinine [Mass/Vol] 0.94 mg/dL 0.70-1.30 [facility] Comment on above: The validity of the calculated GFR & GFRAA in patients over 70 years has not been determined. Clinical correlation is essential. Serum or plasma ferritin jesse surement (mass/volume)Ordered By: Dr. Henderson on 09-09-2022 Ferritin [Mass/Vol] 32 ng/mL 26-388 [facility] Serum or plasma folate measu rement (mass/volume)Ordered By: Dr. Henderson on 09-09-2022 Folate [Mass/Vol] 4.70 ng/mL 3.1-55.4 [facility] Serum or plasma iron saturat ion measurement (mass fraction)Ordered By: Dr. Henderson on 09-09-2022 Iron saturation [Mass fraction] 3.5 % 15.0-55.0 [facility] Serum or plasma urea nitroge n measurement (mass/volume)Ordered By: Dr. Henderson on 09-09-2022 Urea nitrogen [Mass/Vol] 4 mg/dL 7-18 [facility] Stool gastrointestinal hemog lobin detection by immunologic methodOrdered By: Cameron Henderson on 09-09-2022 Lower GI hemoglobin IA Ql (Stl) [facility] Stool gastrointestinal hemog lobin detection by immunologic methodOrdered By: Dr. Henderson on 09-09-2022 Lower GI hemoglobin IA Ql (Stl) [facility] Target cell detectionOrdered By: Dr. Henderson on 09-09-2022 Target cells LM Ql (Bld) RARE [facility] Thin prep Papanicolaou smear with manual screeningOrdered By: Dr. Henderson on 09-09-2022 Thin prep Papanicolaou smear with manual screening 1+ [facility] Thin prep Papanicolaou smear with manual screening 80 U/L 15-37 [facility] Thin prep Papanicolaou smear with manual screening 6 5-15 [facility] Vital Signs Date Time Vital Sign Value Performing Clinician Facility 10-31-2024 14:38-0400 Body height 180.[address] Selene Fleming MD Work Phone: [facility] 10-31-2024 14:38-0400 Body mass index (BMI) [Ratio] 43.2 kg/m2 Dr. Selene Fleming MD Work Phone: [facility] 10-31-2024 14:38-0400 Body temperature 98 [degF] Dr. Selene Fleming MD Work Phone: [facility] 10-31-2024 14:38-0400 Body weight 140.[address] Selene Fleming MD Work Phone: [facility] 10-31-2024 14:38-0400 Diastolic blood pressure 78 mm[Hg] Dr. Selene Fleming MD Work Phone: [facility] 10-31-2024 14:38-0400 Heart rate 74 /min Dr. Selene Fleming MD Work Phone: [facility] 10-31-2024 14:38-0400 Respiratory rate 18 /min Dr. Selene Fleming MD Work Phone: [facility] 10-31-2024 14:38-0400 SaO2% (BldA) [Mass fraction] 98 % Dr. Selene Fleming MD Work Phone: [facility] 10-31-2024 14:38-0400 Systolic blood pressure 128 mm[Hg] Dr. Selene Fleming MD Work Phone: [facility] 07-11-2024 09:59-0500 Diastolic Blood Pressure Non-Invasive 72 mm[Hg] DR ANUP NICHOLSON MD [facility] 07-11-2024 09:59-0500 Heart rate 64 /min DR ANUP NICHOLSON MD [facility] 07-11-2024 09:59-0500 Respiratory rate 15 /min DR ANUP NICHOLSON MD [facility] 07-11-2024 09:59-0500 Systolic Blood Pressure Non-Invasive 111 mm[Hg] DR ANUP NICHOLSON MD [facility] 07-11-2024 09:45-0500 Diastolic Blood Pressure Non-Invasive 61 mm[Hg] DR ANUP NICHOLSON MD [facility] 07-11-2024 09:45-0500 Heart rate 65 /min DR ANUP NICHOLSON MD [facility] 07-11-2024 09:45-0500 Respiratory rate 16 /min DR ANUP NICHOLSON MD [facility] 07-11-2024 09:45-0500 Systolic Blood Pressure Non-Invasive 109 mm[Hg] DR ANUP NICHOLSON MD [facility] 07-11-2024 09:38-0500 Diastolic Blood Pressure Non-Invasive 64 mm[Hg] DR ANUP NICHOLSON MD [facility] 07-11-2024 09:38-0500 Heart rate 66 /min DR ANUP NICHOLSON MD [facility] 07-11-2024 09:38-0500 Respiratory rate 17 /min DR ANUP NICHOLSON MD [facility] 07-11-2024 09:38-0500 Systolic Blood Pressure Non-Invasive 105 mm[Hg] DR ANUP NICHOLSON MD [facility] 07-11-2024 09:15-0500 Respiratory Rate - Anes 16 br/min DR ANUP NICHOLSON MD [facility] 07-11-2024 09:10-0500 Respiratory Rate - Anes 21 br/min DR ANUP NICHOLSON MD [facility] 07-11-2024 09:05-0500 Respiratory Rate - Anes 18 br/min DR ANUP NICHOLSON MD [facility] 07-11-2024 08:07-0500 Body height [address] ANUP NICHOLSON MD [facility] 07-11-2024 08:07-0500 Body temperature 98.06 [degF] DR ANUP NICHOLSON MD [facility] 07-11-2024 08:07-0500 Body weight [address] ANUP NICHOLSON MD [facility] 07-11-2024 08:07-0500 Body weight 38.82 kg/m2 DR ANUP NICHOLSON MD [facility] 07-11-2024 08:07-0500 Heart rate 71 /min DR ANUP NICHOLSON MD [facility] 04-07-2023 14:29-0500 Body height 180.[address] Selene Fleming Work Phone: [facility] 04-07-2023 14:29-0500 Body mass index (BMI) [Ratio] 31.3 kg/m2 Dr. Selene Fleming Work Phone: [facility] 04-07-2023 14:29-0500 Body temperature 97.5 [degF] Dr. Selene Fleming Work Phone: [facility] 04-07-2023 14:29-0500 Body weight 101.[address] Selene Fleming Work Phone: [facility] 04-07-2023 14:29-0500 Diastolic blood pressure 78 mm[Hg] Dr. Selene Fleming Work Phone: [facility] 04-07-2023 14:29-0500 Heart rate 76 /min Dr. Selene Fleming Work Phone: [facility] 04-07-2023 14:29-0500 Respiratory rate 16 /min Dr. Selene Fleming Work Phone: [facility] 04-07-2023 14:29-0500 SaO2% (BldA) [Mass fraction] 99 % Dr. Selene Fleming Work Phone: [facility] 04-07-2023 14:29-0500 Systolic blood pressure 122 mm[Hg] Dr. Selene Fleming Work Phone: [facility] 11-03-2022 10:55-0400 Diastolic Blood Pressure Non-Invasive [address] ANUP NICHOLSON MD [facility] 11-03-2022 10:55-0400 Heart rate 66 /min DR ANUP NICHOLSON MD [facility] 11-03-2022 10:55-0400 Systolic Blood Pressure Non-Invasive [address] ANUP NICHOLSON MD [facility] 11-03-2022 10:49-0400 Diastolic Blood Pressure Non-Invasive [address] ANUP NICHOLSON MD [facility] 11-03-2022 10:49-0400 Heart rate 65 /min DR ANUP NICHOLSON MD [facility] 11-03-2022 10:49-0400 Systolic Blood Pressure Non-Invasive [address] ANUP NICHOLSON MD [facility] 11-03-2022 10:30-0400 Diastolic Blood Pressure Non-Invasive [address] ANUP NICHOLSON MD [facility] 11-03-2022 10:30-0400 Heart rate 73 /min DR ANUP NICHOLSON MD [facility] 11-03-2022 10:30-0400 Respiratory Rate - Anes 16 br/min DR ANUP NICHOLSON MD [facility] 11-03-2022 10:30-0400 Systolic Blood Pressure Non-Invasive [address] ANUP NICHOLSON MD [facility] 11-03-2022 10:25-0400 Respiratory Rate - Anes 23 br/min DR ANUP NICHOLSON MD [facility] 11-03-2022 09:10-0400 Body height [address] ANUP NICHOLSON MD [facility] 11-03-2022 09:10-0400 Body temperature 97.16 [degF] DR ANUP NICHOLSON MD [facility] 11-03-2022 09:10-04[address] Body weight [address] ANUP NICHOLSON MD [facility] 11-03-2022 09:10-0400 Heart rate 57 /min DR ANUP NICHOLSON MD [facility] 11-03-2022 09:10-0400 Respiratory rate 11 /min DR ANUP NICHOLSON MD [facility] 10-15-2022 09:55-0400 Body height 177.8 cm No Primary Care Physician [facility] 10-15-2022 09:55-0400 Body mass index (BMI) [Ratio] 28.3 kg/m2 No Primary Care Physician [facility] 10-15-2022 09:55-0400 Body temperature 97.6 [degF] No Primary Care Physician [facility] 10-15-2022 09:55-0400 Body weight 89.35 kg No Primary Care Physician [facility] 10-15-2022 09:55-0400 Diastolic blood pressure 74 mm[Hg] No Primary Care Physician [facility] 10-15-2022 09:55-0400 Heart rate 77 /min No Primary Care Physician [facility] 10-15-2022 09:55-0400 Respiratory rate 14 /min No Primary Care Physician [facility] 10-15-2022 09:55-0400 SaO2% (BldA) [Mass fraction] 97 % No Primary Care Physician [facility] 10-15-2022 09:55-0400 Systolic blood pressure 118 mm[Hg] No Primary Care Physician [facility] 09-24-2022 10:43-0400 Body height 177.8 cm Jerome Stuart DO Work Phone: [facility] 09-24-2022 10:43-0400 Body temperature 98.2 [degF] Jerome Stuart DO Work Phone: [facility] 09-24-2022 10:43-0400 Body weight 108.41 kg Jerome Stuart DO Work Phone: [facility] 09-24-2022 10:43-0400 Diastolic blood pressure 65 mm[Hg] Jerome Stuart DO Work Phone: [facility] 09-24-2022 10:43-0400 Heart rate 86 /min Jerome Stuart DO Work Phone: [facility] 09-24-2022 10:43-0400 Respiratory rate 18 /min Jerome Stuart DO Work Phone: [facility] 09-24-2022 10:43-0400 SaO2% (BldA) [Mass fraction] 99 % Jerome Stuart DO Work Phone: [facility] 09-24-2022 10:43-0400 Systolic blood pressure 126 mm[Hg] Jerome Stuart DO Work Phone: [facility] 09-10-2022 03:22-0400 Body temperature 98.5 [degF] [facility] 09-10-2022 03:00-0400 Diastolic blood pressure 85 mm[Hg] [facility] 09-10-2022 03:00-0400 Heart rate 113 /min [facility] 09-10-2022 03:00-0400 Respiratory rate 14 /min [facility] 09-10-2022 03:00-0400 SaO2% (BldA) [Mass fraction] 93 % [facility] 09-10-2022 03:00-0400 Systolic blood pressure 150 mm[Hg] [facility] 09-09-2022 17:34-0400 Body height 177.8 cm [facility] Encounters Encounter Date Encounter Type Care Provider Facility Start: 10-31-2024 End: 10-31-[address] Selene Fleming MD [facility] Work Phone: Start: 10-31-2024 End: 10-31-[address] Selene Fleming MD Work Phone: [facility] Work Phone: Start: 09-05-2024 End: 09-05-2024 ambulatory SELENE FLEMING MD Facility:[facility] Start: 07-11-2024 End: 07-11-[address] ANUP NICHOLSON MD Facility:[facility] Start: 07-11-2024 End: 07-11-[address] ANUP NICHOLSON MD [facility] Start: 06-17-2024 End: 06-17-2024 ambulatory Anup Nicholson Facility:[facility] Start: 06-15-2024 End: 06-15-2024 ambulatory Selene Fleming Facility:[facility] Start: 06-15-2024 End: 06-15-2024 ambulatory Israel VALADEZ Facility:[facility] Start: 05-02-2024 End: 05-02-2024 ambulatory Selene Fleming Facility:[facility] Start: 05-02-2024 End: 05-02-2024 ambulatory Anup Nicholson Facility:[facility] Start: 11-30-2023 Encounter for genera l adult medical examination without abnormal findings Anup Nicholson [facility] Start: 11-17-2023 End: 11-17-2023 ambulatory Selene Fleming Facility:[facility] Start: 04-24-2023 End: 04-24-[address] Selene Fleming Work Phone: [facility] Work Phone: Start: 04-24-2023 End: 04-24-[address] Selene Fleming Work Phone: [facility] Work Phone: Start: 04-20-2023 End: 04-20-[address] Selene Fleming Work Phone: [facility] Work Phone: Start: 04-20-2023 End: 04-20-[address] Selene Fleming Work Phone: [facility] Work Phone: Start: 04-07-2023 End: 04-07-[address] Selene Fleming Work Phone: [facility] Work Phone: Start: 02-19-2023 End: 02-19-[address] Selene Fleming Work Phone: [facility] [place] Start: 01-05-2023 End: 01-05-2023 ambulatory No Primary Care Physician [facility] Work Phone: Start: 01-05-2023 End: 01-05-2023 Patient encounter procedure No Primary Care Physician [facility] [place] Work Phone: Start: 11-10-2022 End: 11-10-2022 ambulatory No Primary Care Physician [facility] Work Phone: Start: 11-10-2022 End: 11-10-2022 Patient encounter procedure No Primary Care Physician [facility] Work Phone: Start: 11-03-2022 End: 11-03-[address] NAUP NICHOLSON MD Facility:[facility] Start: 11-03-2022 End: 11-03-[address] ANUP NICHOLSON MD [facility] Start: 10-24-2022 End: 10-24-2022 Patient encounter procedure No Primary Care Physician [facility] Work Phone: Start: 10-15-2022 End: 10-15-2022 Patient encounter procedure No Primary Care Physician [facility], [place] Start: 10-15-2022 End: 10-15-2022 Patient encounter procedure No Primary Care Physician [facility] Work Phone: Start: 09-26-2022 Telephone encounter Jerome Stuart DO Work Phone: [facility] ([facility]) Comment on above: Results; Opened In E rror Start: 09-24-2022 End: 09-25-2022 ambulatory JEROME STUART Facility:[facility] Start: 09-24-2022 End: 09-24-2022 ambulatory JEROME STUART Facility:[facility] Start: 09-24-2022 End: 09-24-2022 Patient encounter procedure Jerome Stuart DO Work Phone: [facility] ([facility]) Comment on above: Alcoholic cirrhosis of liver with ascites (HCC) (Primary Dx); Encounter for immunization; Closed displaced segmental fracture of shaft of left humerus with routine healing, subsequent encounter Start: 09-23-2022 Telephone encounter Salvador Vera MD Work Phone: [facility] Comment on above: Appointment Start: 09-22-2022 Telephone encounter Salvador Vera MD Work Phone: [facility] Comment on above: Appointment Start: 09-19-2022 Telephone encounter N/A (Historical) NOC Comment on above: Follow Up Phone Call (Post Discharge F/U - attempt made. No answer) Start: 09-10-2022 Emergency department patient visit JEROME NARCISO Facility:[facility] Start: 09-09-2022 End: 09-10-2022 Emergency department patient visit [facility] Procedures Date Procedure Procedure Detail Performing Clinician Start: 07-11-[address] ANUP GRIMALDO MD Start: 04-24-[address] Selene quiroz Work Phone: Start: 11-10-2022 MRI of abdomen with contrast No Primary Care Physician Start: 09-10-2022 Antibody screen JEROME STUART Comment on above: Order Comment: Specimen Type: BLOOD SPEC IMEN Ordering Facility: [facility] Address: [address] [place], [place] [id number] Performed By: #### T SCR #### [facility] CLIA [id number] [address] [place] [address] [place] Start: 09-09-2022 Plain x-ray of humerus Start: 09-09-2022 X-ray of radius and ulna Start: 09-09-2022 Plain x-ray of humerus Start: 09-09-2022 Measurement of occult blood in stool specimen using immunoassay Excision of entire h ead of first metatarsal DR ANUP NICHOLSON MD Plan of Treatment Date Care Activity Detail Author Start: 01-16-2023 Influenza vaccination INFLUENZ A (Season Ended) [facility] Start: 10-22-2022 HEPATITIS A (2 of 3 - Hep A Twinrix risk 3-dose series) HEPATITIS A (2 of 3 - Hep A Twinrix risk 3-dose series) [facility] Start: 10-22-2022 HEPATITIS B (2 of 3 - Hep B Twinrix 3-dose series) HEPATITIS B (2 of 3 - Hep B Twinrix 3-dose series) [facility] Start: 10-22-2022 Hepb vaccine adult 2 dose schedule for im use HEP B VACCINE, 2-DOSE (HEPLISAV-B) Immunization/Injection Routine Encounter for immunization Expected: 10/22/2022 [facility] Comment on above: Expected: 10/22/2022 Start: 10-15-2022 Patient referral [facility] Work Phone: Start: 10-01-2022 End: 12-01-2022 Magnesium [Mass/volume] in Serum or Plasma MAGNESIUM BLD Lab Routine Alcoholic cirrhosis of liver with ascites (HCC) Expected: 10/01/2022, Expires: 12/01/2022 [facility] Comment on above: Expected: 10/01/2022 , Expires: 12/01/2022 Start: 09-24-2022 End: 11-24-2022 Comprehensive metabolic 2000 panel - Serum or Plasma COMP METABOLIC PANEL Lab Routine Alcoholic cirrhosis of liver with ascites (HCC) Expected: 09/24/2022, Expires: 11/24/2022 [facility] Comment on above: Expected: 09/24/2022 , Expires: 11/24/2022 Start: 09-24-2022 End: 11-24-2022 PT panel - Platelet poor plasma by Coagulation assay PROTHROMBIN TIME/PT Lab Routine Alcoholic cirrhosis of liver with ascites (HCC) Expected: 09/24/2022, Expires: 11/24/2022 [facility] Comment on above: Expected: 09/24/2022 , Expires: 11/24/2022 Start: 09-09-2022 Administration of bl ood product [facility] Start: 09-09-2022 Cltx prox humrl fx w /manj w/wo skeletal tracj CLTX PRX HMRL FX MNPJ+-TRACT [facility] Start: 05-18-2022 DEPRESSION ASSESSMENT DEPRESSION ASS ESSMENT [facility] Start: 2014 LIPID SCREEN LIPID SCREEN [facility] Start: 1998 Urine microalbumin profile DTAP,TDAP,TD (1 - Tdap) [facility] Start: 1997 HIV SCREENING HIV SCREENING [facility] Start: 1985 PNEUMOCOCCAL (1 - PCV) PNEUMOCOCCAL (1 - PCV) [facility] Start: 1980 HEPATITIS A (1 of 2 - Risk 2-dose series) HEPATITIS A (1 of 2 - Risk 2-dose series) [facility] Start: 1979 COVID-19 VACCINE (#1) COVID-19 VACCI NE (#1) [facility] Start: 1979 HEPATITIS B (1 of 3 - 3-dose series) HEPATITIS B (1 of 3 - 3-dose series) [facility] Lipid 1996 panel - S ama or Plasma [facility] Patient referral [facility] Work Phone: Prostate specific an tigen measurement [facility] Testosterone Free [Mass/volume] in Serum or Plasma [facility] Thyroid stimulating hormone measurement [facility] Tobacco use cessatio n education [facility] Tobacco use cessatio n education [facility] Vitamin D, 25-hydrox y measurement [facility] Immunizations Immunization Date Immunization Notes Care Provider Fa cility 10-15-2022 tetanus toxoid, redu ramandeep diphtheria toxoid, and acellular pertussis vaccine, adsorbed No Primary Care Physician [facility] 09-24-2022 hepatitis A and hepatitis B vaccine Jerome Stuart DO Work Phone: [facility] 09-24-2022 hepatitis B vaccine, unspecified formulation Jerome Stuart DO Work Phone: [facility] Payers Date Payer Category Payer Self-pay 2022 Private Health Insurance [id number] 2022 Unknown [id number] 2022 Unknown [id number] 1979 Unknown [id number] 1979 Unknown [id number] 1979 Unknown [id number] Medicaid MEDICAID [id number] Unknown [facility] [id number] Unknown [id number] Unknown [id number] Unknown [id number] Unknown [id number] Unknown [id number] Unknown [id number] Unknown [id number] Social History Date Type Detail Facility Start: 09-09-2022 End: 2023 Tobacco smoking status NYIS Unknown if ever smoked [facility] Start: 1980 Sex Assigned At Male [facility] Start: 1980 Sex Assigned At Not on file [facility] Start: 11-03-2022 Tobacco smoking status Light t obacco smoker (finding) [facility] Sexual Orientation [facility] Start: 10-24-2022 Sex Male (finding) [facility] Start: 10-31-2024 Tobacco smoking stat us NYIS Smokes tobacco daily (finding) [facility] Functional Status Date Assessment Result Facility 07-11-2024 Functional Status ID band on, Precautions maintained [facility] 07-11-2024 Functional Status Maintained, More than 8 hours [facility] 11-03-2022 Functional Status More than 8 hours [facility] Mental Status Date Assessment Result Facility 11-03-2022 Mental Status Oriented x 4 [facility] 11-03-2022 Mental Status [facility] 09-09-2022 Cognitive function Level Of Cons ciousness Awake;Alert;Appropriate;Follow s Commands [facility] Work Phone: Clinical Notes 09-10-2022 to 07-11-2024 Note Date & Type Note Facility 07-11-2024 Evaluation + Plan note Extrac summer from: Title:Clinical Document Author:ANUP NICHOLSON Date:07/11/24 [place] ADMISSION HISTORY AN D PHYSICIAL CHIEF COMPLAINT: HISTORY OF PRESENT ILLNESS: REVIEW OF SYSTEMS: ACTIVE PROBLEMS: (2) Cirrhosis ([id number]) Tobacco use ([id number]) MEDICATIONS: Active Inpt Meds: None Active PRN Meds: None One Time Meds: (Completed) lidocaine (Xylocaine 2% 5 mL syringe (ANES) (ANES)) IV Push, Once, Stop: 07/11/24 9:18:00 EST (Completed) propofol (propofol (ANES)) IV Push, Once, Stop: 07/11/24 9:18:00 EST Active IV Meds: Lactated Ringers Infusion 1,000 mL (LR 1,000 mL) Start: 07/11/24 7:57:00 EST, Rate: 50 mL/hr, 07/11/24 7:57:00 EST ALLERGIES: (1) NKA FAMILY HISTORY: SOCIAL HISTORY: PHYSICAL EXAM: VITALS: [id number](kg) 07/11 09:23----[id number]--77/96278.0 07/11 09:15----78--97.8-- 07/11 09:10----68--97-- 07/11 09:05----62--99.3-- 07/11 08:0736.7--[id number] 24 Hr Tmax: 36.7 at 07/11 08:07 36 Hr Tmax: 36.7 at 07/11 08:07 Vital Signs are the last 5 in the past 48 hours. Weights display the last 5 within 7 days. Initial Wt: 07/11 123.0 kg 271 lb Current Wt: 07/11 123.0 kg 271 lb GENERAL: HEENT: CARDIOVASCULAR: RESPIRATORY: ABDOMEN: EXREMETIES: NEUROLOGICAL: PSYCHIATRIC: LABS: No 36hr Lab Data DIAGNOSTICS: IMPRESSION: PLAN: History and Physical Update I have examined the patient; reviewed the H&P and there are no changes to the H&P unless noted below. [facility] 02-24-2025 Hospital Discharge instructions Patient Education 07/11/2024 09:31:19 Esophageal Variceal Ligation, Care After, Ctgm-ix-Rysv Esophageal Variceal Ligation, Care After This sheet gives you information about how to care for yourself after your procedure. Your doctor may also give you more specific instructions. If you have problems or questions, contact your doctor. What can I expect after the procedure? After the procedure, it is common to have: Bleeding. Pain and soreness in your chest area. Trouble swallowing. Follow these instructions at home: Eating and drinking Follow instructions from your doctor about what you can eat or drink. You will have limits on what you can eat for the first 1 2 days after your procedure. You will start with a liquid diet. Later, you will start to eat soft foods. Do not drink alcohol. Activity Return to your normal activities as told by your doctor. Ask your doctor what activities are safe for you. Do not lift anything that is heavier than 10 lb (4.5 kg), or the limit that you are told, until your doctor says that it is safe. Do not drive or use heavy machinery while taking prescription pain medicine. General instructions Take ysty-wrb-hkrchat and prescription medicines only as told by your doctor. Do not use any products that contain nicotine or tobacco, such as cigarettes and e-cigarettes. If you need help quitting, ask your doctor. Keep all follow-up visits as told by your doctor. This is important. Contact a doctor if: You have chest pain that lasts for more than 3 days after you go home. You have trouble swallowing that lasts for more than 3 days after you go home. You have a fever or chills. Get help right away if: You have bleeding from your throat. You have bleeding from your bottom (rectum). You throw up (vomit) bright red blood. You are unable to swallow. You are short of breath. You have very bad chest pain or back pain. Summary After the procedure, it is common to have pain, bleeding, and trouble swallowing. Follow all your home care instructions. Stay on a liquid or soft diet until your doctor says that you can go back to your normal diet. Contact a doctor if you have chills, fever, chest pain, or trouble swallowing. Get help right away if you have bleeding, are unable to swallow, or have very bad chest or back pain. This information is not intended to replace advice given to you by your health care provider. Make sure you discuss any questions you have with your health care provider. Document Released: 08/10/2018 Document Revised: 08/10/2018 Document Reviewed: 08/10/2018 [employer] Patient Education 2020 [employer]. 07/11/2024 09:31:04 Moderate Conscious Sedation, Adult, Care After Moderate Conscious Sedation, Adult, Care After These instructions provide you with information about caring for yourself after your procedure. Your health care provider may also give you more specific instructions. Your treatment has been plannedaccording to current medical practices, but problems sometimes occur. Call your health care provider if you have any problems or questions after your procedure. What can I expect after the procedure? After your procedure, it is common: To feel sleepy for several hours. To feel clumsy and have poor balance for several hours. To have poor judgment for several hours. To vomit if you eat too soon. Follow these instructions at home: For at least 24 hours after the procedure: Do not: ?Participate in activities where you could fall or become injured. ?Drive. ?Use heavy machinery. ?Drink alcohol. ?Take sleeping pills or medicines that cause drowsiness. ?Make important decisions or sign legal documents. ?Take care of children on your own. Rest. Eating and drinking Follow the diet recommended by your health care provider. If you vomit: ?Drink water, juice, or soup when you can drink without vomiting. ?Make sure you have little or no nausea before eating solid foods. General instructions Have a responsible adult stay with you until you are awake and alert. Take qomj-azb-uncxccd and prescription medicines only as told by your health care provider. If you smoke, do not smoke without supervision. Keep all follow-up visits as told by your health care provider. This is important. Contact a health care provider if: You keep feeling nauseous or you keep vomiting. You feel light-headed. You develop a rash. You have a fever. Get help right away if: You have trouble breathing. This information is not intended to replace advice given to you by your health care provider. Make sure you discuss any questions you have with your health care provider. Document Released: 02/22/2014 Document Revised: 04/16/2018 Document Reviewed: 08/23/2016 [employer] Patient Education 2020 [employer]. Follow Up Care 06/24/2024 13:33:19 With:ANUP NICHOLSON MD Address: [address] [place] [phone] When: Unknown Comments:Repeat EGD in 3-4 weeks [facility] [facility] 02-24-2025 Summary of episode note Discharge Instructions Thank you for allowing [facility] to assist you with your healthcare needs. The following is importantdischarge information regarding your hospital visit. Your Care Team SELENE FLEMING MD What to do next Follow Up Appointments Follow Up with ANUP NICHOLSON MD Where:[address] [place] [address]- [phone] Additional Information: Repeat EGD in 3-4 weeks The Following Activity and Diet Have Been Ordered for You Discharge Activity - Ordered -- NO activity restrictions, 07/11/24 9:29:00 EST Discharge Diet - Ordered -- Follow the post-operative/post-procedure diet instructions provided by your physician's office.,07/11/24 9:29:00 EST The Following Equipment Has Been Ordered for You Discharge Home Equipment Discharge Wound Care - Ordered -- Follow the post-operative/post-procedure wound care instructions provided by your physician's office., 07/11/24 9:29:00 EST The Following Treatments Have Been Ordered for You Discharge Labs No qualifying data available. Discharge Radiology No qualifying data available. Other Therapies No qualifying data available. Post Acute Orders No qualifying data available. Someone Will Contact You Regarding These Home Health Referrals No home referrals have been ordered for you. No one will call you. Allergies NKA Medications Please ask your primary doctor or pharmacist before taking any other medication not listed, including over the counter drugs, herbal medications, vitamins and or supplements as they may interact withyour home medications. What How Much When Instructions Last Dose Unchanged acamprosate (acamprosate 333 mg oral delayed release tablet) TAKE 2 TABLETS BY MOUTH THREE TIMES DAILY Unchanged carvedilol (carvedilol 3.125 mg oral tablet) 1 tab(s) by mouth Every day Unchanged ferrous sulfate (FeroSul 325 mg (65 mg elemental iron) oral tablet) TAKE 1 TABLET BY MOUTH ON THURSDAY, THURSDAY AND THURSDAY Unchanged furosemide (furosemide 40 mg oral tablet) TAKE 1 & 1/ 2 (ONE & ONE-HALF) TABLETS BY MOUTH ONCE DAILY Unchanged Misc Medication (NICOTINE TD 14MG/ 24HDIS) APPLY 1 PATCH TOPICALLY ONCE DAILY Unchanged multivitamin, (M-Emily Plus oral tablet) TAKE 1 TABLET BY MOUTH ONCE DAILY Unchanged nicotine (nicotine 2 mg oral transmucosal lozenge) DISSOLVE 1 LOZENGE BY MOUTH EVERY 4 HOURS NEEDED NICOTINE CRAVINGS Unchanged spironolactone (spironolactone 100 mg oral tablet) TAKE 1 & 1/ 2 (ONE & ONE-HALF) TABLETS BY MOUTH ONCE DAILY Unchanged thiamine (thiamine 100 mg oral tablet) TAKE 1 TABLET BY MOUTH ONCE DAILY Please take this list to your next doctor s visit. Bring all medications you take, including over the counter medications, herbals and other supplements with you to your doctor s visit. Patients and families are reminded to discard old lists and to update any records with all medication providers or retail pharmacies. Education Materials Esophageal Variceal Ligation, Care After This sheet gives you information about how to care for yourself after your procedure. Your doctor may also give you more specific instructions. If you have problems or questions, contact your doctor. What can I expect after the procedure? After the procedure, it is common to have: Bleeding. Pain and soreness in your chest area. Trouble swallowing. Follow these instructions at home: Eating and drinking Follow instructions from your doctor about what you can eat or drink. You will have limits on what you can eat for the first 1 2 days after your procedure. You will start with a liquid diet. Later, you will start to eat soft foods. Do not drink alcohol. Activity Return to your normal activities as told by your doctor. Ask your doctor what activities are safe for you. Do not lift anything that is heavier than 10 lb (4.5 kg), or the limit that you are told, until your doctor says that it is safe. Do not drive or use heavy machinery while taking prescription pain medicine. General instructions Take jlrw-poj-flfpljp and prescription medicines only as told by your doctor. Do not use any products that contain nicotine or tobacco, such as cigarettes and e-cigarettes. If you need help quitting, ask your doctor. Keep all follow-up visits as told by your doctor. This is important. Contact a doctor if: You have chest pain that lasts for more than 3 days after you go home. You have trouble swallowing that lasts for more than 3 days after you go home. You have a fever or chills. Get help right away if: You have bleeding from your throat. You have bleeding from your bottom (rectum). You throw up (vomit) bright red blood. You are unable to swallow. You are short of breath. You have very bad chest pain or back pain. Summary After the procedure, it is common to have pain, bleeding, and trouble swallowing. Follow all your home care instructions. Stay on a liquid or soft diet until your doctor says that you can go back to your normal diet. Contact a doctor if you have chills, fever, chest pain, or trouble swallowing. Get help right away if you have bleeding, are unable to swallow, or have very bad chest or back pain. This information is not intended to replace advice given to you by your health care provider. Make sure you discuss any questions you have with your health care provider. Document Released: 08/10/2018 Document Revised: 08/10/2018 Document Reviewed: 08/10/2018 [employer] Patient Education 2020 [employer] Moderate Conscious Sedation, Adult, Care After These instructions provide you with information about caring for yourself after your procedure. Your health care provider may also give you more specific instructions. Your treatment has been plannedaccording to current medical practices, but problems sometimes occur. Call your health care provider if you have any problems or questions after your procedure. What can I expect after the procedure? After your procedure, it is common: To feel sleepy for several hours. To feel clumsy and have poor balance for several hours. To have poor judgment for several hours. To vomit if you eat too soon. Follow these instructions at home: For at least 24 hours after the procedure: Do not: ? Participate in activities where you could fall or become injured. ? Drive. ? Use heavy machinery. ? Drink alcohol. ? Take sleeping pills or medicines that cause drowsiness. ? Make important decisions or sign legal documents. ? Take care of children on your own. Rest. Eating and drinking Follow the diet recommended by your health care provider. If you vomit: ? Drink water, juice, or soup when you can drink without vomiting. ? Make sure you have little or no nausea before eating solid foods. General instructions Have a responsible adult stay with you until you are awake and alert. Take zgmj-nna-jyemqpm and prescription medicines only as told by your health care provider. If you smoke, do not smoke without supervision. Keep all follow-up visits as told by your health care provider. This is important. Contact a health care provider if: You keep feeling nauseous or you keep vomiting. You feel light-headed. You develop a rash. You have a fever. Get help right away if: You have trouble breathing. This information is not intended to replace advice given to you by your health care provider. Make sure you discuss any questions you have with your health care provider. Document Released: 02/22/2014 Document Revised: 04/16/2018 Document Reviewed: 08/23/2016 [employer] Patient Education 2020 [employer] Additional Information VACCINATE! IT SAVES LIVES! Members of the community who have not yet received the COVID-19 vaccine and would like to receive it can visit one of [facility] vaccine clinics. There are many vaccine clinic locations within the [facility]. For locations and available times, please visit https://gettheshot.coronavirus.[place].gov/. It is important to note that some COVID mobile vaccine clinics are held outdoors and may be canceled in rainy or stormy conditions. To learn more about pediatric vaccinations (ages 5-11), we invite you to visit the [facility] webpage. [email or web address] [email or web address] learn more about the COVID-19 vaccine, we invite you to visit the CDC website for a list of frequently asked questions.https://www.cdc.gov/coronavirus/2019-ncov/vaccines/faq.html [facility] Access Instructions: Stay connected with your healthcare team and access your personal medical information anytime with the [facility] Patient Portal. Please follow the directions below to create your [employer] account: 1.Access the email account you provided upon registration to the hospital/physician office.2.Look for an invitation email from [facility].3.Open the email and access the invitation link: AcceptInvitation to [facility].4.Fill in the required arce to create your account. To access your account, visit [email or web address]. Click the blue button labeled Access Patient Portal and then log in with the username and password that you created in the steps above. You will be able to view your test results, lab results, a summary of your visits, upcoming appointments and more. There is also a convenient messaging option where you can send secure messages to your p [employer]. In addition, you will have the ability to download any documents or summaries to your computer and/or send the information securely to a physician. Remember that your healthcare information is confidential, so carefully consider who you will allowto register on the [facility] Patient Portal for access to your information. You can also access the [facility] Patient Portal on the [facility] [employer] sheryl. Simply click on Patient Portal and then log into your account. If you would like to receive a full copy of your medical records, please contact the [facility] Medical Records Department by calling [phone], Thursday through Thursday between 8 a.m. and 4:30 p.m. HOW TO SAFELY DISPOSE OF PRESCRIPTION MEDICATIONS Please use one of the following methods to safely dispose of your unused medications. 1.Use a drug disposal kit: the drug disposal pouch allows you to safely discard your old and unuseddrugs. Ask your nurse to give you one when you are discharged.2.Visit a local take-back location: Many local pharmacies and police departments have programs that collect old and unwanted prescriptiondrugs. Call your local pharmacy or go to http://CaseRev.[employer] Medical/1C5Qj0d to find one close to you.3.Make use of household items: Use cat litter or old coffee grounds to dispose medications if other options arenot available. Mix your drugs with these household products, seal them in an airtight container andthrow it into the garbage. Call [facility]: [phone] to be sure your drugs can be disposed of in this way. Some medicines may require a different approach.4.Never flush your medications down the toilet. IF YOU HAVE BEEN PRESCRIBED AN OPIOID FOR PAIN If you have been prescribed an opioid (such as hydrocodone, oxycodone or morphine), it is critical to understand the possible side effects and risks of opioid pain medications. Even when taken as directed, opioids can have several side effects including: Tolerance, meaning you might need to take more of a medication for the same pain relief. Nausea, vomiting and/or constipation. Sleepiness, dizziness, dry mouth, confusion, depression or itching. Physical dependence, meaning you have withdrawal symptoms when a medication is stopped, can develop within a few days. KNOW YOUR RESPONSIBILITIES It is important to know exactly how much and how often to take the opioid pain medications you are prescribed. Never take opioids in higher amounts or more often than prescribed. Do not combine opioids with alcohol or other drugs that cause drowsiness, such as benzodiazepines, also known as benzos, including diazepam and alprazolam, muscle relaxants or sleep aids. Never sell or share prescription opioids. This is illegal. Store opioids in a secure place and out of reach of others (including children, family, friends and visitors). The last page of this document has been signed and retained as a CHART COPY. Signatures Patient Education Materials Esophageal Variceal Ligation, Care After, Pwxe-zo-Juua Moderate Conscious Sedation, Adult, Care After Medication Leaflets My discharge plan and instructions have been reviewed and explained to me and I,CAROLYNN LEE understand my current condition and have read and understand these discharge instructions. I have received a written copy of the plan/instructions. If I have questions, I am aware that I should contact my doctor. 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 Pre-Procedure Exam Cirrhosis with portal hypertension Procedural Sedation Anesthesia provided a MAC Technique Patient was brought to the OR and placed left shoulder down. Anesthesia provided a MAC. The endoscope was passed direct visualization down to the esophagus. Towards the distal esophagus there was some esophageal varices grade 2 or greater Z-line was about 43 cm from the incisors the stomach was easily insufflated there was hyperemia of the gastric mucosa. Duodenum was unremarkable. Retroflexion performed in the stomach revealed no evidence of gastric varices. At this point the endoscope was withdrawn and the banding device was attached to the endoscope. The endoscope was reintroduced back down to the esophagus at 40 cm 2 bands were applied to elongated varix. 4 cm proximal to this another band was applied. At about 33 cm another band was applied. The remaining esophagus did not show any large varices. The endoscope was withdrawn and the patient appeared to tolerate the procedure well. Post-Procedure Exam EGD with banding of esophageal varices Findings Esophageal varices Complications None apparent Total Time Approximately 25 minutes Assessment/Plan Orders: Lactated Ringers Infusion 1,000 mL(LR 1,000 mL), 1000 mL, Intravenous Bedrest, 07/11/24 9:29:00 EST, Strict, continuous, Constant order, Lying on side until alert or as ordered Bedrest, 07/11/24 9:29:00 EST, Strict, continuous, Constant order, Lying on side until alert or as ordered Call Parameters, 07/11/24 9:29:00 EST, Notify for vomiting, severe pain, signs of bleeding, severe abdominal pain, distention or rigidity, Constant order Communication Order (scheduled), 07/11/24 7:57:00 EST, Once, 07/11/24 7:57:00 EST, Pathology TissueRequest Communication Order (scheduled), 07/11/24 7:57:00 EST, Once, 07/11/24 7:57:00 EST, Urine Test or waiver for women of child bearing age Communication Order (scheduled), 07/11/24 7:57:00 EST, Once, 07/11/24 7:57:00 EST, Fasting Blood Sugar priot to procedure of patient is diabetic Diet Order, 07/11/24 9:29:00 EST, Start Meal: Next meal, Clear Liquid Diet, Post exam or after gag reflex returns if EGD, Constant Order, : N/A, : N/A Discharge, 07/11/24 7:57:00 EST, Discharged to: Home, when able to ambulate and after being seen byphysician Discharge Activity, NO activity restrictions, 07/11/24 9:29:00 EST Discharge Diet, Follow the post-operative/post-procedure diet instructions provided by your physician's office., 07/11/24 9:29:00 EST Discharge Wound Care, Follow the post-operative/post-procedure wound care instructions provided by your physician's office., 07/11/24 9:29:00 EST Post Procedure Assessment, 07/11/24 9:29:00 EST, Stop Date 07/11/24 9:29:00 EST, [facility] in [facility] Recovery Room until Mellissa Score of 12 or Preprocedure Sign Consent, 07/11/24 7:57:00 EST, Once, For EGD Vital Signs, 07/11/24 9:29:00 EST, q15min, 1 hour(s), 07/11/24 10:15:00 EST Vital Signs, 07/11/24 9:29:00 EST, q30min, 1 hour(s), 07/11/24 10:00:00 EST Vital Signs PRN, 07/11/24 9:29:00 EST, PRN order Follow Up/Recommendation Repeat banding within 2 to 3 weeks continue the patient on his nonselective beta-sue Digitally Signed by ANUP NICHOLSON MD on 07/11/2024 09:33 AM [facility]02-24-2025 Note [facility] [place] ADMISSION HISTORY AND PHYSICIAL CHIEF COMPLAINT: HISTORY OF PRESENT ILLNESS: REVIEW OF SYSTEMS: ACTIVE PROBLEMS: (2) Cirrhosis ([id number]) Tobacco use ([id number]) MEDICATIONS: Active Inpt Meds: None Active PRN Meds: None One Time Meds: (Completed) lidocaine (Xylocaine 2% 5 mL syringe (ANES) (ANES)) IV Push, Once, Stop: 07/11/24 9:18:00 EST (Completed) propofol (propofol (ANES)) IV Push, Once, Stop: 07/11/24 9:18:00 EST Active IV Meds: Lactated Ringers Infusion 1,000 mL (LR 1,000 mL) Start: 07/11/24 7:57:00 EST, Rate: 50 mL/hr, 07/11/24 7:57:00 EST ALLERGIES: (1) NKA FAMILY HISTORY: SOCIAL HISTORY: PHYSICAL EXAM: VITALS: XimokePobrNSJuinvYRAyL2SED6DyoeSd(kg) 07/11 09:23----[id number]--58/41130.0 07/11 09:15----78--97.8-- 07/11 09:10----68--97-- 07/11 09:05----62--99.3-- 07/11 08:0736.7--[id number] 24 Hr Tmax: 36.7 at 07/11 08:07 36 Hr Tmax: 36.7 at 07/11 08:07 Vital Signs are the last 5 in the past 48 hours. Weights display the last 5 within 7 days. Initial Wt: 07/11 123.0 kg 271 lb Current Wt: 07/11 123.0 kg 271 lb GENERAL: HEENT: CARDIOVASCULAR: RESPIRATORY: ABDOMEN: EXREMETIES: NEUROLOGICAL: PSYCHIATRIC: LABS: No 36hr Lab Data DIAGNOSTICS: IMPRESSION: PLAN: History and Physical Update I have examined the patient; reviewed the H&P and there are no changes to the H&P unless noted below. Digitally Signed by ANUP NICHOLSON MD on 07/11/2024 09:29 AM [facility]02-24-2025 Anesthesiology Consult note Patient: CAROLYNN LEE Age: 44 years Sex: Male : 1980 Associated Diagnoses: None Author: MEIR LUNDBERG APRN-AIRCRAFT SYSTEMS TECHNICIAN Assessment Postanesthesia assessment Vitals: Vital signs from flowsheet : Vital Signs 07/11/2024 9:15 EST Heart Rate Monitored 78 bpm bpm Respiratory Rate - Anes 16 br/min br/min Systolic Blood Pressure Non-Invasive 94 mmHg mmHg Diastolic Blood Pressure Non-Invasive 65 mmHg mmHg 07/11/2024 9:10 EST Heart Rate Monitored 68 bpm bpm Respiratory Rate - Anes 21 br/min br/min Systolic Blood Pressure Non-Invasive 93 mmHg mmHg Diastolic Blood Pressure Non-Invasive 60 mmHg mmHg 07/11/2024 9:05 EST Heart Rate Monitored 62 bpm bpm Respiratory Rate - Anes 18 br/min br/min 07/11/2024 8:07 EST Temperature Temporal Artery 36.7 DegC Peripheral Pulse Rate 71 bpm Respiratory Rate 16 br/min Systolic Blood Pressure Non-Invasive 117 mmHg Diastolic Blood Pressure Non-Invasive 77 mmHg , Measurements from flowsheet . Mental status: alert & oriented x 4. Respiratory function: respirations are non-labored. Respiratory support: none. CV function: Normal rate. Cardiovascular support: none. Pain. Nausea status: see nursing documentation of medications. Postoperative hydration status: within normal limits. Digitally Signed by MEIR LUNDBERG on 07/11/2024 09:20 AM [facility]02-24-2025 Anesthesiology Consult note Patient: CAROLYNN LEE Age: 44 years Sex: Male : 1980 Associated Diagnoses: None Author: MEIR LUNDBERG Preoperative Information Time of last food or liquid consumption: 07/11/2024 00:00:00 Anesthesia history Patient's history: negative. Family's history: negative. Health Status Allergies: Allergic Reactions (Selected) NKA, Allergies (1) ActiveSeverityReaction NKANone Documented Current medications: (Selected) Inpatient Medications Ordered LR 1,000 mL: 50 mL/hr, Intravenous Documented Medications Documented FeroSul 325 mg (65 mg elemental iron) oral tablet: TAKE 1 TABLET BY MOUTH ON THURSDAY, THURSDAY AND THURSDAY M-Emily Plus oral tablet: TAKE 1 TABLET BY MOUTH ONCE DAILY NICOTINE TD 14MG/24HDIS: APPLY 1 PATCH TOPICALLY ONCE DAILY acamprosate 333 mg oral delayed release tablet: TAKE 2 TABLETS BY MOUTH THREE TIMES DAILY carvedilol 3.125 mg oral tablet: 3.125 mg, 1 tab(s), Oral, Daily, 0 Refill(s) furosemide 40 mg oral tablet: TAKE 1 & 1/2 (ONE & ONE-HALF) TABLETS BY MOUTH ONCE DAILY nicotine 2 mg oral transmucosal lozenge: DISSOLVE 1 LOZENGE BY MOUTH EVERY 4 HOURS NEEDED NICOTINE CRAVINGS spironolactone 100 mg oral tablet: TAKE 1 & 1/2 (ONE & ONE-HALF) TABLETS BY MOUTH ONCE DAILY thiamine 100 mg oral tablet: TAKE 1 TABLET BY MOUTH ONCE DAILY, Medications (1) Active Scheduled: (0) Continuous: (1) Lactated Ringers Infusion 1,000 mL 1,000 mL, Intravenous, 50 mL/hr PRN: (0) Problem list: Active Problems (2) Cirrhosis Tobacco use Histories Past Medical History: No active or resolved past medical history items have been selected or recorded. Family History: Hypertension Father Diabetes mellitus type 2 Father Procedure history: EGD - esophagogastroduodenoscopy ([id number]) on 07/11/2024 at 44 Years. Complete excision of head of first metatarsal ([id number]). Social History: Social & Psychosocial Habits Alcohol 11/03/2022 Use: Past Previous treatment: Alcoholics Anonymous, Outpatient Tobacco 11/03/2022 Tobacco Use: 5-9 cigarettes (between 1 Type: Cigarettes Physical Examination Vital Signs 07/11/2024 8:07 EST Temperature Temporal Artery 36.7 DegC Peripheral Pulse Rate 71 bpm Respiratory Rate 16 br/min Systolic Blood Pressure Non-Invasive 117 mmHg Diastolic Blood Pressure Non-Invasive 77 mmHg Vital Signs (last 24 hrs) Last Charted Temp Gtbrhxne96.7 DegC (JUL 11 08:07) GEF632 mmHg (JUL 11 08:07) DBP77 mmHg (JUL 11 08:07) BMI38.82 (JUL 11 08:07) Measurements from flowsheet : Measurements 07/11/2024 8:07 EST Height 178 cm Admission Weight 123 kg Weight Method Stated [place] Body Weight 73.18 kg BSA Admission 2.38 Body Mass Index 38.82 kg/m2 Pain assessment: Pain Assessment 07/11/2024 8:07 EST Primary Pain Intensity 0 Pain Scale Type 0-10 Pain scale . General: Alert and oriented. Airway: Normal temporomandibular joint mobility, Normal mouth, Normal neck range of motion. Mallampati classification: II (soft palate, fauces, uvula visible). Dentition Evaluation: Denies loose/chipped teeth. Respiratory: Respirations are non-labored. Cardiovascular: Normal rate. Neurologic: Alert, Oriented. Review / Management Results review: No qualifying data available , Lab results 07/11/2024 9:04 EST SN - Assess - LOC Alert SN - Assess - Orientation Oriented X 3 SN - Assess - Post-op Skin Integrity Intact/Dry 07/11/2024 9:04 EST SN - GCD - Post-operative Diagnosis ESOPHAGEAL VARICES SN - GCD - Case Level OPD Level 3 07/11/2024 9:03 EST SN - CAt - Case Attendee SN - CAt - Case Attendee SN - CAt - Case Attendee SN - CAt - Case Attendee SN - CAt - Case Attendee SN - CAt - Case Attendee SN - CAt - Case Attendee SN - CAt - Case Attendee SN - CAt - Role Performed Primary Surgeon SN - CAt - Role Performed Cardiovascular Tech 1 SN - CAt - Role Performed Specialist Wound Care SN - CAt - Role Performed AIRCRAFT SYSTEMS TECHNICIAN 07/11/2024 8:21 EST Continuous IV Infusions lr Hand Right 07/11/2024 22 gauge Peripheral IV Activity: Insert new site Peripheral IV Dressing Condition: Clean, Dry, Intact Peripheral IV Dressing Activity: Applied, Transparent dressing Peripheral IV Line Status/Patency: Flushes easily Peripheral IV Line Care: Secured with tape Peripheral IV Site Condition: No complications Peripheral IV Equipment: Extension set Peripheral IV Number of Attempts: 1 07/11/2024 8:20 EST Lactated Ringers Injection Begin Bag 1,000 mL mL 07/11/2024 8:12 EST IV Present Present Allergies No Anesthesia Extension Set Applied Yes Vaccine Key Customer Leader On Yes Consent Form Signed Yes Patient Dressed In Hospital gown History & Physical Update On Chart Yes History & Physical On Chart Yes NPO Status Maintained, More than 8 hours Patient ID Band on and Verified Yes Implants Verified No Anesthesia Consent Signed Yes Last Fluid Intake 07/10/2024 23:30 Last Food Intake 07/10/2024 23:23 07/11/2024 8:07 EST Designated Person #1 We May Share SOHAIL campos father/ [phone] Designated Person #1 Relationship Father Designated Person #2 We May Share PHI VICTORIA [phone] Designated Person #2 Relationship Mother Height 178 cm Admission Weight 123 kg Weight Method Stated [place] Body Weight 73.18 kg BSA Admission 2.38 Body Mass Index 38.82 kg/m2 Temperature Temporal Artery 36.7 DegC Peripheral Pulse Rate 71 bpm Respiratory Rate 16 br/min Systolic Blood Pressure Non-Invasive 117 mmHg Diastolic Blood Pressure Non-Invasive 77 mmHg Primary Pain Intensity 0 Pain Scale Type 0-10 Pain scale Oxygen Therapy Room air Oxygen Saturation 97 % Bowel Sounds All Quadrants Present Urinary Elimination Voiding, no difficulties Status N/A Skin Integrity Intact Characteristics of Speech Clear Level of Consciousness Alert Affect/Behavior Appropriate Sensory Deficits None Infectious Disease Symptoms Patient states no symptoms Infectious Disease Recent Exposure No Alcohol and Drug Use No Employee of Institutional Living No Health Care Employee No History of Exposure to TB No History of Positive Chest X-Ray for TB No History of Positive TB Skin Test No Homeless No Known Immunosuppression No Recent Immigrant No Resident of Institutional Living No Bloody Sputum No Fatigue No Fever No Loss of Appetite No Night Sweats No Persistent Cough > 3 Weeks No Weight Loss No Barriers to Learning None evident Teaching Method Explanation, Printed materials Preferred Spoken Language Cymro Preferred Written Language Cymro Patient's Current Physicians Zora Fleming- [facility] Discharge To, Anticipated Home with family care Positioning Repositions self Standard Safety ID band on, Allergy Band on, Call device within reach, Bed in low position, Wheels locked, Safety level maintained Prev Test Positive/Diagnosis w/COVID-19 No Current Quarantine/Isolated any Illness No Any Contact with Sick Animals/Birds No Traveled Anywhere in Last 30 Days No N/A Personal Devices, Patient Valuables None Admission Note-Nursing Procedure/Therapy Intake . Assessment and Plan [place] [employer] Anesthesiologists (ASA) physical status classification: Class III. Anesthetic Preoperative Plan Anesthetic technique: MAC. Informed consent: signed by patient. Digitally Signed by MEIR LUNDBERG on 07/11/2024 09:07 AM [facility]06-19-2023 Evaluation + Plan noteExtracted from: Title:Clinical Document Author:ANUP NICHOLSON Date:11/03/22 [place] ADMISSION HISTORY AN D PHYSICIAL CHIEF COMPLAINT: HISTORY OF PRESENT ILLNESS: REVIEW OF SYSTEMS: ACTIVE PROBLEMS: (2) Cirrhosis ([id number]) Tobacco use ([id number]) MEDICATIONS: Active Inpt Meds: None Active PRN Meds: None One Time Meds: None Active IV Meds: Lactated Ringers Infusion 1,000 mL (LR 1,000 mL) Start: 11/03/22 9:00:00 EDT, Rate: 50 mL/hr, 11/03/22 9:00:00 EDT ALLERGIES: (1) NKA FAMILY HISTORY: SOCIAL HISTORY: PHYSICAL EXAM: VITALS: PpmculBqexLOOstvmYPOaK8YMY8LoseLw(kg) 11/03 09:1036.2--5711----11/03 86.0 24 Hr Tmax: 36.2 at 11/03 09:10 36 Hr Tmax: 36.2 at 11/03 09:10 Vital Signs are the last 5 in the past 48 hours. Weights display the last 5 within 7 days. Initial Wt: 11/03 86.0 kg 189 lb Current Wt: 11/03 86.0 kg 189 lb GENERAL: HEENT: CARDIOVASCULAR: RESPIRATORY: ABDOMEN: EXREMETIES: NEUROLOGICAL: PSYCHIATRIC: LABS: No 36hr Lab Data DIAGNOSTICS: IMPRESSION: PLAN: History and Physical Update I have examined the patient; reviewed the H&P and there are no changes to the H&P unless noted below. [facility] 06-19-2023 Hospital Discharge instructions Patient Education 11/03/2022 10:39:38 Moderate Conscious Sedation, Adult, Care After Moderate Conscious Sedation, Adult, Care After These instructions provide you with information about caring for yourself after your procedure. Your health care provider may also give you more specific instructions. Your treatment has been plannedaccording to current medical practices, but problems sometimes occur. Call your health care provider if you have any problems or questions after your procedure. What can I expect after the procedure? After your procedure, it is common: To feel sleepy for several hours. To feel clumsy and have poor balance for several hours. To have poor judgment for several hours. To vomit if you eat too soon. Follow these instructions at home: For at least 24 hours after the procedure: Do not: ?Participate in activities where you could fall or become injured. ?Drive. ?Use heavy machinery. ?Drink alcohol. ?Take sleeping pills or medicines that cause drowsiness. ?Make important decisions or sign legal documents. ?Take care of children on your own. Rest. Eating and drinking Follow the diet recommended by your health care provider. If you vomit: ?Drink water, juice, or soup when you can drink without vomiting. ?Make sure you have little or no nausea before eating solid foods. General instructions Have a responsible adult stay with you until you are awake and alert. Take nkfm-ula-eogqjbo and prescription medicines only as told by your health care provider. If you smoke, do not smoke without supervision. Keep all follow-up visits as told by your health care provider. This is important. Contact a health care provider if: You keep feeling nauseous or you keep vomiting. You feel light-headed. You develop a rash. You have a fever. Get help right away if: You have trouble breathing. This information is not intended to replace advice given to you by your health care provider. Make sure you discuss any questions you have with your health care provider. Document Released: 02/22/2014 Document Revised: 04/16/2018 Document Reviewed: 08/23/2016 [employer] Patient Education 2020 [employer]. 11/03/2022 10:39:32 Esophagogastroduodenoscopy, Care After (42387) Esophagogastroduodenoscopy, Care After Refer to this sheet in the next few weeks. These instructions provide you with information about caring for yourself after your procedure. Your health care provider may also give you more specific instructions. Your treatment has been planned according to current medical practices, but problems sometimes occur. Call your health care provider if you have any problems or questions after your procedure. What can I expect after the procedure? After the procedure, it is common to have: A sore throat. Nausea. Bloating. Dizziness. Fatigue. Follow these instructions at home: Do not eat or drink anything until the numbing medicine (local anesthetic) has worn off and your gag reflex has returned. You will know that the local anesthetic has worn off when you can swallow comfortably. Do not drive for 24 hours if you received a medicine to help you relax (sedative). If your health care provider took a tissue sample for testing during the procedure, make sure to get your test results. This is your responsibility. Ask your health care provider or the department performing the test when your results will be ready. Keep all follow-up visits as told by your health care provider. This is important. Contact a health care provider if: You cannot stop coughing. You are not urinating. You are urinating less than usual. Get help right away if: You have trouble swallowing. You cannot eat or drink. You have throat or chest pain that gets worse. You are dizzy or light-headed. You faint. You have nausea or vomiting. You have chills. You have a fever. You have severe abdominal pain. You have black, tarry, or bloody stools. This information is not intended to replace advice given to you by your health care provider. Make sure you discuss any questions you have with your health care provider. Document Released: 04/20/2013 Document Revised: 10/09/2016 Document Reviewed: 03/27/2016 [employer] Interactive Patient Education 2019 [employer]. Follow Up Care 10/24/2022 07:52:21 With:ANUP NICHOLSON MD [address] [address] [phone] When: Unknown Comments:Pathology will be called to you within 2 weeks. [facility] 06-19-2023 Summary of episode note Discharge Instructions Thank you for allowing [facility] to assist you with your healthcare needs. The following is importantdischarge information regarding your hospital visit. Your Care Team SELENE FLEMING MD What to do next Follow Up Appointments Follow Up with ANUP NICHOLSON MD When Why: Pathology will be called to you within 2 weeks. Where: [address] [phone]- [phone] The Following Activity and Diet Have Been Ordered for You No qualifying data available. No qualifying data available. The Following Equipment Has Been Ordered for You No qualifying data available. The Following Treatments Have Been Ordered for You Discharge Labs No qualifying data available. Discharge Radiology No qualifying data available. Other Therapies No qualifying data available. Post Acute Orders No qualifying data available. Someone Will Contact You Regarding These Home Health Referrals No home referrals have been ordered for you. No one will call you. Allergies NKA Medications Please ask your primary doctor or pharmacist before taking any other medication not listed, including over the counter drugs, herbal medications, vitamins and or supplements as they may interact withyour home medications. What When Instructions Last Dose Unchanged acamprosate (acamprosate 333 mg oral delayed release tablet) TAKE 2 TABLETS BY MOUTH THREE TIMES DAILY Unchanged ferrous sulfate (FeroSul 325 mg (65 mg elemental iron) oral tablet) TAKE 1 TABLET BY MOUTH ON THURSDAY, THURSDAY AND THURSDAY Unchanged furosemide (furosemide 40 mg oral tablet) TAKE 1 & 1/ 2 (ONE & ONE-HALF) TABLETS BY MOUTH ONCE DAILY Unchanged Misc Medication (NICOTINE TD 14MG/ 24HDIS) APPLY 1 PATCH TOPICALLY ONCE DAILY Unchanged multivitamin, (M-Emily Plus oral tablet) TAKE 1 TABLET BY MOUTH ONCE DAILY Unchanged nicotine (nicotine 2 mg oral transmucosal lozenge) DISSOLVE 1 LOZENGE BY MOUTH EVERY 4 HOURS NEEDED NICOTINE CRAVINGS Unchanged spironolactone (spironolactone 100 mg oral tablet) TAKE 1 & 1/ 2 (ONE & ONE-HALF) TABLETS BY MOUTH ONCE DAILY Unchanged thiamine (thiamine 100 mg oral tablet) TAKE 1 TABLET BY MOUTH ONCE DAILY Please take this list to your next doctor s visit. Bring all medications you take, including over the counter medications, herbals and other supplements with you to your doctor s visit. Patients and families are reminded to discard old lists and to update any records with all medication providers or retail pharmacies. Education Materials Moderate Conscious Sedation, Adult, Care After These instructions provide you with information about caring for yourself after your procedure. Your health care provider may also give you more specific instructions. Your treatment has been plannedaccording to current medical practices, but problems sometimes occur. Call your health care provider if you have any problems or questions after your procedure. What can I expect after the procedure? After your procedure, it is common: To feel sleepy for several hours. To feel clumsy and have poor balance for several hours. To have poor judgment for several hours. To vomit if you eat too soon. Follow these instructions at home: For at least 24 hours after the procedure: Do not: ? Participate in activities where you could fall or become injured. ? Drive. ? Use heavy machinery. ? Drink alcohol. ? Take sleeping pills or medicines that cause drowsiness. ? Make important decisions or sign legal documents. ? Take care of children on your own. Rest. Eating and drinking Follow the diet recommended by your health care provider. If you vomit: ? Drink water, juice, or soup when you can drink without vomiting. ? Make sure you have little or no nausea before eating solid foods. General instructions Have a responsible adult stay with you until you are awake and alert. Take invn-chh-glwywqo and prescription medicines only as told by your health care provider. If you smoke, do not smoke without supervision. Keep all follow-up visits as told by your health care provider. This is important. Contact a health care provider if: You keep feeling nauseous or you keep vomiting. You feel light-headed. You develop a rash. You have a fever. Get help right away if: You have trouble breathing. This information is not intended to replace advice given to you by your health care provider. Make sure you discuss any questions you have with your health care provider. Document Released: 02/22/2014 Document Revised: 04/16/2018 Document Reviewed: 08/23/2016 [employer] Patient Education 2020 [employer]. Esophagogastroduodenoscopy, Care After Refer to this sheet in the next few weeks. These instructions provide you with information about caring for yourself after your procedure. Your health care provider may also give you more specific instructions. Your treatment has been planned according to current medical practices, but problems sometimes occur. Call your health care provider if you have any problems or questions after your procedure. What can I expect after the procedure? After the procedure, it is common to have: A sore throat. Nausea. Bloating. Dizziness. Fatigue. Follow these instructions at home: Do not eat or drink anything until the numbing medicine (local anesthetic) has worn off and your gag reflex has returned. You will know that the local anesthetic has worn off when you can swallow comfortably. Do not drive for 24 hours if you received a medicine to help you relax (sedative). If your health care provider took a tissue sample for testing during the procedure, make sure to get your test results. This is your responsibility. Ask your health care provider or the department performing the test when your results will be ready. Keep all follow-up visits as told by your health care provider. This is important. Contact a health care provider if: You cannot stop coughing. You are not urinating. You are urinating less than usual. Get help right away if: You have trouble swallowing. You cannot eat or drink. You have throat or chest pain that gets worse. You are dizzy or light-headed. You faint. You have nausea or vomiting. You have chills. You have a fever. You have severe abdominal pain. You have black, tarry, or bloody stools. This information is not intended to replace advice given to you by your health care provider. Make sure you discuss any questions you have with your health care provider. Document Released: 04/20/2013 Document Revised: 10/09/2016 Document Reviewed: 03/27/2016 [employer] Interactive Patient Education 2019 [employer] Additional Information VACCINATE! IT SAVES LIVES! Members of the community who have not yet received the COVID-19 vaccine and would like to receive it can visit one of [facility] vaccine clinics. There are many vaccine clinic locations within the [facility]. For locations and available times, please visit https://gettheshot.coronavirus.[place].gov/. It is important to note that some COVID mobile vaccine clinics are held outdoors and may be canceled in rainy or stormy conditions. To learn more about pediatric vaccinations (ages 5-11), we invite you to visit the [facility] webpage. https://www.[place].org/pages/[email or web address]-Kzwjd-Bgtvtldcamr-Gvhujllzsr-Gutdg-[email or web address] stions.htmlTo learn more about the COVID-19 vaccine, we invite you to visit the CDC website for a list of frequently asked questions.https://www.cdc.gov/coronavirus/2019-ncov/vaccines/faq.html [facility] Patient Portal Access Instructions: Stay connected with your healthcare team and access your personal medical information anytime with the [facility] Patient Portal. Please follow the directions below to create your [facility] account: 1.Access the email account you provided upon registration to the hospital/physician office.2.Look for an invitation email from [facility].3.Open the email and access the invitation link: AcceptInvitation to [facility].4.Fill in the required arce to create your account. To access your account, visit [email or web address]. Click the blue button labeled Access Patient Portal and then log in with the username and password that you created in the steps above. You will be able to view your test results, lab results, a summary of your visits, upcoming appointments and more. There is also a convenient messaging option where you can send secure messages to your p stefanovider. In addition, you will have the ability to download any documents or summaries to your computer and/or send the information securely to a physician. Remember that your healthcare information is confidential, so carefully consider who you will allowto register on the [facility] for access to your information. You can also access the [facility] on the [facility] sheryl. Simply click on Patient Portal and then log into your account. If you would like to receive a full copy of your medical records, please contact the [facility] Medical Records Department by calling [phone], Thursday through Thursday between 8 a.m. and 4:30 p.m. HOW TO SAFELY DISPOSE OF PRESCRIPTION MEDICATIONS Please use one of the following methods to safely dispose of your unused medications. 1.Use a drug disposal kit: the drug disposal pouch allows you to safely discard your old and unuseddrugs. Ask your nurse to give you one when you are discharged.2.Visit a local take-back location: Many local pharmacies and police departments have programs that collect old and unwanted prescriptiondrugs. Call your local pharmacy or go to http://CaseRev.[employer]/9W0Nq9m to find one close to you.3.Make use of household items: Use cat litter or old coffee grounds to dispose medications if other options arenot available. Mix your drugs with these household products, seal them in an airtight container andthrow it into the garbage. Call [facility]: [phone] to be sure your drugs can be disposed of in this way. Some medicines may require a different approach.4.Never flush your medications down the toilet. IF YOU HAVE BEEN PRESCRIBED AN OPIOID FOR PAIN If you have been prescribed an opioid (such as hydrocodone, oxycodone or morphine), it is critical to understand the possible side effects and risks of opioid pain medications. Even when taken as directed, opioids can have several side effects including: Tolerance, meaning you might need to take more of a medication for the same pain relief. Nausea, vomiting and/or constipation. Sleepiness, dizziness, dry mouth, confusion, depression or itching. Physical dependence, meaning you have withdrawal symptoms when a medication is stopped, can develop within a few days. KNOW YOUR RESPONSIBILITIES It is important to know exactly how much and how often to take the opioid pain medications you are prescribed. Never take opioids in higher amounts or more often than prescribed. Do not combine opioids with alcohol or other drugs that cause drowsiness, such as benzodiazepines, also known as benzos, including diazepam and alprazolam, muscle relaxants or sleep aids. Never sell or share prescription opioids. This is illegal. Store opioids in a secure place and out of reach of others (including children, family, friends and visitors). The last page of this document has been signed and retained as a CHART COPY. Signatures Patient Education Materials Moderate Conscious Sedation, Adult, Care After Esophagogastroduodenoscopy, Care After (90407) Medication Leaflets My discharge plan and instructions have been reviewed and explained to me and I,CAROLYNN LEE understand my current condition and have read and understand these discharge instructions. I have received a written copy of the plan/instructions. If I have questions, I am aware that I should contact my doctor. Patient/Manager Green Signature: Date/Time: Relationship to Patient: Witness Name/Signature: Date/Time: [facility]06-19-2023 Anesthesiology Consult note Patient: CAROLYNN LEE Age: 42 years Sex: Male : 1980 Associated Diagnoses: None Author: MEIR LUNDBERGAIRCRAFT SYSTEMS TECHNICIAN Preoperative Information Time of last food or liquid consumption: 11/03/2022 00:00:00 Anesthesia history Patient's history: negative. Family's history: negative. Health Status Allergies: Allergic Reactions (Selected) NKA, Allergies (1) ActiveReaction NKANone Documented Current medications: (Selected) Inpatient Medications Ordered LR 1,000 mL: 50 mL/hr, Intravenous Documented Medications Documented FeroSul 325 mg (65 mg elemental iron) oral tablet: TAKE 1 TABLET BY MOUTH ON THURSDAY, THURSDAY AND THURSDAY M- Plus oral tablet: TAKE 1 TABLET BY MOUTH ONCE DAILY NICOTINE TD 14MG/24HDIS: APPLY 1 PATCH TOPICALLY ONCE DAILY acamprosate 333 mg oral delayed release tablet: TAKE 2 TABLETS BY MOUTH THREE TIMES DAILY furosemide 40 mg oral tablet: TAKE 1 & 1/2 (ONE & ONE-HALF) TABLETS BY MOUTH ONCE DAILY nicotine 2 mg oral transmucosal lozenge: DISSOLVE 1 LOZENGE BY MOUTH EVERY 4 HOURS NEEDED NICOTINE CRAVINGS spironolactone 100 mg oral tablet: TAKE 1 & 1/2 (ONE & ONE-HALF) TABLETS BY MOUTH ONCE DAILY thiamine 100 mg oral tablet: TAKE 1 TABLET BY MOUTH ONCE DAILY, Medications (1) Active Scheduled: (0) Continuous: (1) Lactated Ringers 1,000 mL 1,000 mL, Intravenous, 50 mL/hr PRN: (0) Problem list: Active Problems (2) Cirrhosis Tobacco use Histories Past Medical History: No active or resolved past medical history items have been selected or recorded. Family History: Hypertension Father Diabetes mellitus type 2 Father Procedure history: Complete excision of head of first metatarsal ([id number]). Social History Social & Psychosocial Habits Alcohol 11/03/2022 Use: Past Previous treatment: Alcoholics Anonymous, Outpatient Tobacco 11/03/2022 Tobacco Use: 5-9 cigarettes (between 1 Type: Cigarettes . Physical Examination Vital Signs 11/03/2022 10:30 EDT Heart Rate Monitored 73 bpm bpm Respiratory Rate - Anes 16 br/min br/min 11/03/2022 10:25 EDT Heart Rate Monitored 79 bpm bpm Respiratory Rate - Anes 23 br/min br/min Systolic Blood Pressure Non-Invasive 95 mmHg mmHg Diastolic Blood Pressure Non-Invasive 65 mmHg mmHg 11/03/2022 10:22 EDT Systolic Blood Pressure Non-Invasive 119 mmHg mmHg Diastolic Blood Pressure Non-Invasive 67 mmHg mmHg 11/03/2022 9:10 EDT Temperature Oral 36.2 DegC Peripheral Pulse Rate 57 bpm LOW Respiratory Rate 11 br/min Vital Signs(last 24 hrs) Last Charted Temp Oral36.2 DegC (NOV 03 09:10) Heart Rate Xluixhzhr82 bpm (NOV 03 10:30) Resp Rate C 11br/min (NOV 03 09:10) SBP95 mmHg (NOV 03 10:25) DBP65 mmHg (NOV 03 10:25) Measurements from flowsheet : Measurements 11/03/2022 9:10 EDT Height 178 cm Admission Weight 86 kg [place] Body Weight 73.18 kg Pain assessment: Pain Assessment 11/03/2022 9:10 EDT Primary Pain Intensity 0 Pain Scale Type 0-10 Pain scale . General: Alert and oriented. Airway: Normal temporomandibular joint mobility, Normal mouth, Normal neck range of motion. Mallampati classification: II (soft palate, fauces, uvula visible). Dentition Evaluation: Denies loose/chipped teeth. Respiratory: Respirations are non-labored. Cardiovascular: Normal rate. Neurologic: Alert, Oriented. Review / Management Results review: No qualifying data available , Lab results 11/03/2022 10:32 EDT Anesthesiology Consultation Postanesthesia Evaluation* 11/03/2022 10:31 EDT SN - CTm - Anesthesia Stop Time Anesthesia Stop Anesthesia Final Record 11/03/2022 10:31 EDT Lactated Ringers Injection 800 mL mL 11/03/2022 10:30 EDT SN - Proc - Actual Procedure ESOPHAGOGASTRODUODENOSCOPY WITH BIOPSIES (Modified) 11/03/2022 10:30 EDT SN - GCD - ASA Class 3 11/03/2022 10:30 EDT SN - Cul - Culture Type Tissue in Formalin (Modified) SN - Cul - Kind Specimen 11/03/2022 10:30 EDT Heart Rate Monitored 73 bpm bpm Respiratory Rate - Anes 16 br/min br/min Oxygen Saturation 99.1 % % [facility] Procedure Record [facility] Procedure Record 11/03/2022 10:27 EDT propofol 50 mg mg 11/03/2022 10:25 EDT Heart Rate Monitored 79 bpm bpm Respiratory Rate - Anes 23 br/min br/min Systolic Blood Pressure Non-Invasive 95 mmHg mmHg Diastolic Blood Pressure Non-Invasive 65 mmHg mmHg Oxygen Saturation 100 % % 11/03/2022 10:23 EDT Lactated Ringers Injection Begin Bag 1,000 mL mL 11/03/2022 10:22 EDT SN - CTm - Anesthesia Start Time Anesthesia Start 11/03/2022 10:22 EDT Systolic Blood Pressure Non-Invasive 119 mmHg mmHg Diastolic Blood Pressure Non-Invasive 67 mmHg mmHg lidocaine 40 mg mg propofol 150 mg mg 11/03/2022 10:20 EDT [place] History and Physical 11/03/2022 10:15 EDT SN - Proc - Anesthesia Type MAC SN - Proc - EBL 0 mL 11/03/2022 10:14 EDT SN - PP - Body Position Lateral Right Side-up Standard Intra-op 11/03/2022 10:14 EDT SN - GCD - Post-operative Diagnosis CIRRHOSIS SN - GCD - Case Level OPD Level 3 11/03/2022 10:14 EDT SN - CAt - Case Attendee SN - CAt - Case Attendee SN - CAt - Case Attendee SN - CAt - Case Attendee SN - CAt - Case Attendee SN - CAt - Case Attendee SN - CAt - Case Attendee SN - CAt - Case Attendee SN - CAt - Role Performed Primary Surgeon SN - CAt - Role Performed AIRCRAFT SYSTEMS TECHNICIAN SN - CAt - Role Performed Specialist Wound Care SN - CAt - Role Performed Cardiovascular Tech 1 11/03/2022 9:25 EDT Right 11/03/2022 22 gauge Peripheral IV Activity: Insert new site Peripheral IV Dressing Condition: Clean, Dry, Intact Peripheral IV Dressing Activity: Applied, Transparent dressing Peripheral IV Line Status/Patency: Flushes easily Peripheral IV Line Care: Secured with tape Peripheral IV Site Condition: No complications 11/03/2022 9:10 EDT Height 178 cm Admission Weight 86 kg [place] Body Weight 73.18 kg Temperature Oral 36.2 DegC Peripheral Pulse Rate 57 bpm LOW Respiratory Rate 11 br/min Primary Pain Intensity 0 Pain Scale Type 0-10 Pain scale Heart Rhythm Regular Skin Description Normal for ethnicity Extremity Movement Equal Characteristics of Speech Clear Level of Consciousness Alert Affect/Behavior Appropriate, Calm, Cooperative Orientation Oriented x 4 Arrival Mode Ambulatory Position Sitting Accompanied By On Arrival Family Mellissa Motor (2) Moves 4 extremities voluntarily or on command Mellissa Respirations (2) Spontaneous respiration without support, RR > 10 Mellissa Blood Pressure (2) BP 20% above or below preanesthetic level Mellissa Pulse (2) Pulse 20% above or below preanesthetic level Mellissa Oxygen Saturation (2) 94% or more Mellissa Level of Consciousness (2) Fully awake Mellissa III Score 12 Orientation Assessment Oriented x 4 Standard Safety ID band on, Call device within reach, Bed in low position, Wheels locked 11/03/2022 9:07 EDT Urinary Elimination Voiding, no difficulties Allergies No Consent Form Signed Yes Patient Dressed In Hospital gown History & Physical On Chart Yes Obstructive Sleep Apnea Assess Completed No NPO Status More than 8 hours Patient ID Band on and Verified Yes Pacemaker/AICD Verified Yes Anesthesia Consent Signed Yes Last Fluid Intake 11/02/2022 23:50 Last Food Intake 11/02/2022 23:50 Last Void 11/03/2022 9:09 11/03/2022 9:04 EDT Designated Person #1 We May Share SOHAIL campos father/ [phone] Designated Person #1 Relationship Father Status N/A Sensory Deficits None Infectious Disease Symptoms Patient states no symptoms Infectious Disease Recent Exposure No Alcohol and Drug Use No Employee of Institutional Living No Health Care Employee No History of Exposure to TB No History of Positive Chest X-Ray for TB No History of Positive TB Skin Test No Homeless No Known Immunosuppression No Recent Immigrant No Resident of Institutional Living No Bloody Sputum No Fatigue No Fever No Loss of Appetite No Night Sweats No Persistent Cough > 3 Weeks No Weight Loss No Barriers to Learning None evident Teaching Method Printed materials Preferred Written Language Cymro Preferred Spoken Language Cymro Information Given by Patient Patient's Current Physicians Zora Fleming- [facility] Discharge To, Anticipated Home with family care Prev Test Positive/Diagnosis w/COVID-19 Yes Previous COVID-19 Positive Date 05/08 Current Quarantine/Isolated any Illness No Any Contact with Sick Animals/Birds No Traveled Anywhere in Last 30 Days No N/A Personal Devices, Patient Valuables None Admission Note-Nursing Procedure/Therapy Intake . Assessment and Plan [place] [employer]hesi[employer] (ASA) physical status classification: Class III. Anesthetic Preoperative Plan Anesthetic technique: MAC. Informed consent: signed by patient. Digitally Signed by MEIR LUNDBERG on 11/03/2022 10:35 AM [facility]06-19-2023 Anesthesiology Consult note Patient: CAROLYNN LEE Age: 42 years Sex: Male : 1980 Associated Diagnoses: None Author: MEIR LUNDBERG Assessment Postanesthesia assessment Vitals: Vital signs from flowsheet : Vital Signs 11/03/2022 10:30 EDT Heart Rate Monitored 73 bpm bpm Respiratory Rate - Anes 16 br/min br/min 11/03/2022 10:25 EDT Heart Rate Monitored 79 bpm bpm Respiratory Rate - Anes 23 br/min br/min Systolic Blood Pressure Non-Invasive 95 mmHg mmHg Diastolic Blood Pressure Non-Invasive 65 mmHg mmHg 11/03/2022 10:22 EDT Systolic Blood Pressure Non-Invasive 119 mmHg mmHg Diastolic Blood Pressure Non-Invasive 67 mmHg mmHg 11/03/2022 9:10 EDT Temperature Oral 36.2 DegC Peripheral Pulse Rate 57 bpm LOW Respiratory Rate 11 br/min , Measurements from flowsheet . Mental status: alert & oriented x 4. Respiratory function: respirations are non-labored. Respiratory support: none. CV function: Normal rate. Cardiovascular support: none. Pain. Nausea status: see nursing documentation of medications. Postoperative hydration status: within normal limits. Digitally Signed by MEIR LUNDBERG on 11/03/2022 10:32 AM [facility]06-19-2023 Note [place] ADMISSION HISTORY AND PHYSICIAL CHIEF COMPLAINT: HISTORY OF PRESENT ILLNESS: REVIEW OF SYSTEMS: ACTIVE PROBLEMS: (2) Cirrhosis ([id number]) Tobacco use ([id number]) MEDICATIONS: Active Inpt Meds: None Active PRN Meds: None One Time Meds: None Active IV Meds: Lactated Ringers Infusion 1,000 mL (LR 1,000 mL) Start: 11/03/22 9:00:00 EDT, Rate: 50 mL/hr, 11/03/22 9:00:00 EDT ALLERGIES: (1) NKA FAMILY HISTORY: SOCIAL HISTORY: PHYSICAL EXAM: VITALS: [id number](kg) 11/03 09:1036.2--5711----11/03 86.0 24 Hr Tmax: 36.2 at 11/03 09:10 36 Hr Tmax: 36.2 at 11/03 09:10 Vital Signs are the last 5 in the past 48 hours. Weights display the last 5 within 7 days. Initial Wt: 11/03 86.0 kg 189 lb Current Wt: 11/03 86.0 kg 189 lb GENERAL: HEENT: CARDIOVASCULAR: RESPIRATORY: ABDOMEN: EXREMETIES: NEUROLOGICAL: PSYCHIATRIC: LABS: No 36hr Lab Data DIAGNOSTICS: IMPRESSION: PLAN: History and Physical Update I have examined the patient; reviewed the H&P and there are no changes to the H&P unless noted below. Digitally Signed by ANUP NICHOLSON MD on 11/03/2022 10:22 AM [facility]05-13-2023 NoteHNO ID: [id number] Author: Cari Herrera MD Service: ? Author Type: Physician Type: Progress Notes Filed: 09/27/2022 11:44 AM Note Text: Attending Note I discussed with resident on 09/24/22 . The patient was not examined by the attending. I reviewed the resident's note. I agree with the resident's assessment and plan unless otherwise noted. Signature: Cari Herrera MD Date: 09/27/2022. Time: 11:44 [facility]05-10-2023 NoteHNO ID: [id number] Author: Jerome Stuart DO Service: ? Author Type: Resident Type: Progress Notes Filed: 09/24/2022 4:19 PM Note Text: [facility] Jerome Stuart DO ASSESSMENT/PLAN: 1. Alcoholic cirrhosis of liver with ascites (HCC) - ICD9: 571.2, ICD10: K70.31 (primary diagnosis) Alcohol use: Patient highly motivated to continue to abstain from drinking. Reports to have good social support system and enrolled with AA. Start acamprosate 333 mg 3 times daily to negate any cravings. Refrained from methylnaltrexone given cirrhosis. Fluid status: Patient still looks fluid overloaded and Will increase diuretic regimen: Spironolactone 150 and Lasix 60. Placed BMP and magnesium to be completed within 1 week to monitor for any electrolyte abnormalities. Administered hep A hep B vaccine today in office. Consult to gastroenterology placed for further evaluation including evaluation and work-up for possible transplant and esophageal varices surveillance. Will start patient on lactulose today if with a goal of 2-3 bowel movements per day titrate as needed. Unable to calculate an accurate [place] Tur[place] or MELD score at today's visit, will reassess after obtaining repeat CMP and PT/INR within a week. Educated patient on increasing protein intake and decreasing salt intake. Reinforced the importance of continuing to stay abstinent from alcohol going forward. At this time, no need for weekly or scheduled paracentesis unless patient noted to have refractory ascites in the setting of diuretic use. Patient voiced understanding and agreement with plan. 2. Encounter for immunization - ICD9: V03.89, ICD10: Z23 - HEP A-HEP B VACCINE ([place]) 3. Closed displaced segmental fracture of shaft of left humerus with routine healing, subsequent encounter - ICD9: V54.11, ICD10: S42.362D -Arranging follow-up with orthopedics closer to home -Since discharge overall stable and able to manage left sling Jerome Nava Stuart, SUBJECTIVE: Carolynn Lee is a 42 year old male here today for hospital follow up[09/10/2022-09/18/2022]. Patient initially presented from outside ED in the setting of mechanical fall leading to left humeral fracture. At the time of work-up, patient noted to have anemia requiring PRBC transfusion and concerns for new onset cirrhosis. Patient was admitted under house medicine services, during this time he underwent IR guided paracentesis with a total removal of 29 L during the admission subsequently requiring albumin transfusion. Patient was diagnosed with new onset decompensated cirrhosis likely in the setting of alcohol use with no evidence of infectious or autoimmune etiologies. Hospital course was complicated by additional blood transfusion and informal heme-onc consult work-up revealed low copper and low ceruloplasmin. At the time of discharge hemoglobin was noted to be 7.5. Patient was initiated on Lasix and spironolactone which was slowly titrated up to 40: 100 at the time of discharge. In regards to his left humeral fracture, orthopedics had placed humeral cuff with repeat x-ray showing good alignment. PT OT evaluated patient safe to be discharged home. Since being discharged, patient tried to follow-up with orthopedics on outpatient basis however given lack of insurance coverage patient will [facility] Patient working on setting up follow-up with orthopedics closer to home in [place]. At today's visit, patient was accompanied by mom. Overall patient appeared to be pleasant in nature. Upon further discussion, patient notes to have about 23 years of alcohol use starting at age 29 he noted an increased and alcohol intake consisting of 1-2 mixed drinks daily. Over the past year, patient admits to having 5-6 daily mixed drinks. He states that this was at a time of great emotional stress and was living alone which allowed him to continue this habit throughout. Since being discharged, patient is currently living with family consisting of mom dad and grandma. He understands the importance of continuing to stay abstinence and has implemented social support, alcohol Anonymous at this time. Prior to discharge from the hospital patient states that weight was 260 with the humeral cuff present. On Thursday, patient weighed himself and noted to be 251 and is reported to be 239 pounds today. Has been tolerating diuretics well at home. Noticed blood in stool x1 due to constipation. Denies any chest pain shortness of breath, nausea, vomiting, diarrhea, abdominal pain, reciprocal sleep schedule pattern or any other acute concerns at this time. HPI No past medical history on file. No past surgical history on file. No family history on file. There are no active hospital problems to display for this patient. PAIN EVALUATION No data found in the last 1 encounters. ALLERGIES No Known Allergies Current Outpatient Medicati (more content not included)...[facility]05-10-2023 History of Present illness Narrative* Jerome Stuart DO - 09/24/2022 10:37 AM EDT Images from the original note were not included. [facility] Jerome Stuart DO ASSESSMENT/PLAN: 1. Alcoholic cirrhosis of liver with ascites (HCC) - ICD9: 571.2, ICD10: K70.31 (primary diagnosis) Alcohol use: Patient highly motivated to continue to abstain from drinking. Reports to have good social support system and enrolled with AA. Start acamprosate 333 mg 3 times daily to negate any cravings. Refrained from methylnaltrexone given cirrhosis. Fluid status: Patient still looks fluid overloaded and Will increase diuretic regimen: Spironolactone 150 and Lasix 60. Placed BMP and magnesium to be completed within 1 week to monitor for any electrolyte abnormalities. Administered hep A hep B vaccine today in office. Consult to gastroenterology placed for further evaluation including evaluation and work-up for possible transplant and esophageal varices surveillance. Will start patient on lactulose today if with a goal of 2-3 bowel movements per day titrate as needed. Unable to calculate an accurate [place] Tur[place] or MELD score at today's visit, will reassess after obtaining repeat CMP and PT/INR within a week. Educated patient on increasing protein intake and decreasing salt intake. Reinforced the importanceof continuing to stay abstinent from alcohol going forward. At this time, no need for weekly or scheduled paracentesis unless patient noted to have refractory ascites in the setting of diuretic use. Patient voiced understanding and agreement with plan. 2. Encounter for immunization - ICD9: V03.89, ICD10: Z23 - HEP A-HEP B VACCINE ([place]) 3. Closed displaced segmental fracture of shaft of left humerus with routine healing, subsequent encounter - ICD9: V54.11, ICD10: S42.362D -Arranging follow-up with orthopedics closer to home -Since discharge overall stable and able to manage left sling Jerome Nava Stuart, DO SUBJECTIVE: Carolynn Lee is a 42 year old male here today for hospital follow up[09/10/2022-09/18/2022]. Patient initially presented from outside ED in the setting of mechanical fall leading to left humeral fracture. At the time of work-up, patient noted to have anemia requiring PRBC transfusion and concerns for new onset cirrhosis. Patient was admitted under house medicine services, during this time he underwent IR guided paracentesis with a total removal of 29 L during the admission subsequently requiring albumin transfusion. Patient was diagnosed with new onset decompensated cirrhosis likely in the setting of alcohol use with no evidence of infectious or autoimmune etiologies. Hospital course was complicated by additionalblood transfusion and informal heme-onc consult work-up revealed low copper and low ceruloplasmin. At the time of discharge hemoglobin was noted to be 7.5. Patient was initiated on Lasix and spironolactone which was slowly titrated up to 40: 100 at the time of discharge. In regards to his left humeral fracture, orthopedics had placed humeral cuff with repeat x-ray showing good alignment. PT OT evaluated patient safe to be discharged home. Since being discharged, patient tried to follow-up with orthopedics on outpatient basis however given lack of insurance coverage patient will [facility]. Patient working on setting up follow-up with orthopedics closer to home in [place]. At today's visit, patient was accompanied by mom. Overall patient appeared to be pleasant in nature. Upon further discussion, patient notes to have about 23 years of alcohol use starting at age 29 henoted an increased and alcohol intake consisting of 1-2 mixed drinks daily. Over the past year, patient admits to having 5-6 daily mixed drinks. He states that this was at a time of great emotional stress and was living alone which allowed him to continue this habit throughout. Since being discharged, patient is currently living with family consisting of mom dad and grandma. He understands the importance of continuing to stay abstinence and has implemented social support, alcohol Anonymous at this time. Prior to discharge from the hospital patient states that weight was 260 with the humeral cuff present. On Thursday, patient weighed himself and noted to be 251 and is reported to be 239 poundstoday. Has been tolerating diuretics well at home. Noticed blood in stool x1 due to constipation. Denies any chest pain shortness of breath, nausea, vomiting, diarrhea, abdominal pain, reciprocal slee p schedule pattern or any other acute concerns at this time. HPI No past medical history on file. No past surgical history on file. No family history on file. There are no active hospital problems to display for this patient. PAIN EVALUATION No data found in the last 1 encounters. ALLERGIES No Known Allergies Current Outpatient Medications Medication Sig ferrous sulfate 325 mg (65 mg iron) tablet Take 1 tablet by mouth every Thursday,Thursday,Thursday. furosemide (LASIX) 40 mg tablet Take 1 tablet by mouth once daily. melatonin 3 mg tablet Take 1 tablet by mouth at bedtime as needed for for insomnia. nicotine (NICODERM) 14 mg/24 hr Apply 1 Patch as directed once daily. spironolactone (ALDACTONE) 100 mg tablet Take 1 tablet by mouth once daily. thiamine (VITAMIN B1) 100 mg tablet 1 tablet by ORAL/FEEDING TUBE route three times daily for 248 doses. simethicone, chewable (MYLICON) 80 mg chewable tablet Take 1 tablet by mouth four times daily as needed. vitamin with folic acid 1 mg 60 mg iron-1 mg tab Take 1 tablet by mouth once daily. M-EMILY PLUS 27 mg iron- 1 mg Take 1 tablet by mouth once daily. spironolactone (ALDACTONE) 50 mg tablet Take 1 tablet by mouth once daily. furosemide (LASIX) 20 mg tablet Take 1 tablet by mouth once daily. acamprosate DR (CAMPRAL) 333 mg tablet Take 2 tablets by mouth three times daily. lactulose 20 gram/30 mL solution Take 30 mL by mouth three times daily. No current facility-administered medications for this visit. I have confirmed and edited as necessary the chief complaint, medications, past medical, family andsocial histories. Review of Systems As noted on HPI OBJECTIVE: BP 126/65 (BP Site: Right Arm, BP Position: Sitting, BP Cuff Size: Extra Large Adult) Pulse 86 Temp 36.8 C (98.2 F) Resp 18 Ht 177.8 cm (5' 10) Wt 108.4 kg (239 lb) SpO2 99% BMI 34.29 kg/m Body mass index is 34.29 kg/m . Physical Exam PHYSICAL EXAM: Constitutional: Oriented to person, place, and time. Appears well-developed and well-nourished. No distress. HENT: Normocephalic and atraumatic. PERRLA. EOM are normal. Mild scleral icterus. Cardiovascular: Normal rate, regular rhythm, normal heart sounds and intact distal pulses. Exam reveals no gallop andno friction rub. No murmur heard. Pulmonary/Chest: Effort normal and breath sounds normal. No respiratory distress. Abdominal: Soft nontender mildly distended umbilical hernia noted, reducible. Spider angiomas notedon abdomen Musculoskeletal: Limited range of motion of left arm. Sling noted. Mild ecchymosis noted on palm ofleft hand with edema likely in the setting of healing. Improved since discharge subjective. 2+ edema bilateral lower extremities Neurological: Alert and oriented to person, place, and time. Skin: Skin is warm and dry. Mild jaundice . No palmar erythema Results for orders placed or performed during the hospital encounter of 09/10/22 COMP METABOLIC PANEL Result Value Ref Range Protein, Total 6.7 6.3 - 8.0 g/dL Albumin 2.9 (L) 3.9 - 4.9 g/dL Calcium, Total 8.0 (L) 8.5 - 10.2 mg/dL Bilirubin, Total 4.4 (H) 0.2 - 1.3 mg/dL Alkaline Phosphatase 147 (H) 38 - 113 U/L AST 64 (H) 14 - 40 U/L ALT 28 10 - 54 U/L Glucose 116 (H) 74 - 99 mg/dL BUN 4 (L) 9 - 24 mg/dL Creatinine 0.69 (L) 0.73 - 1.22 mg/dL Sodium 135 (L) 136 - 144 mmol/L Potassium 3.2 (L) 3.7 - 5.1 mmol/L Chloride 103 97 - 105 mmol/L CO2 22 22 - 30 mmol/L Anion Gap 10 9 - 18 mmol/L Estimated Glomerular Filtration Rate 118 >=60 mL/min/1.73m CBC + DIFF Result Value Ref Range WBC 6.41 3.70 - 11.00 k/uL RBC 2.74 (L) 4.20 - 6.00 m/uL Hemoglobin 6.5 (L) 13.0 - 17.0 g/dL Hematocrit 22.4 (L) 39.0 - 51.0 % MCV 81.8 80.0 - 100.0 fL MCH 23.7 (L) 26.0 - 34.0 pg MCHC 29.0 (L) 30.5 - 36.0 g/dL RDW-CV 19.1 (H) 11.5 - 15.0 % Platelet Count 151 150 - 400 k/uL MPV 9.3 9.0 - 12.7 fL Neutrophils % 54.6 % Abs Neut 3.50 1.45 - 7.50 k/uL Lymphocytes % 21.4 % Abs Lymph 1.37 1.00 - 4.00 k/uL Monocytes % 18.4 % Abs Tompkins 1.18 (H) <0.87 k/uL Eosinophils % 3.9 % Abs Eosin 0.25 <0.46 k/uL Basophils % 1.2 % Abs Baso 0.08 <0.11 k/uL Immature Granulocytes % 0.5 % Abs Immature Gran 0.03 <0.10 k/uL NRBC 0.0 /100 WBC Absolute nRBC <0.01 <0.01 k/uL Diff Type Auto SMOOTH MUSCLE AB SCR Result Value Ref Range Actin Smooth Muscle IgG Qualitative Negative Negative Actin Smooth Muscle IgG Quantitative 11 <20 Units RONN BY IFA SCREEN Result Value Ref Range RONN Negative Negative MITOCHONDRIAL M2 IGG SERUM Result Value Ref Range Mitochondrial M2 IgG Qualitative Negative Negative Mitochondrial M2 IgG Quantitative 3.6 <=20.0 Units PROTHROMBIN TIME/PT Result Value Ref Range PT Sec 17.7 (H) 9.7 - 13.0 sec INR 1.7 (H) 0.9 - 1.3 URINALYSIS, WITH MICROSCOPIC Result Value Ref Range Color Yellow yellow Clarity Clear Clear Glucose, Urine Negative Trace, Negative Bilirubin, Urine Negative Negative Ketones, Urine Negative Negative, Trace Specific [place], Ur 1.011 1.005 - 1.030 Hemoglobin/Blood,Ur Negative Negative, Trace pH, Urine 6.0 5.0 - 8.0 Protein, Urine Negative Trace, Negative Urobilinogen 2+ (A) Negative Nitrites Negative Negative Leuk Esterase Negative Negative, 25 Iza/uL WBC, Urine 0-5 /HPF 0-5 /HPF RBC, Urine 0-3 /HPF 0-3 /HPF Casts, Hyaline 1-3 /LPF (A) 0 /LPF TOX SCREEN ROUT UR Result Value Ref Range Phencyclidine Urine Negative Negative Benzodiazepines Urine Negative Negative Cocaine Urine Negative Negative Amphetamines Urine Negative Negative Cannabinoids, Urine Preliminary positive (A) Negative Opiates Urine Preliminary positive (A) Negative Barbiturates Urine Negative Negative Ethanol, Urine 125 (H) <11 mg/dL Oxycodone, Urine Negative Negative BODY FLUID CELL COUNT Result Value Ref Range Site, BF ASCITES FLUID Color, BF Yellow Yellow Clarity, BF Slightly Cloudy (A) Clear Supernatant Color, BF Yellow Yellow Supernatant Clarity, BF Clear Clear RBC, Body Fluid <2,000 <2,000 /uL Total Nucleated Cells, BF 40 <1,000 /uL ALBUMIN BFL Result Value Ref Range Albumin, Body Fluid 0.7 See Comment g/dL Body Fluid Type (Albumin) ASCITES FLUID PROTEIN BFL Result Value Ref Range Protein, Body Fluid 1.8 See Comment g/dL HEP A AB IGM Result Value Ref Range Hep A Ab, IgM Nonreactive Nonreactive HEP B CORE AB IGM Result Value Ref Range Hep B Core Ab, IgM Nonreactive Nonreactive HEP B SURF AG SCRN Result Value Ref Range HBsAg Nonreactive Nonreactive HEP C AB IA W/CONF SCRN Result Value Ref Range Hep C Antibody IA Nonreactive Nonreactive MAGNESIUM BLD Result Value Ref Range Magnesium 1.8 1.7 - 2.3 mg/dL ALBUMIN BLD Result Value Ref Range Albumin 2.6 (L) 3.9 - 4.9 g/dL BF MANUAL DIFF Result Value Ref Range Diff Total Body Fluid 100 cells counted Neut%, BF 2 (H) 0 - 1 % Lymph%, BF 3 (L) 18 - 36 % Tompkins%, BF 19 % Macro%, BF 60 (L) 64 - 80 % Meso%, BF 16 (H) 0 - 2 % COMP METABOLIC PANEL Result Value Ref Range Protein, Total 6.8 6.3 - 8.0 g/dL Albumin 3.1 (L) 3.9 - 4.9 g/dL Calcium, Total 8.4 (L) 8.5 - 10.2 mg/dL Bilirubin, Total 6.3 (H) 0.2 - 1.3 mg/dL Alkaline Phosphatase 116 (H) 38 - 113 U/L AST 52 (H) 14 - 40 U/L ALT 23 10 - 54 U/L Glucose 121 (H) 74 - 99 mg/dL BUN 5 (L) 9 - 24 mg/dL Creatinine 0.70 (L) 0.73 - 1.22 mg/dL Sodium 136 136 - 144 mmol/L Potassium 3.9 3.7 - 5.1 mmol/L Chloride 103 97 - 105 mmol/L CO2 22 22 - 30 mmol/L Anion Gap 11 9 - 18 mmol/L Estimated Glomerular Filtration Rate 117 >=60 mL/min/1.73m CBC + DIFF Result Value Ref Range WBC 8.24 3.70 - 11.00 k/uL RBC 3.38 (L) 4.20 - 6.00 m/uL Hemoglobin 8.2 (L) 13.0 - 17.0 g/dL Hematocrit 27.3 (L) 39.0 - 51.0 % MCV 80.8 80.0 - 100.0 fL MCH 24.3 (L) 26.0 - 34.0 pg MCHC 30.0 (L) 30.5 - 36.0 g/dL RDW-CV 19.0 (H) 11.5 - 15.0 % Platelet Count 150 150 - 400 k/uL MPV 9.2 9.0 - 12.7 fL Neutrophils % 63.5 % Abs Neut 5.24 1.45 - 7.50 k/uL Lymphocytes % 15.2 % Abs Lymph 1.25 1.00 - 4.00 k/uL Monocytes % 16.4 % Abs Tompkins 1.35 (H) <0.87 k/uL Eosinophils % 2.8 % Abs Eosin 0.23 <0.46 k/uL Basophils % 1.5 % Abs Baso 0.12 (H) <0.11 k/uL Immature Granulocytes % 0.6 % Abs Immature Gran 0.05 <0.10 k/uL NRBC 0.2 /100 WBC Absolute nRBC 0.02 (H) <0.01 k/uL Diff Type Auto PROTHROMBIN TIME/PT Result Value Ref Range PT Sec 20.3 (H) 9.7 - 13.0 sec INR 2.0 (H) 0.9 - 1.3 BILIRUBIN DIRECT BLD Result Value Ref Range Bilirubin, Conjugated 1.5 (H) <0.2 mg/dL PATH INTERP CBCDIF (LAB REFLEX ORDER-NO BILL) Result Value Ref Range Pathologist Interpretation, CBCDIF Normocytic anemia. Dimorphic RBCs with few target cells and elliptocytes. Absolute monocytosis. CBCDIF Pathologist Reviewed by Reviewed by Caridad Lauren MD COMP METABOLIC PANEL Result Value Ref Range Protein, Total 5.5 (L) 6.3 - 8.0 g/dL Albumin 2.5 (L) 3.9 - 4.9 g/dL Calcium, Total 8.1 (L) 8.5 - 10.2 mg/dL Bilirubin, Total 5.0 (H) 0.2 - 1.3 mg/dL Alkaline Phosphatase 104 38 - 113 U/L AST 43 (H) 14 - 40 U/L ALT 21 10 - 54 U/L Glucose 154 (H) 74 - 99 mg/dL BUN 5 (L) 9 - 24 mg/dL Creatinine 0.70 (L) 0.73 - 1.22 mg/dL Sodium 134 (L) 136 - 144 mmol/L Potassium 3.6 (L) 3.7 - 5.1 mmol/L Chloride 104 97 - 105 mmol/L CO2 23 22 - 30 mmol/L Anion Gap 7 (L) 9 - 18 mmol/L Estimated Glomerular Filtration Rate 117 >=60 mL/min/1.73m CBC + DIFF Result Value Ref Range WBC 6.96 3.70 - 11.00 k/uL RBC 2.88 (L) 4.20 - 6.00 m/uL Hemoglobin 7.1 (L) 13.0 - 17.0 g/dL Hematocrit 23.1 (L) 39.0 - 51.0 % MCV 80.2 80.0 - 100.0 fL MCH 24.7 (L) 26.0 - 34.0 pg MCHC 30.7 30.5 - 36.0 g/dL RDW-CV 20.0 (H) 11.5 - 15.0 % Platelet Count 135 (L) 150 - 400 k/uL MPV 9.6 9.0 - 12.7 fL Neutrophils % 61.5 % Abs Neut 4.28 1.45 - 7.50 k/uL Lymphocytes % 16.7 % Abs Lymph 1.16 1.00 - 4.00 k/uL Monocytes % 18.1 % Abs Tompkins 1.26 (H) <0.87 k/uL Eosinophils % 2.3 % Abs Eosin 0.16 <0.46 k/uL Basophils % 1.1 % Abs Baso 0.08 <0.11 k/uL Immature Granulocytes % 0.3 % Abs Immature Gran <0.03 <0.10 k/uL NRBC 0.0 /100 WBC Absolute nRBC <0.01 <0.01 k/uL Diff Type Auto PROTHROMBIN TIME/PT Result Value Ref Range PT Sec 20.3 (H) 9.7 - 13.0 sec INR 2.0 (H) 0.9 - 1.3 RETIC COUNT Result Value Ref Range Retic % 2.2 (H) 0.4 - 2.0 % Abs Retic 0.062 0.018 - 0.100 M/uL VITAMIN B12 BLOOD Result Value Ref Range Vitamin B12 1,126 232 - 1,245 pg/mL LD LACTATE DEHYDRO Result Value Ref Range LD 193 135 - 225 U/L HAPTOGLOBIN BLD Result Value Ref Range Haptoglobin 34 31 - 238 mg/dL ERYTHROPOIETIN/EPO Result Value Ref Range Erythropoietin 109.6 (H) 2.6 - 18.5 mIU/mL COPPER BLOOD Result Value Ref Range Copper 56 (L) 70 - 140 ug/dL HEMOGLOBIN (HGB) Result Value Ref Range Hemoglobin 7.5 (L) 13.0 - 17.0 g/dL THROMBOGRAPH PANEL Result Value Ref Range R Value (Thrombograph) 5.2 4.0 - 10.0 minutes Degree Angle (Thrombograph) 66.4 47.0 - 74.0 degrees Maximum Amplitude (Thrombograph) 52.2 51.0 - 75.0 mm Lysis Time 30 (Thrombograph) 0.0 0.0 - 8.0 % Coagulation Index (Thrombograph) -0.4 -4.6 - 3.2 TEG PANEL INTERP Result Value Ref Range Interpretation (Thrombograph) Performing Pathologist: Chloe Gupta Signing Pathologist: Chloe Gupta Interpretation: Normal - see comment below. A thromboelastograph (TEG) study was performed using citrate-anticoagulated whole blood. The R value, a measure of coagulation function, is within the normal range. This indicates normal coagulation function. The Angle, a measure of fibrinogen function, is within the normal range. This is indicative of normal fibrinogen concentration or function. The Maximal Amplitude (MA), a measure of platelet function, is within the normal range. The Ly30, a measure of fibrinolysis function, is normal. This is indicative of normal fibrinolytic function. The Coagulation Index (CI), a measure of hemostasis function, is within the normal range. The CI is a calculated parameter based on the other TEG results. BASIC METABOLIC PNL Result Value Ref Range Glucose 125 (H) 74 - 99 mg/dL BUN 8 (L) 9 - 24 mg/dL Creatinine 0.66 (L) 0.73 - 1.22 mg/dL Sodium 137 136 - 144 mmol/L Potassium 3.0 (L) 3.7 - 5.1 mmol/L Chloride 106 (H) 97 - 105 mmol/L CO2 21 (L) 22 - 30 mmol/L Anion Gap 10 9 - 18 mmol/L Calcium, Total 7.0 (L) 8.5 - 10.2 mg/dL Estimated Glomerular Filtration Rate 119 >=60 mL/min/1.73m CBC Result Value Ref Range WBC 6.89 3.70 - 11.00 k/uL RBC 2.85 (L) 4.20 - 6.00 m/uL Hemoglobin 7.1 (L) 13.0 - 17.0 g/dL Hematocrit 22.9 (L) 39.0 - 51.0 % MCV 80.4 80.0 - 100.0 fL MCH 24.9 (L) 26.0 - 34.0 pg MCHC 31.0 30.5 - 36.0 g/dL RDW-CV 20.2 (H) 11.5 - 15.0 % Platelet Count 133 (L) 150 - 400 k/uL MPV 9.3 9.0 - 12.7 fL Absolute nRBC <0.01 <0.01 k/uL BASIC METABOLIC PNL Result Value Ref Range Glucose 127 (H) 74 - 99 mg/dL BUN 9 9 - 24 mg/dL Creatinine 0.72 (L) 0.73 - 1.22 mg/dL Sodium 131 (L) 136 - 144 mmol/L Potassium 3.7 3.7 - 5.1 mmol/L Chloride 102 97 - 105 mmol/L CO2 21 (L) 22 - 30 mmol/L Anion Gap 8 (L) 9 - 18 mmol/L Calcium, Total 8.1 (L) 8.5 - 10.2 mg/dL Estimated Glomerular Filtration Rate 116 >=60 mL/min/1.73m CBC Result Value Ref Range WBC 6.67 3.70 - 11.00 k/uL RBC 3.31 (L) 4.20 - 6.00 m/uL Hemoglobin 8.4 (L) 13.0 - 17.0 g/dL Hematocrit 27.0 (L) 39.0 - 51.0 % MCV 81.6 80.0 - 100.0 fL MCH 25.4 (L) 26.0 - 34.0 pg MCHC 31.1 30.5 - 36.0 g/dL RDW-CV 21.5 (H) 11.5 - 15.0 % Platelet Count 160 150 - 400 k/uL MPV 9.6 9.0 - 12.7 fL Absolute nRBC <0.01 <0.01 k/uL URINALYSIS, WITH MICROSCOPIC Result Value Ref Range Color Dark Yellow (A) yellow Clarity Clear Clear Glucose, Urine Negative Trace, Negative Bilirubin, Urine 1+ (A) Negative Ketones, Urine Trace Negative, Trace Specific [place], Ur 1.031 (H) 1.005 - 1.030 Hemoglobin/Blood,Ur 2+ (A) Negative, Trace pH, Urine 6.0 5.0 - 8.0 Protein, Urine 1+ (A) Trace, Negative Urobilinogen 2+ (A) Negative Nitrites Negative Negative Leuk Esterase 250 Iza/uL (A) Negative, 25 Iza/uL WBC, Urine 11-25 /HPF (A) 0-5 /HPF RBC, Urine 11-25 /HPF (A) 0-3 /HPF Squamous Epithelial Cells Few /HPF BASIC METABOLIC PNL Result Value Ref Range Glucose 121 (H) 74 - 99 mg/dL BUN 10 9 - 24 mg/dL Creatinine 0.70 (L) 0.73 - 1.22 mg/dL Sodium 134 (L) 136 - 144 mmol/L Potassium 3.8 3.7 - 5.1 mmol/L Chloride 104 97 - 105 mmol/L CO2 22 22 - 30 mmol/L Anion Gap 8 (L) 9 - 18 mmol/L Calcium, Total 7.9 (L) 8.5 - 10.2 mg/dL Estimated Glomerular Filtration Rate 117 >=60 mL/min/1.73m CBC Result Value Ref Range WBC 6.01 3.70 - 11.00 k/uL RBC 2.89 (L) 4.20 - 6.00 m/uL Hemoglobin 7.1 (L) 13.0 - 17.0 g/dL Hematocrit 23.5 (L) 39.0 - 51.0 % MCV 81.3 80.0 - 100.0 fL MCH 24.6 (L) 26.0 - 34.0 pg MCHC 30.2 (L) 30.5 - 36.0 g/dL RDW-CV 22.3 (H) 11.5 - 15.0 % Platelet Count 143 (L) 150 - 400 k/uL MPV 9.2 9.0 - 12.7 fL Absolute nRBC <0.01 <0.01 k/uL PROTHROMBIN TIME/PT Result Value Ref Range PT Sec 17.3 (H) 9.7 - 13.0 sec INR 1.7 (H) 0.9 - 1.3 BODY FLUID CELL COUNT Result Value Ref Range Site, BF ASCITES FLUID Color, BF Yellow Yellow Clarity, BF Clear Clear Supernatant Color, BF Not Indicated Yellow Supernatant Clarity, BF Not Indicated Clear RBC, Body Fluid <2,000 <2,000 /uL Total Nucleated Cells, BF 69 <1,000 /uL FERRITIN BLD Result Value Ref Range Ferritin 49.5 30.3 - 565.7 ng/mL IRON + TIBC Result Value Ref Range Iron 16 (L) 41 - 186 ug/dL TIBC 185 (L) 232 - 386 ug/dL Transferrin Saturation 8.6 (L) 15.0 - 57.0 % BF MANUAL DIFF Result Value Ref Range Diff Total Body Fluid 100 cells counted Lymph%, BF 11 (L) 18 - 36 % Tompkins%, BF 7 % Macro%, BF 67 64 - 80 % Meso%, BF 11 (H) 0 - 2 % Other Cell%, BF 4 % CBC Result Value Ref Range WBC 6.93 3.70 - 11.00 k/uL RBC 2.97 (L) 4.20 - 6.00 m/uL Hemoglobin 7.4 (L) 13.0 - 17.0 g/dL Hematocrit 24.0 (L) 39.0 - 51.0 % MCV 80.8 80.0 - 100.0 fL MCH 24.9 (L) 26.0 - 34.0 pg MCHC 30.8 30.5 - 36.0 g/dL RDW-CV 22.4 (H) 11.5 - 15.0 % Platelet Count 145 (L) 150 - 400 k/uL MPV 9.3 9.0 - 12.7 fL Absolute nRBC <0.01 <0.01 k/uL BF STAFF REVIEW (LAB ORDER) Result Value Ref Range BF Pathologist Comments Negative for malignant cells. BF Reviewer Reviewed by Vipin Solis MD BASIC METABOLIC PNL Result Value Ref Range Glucose 106 (H) 74 - 99 mg/dL BUN 8 (L) 9 - 24 mg/dL Creatinine 0.74 0.73 - 1.22 mg/dL Sodium 135 (L) 136 - 144 mmol/L Potassium 3.9 3.7 - 5.1 mmol/L Chloride 102 97 - 105 mmol/L CO2 24 22 - 30 mmol/L Anion Gap 9 9 - 18 mmol/L Calcium, Total 7.9 (L) 8.5 - 10.2 mg/dL Estimated Glomerular Filtration Rate 115 >=60 mL/min/1.73m HEPATIC FUNCTION PNL Result Value Ref Range Albumin 2.8 (L) 3.9 - 4.9 g/dL Bilirubin, Total 4.1 (H) 0.2 - 1.3 mg/dL Bilirubin, Conjugated 1.0 (H) <0.2 mg/dL Alkaline Phosphatase 101 38 - 113 U/L AST 45 (H) 14 - 40 U/L ALT 22 10 - 54 U/L Protein, Total 5.6 (L) 6.3 - 8.0 g/dL CBC Result Value Ref Range WBC 5.66 3.70 - 11.00 k/uL RBC 2.90 (L) 4.20 - 6.00 m/uL Hemoglobin 7.1 (L) 13.0 - 17.0 g/dL Hematocrit 23.7 (L) 39.0 - 51.0 % MCV 81.7 80.0 - 100.0 fL MCH 24.5 (L) 26.0 - 34.0 pg MCHC 30.0 (L) 30.5 - 36.0 g/dL RDW-CV 22.9 (H) 11.5 - 15.0 % Platelet Count 143 (L) 150 - 400 k/uL MPV 9.1 9.0 - 12.7 fL Absolute nRBC <0.01 <0.01 k/uL BASIC METABOLIC PNL Result Value Ref Range Glucose 135 (H) 74 - 99 mg/dL BUN 9 9 - 24 mg/dL Creatinine 0.75 0.73 - 1.22 mg/dL Sodium 134 (L) 136 - 144 mmol/L Potassium 3.9 3.7 - 5.1 mmol/L Chloride 102 97 - 105 mmol/L CO2 24 22 - 30 mmol/L Anion Gap 8 (L) 9 - 18 mmol/L Calcium, Total 8.0 (L) 8.5 - 10.2 mg/dL Estimated Glomerular Filtration Rate 115 >=60 mL/min/1.73m HEPATIC FUNCTION PNL Result Value Ref Range Albumin 2.7 (L) 3.9 - 4.9 g/dL Bilirubin, Total 3.6 (H) 0.2 - 1.3 mg/dL Bilirubin, Conjugated 1.0 (H) <0.2 mg/dL Alkaline Phosphatase 111 38 - 113 U/L AST 45 (H) 14 - 40 U/L ALT 23 10 - 54 U/L Protein, Total 5.5 (L) 6.3 - 8.0 g/dL CBC Result Value Ref Range WBC 6.35 3.70 - 11.00 k/uL RBC 2.89 (L) 4.20 - 6.00 m/uL Hemoglobin 7.2 (L) 13.0 - 17.0 g/dL Hematocrit 23.4 (L) 39.0 - 51.0 % MCV 81.0 80.0 - 100.0 fL MCH 24.9 (L) 26.0 - 34.0 pg MCHC 30.8 30.5 - 36.0 g/dL RDW-CV 22.8 (H) 11.5 - 15.0 % Platelet Count 146 (L) 150 - 400 k/uL MPV 8.7 (L) 9.0 - 12.7 fL Absolute nRBC <0.01 <0.01 k/uL CERULOPLASMIN BLD Result Value Ref Range Ceruloplasmin 13 (L) 15 - 30 mg/dL BASIC METABOLIC PNL Result Value Ref Range Glucose 130 (H) 74 - 99 mg/dL BUN 9 9 - 24 mg/dL Creatinine 0.73 0.73 - 1.22 mg/dL Sodium 134 (L) 136 - 144 mmol/L Potassium 3.9 3.7 - 5.1 mmol/L Chloride 103 97 - 105 mmol/L CO2 23 22 - 30 mmol/L Anion Gap 8 (L) 9 - 18 mmol/L Calcium, Total 7.9 (L) 8.5 - 10.2 mg/dL Estimated Glomerular Filtration Rate 116 >=60 mL/min/1.73m HEPATIC FUNCTION PNL Result Value Ref Range Albumin 2.7 (L) 3.9 - 4.9 g/dL Bilirubin, Total 3.3 (H) 0.2 - 1.3 mg/dL Bilirubin, Conjugated 0.9 (H) <0.2 mg/dL Alkaline Phosphatase 110 38 - 113 U/L AST 50 (H) 14 - 40 U/L ALT 26 10 - 54 U/L Protein, Total 5.9 (L) 6.3 - 8.0 g/dL CBC Result Value Ref Range WBC 7.54 3.70 - 11.00 k/uL RBC 3.05 (L) 4.20 - 6.00 m/uL Hemoglobin 7.5 (L) 13.0 - 17.0 g/dL Hematocrit 24.8 (L) 39.0 - 51.0 % MCV 81.3 80.0 - 100.0 fL MCH 24.6 (L) 26.0 - 34.0 pg MCHC 30.2 (L) 30.5 - 36.0 g/dL RDW-CV 23.3 (H) 11.5 - 15.0 % Platelet Count 159 150 - 400 k/uL MPV 9.0 9.0 - 12.7 fL Absolute nRBC <0.01 <0.01 k/uL RED BLOOD CELLS, ADULT Result Value Ref Range XM RESULT Compatible Expiration Date [id number] Product Expiration Date 09/23/2022 23:59 ISBT Blood Type 6200 Unit Blood Type A Pos Unit Number [id number] Status Information Issued Final Product Identification Red Blood Cells Product Code K9726E62 Issue Date/Time [id number] *Note: Due to a large number of results and/or encounters for the requested time period, some results have not been displayed. A complete set of results can be found in Results Review. . Return in about 3 months (around 12/25/2022). Discussed the above with the patient and my preceptor using shared decision-making. The patient is in agreement with the diagnostic and treatment plans. This note may have been partially generated using [employer] voice recognition system, and there may besome incorrect words, spellings, and punctuation that were not noted in checking the note before saving. Provider: Jerome Stuart DO Signed on: September 24, 2022 10:40 AM [facility] Miscellaneous Notes* Telephone Encounter - Elena Shelley - 09/23/2022 11:03 AM EDT Patient returned my call and gave his insurance information. Put in all is insurance information and it cam back as an out of network insurance. Informed him that we do not take his insurance and if he would like to make an appointment he would pay out of pocket. Also informed him that [facility] takes his insurance. Patient said that we would go to his PCP and call his insurance company to find some one in network. Elena Shelley September 23, 2022 11:05 AM documented in [facility] Miscellaneous Notes* Telephone Encounter - Elena Shelley - 09/22/2022 8:34 AM EDT Called patient to schedule hospital follow up appointment per Dr. Vera. Patient did not answer. Left message to call the office back and also gave the number to financial clearance as the patient does not have insurance on file. Elena Shelley September 22, 2022 8:36 AM documented in [facility]23 NoteHNO ID: [id number] Author: Salvador Vera MD Service: Orthopaedic Surgery Author Type: Physician Type: Progress Notes Filed: 09/18/2022 9:14 AM Note Text: Subjective: Patient doing better this morning. Feels better with placement of humeral cuff. States arm feels a little more comfortable. Also states that he may be discharged later this afternoon. Objective: Examination left upper extremity shows it to be neurovascular intact. Humeral cuff in place. Expected swelling from elbow going distally into wrist and hand. Imaging: Repeat x-rays from 09/17/2022 were reviewed. These show improved alignment of segmental and comminuted humeral shaft fracture. Assessment: #1 left humeral shaft fracture Plan: At this time we will continue with conservative management. He will wear his cuff. It is okay to remove For hygiene. We discussed the importance of gravity in fracture alignment. We also discussed importance of elbow range of motion. I will see him back in approximately 1 week for repeat x-rays. If there is any questions or concerns he is to contact the office. His questions were answered. Please call with questions.[facility]05-04-2023 NoteHNO ID: [id number] Author: Cedric Almeida DO Service: Hospital Medicine Author Type: Resident Type: Progress Notes Filed: 09/18/2022 2:20 PM Note Text: Attestation signed by John Edwards MD at 10/12/2022 5:25 PM [facility] ATTENDING ATTESTATION: I saw and evaluated the patient on rounds on 09/18/22. Discussed case with the medicine team and agree with resident's findings and plan as documented in the resident's note. John Edwards MD [facility] [place] PATIENT NAME: Carolynn Lee ADMITTED FOR: LOS: 8 days Subjective HPI Carolynn Lee is a 42-year-old male with past medical history of alcohol use disorder who presented with signs concerning for new onset cirrhosis in addition to mechanical fall leading to humeral fracture has been admitted to house medicine. INTERVAL EVENTS Events overnight: No acute events overnight. Patient seen and examined at bedside this AM. Patient states that he continues to do well with ambulating. He overall continues to feel improved from days prior. He denies any abdominal pain/distention. Pertinent Labs: Sodium 134, potassium 3.9, creatinine 0.73 Total bilirubin 3.3 Hemoglobin 7.5, platelet 159 Imaging: X-ray appears to be in good alignment per orthopedics It Auditor recommendations: Orthopedic surgery: Humeral cuff placement with repeat x-rays no surgical intervention at this time will need outpatient follow-up. Objective OBJECTIVE No data found. There is no height or weight on file to calculate BMI., No results found for: HBA1C Intake/Output Summary (Last 24 hours) at 09/18/2022 0707 Last data filed at 09/18/2022 0340 Gross per 24 hour Intake 2316 ml Output 3300 ml Net -984 ml Physical Exam Vitals reviewed. Constitutional: General: He is not in acute distress. Appearance: He is not diaphoretic. HENT: Mouth/Throat: Mouth: Mucous membranes are moist. Pharynx: Oropharynx is clear. Eyes: General: Scleral icterus present. Extraocular Movements: Extraocular movements intact. Cardiovascular: Rate and Rhythm: Normal rate and regular rhythm. Pulses: Normal pulses. Heart sounds: Normal heart sounds. No murmur heard. No gallop. Pulmonary: Effort: Pulmonary effort is normal. No respiratory distress. Breath sounds: Normal breath sounds. No wheezing or rales. Abdominal: General: Bowel sounds are normal. There is distension. Palpations: Abdomen is soft. Tenderness: There is no abdominal tenderness. Hernia: A hernia (umbilical) is present. Musculoskeletal: General: Normal range of motion. Right lower leg: No edema. Left lower leg: No edema. Comments: Left upper extremity in sling/cast. Good pulses in upper extremities with no change in sensation of her distal hand on the left side good strength in hand/fingers. Skin: General: Skin is warm and dry. Capillary Refill: Capillary refill takes less than 2 seconds. Findings: No rash. Neurological: General: No focal deficit present. Mental Status: He is oriented to person, place, and time. Motor: No weakness. Psychiatric: Mood and Affect: Mood normal. Behavior: Behavior normal. LABORATORY: CBC: Recent Labs 09/18/22 0326 09/17/22 03309/16/22 03309/15/22 1826 09/15/2232109/14/2243109/13/2240309/12/22 1759 09/12/22436 WBC 7.54 6.35 5.66 6.93 6.01 6.67 6.89 -- 6.96 HB 7.5* 7.2* 7.1* 7.4* 7.1* 8.4* 7.1* 7.5* 7.1* HCT 24.8* 23.4* 23.7* 24.0* 23.5* 27.0* 22.9* -- 23.1* PLT 159 146* 143* 145* 143* 160 133* -- 135* MCV 81.3 81.0 81.7 80.8 81.3 81.6 80.4 -- 80.2 RDWCV 23.3* 22.8* 22.9* 22.4* 22.3* 21.5* 20.2* -- 20.0* NEUTP -- -- -- -- -- -- -- -- 61.5 ABSNEUT -- -- -- -- -- -- -- -- 4.28 LYMPHP -- -- -- -- -- -- -- -- 16.7 MONOP -- -- -- -- -- -- -- -- 18.1 COAG: Recent Labs 09/15/2232109/12/22 0651 09/11/22 0748 INR 1.7* 2.0* 2.0* CMP: Recent Labs 09/18/2232509/17/2233509/16/2231109/15/2232109/14/22 04309/13/22 04009/12/22436 GLUC 130* 135* 106* 121* 127* 125* 154* NA 134* 134* 135* 134* 131* 137 134* K 3.9 3.9 3.9 3.8 3.7 3.0* 3.6* CHLOR 103 102 102 104 102 106* 104 CO2 23 24 24 22 21* 21* 23 ANION 8* 8* 9 8* 8* 10 7* BUN 9 9 8* 10 9 8* 5* CREAT 0.73 0.75 0.74 0.70* 0.72* 0.66* 0.70* TBILI 3.3* 3.6* 4.1* -- -- -- 5.0* CBILI 0.9* 1.0* 1.0* -- -- -- -- ALKPHOS 110 111 101 -- -- -- 104 AST 50* 45* 45* -- -- -- 43* ALT 26 23 22 -- -- -- 21 TPROT 5.9* 5.5* 5.6* -- -- -- 5.5* URINALYSIS: Recent Labs 09/14/22 1608 SPGR 1.031* UGLUC Negative UBILI 1+* UKET Trace UHB 2+* UPROT 1+* UWBC 11-25 /HPF* Cardiac:No results for input(s): CKTEST, CKMB, CKMBP, TROPONIN, BNP in the last 168 hours. Microbiology: Positive Micro-30 Days N (more content not included)...[facility]05-03-2023 Note HNO ID: [id number] Author: Jose Arreaga RPh Service: Pharmacy Author Type: Pharmacist Type: Plan of Care Filed: 09/17/2022 3:36 PM Note Text: DISCHARGE MEDICATION REVIEW BY PHARMACY Patient Name: Carolynn Lee Account #: Data Unavailable Admission Date: 09/10/2022 Date of Contact: September 17, 2022 Time of Contact: 3:36 PM Medication list was reviewed by a Pharmacist for drug interactions or drug related problems:Yes Below is a summary of pharmacist recommendations discussed with LIP: No Recommendations at this time from Discharge Medication List. Jose Arreaga RPh September 17, 2022 3:36 PM Pager: [phone] 09/17/2022 3:36 PM Medication List START taking these medications ferrous sulfate 325 mg (65 mg iron) tablet Take 1 tablet by mouth every Thursday,Thursday,Thursday. Start taking on: September 19, 2022 furosemide 40 mg tablet Commonly known as: LASIX Take 1 tablet by mouth once daily. Start taking on: September 18, 2022 melatonin 3 mg tablet Take 1 tablet by mouth at bedtime as needed for for insomnia. nicotine 14 mg/24 hr Commonly known as: NICODERM Apply 1 Patch as directed once daily. Start taking on: September 18, 2022 vitamin with folic acid 1 mg 60 mg iron-1 mg Tab Take 1 tablet by mouth once daily. Start taking on: September 18, 2022 simethicone, chewable 80 mg chewable tablet Commonly known as: MYLICON Take 1 tablet by mouth four times daily as needed. spironolactone 100 mg tablet Commonly known as: ALDACTONE Take 1 tablet by mouth once daily. Start taking on: September 18, 2022 thiamine 100 mg tablet Commonly known as: VITAMIN B1 1 tablet by ORAL/FEEDING TUBE route three times daily for 248 doses. STOP taking these medications docusate sodium 100 mg capsule Commonly known as: COLACE ibuprofen 200 mg tablet Commonly known as: MOTRIN naproxen 500 mg tablet Commonly known as: NAPROSYN Where to Get Your Medications These medications were sent to [facility] [address] [place] [address] [place] [id number] ferrous sulfate 325 mg (65 mg iron) tablet furosemide 40 mg tablet melatonin 3 mg tablet nicotine 14 mg/24 hr vitamin with folic acid 1 mg 60 mg iron-1 mg Tab simethicone, chewable 80 mg chewable tablet spironolactone 100 mg tablet thiamine 100 mg tabletNorthern [facility] NoteHNO ID: [id number] Author: Salvador Vera MD Service: Orthopaedic Surgery Author Type: Physician Type: Progress Notes Filed: 09/17/2022 8:27 AM Note Text: Subjective: Patient doing okay. With some soreness in his left upper extremity. Currently sitting up in chair eating breakfast. Objective: Examination of left upper extremity shows splint to be in place. Neurovascularly intact. Assessment: #1 left humeral shaft fracture. Plan: At this time we are awaiting humeral cuff placement. Once cuff placed, we will repeat x-rays. Discussed risks of surgical intervention with patient. He expressed understanding. If we cannot obtain alignment, we can rediscuss surgical intervention if necessary. The humerus can tolerate angulation. There are significant risks of surgical intervention with patient's comorbidities.[facility]05-03-2023 NoteHNO ID: [id number] Author: Cedric Almeida DO Service: Hospital Medicine Author Type: Resident Type: Progress Notes Filed: 09/17/2022 11:56 AM Note Text: Attestation signed by John Edwards MD at 09/17/2022 9:11 PM [facility] ATTENDING ATTESTATION: I saw and evaluated the patient on rounds on 09/17/22. Discussed case with the medicine team and agree with resident's findings and plan as documented in the resident's note. John Edwards MD [facility] [place] PATIENT NAME: Carolynn Lee ADMITTED FOR: LOS: 7 days Subjective HPI Carolynn Lee is a 42-year-old male with past medical history of alcohol use disorder who presented with signs concerning for new onset cirrhosis in addition to mechanical fall leading to humeral fracture has been admitted to house medicine. INTERVAL EVENTS Events overnight: -1000 cc urine output overnight Patient seen and examined at bedside this AM. Patient states that abdomen is not distended or painful. No nausea/vomiting, denies diarrhea/constipation. Hand is mildly improved in turns of swelling from days prior. Pertinent Labs: Sodium 134, potassium 3.9, creatinine 0.75 Total bili 3.6 down from 4.1 WBC 6.35, hemoglobin 7.2, platelet 146 Imaging: No new imaging Objective OBJECTIVE No data found. There is no height or weight on file to calculate BMI., No results found for: HBA1C Intake/Output Summary (Last 24 hours) at 09/17/2022 0638 Last data filed at 09/16/2022 2217 Gross per 24 hour Intake -- Output 1075 ml Net -1075 ml Physical Exam Vitals reviewed. Constitutional: General: He is not in acute distress. Appearance: He is not diaphoretic. HENT: Mouth/Throat: Mouth: Mucous membranes are moist. Pharynx: Oropharynx is clear. Eyes: General: Scleral icterus present. Extraocular Movements: Extraocular movements intact. Cardiovascular: Rate and Rhythm: Normal rate and regular rhythm. Pulses: Normal pulses. Heart sounds: Normal heart sounds. No murmur heard. No gallop. Pulmonary: Effort: Pulmonary effort is normal. No respiratory distress. Breath sounds: Normal breath sounds. No wheezing or rales. Abdominal: General: Bowel sounds are normal. There is distension. Palpations: Abdomen is soft. Tenderness: There is no abdominal tenderness. Hernia: A hernia (umbilical) is present. Musculoskeletal: General: Normal range of motion. Right lower leg: No edema. Left lower leg: No edema. Comments: Left upper extremity in sling/cast. Good pulses in upper extremities with no change in sensation of her distal hand on the left side good strength in hand/fingers. Skin: General: Skin is warm and dry. Capillary Refill: Capillary refill takes less than 2 seconds. Findings: No rash. Neurological: General: No focal deficit present. Mental Status: He is oriented to person, place, and time. Motor: No weakness. Psychiatric: Mood and Affect: Mood normal. Behavior: Behavior normal. LABORATORY: CBC: Recent Labs 09/17/22 0336 09/16/22 0336 09/15/22 1826 09/15/22 0322 09/14/22 0432 09/13/22 0404 09/12/22 1759 09/12/22 0437 09/11/22 0356 09/10/22 0704 WBC 6.35 5.66 6.93 6.01 6.67 6.89 -- 6.96 8.24 6.41 HB 7.2* 7.1* 7.4* 7.1* 8.4* 7.1* 7.5* 7.1* 8.2* 6.5* HCT 23.4* 23.7* 24.0* 23.5* 27.0* 22.9* -- 23.1* 27.3* 22.4* PLT 146* 143* 145* 143* 160 133* -- 135* 150 151 MCV 81.0 81.7 80.8 81.3 81.6 80.4 -- 80.2 80.8 81.8 RDWCV 22.8* 22.9* 22.4* 22.3* 21.5* 20.2* -- 20.0* 19.0* 19.1* NEUTP -- -- -- -- -- -- -- 61.5 63.5 54.6 ABSNEUT -- -- -- -- -- -- -- 4.28 5.24 3.50 LYMPHP -- -- -- -- -- -- -- 16.7 15.2 21.4 MONOP -- -- -- -- -- -- -- 18.1 16.4 18.4 COAG: Recent Labs 09/15/22 0322 09/12/22 0651 09/11/22 0748 09/10/22 0704 INR 1.7* 2.0* 2.0* 1.7* CMP: Recent Labs 09/17/22 0336 09/16/22 0312 09/15/22 0322 09/14/22 0432 09/13/22 0404 09/12/22 0437 09/11/22 0357 09/10/22 0704 GLUC 135* 106* 121* 127* 125* 154* 121* 116* NA 134* 135* 134* 131* 137 134* 136 135* K 3.9 3.9 3.8 3.7 3.0* 3.6* 3.9 3.2* CHLOR 102 102 104 102 106* 104 103 103 CO2 24 24 22 21* 21* 23 22 22 ANION 8* 9 8* 8* 10 7* 11 10 BUN 9 8* 10 9 8* 5* 5* 4* CREAT 0.75 0.74 0.70* 0.72* 0.66* 0.70* 0.70* 0.69* TBILI 3.6* 4.1* -- -- -- 5.0* 6.3* 4.4* CBILI 1.0* 1.0* -- -- -- -- 1.5* -- ALKPHOS 111 101 -- -- -- 104 116* 147* AST 45* 45* -- -- -- 43* 52* 64* ALT 23 22 -- -- -- 21 23 28 TPROT 5.5* 5.6* -- -- -- 5.5* 6.8 6.7 URINALYSIS: Recent Labs 09/14/22 1608 09/10/22 0658 SPGR 1.031* 1.011 UGLUC Negative Negative UBILI 1+* Negative UKET Trace Negative UHB 2+* Negative UPROT 1+* Negative UWBC 11-25 /HPF* 0-5 /HPF Cardiac:No results for input(s): CKTEST, CKMB, CKMBP, TROPONIN, (more content not included)...[facility]05-02-2023 NoteHNO ID: [id number] Author: Cedric Almeida DO Service: Hospital Medicine Author Type: Resident Type: Progress Notes Filed: 09/16/2022 1:54 PM Note Text: Attestation signed by John Edwards MD at 09/16/2022 8:49 PM [facility] HOSPITAL MEDICINE SERVICE ATTENDING ATTESTATION: I saw and evaluated the patient on rounds on 09/16/22. Discussed case with the medicine team and agree with resident's findings and plan as documented in the resident's note. Overall patient continues to improve. Ultrasound of left upper extremity was attempted due to hand swelling but not able to be completed due to cast. Considering recent history and fracture little concern for acute DVT at this time so testing is not needed. We will continue to monitor I's/O's and daily weights as we titrate diuretics. Patient agreeable to follow-up with [facility] and he will also need to referral for GI at discharge. Eventually he would want to transition to providers closer to his home in [place]. John Edwards MD [facility] [place] PATIENT NAME: Carolynn Lee ADMITTED FOR: LOS: 6 days Subjective HPI Carolynn Lee is a 42-year-old male with past medical history of alcohol use disorder who presented with signs concerning for new onset cirrhosis in addition to mechanical fall leading to humeral fracture has been admitted to early branch medicine. INTERVAL EVENTS Went for paracentesis yesterday, 10 L removed. Given 75 g of albumin. Events overnight: Concerns for left upper extremity worsening edema, UE DVT ultrasound ordered, pending completion. Patient seen and examined at bedside this AM. Patient has no acute concerns at this time. He states that his left upper extremity edema has mildly increased from day prior. He does not endorse any shortness of breath. He does state that he would like to be set up as an outpatient at a facility closer to where he is from near [place] rather than coming here to [place]. 117/66, 96 Pertinent Labs: Sodium 135, potassium 3.9, creatinine 0.74 Total bilirubin 4.1, WBC 5.66, hemoglobin 7.1, platelet 143 Imaging: No new imaging Objective OBJECTIVE No data found. There is no height or weight on file to calculate BMI., No results found for: HBA1C No intake or output data in the 24 hours ending 09/16/22 0722 Physical Exam Vitals reviewed. Constitutional: General: He is not in acute distress. Appearance: He is not diaphoretic. HENT: Mouth/Throat: Mouth: Mucous membranes are moist. Pharynx: Oropharynx is clear. Eyes: General: Scleral icterus present. Extraocular Movements: Extraocular movements intact. Cardiovascular: Rate and Rhythm: Normal rate and regular rhythm. Pulses: Normal pulses. Heart sounds: Normal heart sounds. No murmur heard. No gallop. Pulmonary: Effort: Pulmonary effort is normal. No respiratory distress. Breath sounds: Normal breath sounds. No wheezing or rales. Abdominal: General: Bowel sounds are normal. There is distension. Palpations: Abdomen is soft. Tenderness: There is no abdominal tenderness. Hernia: A hernia (umbilical) is present. Musculoskeletal: General: Normal range of motion. Right lower leg: No edema. Left lower leg: No edema. Comments: Left upper extremity in sling/cast. Good pulses in upper extremities with no change in sensation of her distal hand on the left side good strength in hand/fingers. Skin: General: Skin is warm and dry. Capillary Refill: Capillary refill takes less than 2 seconds. Findings: No rash. Neurological: General: No focal deficit present. Mental Status: He is oriented to person, place, and time. Motor: No weakness. Psychiatric: Mood and Affect: Mood normal. Behavior: Behavior normal. LABORATORY: CBC: Recent Labs 09/16/22 0336 09/15/22 1826 09/15/22 0322 09/14/22 0432 09/13/22 0404 09/12/22 1759 09/12/22 0437 09/11/22 0356 09/10/22 0704 WBC 5.66 6.93 6.01 6.67 6.89 -- 6.96 8.24 6.41 HB 7.1* 7.4* 7.1* 8.4* 7.1* 7.5* 7.1* 8.2* 6.5* HCT 23.7* 24.0* 23.5* 27.0* 22.9* -- 23.1* 27.3* 22.4* PLT 143* 145* 143* 160 133* -- 135* 150 151 MCV 81.7 80.8 81.3 81.6 80.4 -- 80.2 80.8 81.8 RDWCV 22.9* 22.4* 22.3* 21.5* 20.2* -- 20.0* 19.0* 19.1* NEUTP -- -- -- -- -- -- 61.5 63.5 54.6 ABSNEUT -- -- -- -- -- -- 4.28 5.24 3.50 LYMPHP -- -- -- -- -- -- 16.7 15.2 21.4 MONOP -- -- -- -- -- -- 18.1 16.4 18.4 COAG: Recent Labs 09/15/22 0322 09/12/22 0651 09/11/22 0748 09/10/22 0704 INR 1.7* 2.0* 2.0* 1.7* CMP: Recent Labs 09/16/22 0312 09/15/22 0322 09/14/22 0432 09/13/22 0404 09/12/22 0437 09/11/22 0357 09/10/22 0704 GLUC 106* 121* 127* 125* 154* 121* 116* NA 135* 134* 131* 137 134* 136 135* K 3.9 3.8 3.7 3.0* 3.6* 3.9 3.2* CHLOR 102 104 102 106* 104 103 103 CO2 24 22 (more content not included)...[facility]05-01-2023 NoteHNO ID: [id number] Author: Jackie Bartlett MD Service: Orthopaedic Surgery Author Type: Resident Type: Plan of Care Filed: 09/15/2022 10:26 AM Note Text: Orthopedic Surgery Plan of Care Reviewed repeat xrays, some displacement of L humerus fx in splint. Kavon consult for humeral cuff ordered. Will repeat xrays once more once humeral cuff in place for alignment. Jackie Bartlett MD Orthopedic Surgery 09/15/2022 10:25 [facility]05-01-2023 NoteHNO ID: [id number] Author: Fidelia Bergeron RN Service: Care Management Author Type: Registered Nurse Type: Care Mgt Progress Note Filed: 09/15/2022 10:00 AM Note Text: CARE MANAGEMENT PROGRESS NOTE SERVICE DATE: 09/15/2022 SERVICE TIME: 10:00 AM LOS: 5 days Chart reviewed. Plan for pt to return home with his mom when medically stable. SW offered resources for ETOH. No transitional needs noted at this time. CM to follow. SIGNATURE: Fidelia Bergeron RN PATIENT NAME: Carolynn Lee DATE: September 15, 2022 TIME: 10:00 AM PAGER/CONTACT #: [phone] NoteHNO ID: [id number] Author: Cedric Almeida DO Service: Hospital Medicine Author Type: Resident Type: Progress Notes Filed: 09/15/2022 4:30 PM Note Text: Attestation signed by John Edwards MD at 09/15/2022 7:33 PM (Updated) [facility] MEDICINE SERVICE ATTENDING ATTESTATION: I saw and evaluated the patient on rounds on 09/15/22. Discussed case with the medicine team and agree with resident's findings and plan as documented in the resident's note. Additional large-volume paracentesis performed today. Will need ongoing optimization of diuretics to control fluid. I suspect most of the recent fluid shift leading to the 10 L removed today is probably related to other chronic issues of edema. We will try to minimize frequent repeating a paracentesis unless he is having symptoms from distention. Additional IV albumin given today. Patient will need to adhere to low-salt diet. Patient will need outpatient follow-up with GI for screening endoscopy for varices and will need to establish with a PCP. Patient wants to establish with PCP and GI in [place] which is closer to where he lives. John Edwards MD [facility] [place] PATIENT NAME: Carolynn Lee ADMITTED FOR: LOS: 5 days Subjective HPI Carolynn Lee is a 42-year-old male with past medical history of alcohol use disorder who presented with signs concerning for new onset cirrhosis in addition to mechanical fall leading to humeral fracture has been admitted to early branch medicine. INTERVAL EVENTS Events overnight: No acute events overnight. Patient seen and examined at bedside this AM. Patient states that he has noticed increasing distention with his abdomen. He states that his concern for hematuria is unchanged from days prior. He has no further acute concerns 120/76, heart rate 102 97% on room air Pertinent Labs: Sodium 134, potassium 3.8, creatinine 0.7 WBC 6.0, hemoglobin 7.1 (8.4) and platelet 143 INR 1.7 Urinalysis: 1+ bilirubin, 2+ hemoglobin, 1+ protein, 2+ urobilinogen, leukoesterase, WBC, RBC Imaging: Ascites survey: Large amount of ascites in abdomen/pelvis X-ray humerus displaced fracture midshaft left humerus. Objective OBJECTIVE No data found. There is no height or weight on file to calculate BMI., No results found for: HBA1C Intake/Output Summary (Last 24 hours) at 09/15/2022 0714 Last data filed at 09/15/2022 0324 Gross per 24 hour Intake -- Output 875 ml Net -875 ml Physical Exam Vitals reviewed. Constitutional: General: He is not in acute distress. Appearance: He is not diaphoretic. HENT: Mouth/Throat: Mouth: Mucous membranes are moist. Pharynx: Oropharynx is clear. Eyes: General: Scleral icterus present. Extraocular Movements: Extraocular movements intact. Cardiovascular: Rate and Rhythm: Normal rate and regular rhythm. Pulses: Normal pulses. Heart sounds: Normal heart sounds. No murmur heard. No gallop. Pulmonary: Effort: Pulmonary effort is normal. No respiratory distress. Breath sounds: Normal breath sounds. No wheezing or rales. Abdominal: General: Bowel sounds are normal. There is distension. Palpations: Abdomen is soft. Tenderness: There is no abdominal tenderness. Hernia: A hernia (umbilical) is present. Musculoskeletal: General: Normal range of motion. Right lower leg: No edema. Left lower leg: No edema. Comments: Left upper extremity in sling/cast. Good pulses in upper extremities with no change in sensation of her distal hand on the left side good strength in hand/fingers. Skin: General: Skin is warm and dry. Capillary Refill: Capillary refill takes less than 2 seconds. Findings: No rash. Neurological: General: No focal deficit present. Mental Status: He is oriented to person, place, and time. Motor: No weakness. Psychiatric: Mood and Affect: Mood normal. Behavior: Behavior normal. LABORATORY: CBC: Recent Labs 09/15/22 0322 09/14/22 0432 09/13/22 0404 09/12/22 1759 09/12/22 0437 09/11/22 0356 09/10/22 0704 WBC 6.01 6.67 6.89 -- 6.96 8.24 6.41 HB 7.1* 8.4* 7.1* 7.5* 7.1* 8.2* 6.5* HCT 23.5* 27.0* 22.9* -- 23.1* 27.3* 22.4* PLT 143* 160 133* -- 135* 150 151 MCV 81.3 81.6 80.4 -- 80.2 80.8 81.8 RDWCV 22.3* 21.5* 20.2* -- 20.0* 19.0* 19.1* NEUTP -- -- -- -- 61.5 63.5 54.6 ABSNEUT -- -- -- -- 4.28 5.24 3.50 LYMPHP -- -- -- -- 16.7 15.2 21.4 MONOP -- -- -- -- 18.1 16.4 18.4 COAG: Recent Labs 09/15/22 0322 09/12/22 0651 09/11/22 0748 09/10/22 0704 INR 1.7* 2.0* 2.0* 1.7* CMP: Recent Labs 09/15/22 0322 09/14/22 0432 09/13/22 0404 09/12/22 0437 09/11/22 0357 09/10/22 0704 GLUC 121* 127* 125* 154* 121* 116* NA 134* 131* 137 134* 136 135* K 3.8 3.7 3.0* 3.6* 3.9 3.2* CHLOR 104 102 106* 104 103 103 CO2 22 (more content not included)...[facility]04-30-2023 Note HNO ID: [id number] Author: Heriberto Diaz MD Service: Hospital Medicine Author Type: Resident Type: Progress Notes Filed: 09/14/2022 12:27 PM Note Text: Attestation signed by Aracelis Casas MD at 09/14/2022 4:30 PM [facility] MEDICINE SERVICE ATTENDING ATTESTATION: I saw and evaluated the patient on rounds on 09/14/22. Discussed case with the medicine team and agree with resident's findings and plan as documented in the resident's note. Aracelis Casas MD [facility] [place] PATIENT NAME: Carolynn Lee ADMITTED FOR: LOS: 4 days Subjective INTERVAL EVENTS No acute events overnight. This morning on bedside examination, the patient was Aox3, HDS, and on RA. He denied any acute complaints during the exam. Today's pertinent results include: 133/77, Na: 137-->131, Hb: 7.1-->8.4 Objective OBJECTIVE Patient Vitals for the past 4 hrs: BP Pulse Temp Resp SpO2 09/14/22 0745 133/77 99 36.8 ?C (98.2 ?F) 20 100 % 09/14/22 0425 123/78 93 36.8 ?C (98.2 ?F) 18 98 % There is no height or weight on file to calculate BMI., No results found for: HBA1C Intake/Output Summary (Last 24 hours) at 09/14/2022 0813 Last data filed at 09/14/2022 0625 Gross per 24 hour Intake -- Output 1200 ml Net -1200 ml Physical Exam Constitutional: Appearance: Normal appearance. HENT: Head: Normocephalic and atraumatic. Mouth/Throat: Mouth: Mucous membranes are moist. Pharynx: Oropharynx is clear. Eyes: Conjunctiva/sclera: Conjunctivae normal. Pupils: Pupils are equal, round, and reactive to light. Cardiovascular: Rate and Rhythm: Normal rate and regular rhythm. Pulses: Normal pulses. Heart sounds: Normal heart sounds. Pulmonary: Effort: Pulmonary effort is normal. Breath sounds: Normal breath sounds. Abdominal: General: There is distension. Hernia: A hernia is present. Comments: Fluid thrill, shifting dullness present Musculoskeletal: Right lower leg: Edema present. Left lower leg: Edema present. Skin: General: Skin is warm. Capillary Refill: Capillary refill takes less than 2 seconds. Neurological: General: No focal deficit present. Mental Status: He is alert and oriented to person, place, and time. Mental status is at baseline. LABORATORY: CBC: Recent Labs 09/14/22 0432 09/13/22 0404 09/12/22 1759 09/12/22 0437 09/11/22 0356 09/10/22 0704 WBC 6.67 6.89 -- 6.96 8.24 6.41 HB 8.4* 7.1* 7.5* 7.1* 8.2* 6.5* HCT 27.0* 22.9* -- 23.1* 27.3* 22.4* PLT 160 133* -- 135* 150 151 MCV 81.6 80.4 -- 80.2 80.8 81.8 RDWCV 21.5* 20.2* -- 20.0* 19.0* 19.1* NEUTP -- -- -- 61.5 63.5 54.6 ABSNEUT -- -- -- 4.28 5.24 3.50 LYMPHP -- -- -- 16.7 15.2 21.4 MONOP -- -- -- 18.1 16.4 18.4 COAG: Recent Labs 09/12/22 0651 09/11/22 0748 09/10/22 0704 INR 2.0* 2.0* 1.7* CMP: Recent Labs 09/14/22 0432 09/13/22 0404 09/12/22 0437 09/11/22 0357 09/10/22 0704 GLUC 127* 125* 154* 121* 116* NA 131* 137 134* 136 135* K 3.7 3.0* 3.6* 3.9 3.2* CHLOR 102 106* 104 103 103 CO2 21* 21* 23 22 22 ANION 8* 10 7* 11 10 BUN 9 8* 5* 5* 4* CREAT 0.72* 0.66* 0.70* 0.70* 0.69* TBILI -- -- 5.0* 6.3* 4.4* CBILI -- -- -- 1.5* -- ALKPHOS -- -- 104 116* 147* AST -- -- 43* 52* 64* ALT -- -- 21 23 28 TPROT -- -- 5.5* 6.8 6.7 URINALYSIS: Recent Labs 09/10/22 0658 SPGR 1.011 UGLUC Negative UBILI Negative UKET Negative UHB Negative UPROT Negative UWBC 0-5 /HPF Cardiac:No results for input(s): CKTEST, CKMB, CKMBP, TROPONIN, BNP in the last 168 hours. Microbiology: Positive Micro-30 Days No results found for the last 720 hours. IMAGING: US ascitic survey on 09/14/22: Large amount of ascites throughout the abdomen and pelvis. No results found for: LVEF MEDICATIONS: IV infusions: Scheduled medications:spironolactone, 25 mg, DAILY multivitamin, 1 tablet, DAILY thiamine, 100 mg, TID nicotine, 1 Patch, DAILY And nicotine -- REMOVE patch, , DAILY And nicotine - verify patch, , q 8 H PRN:polyvinyl alcohol-povidone, 1 Drop, PRN iv contrast, , DIRECTED PRN NaCl 0.9%, 20 mL, PRN LORazepam, 2 mg, q 1 H PRN Or LORazepam, 2 mg, q 1 H PRN simethicone, chewable, 80 mg, QID PRN melatonin, 3 mg, AT BEDTIME PRN Please note, the time of this note does not reflect the time I saw this patient today, but the time of this documentation. I have confirmed and edited as necessary, the PFSH and ROS obtained by others. Physical Exam listed below was completed in entirety today and is unchanged from except where noted. Assessment AND Plan ASSESSMENT Mr. Carolynn Lee is a 42 year old male with no PMH who initially presented for fall. He was found to have a left humerus fracture, acute anemia and new onset cirrhosis. Active Hospi (more content not included)...[facility] 09-13-2022 NoteHNO ID: [id number] Author: Heriberto Diaz MD Service: Hospital Medicine Author Type: Resident Type: Progress Notes Filed: 09/13/2022 3:13 PM Note Text: Attestation signed by Aracelis Casas MD at 09/14/2022 4:30 PM [facility] MEDICINE SERVICE ATTENDING ATTESTATION: I saw and evaluated the patient on rounds on 09/13/22. Discussed case with the medicine team and agree with resident's findings and plan as documented in the resident's note. Aracelis Casas MD [facility] [place] [place] PATIENT NAME: Carolynn Lee ADMITTED FOR: LOS: 3 days Subjective HPI Patient is a 42 year old male with no PMHX who presents as a transfer from [facility]. Patient initially presented after a mechanical fall onto his left arm. He was found to have acute anemia, left humeral fracture, and likely new onset cirrhosis. He was transferred to [facility] for further management. ED Workup: X ray showed comminuted left humeral fracture. Hg 6.0, for which he got 1pRBC Na 134 PT/INR 24/2.2, INR elevated on not any AC Plt 122 potassium 3.2. Direct bilirubin 1.91 AST/ALT 80/37 Alk phos 145 albumin 2.2 BUN/Cr 4/0.94 In the ED, he was tachycardic HR 113bpm but otherwise hemodynamically stable. Orthopedics consulted in the ED. Patient says he abuses alcohol about one pint of liquor per day, last drink 09/09 in the morning. He has been abusing alcohol for the last ten years. INTERVAL EVENTS No acute events overnight. This morning on beside exam, the patient was Aox3, HDS,and on RA. He did complain of worsening abdominal distension, and worsening LLE. He denied any chest pain, sob, n/v/d. Today's pertinent results include: 139/76, on RA, Hb:7.5-->7.1 Hg 8.2 -> 7.1 Tbili 6.3 -> 5.0 PT/INR 20.3/ 2.0 LFTs downtrending SAAG 1.9 (portal HTN) Consultation updates, all recs are appreciated: Objective OBJECTIVE Patient Vitals for the past 4 hrs: BP Pulse Temp Resp SpO2 09/13/22 0400 139/76 105 36.6 ?C (97.9 ?F) 18 97 % There is no height or weight on file to calculate BMI., No results found for: HBA1C Intake/Output Summary (Last 24 hours) at 09/13/2022 0743 Last data filed at 09/12/2022 1800 Gross per 24 hour Intake 1550 ml Output -- Net 1550 ml Physical Exam Vitals reviewed. Constitutional: Appearance: He is ill-appearing. HENT: Head: Atraumatic. Eyes: Pupils: Pupils are equal, round, and reactive to light. Comments: Icterus Cardiovascular: Rate and Rhythm: Normal rate and regular rhythm. Pulmonary: Effort: Pulmonary effort is normal. Breath sounds: Normal breath sounds. Abdominal: General: There is distension. Presence of shifting dullness, and thrill. Tenderness: There is no abdominal tenderness. There is no guarding. Hernia: A hernia is present. Comments: Significant umbilical hernia Musculoskeletal: Cervical back: Normal range of motion. Right lower leg: Edema present. Left lower leg: Edema present. Comments: Left arm in wrap. Strong radial pulse. Mild tremor in right hand. Skin: Coloration: Skin is jaundiced. Neurological: Mental Status: He is alert and oriented to person, place, and time. Psychiatric: Mood and Affect: Mood normal. Behavior: Behavior normal. LABORATORY: CBC: Recent Labs 09/13/22 0404 09/12/22 1759 09/12/22 0437 09/11/22 0356 09/10/22 0704 WBC 6.89 -- 6.96 8.24 6.41 HB 7.1* 7.5* 7.1* 8.2* 6.5* HCT 22.9* -- 23.1* 27.3* 22.4* PLT 133* -- 135* 150 151 MCV 80.4 -- 80.2 80.8 81.8 RDWCV 20.2* -- 20.0* 19.0* 19.1* NEUTP -- -- 61.5 63.5 54.6 ABSNEUT -- -- 4.28 5.24 3.50 LYMPHP -- -- 16.7 15.2 21.4 MONOP -- -- 18.1 16.4 18.4 COAG: Recent Labs 09/12/22 0651 09/11/22 0748 09/10/22 0704 INR 2.0* 2.0* 1.7* CMP: Recent Labs 09/13/22 0404 09/12/22 0437 09/11/22 0357 09/10/22 0704 GLUC 125* 154* 121* 116* NA 137 134* 136 135* K 3.0* 3.6* 3.9 3.2* CHLOR 106* 104 103 103 CO2 21* 23 22 22 ANION 10 7* 11 10 BUN 8* 5* 5* 4* CREAT 0.66* 0.70* 0.70* 0.69* TBILI -- 5.0* 6.3* 4.4* CBILI -- -- 1.5* -- ALKPHOS -- 104 116* 147* AST -- 43* 52* 64* ALT -- 28 TPROT -- 5.5* 6.8 6.7 URINALYSIS: Recent Labs 09/10/22 0658 SPGR 1.011 UGLUC Negative UBILI Negative UKET Negative UHB Negative UPROT Negative UWBC 0-5 /HPF Cardiac:No results for input(s): CKTEST, CKMB, CKMBP, TROPONIN, BNP in the last 168 hours. Microbiology: Positive Micro-30 Days No results found for the last 720 hours. No results found for: LVEF MEDICATIONS: IV infusions: Scheduled medications: multivitamin, 1 tablet, DAILY thiamine, 100 mg, TID nicotine, 1 Patch, DAILY And nicotine -- REMOVE patch, , DAILY And nicotine - verify patch, , q 8 H PRN:iv contrast, , DIRECTED PRN NaCl (more content not included)...[facility] [id number] Note HNO ID: [id number] Author: Fidelia Bergeron RN Service: Care Management Author Type: Registered Nurse Type: Care Mgt Progress Note Filed: 09/12/2022 10:53 AM Note Text: CARE MANAGEMENT PROGRESS NOTE SERVICE DATE: 09/12/2022 SERVICE TIME: 10:51 AM LOS: 2 days Chart reviewed. Plan for pt to return home with his mom when medically stable. SW offered resources for ETOH. No transitional needs noted at this time. CM to follow. SIGNATURE: Fidelia Bergeron RN PATIENT NAME: Carolynn Lee DATE: September 12, 2022 TIME: 10:51 AM PAGER/CONTACT #: [phone] NoteHNO ID: [id number] Author: Elise Mtz MD Service: Hospital Medicine Author Type: Resident Type: Progress Notes Filed: 09/12/2022 2:26 PM Note Text: Attestation signed by Aracelis Casas MD at 09/13/2022 1:15 PM [facility] SERV[facility] ATTENDING ATTESTATION: I saw and evaluated the patient on rounds on 09/12/22. Discussed case with the medicine team and agree with resident's findings and plan as documented in the resident's note. Aracelis Casas MD [facility] PROGRESS NOTE PATIENT NAME: Carolynn Lee ADMITTED FOR: LOS: 2 days Subjective HPI Patient is a 42 year old male with no PMHX who presents as a transfer from [facility]. Patient initially presented after a mechanical fall onto his left arm. He was found to have acute anemia, left humeral fracture, and likely new onset cirrhosis. He was transferred to [facility] for further management. ED Workup: X ray showed comminuted left humeral fracture. Hg 6.0, for which he got 1pRBC Na 134 PT/INR 24/2.2, INR elevated on not any AC Plt 122 potassium 3.2. Direct bilirubin 1.91 AST/ALT 80/37 Alk phos 145 albumin 2.2 BUN/Cr 4/0.94 In the ED, he was tachycardic HR 113bpm but otherwise hemodynamically stable. Orthopedics consulted in the ED. Patient says he abuses alcohol about one pint of liquor per day, last drink 09/09 in the morning. He has been abusing alcohol for the last ten years. Denies history of alcohol withdrawal seizures. He notes increased abdominal distention over the last one month, along with increased edema in his legs bilaterally. Denies IV drug abuse or history of hepatitis or family history of liver disease including cirrhosis. Denies hematochezia, melena or hemoptysis. He notes that he does periodically have melanotic stools, but has not had any recently. Denies nausea, vomiting, fever, chills, chest pain or discomfort. INTERVAL EVENTS No events overnight. Patient would like to work with PT, OT and nutrition. Good PO intake. No bloody stools but does note his urine is tea colored since admission. Today's pertinent results include: Hg 8.2 -> 7.1 Tbili 6.3 -> 5.0 PT/INR 20.3/ 2.0 LFTs downtrending SAAG 1.9 (portal HTN) Consultation updates, all recs are appreciated: Objective OBJECTIVE Patient Vitals for the past 4 hrs: BP Pulse Temp Resp SpO2 09/10/22 0627 145/95 113 36.5 ?C (97.7 ?F) 16 95 % 09/10/22 0501 136/88 (!) 113 36.7 ?C (98.1 ?F) 13 -- There is no height or weight on file to calculate BMI., No results found for: HBA1C Intake/Output Summary (Last 24 hours) at 09/12/2022 0555 Last data filed at 09/12/2022 0400 Gross per 24 hour Intake 800 ml Output 500 ml Net 300 ml Physical Exam Vitals reviewed. Constitutional: Appearance: He is ill-appearing. HENT: Head: Atraumatic. Eyes: Pupils: Pupils are equal, round, and reactive to light. Comments: Icterus Cardiovascular: Rate and Rhythm: Normal rate and regular rhythm. Pulmonary: Effort: Pulmonary effort is normal. Breath sounds: Normal breath sounds. Abdominal: General: There is distension. Tenderness: There is no abdominal tenderness. There is no guarding. Hernia: A hernia is present. Comments: Significant umbilical hernia Musculoskeletal: Cervical back: Normal range of motion. Right lower leg: Edema present. Left lower leg: Edema present. Comments: Left arm in wrap. Strong radial pulse. Mild tremor in right hand. Skin: Coloration: Skin is jaundiced. Neurological: Mental Status: He is alert and oriented to person, place, and time. Psychiatric: Mood and Affect: Mood normal. Behavior: Behavior normal. LABORATORY: CBC: Recent Labs 09/12/227 09/11/22 0356 09/10/22 0704 WBC 6.96 8.24 6.41 HB 7.1* 8.2* 6.5* HCT 23.1* 27.3* 22.4* PLT 135* 150 151 MCV 80.2 80.8 81.8 RDWCV 20.0* 19.0* 19.1* NEUTP 61.5 63.5 54.6 ABSNEUT 4.28 5.24 3.50 LYMPHP 16.7 15.2 21.4 MONOP 18.1 16.4 18.4 COAG: Recent Labs 09/11/22 0748 09/10/22 0704 INR 2.0* 1.7* CMP: Recent Labs 09/12/22 0437 09/11/22 0357 09/10/22 0704 GLUC 154* 121* 116* NA 134* 136 135* K 3.6* 3.9 3.2* CHLOR 104 103 103 CO2 23 22 22 ANION 7* 11 10 BUN 5* 5* 4* CREAT 0.70* 0.70* 0.69* TBILI 5.0* 6.3* 4.4* CBILI -- 1.5* -- ALKPHOS 104 116* 147* AST 43* 52* 64* ALT 21 23 28 TPROT 5.5* 6.8 6.7 URINALYSIS: Recent Labs 09/10/22 0658 SPGR 1.011 UGLUC Negative UBILI Negative UKET Negative UHB Negative UPROT Negative UWBC 0-5 /HPF Cardiac:No results for input(s): CKTEST, CKMB, CKMBP, TROPONIN, BNP in the last 168 hours. Microbiology: Positive Micro-30 Days No results found for the last 720 hours. IMAGING: CXR CT chest No results found for: LVEF MEDICATIONS: IV in (more content not included)...[facility]04-27-2023 Note HNO ID: [id number] Author: Elise Mtz MD Service: Hospital Medicine Author Type: Resident Type: Progress Notes Filed: 09/11/2022 3:15 PM Note Text: Attestation signed by Aracelis Casas MD at 09/12/2022 2:26 PM [facility] ATTENDING ATTESTATION: I saw and evaluated the patient on rounds on 09/11/22. Discussed case with the medicine team and agree with resident's findings and plan as documented in the resident's note. Aracelis Casas MD [facility] [place] PATIENT NAME: Carolynn Lee ADMITTED FOR: LOS: 1 days Subjective HPI Patient is a 42 year old male with no PMHX who presents as a transfer from [facility]. Patient initially presented after a mechanical fall onto his left arm. He was found to have acute anemia, left humeral fracture, and likely new onset cirrhosis. He was transferred to [facility] for further management. ED Workup: X ray showed comminuted left humeral fracture. Hg 6.0, for which he got 1pRBC Na 134 PT/INR 24/2.2, INR elevated on not any AC Plt 122 potassium 3.2. Direct bilirubin 1.91 AST/ALT 80/37 Alk phos 145 albumin 2.2 BUN/Cr 4/0.94 In the ED, he was tachycardic HR 113bpm but otherwise hemodynamically stable. Orthopedics consulted in the ED. Patient says he abuses alcohol about one pint of liquor per day, last drink 09/09 in the morning. He has been abusing alcohol for the last ten years. Denies history of alcohol withdrawal seizures. He notes increased abdominal distention over the last one month, along with increased edema in his legs bilaterally. Denies IV drug abuse or history of hepatitis or family history of liver disease including cirrhosis. Denies hematochezia, melena or hemoptysis. He notes that he does periodically have melanotic stools, but has not had any recently. Denies nausea, vomiting, fever, chills, chest pain or discomfort. INTERVAL EVENTS Hemodynamically stable overnight s/p 19L off in paracentesis 09/10. Today's pertinent results include: Tbili 4.4 -> 6.3 Direct bili 1.5 PT/INR 17/1.7 -> 20.3/ 2.0 LFTs downtrending -RUQ US with cirrhotic hepatic morphology, stones and sludge in gallbladder -MeldNA 19 on admission -> now 22 Consultation updates, all recs are appreciated: Objective OBJECTIVE Patient Vitals for the past 4 hrs: BP Pulse Temp Resp SpO2 09/10/22 0627 145/95 113 36.5 ?C (97.7 ?F) 16 95 % 09/10/22 0501 136/88 (!) 113 36.7 ?C (98.1 ?F) 13 -- There is no height or weight on file to calculate BMI., No results found for: HBA1C Intake/Output Summary (Last 24 hours) at 09/11/2022 0609 Last data filed at 09/10/2022 1800 Gross per 24 hour Intake 857 ml Output 600 ml Net 257 ml Physical Exam Vitals reviewed. Constitutional: Appearance: He is ill-appearing. HENT: Head: Atraumatic. Eyes: Comments: Icterus Cardiovascular: Rate and Rhythm: Normal rate and regular rhythm. Pulmonary: Effort: Pulmonary effort is normal. Breath sounds: Normal breath sounds. Abdominal: General: There is distension. Tenderness: There is no abdominal tenderness. There is no guarding. Hernia: A hernia is present. Comments: Significant umbilical hernia Musculoskeletal: Cervical back: Normal range of motion. Right lower leg: Edema present. Left lower leg: Edema present. Comments: Left arm in wrap. Strong radial pulse. Mild tremor in right hand. Skin: Coloration: Skin is jaundiced. Neurological: Mental Status: He is alert and oriented to person, place, and time. Psychiatric: Mood and Affect: Mood normal. Behavior: Behavior normal. LABORATORY: CBC: Recent Labs 09/11/22 0356 09/10/22 0704 WBC 8.24 6.41 HB 8.2* 6.5* HCT 27.3* 22.4* PLT 150 151 MCV 80.8 81.8 RDWCV 19.0* 19.1* NEUTP 63.5 54.6 ABSNEUT 5.24 3.50 LYMPHP 15.2 21.4 MONOP 16.4 18.4 COAG: Recent Labs 09/10/22 0704 INR 1.7* CMP: Recent Labs 09/11/22 0357 09/10/22 0704 GLUC 121* 116* NA 136 135* K 3.9 3.2* CHLOR 103 103 CO2 22 22 ANION 11 10 BUN 5* 4* CREAT 0.70* 0.69* TBILI 6.3* 4.4* ALKPHOS 116* 147* AST 52* 64* ALT 23 28 TPROT 6.8 6.7 URINALYSIS: Recent Labs 09/10/22 0658 SPGR 1.011 UGLUC Negative UBILI Negative UKET Negative UHB Negative UPROT Negative UWBC 0-5 /HPF Cardiac:No results for input(s): CKTEST, CKMB, CKMBP, TROPONIN, BNP in the last 168 hours. Microbiology: Positive Micro-30 Days No results found for the last 720 hours. IMAGING: CXR CT chest No results found for: LVEF MEDICATIONS: IV infusions: Scheduled medications: multivitamin, 1 tablet, DAILY folic acid, 1 mg, DAILY thiamine, 100 mg, TID nicotine, 1 Patch, DAILY And nicotine -- REMOVE patch, , DAILY And nicotine - verify patch, , q 8 H (more content not included)...[facility]04-26-2023 NoteHNO ID: [id number] Author: Castro Powers formerly [facility]: Pharmacy Author Type: Pharmacist Type: Plan of Care Filed: 09/10/2022 1:41 PM Note Text: PHARMACY MEDICATION REVIEW Patient Name: Carolynn Lee : 1980 The following medications were updated within the BILLET EXAMINER medication list: Medications ADDED to [facility] EXAMINER medication list docusate sodium (COLACE) 100 mg capsule - BID PRN for constipation ibuprofen (MOTRIN) 200 mg tablet - 2 tabs Q8 hr PRN for rib pain naproxen (NAPROSYN) 500 mg tablet - BID PRN for rib pain Medications CHANGED on BILLET EXAMINER medication list N/A Medications REMOVED from BILLET EXAMINER medication list N/A Additional comments: Patient is an alcohol abuser who started drinking was 17. Over the past 10 years he has drastically increased his alcohol intake. He stated that he drinks 3 shots (60 ounces) of hard cocktail daily. In addition, the patient is a substance abuser who has a history of using different psychedelics such as Ecstasy (MDMA), LSD and mushroom since 20 years ago. The most recent one was MDMA 2 years ago. The patient recently moved back to [place] from [place], where he was mainly obtaining marijuana from dispensary centers for smoking. Additionally patient vapes (electronic cigarette) and smoke cigarettes (half a pack per day). The below information represents the best possible medication history: Yes Medication history completed by: land examiner: Michael Durbin Source of history: Patient: Reliability of source: Appears reliable, clearly identified: Medication name, Medication dose, Medication route, Medication frequency, Timing of last dose, and Indications and Family: Reliability of source: Appears reliable, clearly identified: Medication name, Medication dose, Medication route, Medication frequency, Timing of last dose, and Indications Medication nonadherence identified: No barriers noted and Cost Reconciliation completed: Yes Completed by: IM team All BILLET EXAMINER medications addressed by LIP Patient interested in Bedside Delivery Services or using [facility] OP Pharmacy at discharge? Unable to assess Preferred outpatient pharmacy: No Pharmacies Listed Allergies: No Known Allergies Prior to Admission Medications Prescriptions Last Dose Informant Patient Reported? Taking? docusate sodium (COLACE) 100 mg capsule Yes Yes Sig: Take 100 mg by mouth twice daily as needed for constipation. ibuprofen (MOTRIN) 200 mg tablet Yes Yes Sig: Take 200 mg by mouth every 8 hours as needed for pain. Rib pain naproxen (NAPROSYN) 500 mg tablet Yes Yes Sig: Take 500 mg by mouth twice daily as needed for pain. Rib pain Facility-Administered Medications: None Michael Durbin 09/10/2022[facility]04-26-2023 NoteHNO ID: [id number] Author: Elise Mtz MD Service: Hospital Medicine Author Type: Resident Type: Progress Notes Filed: 09/10/2022 3:55 PM Note Text: Attestation signed by Aracelis Casas MD at 09/11/2022 2:52 PM [facility] ATTENDING ATTESTATION: I saw and evaluated the patient on rounds on 09/10/22. Discussed case with the medicine team and agree with resident's findings and plan as documented in the resident's note. Aracelis Casas MD [facility] PATIENT NAME: Carolynn Lee ADMITTED FOR: LOS: 0 days Subjective HPI Patient is a 42 year old male with no PMHX who presents as a transfer from [facility]. Patient initially presented after a mechanical fall onto his left arm. He was found to have acute anemia, left humeral fracture, and likely new onset cirrhosis. He was transferred to [facility] for further management. ED Workup: X ray showed comminuted left humeral fracture. Hg 6.0, for which he got 1pRBC Na 134 PT/INR 24/2.2, INR elevated on not any AC Plt 122 potassium 3.2. Direct bilirubin 1.91 AST/ALT 80/37 Alk phos 145 albumin 2.2 BUN/Cr 4/0.94 In the ED, he was tachycardic HR 113bpm but otherwise hemodynamically stable. Orthopedics consulted in the ED. Patient says he abuses alcohol about one pint of liquor per day, last drink 09/09 in the morning. He has been abusing alcohol for the last ten years. Denies history of alcohol withdrawal seizures. He notes increased abdominal distention over the last one month, along with increased edema in his legs bilaterally. Denies IV drug abuse or history of hepatitis or family history of liver disease including cirrhosis. Denies hematochezia, melena or hemoptysis. He notes that he does periodically have melanotic stools, but has not had any recently. Denies nausea, vomiting, fever, chills, chest pain or discomfort. INTERVAL EVENTS No overnight events. Today's pertinent results include: BUN/Cr 0.69 K+ 3.2, repleted Consultation updates, all recs are appreciated: Objective OBJECTIVE Patient Vitals for the past 4 hrs: BP Pulse Temp Resp SpO2 09/10/22 0627 145/95 113 36.5 ?C (97.7 ?F) 16 95 % 09/10/22 0501 136/88 (!) 113 36.7 ?C (98.1 ?F) 13 -- There is no height or weight on file to calculate BMI., No results found for: HBA1C No intake or output data in the 24 hours ending 09/10/22 0629 Physical Exam Vitals reviewed. Constitutional: Appearance: He is ill-appearing. HENT: Head: Atraumatic. Eyes: Comments: Icterus Cardiovascular: Rate and Rhythm: Normal rate and regular rhythm. Pulmonary: Effort: Pulmonary effort is normal. Breath sounds: Normal breath sounds. Abdominal: General: There is distension. Tenderness: There is no abdominal tenderness. There is no guarding. Hernia: A hernia is present. Comments: Significant umbilical hernia Musculoskeletal: Cervical back: Normal range of motion. Right lower leg: Edema present. Left lower leg: Edema present. Comments: Left arm in wrap. Strong radial pulse. Mild tremor in right hand. Skin: Coloration: Skin is jaundiced. Neurological: Mental Status: He is alert and oriented to person, place, and time. Psychiatric: Mood and Affect: Mood normal. Behavior: Behavior normal. LABORATORY: CBC:No results for input(s): WBC, HB, HCT, PLT, MCV, RDWCV, NEUTP, ABSNEUT, LYMPHP, MONOP, EODINP in the last 168 hours. COAG: No results for input(s): APTT, INR in the last 168 hours. CMP:No results for input(s): GLUC, NA, K, CHLOR, CO2, ANION, BUN, CREAT, TBILI, CBILI, ALKPHOS, AST, ALT, TPROT in the last 168 hours. Invalid input(s): ALB, MG URINALYSIS:No results for input(s): PH, SPGR, UGLUC, UBILI, UKET, UHB, UPROT, UROBIL, UWBC, SSA in the last 168 hours. Invalid input(s): NITR Cardiac:No results for input(s): CKTEST, CKMB, CKMBP, TROPONIN, BNP in the last 168 hours. Microbiology: Positive Micro-30 Days No results found for the last 720 hours. IMAGING: CXR CT chest No results found for: LVEF MEDICATIONS: IV infusions: Scheduled medications: multivitamin, 1 tablet, DAILY folic acid, 1 mg, DAILY thiamine, 100 mg, TID PRN:LORazepam, 2 mg, q 1 H PRN Or LORazepam, 2 mg, q 1 H PRN LORazepam, 4 mg, q 1 H PRN Or LORazepam, 4 mg, q 1 H PRN Please note, the time of this note does not reflect the time I saw this patient today, but the time of this documentation. I have confirmed and edited as necessary, the PFSH and ROS obtained by others. Physical Exam listed below was completed in entirety today and is unchanged from except where noted. Assessment AND Plan ASSESSMENT Mr. Carolynn Lee is a 42 year old male with no PMH who initially presented for fall. He was found to have a left humerus (more content not included)...[facility]04-26-[address] [facility] September 09, 2022 11:55pm Note Date/Time September 09, 2022 6:5 4pm [facility] Medical Records Department [address] [place] [address] Emergency Department Summary 09/09/22 MR#: [id number] Acct: [id number] Name: CAROLYNN LEE Rep #:[id number] : 1980 42 From: Cameron Rodríguez PCP: Care Physician,No Primary Status :REG ER Location: ED HPI History of Present Illness Chief Complaint: Upper Extremity Injury Informant: patient and EMS Narrative Narrative: Left hand male presents mechanical fall coming into his house. He moved here from [place]. Has not seen a doctor in 10 years. EMS called brought him into a modified splint holding his arm in. Its deformed and twisted 180 hand. No medications given. No head injuries. Noted that he had abdominal distention for which she reports its progressed over 6 months. Daily alcohol use. He had 2 drinks this morning. Denies nausea or vomiting. Denies any known allergies. Denies any diagnosed medical history. [facility] Home Medications NK 09/09/22 [History Last Taken Unknown] Allergy/AdvReac Type Severity Reaction Status Date / Time No Known Allergies Allergy Verified 09/09/22 17:34 Surgical History H/O foot surgery Social History Smoking Status: Current every day smoker tobacco type: cigarettes ROS ROS ED Constitutional Constitutional ED: Denies chills, fever(s) or sweats Eyes Eyes: Denies change in vision ENT ENT ED: Denies dysphagia or sore throat Cardiovascular Cardiovascular: Denies chest pain, leg edema, palpitations or racing heartbeat Respiratory/Chest Respiratory/Chest: Denies cough, dyspnea or dyspnea on exertion Gastrointestinal Gastrointestinal: Denies abdominal pain, diarrhea, nausea or vomiting Genitourinary Genitourinary ED: Denies dysuria, hematuria or urinary frequency Musculoskeletal Musculoskeletal: Reports extremity pain; Denies back pain or neck pain Integumentary Denies rash or wounds Neurologic Neurologic: Denies headache(s), paresthesias or weakness EXAM Physical Exam Const Vital Signs: 09/09/22 17:34 09/09/22 17:39 Temperature 96.4 F L Temperature Source Temporal Pulse Rate 99 Respiratory Rate 18 Respiratory Effort Normal Non-Labored Respiratory Pattern Normal Blood Pressure 133/86 H Blood Pressure Mean 101 Pulse Ox 97 Oxygen Delivery Method Room Air Positive well nourished, well developed and obese Constitutional Narrative: GCS 15, left arm tied held as a swath. General Appearance ED: well developed and NAD Nutritional Appearance: obese HEENT Reports moist mucous membranes normocephalic and atraumatic Eyes PERRL and EOMs intact bilaterally Eyes Narrative: Scleral icterus slightly General Eye ED: Yes normal appearance of both eyes Neck full ROM, no lymphadenopathy and supple General: Negative for tenderness Chest Wall inspection of chest normal and palpation of chest normal Chest: Negative for tenderness Resp normal respiratory effort and normal air movement Effort and Inspection: symmetric chest movement; Negative for respiratory distress Cardio regular rate, regular rhythm and no murmurs Peripheral Pulses: pulses 2+ throughout GI GI Narrative: Distended abdomen reducible umbilical hernia nontender Palpation: Negative for guarding or rebound tenderness present Back/Spine no CVA tenderness and no thoracic nor lumbar tenderness Extremity Extremity Narrative: Lower extremities nontender. Right upper extremity nontender. Left upper extremity held closely by a modified swath, distal arm was rotated 180. Sensation intact distally radial pulse was intact. General Extremety ED: Negative for edema or tenderness General Extremity: Negative for edema Neuro oriented x3 Sensorium / Orientation: awake and alert Skin no rashes or lesions noted and no wounds MDM MDM MDM Narrative Medical decision making narrative: Interventions / MDM: Differential diagnosis: Left upper extremity fracture, liver cirrhosis, electrolyte abnormalities, alcohol dependence Diagnosis considered but do not suspect: N/A My EKG interpretation: N/A Imaging independently reviewed and interpreted by myself: Left forearm 2 views: No fracture or dislocation. Left humerus 1 view seen bedside he has a comminuted proximal humerus fracture. External documents reviewed: N/A Test considered but not ordered:N/A ED course: Patient mechanical fall to forearm left arm rotated 180 degrees distally. No open wounds. IV was established morphine Zofran given. 2 views humerus and forearm obtain concerning for comminuted proximal humeral fracture causing the rotation. Give additional pain medicine stating reduced and alignedbedside and splinted posterior long-arm splint with coaptation for stability. He was able to extend his extensor mechanism of the wrist therefore radial nerveis intact. History of alcohol clinical concerns for developing cirrhosis or hepatitis with his scleral icterus. His distended abdomen worsen over 6 months. He has no abdominal pain no fevers. Labs significant for hemoglobin of 6 guaiac obtained which was negative with brown stools. I sent for iron studies. He is ordered for 1 unit of blood. Consent was obtained. Also findings of sodium 134 potassium 3.2 creatinine 0.94. Direct bili 1.9 AST 80 ALT 37 alk phos 145 INR was 2.2 not on anticoag's. Vitamin B12 1421. Folate normal at 4.7. With his anemia and clinical signs of potential cirrhosis I do feel he will benefit from admission. However with his fracture I spoke with on-call orthopedist Dr. Benjamin, who reviewed his imagings, he did feel this would need more urgent repair and recommended by an upper extremity specialist. Discussed with patient and mother, I spoke with [facility] transfer line who reach out to upper extremity specialist Dr. Vera, who recommended ED to ED transfer to [facility] by orthopedics there for planned disposition. I spoke with the ED physician Dr. Johnson updated on patient's fracture and findings. He is excepted to the ED there. Patient and family updated. Awaiting transport. Re-evaluation: stable Disposition discussed with patient/family/significant other: Patient and mother Case discussed with consulting clinician: Josh orthopedist Dr. Benjamin, [facility] transferring ED physician Dr. Johnson, upper extremity orthopedist [facility] Dr. Vera Lab Data Labs: Laboratory Results - last 24 hr 09/09/22 09/09/22 09/09/22 17:45 17:45 17:45 WBC 5.2 RBC 2.59 L Hgb 6.0 L* Hct 20.8 L MCV 80.3 MCH 23.2 L MCHC 28.8 L RDW Std Deviation 58.2 H RDW Coeff of Jeff 20.0 H Plt Count 155 MPV 9.6 Immature Gran % (Auto) 0.600 Neut % (Auto) 53.9 Lymph % (Auto) 21.9 Tompkins % (Auto) 16.5 H Eos % (Auto) 5.2 H Baso % (Auto) 1.9 H Absolute Neuts (auto) 2.8 Absolute Lymphs (auto) 1.13 Nucleated RBC % 0 PT 24.2 H INR 2.2 Sodium 134 L Potassium 3.2 L Chloride 106 Carbon Dioxide 22.0 Anion Gap 6 BUN 4 L Creatinine 0.94 Est GFR (MDRD) Af Amer 112 Est GFR (MDRD) Non-Af 93 BUN/Creatinine Ratio 4.2 L Glucose 140 H Calcium 7.7 L Total Bilirubin 3.70 H Direct Bilirubin 1.91 H AST 80 H ALT 37 Alkaline Phosphatase 145 H Total Protein 7.1 Albumin 2.2 L Globulin 4.9 H Critical Care Time Critical Care Time: Yes Critical care time (excluding procedures): 30-74 minutes, Discussing w/Patient &/or Family/Turn Down Attendant, Discussing w/Consultants, Arranging Admission or Transfer, Performing Direct Patient Care at Bedside and - (50 minutes) Discharge Plan Triage Chief Complaint: Upper Extremity Injury ED Provider: Cameron Henderson Dx/Rx/DC Orders Clinical Impression: Comminuted left humeral fracture, Fall, Anemia, Alcohol dependence, Acute alcoholic hepatitis, Elevated INR, Iron deficiency anemia Prescriptions: No Action NK Primary Care Provider: Care Physician,No Primary Referrals: NOT,DEFINED [Non-Staff] - Disposition Disposition: DC/Tx to Another Type of HCF What to do if you have Problems For any increased pain, shortness of breath, bleeding, nausea or vomiting, chestpain, or any unexpected problems, contact your Primary Care Provider. Call [facility] ([phone]) or report to the closest Emergency Room. Call 911 if necessary. 09/09/22 [id number] <Electronically signed by Cameron Rodríguez> Cosigner Signature (if applicable): CC: No Primary Care Physician ~ Signed [facility] Work Phone: Anesthesiology Consult note* MEIR LUNDBERG APRN-AIRCRAFT SYSTEMS TECHNICIAN: PERFORM, SIGN, VERIFY Event Display: Anesthesiology Consultation Authored Date: [id number] Patient: CAROLYNN LEE Age: 42 years Sex: Male : 1980 Associated Diagnoses: None Author: MEIR LUNDBERG APRN-AIRCRAFT SYSTEMS TECHNICIAN Assessment Postanesthesia assessment Vitals: Vital signs from flowsheet : Vital Signs 11/03/2022 10:30 EDT Heart Rate Monitored 73 bpm bpm Respiratory Rate - Anes 16 br/min br/min 11/03/2022 10:25 EDT Heart Rate Monitored 79 bpm bpm Respiratory Rate - Anes 23 br/min br/min Systolic Blood Pressure Non-Invasive 95 mmHg mmHg Diastolic Blood Pressure Non-Invasive 65 mmHg mmHg 11/03/2022 10:22 EDT Systolic Blood Pressure Non-Invasive 119 mmHg mmHg Diastolic Blood Pressure Non-Invasive 67 mmHg mmHg 11/03/2022 9:10 EDT Temperature Oral 36.2 DegC Peripheral Pulse Rate 57 bpm LOW Respiratory Rate 11 br/min <LLOW , Measurements from flowsheet . Mental status: alert & oriented x 4. Respiratory function: respirations are non-labored. Respiratory support: none. CV function: Normal rate. Cardiovascular support: none. Pain. Nausea status: see nursing documentation of medications. Postoperative hydration status: within normal limits. Digitally Signed by MEIR LUNDBERG on 11/03/2022 10:32 AM * MEIR LUNDBERG: PERFORM, SIGN, VERIFY Event Display: Anesthesiology Consultation Authored Date: [id number] Patient: CAROLYNN LEE Age: 42 years Sex: Male : 1980 Associated Diagnoses: None Author: MEIR LUNDBERG Preoperative Information Time of last food or liquid consumption: 11/03/2022 00:00:00 Anesthesia history Patient's history: negative. Family's history: negative. Health Status Allergies: Allergic Reactions (Selected) NKA, Allergies (1) ActiveReaction NKANone Documented Current medications: (Selected) Inpatient Medications Ordered LR 1,000 mL: 50 mL/hr, Intravenous Documented Medications Documented FeroSul 325 mg (65 mg elemental iron) oral tablet: TAKE 1 TABLET BY MOUTH ON THURSDAY, THURSDAY AND THURSDAY M- Plus oral tablet: TAKE 1 TABLET BY MOUTH ONCE DAILY NICOTINE TD 14MG/24HDIS: APPLY 1 PATCH TOPICALLY ONCE DAILY acamprosate 333 mg oral delayed release tablet: TAKE 2 TABLETS BY MOUTH THREE TIMES DAILY furosemide 40 mg oral tablet: TAKE 1 & 1/2 (ONE & ONE-HALF) TABLETS BY MOUTH ONCE DAILY nicotine 2 mg oral transmucosal lozenge: DISSOLVE 1 LOZENGE BY MOUTH EVERY 4 HOURS NEEDED NICOTINE CRAVINGS spironolactone 100 mg oral tablet: TAKE 1 & 1/2 (ONE & ONE-HALF) TABLETS BY MOUTH ONCE DAILY thiamine 100 mg oral tablet: TAKE 1 TABLET BY MOUTH ONCE DAILY, Medications (1) Active Scheduled: (0) Continuous: (1) Lactated Ringers 1,000 mL 1,000 mL, Intravenous, 50 mL/hr PRN: (0) Problem list: Active Problems (2) Cirrhosis Tobacco use Histories Past Medical History: No active or resolved past medical history items have been selected or recorded. Family History: Hypertension Father Diabetes mellitus type 2 Father Procedure history: Complete excision of head of first metatarsal ([id number]). Social History Social & Psychosocial Habits Alcohol 11/03/2022 Use: Past Previous treatment: Alcoholics Anonymous, Outpatient Tobacco 11/03/2022 Tobacco Use: 5-9 cigarettes (between 1 Type: Cigarettes . Physical Examination Vital Signs 11/03/2022 10:30 EDT Heart Rate Monitored 73 bpm bpm Respiratory Rate - Anes 16 br/min br/min 11/03/2022 10:25 EDT Heart Rate Monitored 79 bpm bpm Respiratory Rate - Anes 23 br/min br/min Systolic Blood Pressure Non-Invasive 95 mmHg mmHg Diastolic Blood Pressure Non-Invasive 65 mmHg mmHg 11/03/2022 10:22 EDT Systolic Blood Pressure Non-Invasive 119 mmHg mmHg Diastolic Blood Pressure Non-Invasive 67 mmHg mmHg 11/03/2022 9:10 EDT Temperature Oral 36.2 DegC Peripheral Pulse Rate 57 bpm LOW Respiratory Rate 11 br/min <LLOW Vital Signs(last 24 hrs) Last Charted Temp Oral36.2 DegC (NOV 03 09:10) Heart Rate Arhhmvqhp47 bpm (NOV 03 10:30) Resp Rate C 11br/min (NOV 03 09:10) SBP95 mmHg (NOV 03 10:25) DBP65 mmHg (NOV 03 10:25) Measurements from flowsheet : Measurements 11/03/2022 9:10 EDT Height 178 cm Admission Weight 86 kg [place] Body Weight 73.18 kg Pain assessment: Pain Assessment 11/03/2022 9:10 EDT Primary Pain Intensity 0 Pain Scale Type 0-10 Pain scale . General: Alert and oriented. Airway: Normal temporomandibular joint mobility, Normal mouth, Normal neck range of motion. Mallampati classification: II (soft palate, fauces, uvula visible). Dentition Evaluation: Denies loose/chipped teeth. Respiratory: Respirations are non-labored. Cardiovascular: Normal rate. Neurologic: Alert, Oriented. Review / Management Results review: No qualifying data available , Lab results 11/03/2022 10:32 EDT Anesthesiology Consultation Postanesthesia Evaluation* 11/03/2022 10:31 EDT SN - CTm - Anesthesia Stop Time Anesthesia Stop Anesthesia Final Record 11/03/2022 10:31 EDT Lactated Ringers Injection 800 mL mL 11/03/2022 10:30 EDT SN - Proc - Actual Procedure ESOPHAGOGASTRODUODENOSCOPY WITH BIOPSIES (Modified) 11/03/2022 10:30 EDT SN - GCD - ASA Class 3 11/03/2022 10:30 EDT SN - Cul - Culture Type Tissue in Formalin (Modified) SN - Cul - Kind Specimen 11/03/2022 10:30 EDT Heart Rate Monitored 73 bpm bpm Respiratory Rate - Anes 16 br/min br/min Oxygen Saturation 99.1 % % [facility] Procedure Record [facility] Procedure Record 11/03/2022 10:27 EDT propofol 50 mg mg 11/03/2022 10:25 EDT Heart Rate Monitored 79 bpm bpm Respiratory Rate - Anes 23 br/min br/min Systolic Blood Pressure Non-Invasive 95 mmHg mmHg Diastolic Blood Pressure Non-Invasive 65 mmHg mmHg Oxygen Saturation 100 % % 11/03/2022 10:23 EDT Lactated Ringers Injection Begin Bag 1,000 mL mL 11/03/2022 10:22 EDT SN - CTm - Anesthesia Start Time Anesthesia Start 11/03/2022 10:22 EDT Systolic Blood Pressure Non-Invasive 119 mmHg mmHg Diastolic Blood Pressure Non-Invasive 67 mmHg mmHg lidocaine 40 mg mg propofol 150 mg mg 11/03/2022 10:20 EDT [place] History and Physical 11/03/2022 10:15 EDT SN - Proc - Anesthesia Type MAC SN - Proc - EBL 0 mL 11/03/2022 10:14 EDT SN - PP - Body Position Lateral Right Side-up Standard Intra-op 11/03/2022 10:14 EDT SN - GCD - Post-operative Diagnosis CIRRHOSIS SN - GCD - Case Level OPD Level 3 11/03/2022 10:14 EDT SN - CAt - Case Attendee SN - CAt - Case Attendee SN - CAt - Case Attendee SN - CAt - Case Attendee SN - CAt - Case Attendee SN - CAt - Case Attendee SN - CAt - Case Attendee SN - CAt - Case Attendee SN - CAt - Role Performed Primary Surgeon SN - CAt - Role Performed AIRCRAFT SYSTEMS TECHNICIAN SN - CAt - Role Performed Specialist Wound Care SN - CAt - Role Performed Cardiovascular Tech 1 11/03/2022 9:25 EDT Right 11/03/2022 22 gauge Peripheral IV Activity: Insert new site Peripheral IV Dressing Condition: Clean, Dry, Intact Peripheral IV Dressing Activity: Applied, Transparent dressing Peripheral IV Line Status/Patency: Flushes easily Peripheral IV Line Care: Secured with tape Peripheral IV Site Condition: No complications 11/03/2022 9:10 EDT Height 178 cm Admission Weight 86 kg [place] Body Weight 73.18 kg Temperature Oral 36.2 DegC Peripheral Pulse Rate 57 bpm LOW Respiratory Rate 11 br/min <LLOW Primary Pain Intensity 0 Pain Scale Type 0-10 Pain scale Heart Rhythm Regular Skin Description Normal for ethnicity Extremity Movement Equal Characteristics of Speech Clear Level of Consciousness Alert Affect/Behavior Appropriate, Calm, Cooperative Orientation Oriented x 4 Arrival Mode Ambulatory Position Sitting Accompanied By On Arrival Family Mellissa Motor (2) Moves 4 extremities voluntarily or on command Mellissa Respirations (2) Spontaneous respiration without support, RR > 10 Mellissa Blood Pressure (2) BP 20% above or below preanesthetic level Mellissa Pulse (2) Pulse 20% above or below preanesthetic level Mellissa Oxygen Saturation (2) 94% or more Mellissa Level of Consciousness (2) Fully awake Mellissa III Score 12 Orientation Assessment Oriented x 4 Standard Safety ID band on, Call device within reach, Bed in low position, Wheels locked 11/03/2022 9:07 EDT Urinary Elimination Voiding, no difficulties Allergies No Consent Form Signed Yes Patient Dressed In Hospital gown History & Physical On Chart Yes Obstructive Sleep Apnea Assess Completed No NPO Status More than 8 hours Patient ID Band on and Verified Yes Pacemaker/AICD Verified Yes Anesthesia Consent Signed Yes Last Fluid Intake 11/02/2022 23:50 Last Food Intake 11/02/2022 23:50 Last Void 11/03/2022 9:09 11/03/2022 9:04 EDT Designated Person #1 We May Share SOHAIL campos father/ [phone] Designated Person #1 Relationship Father Status N/A Sensory Deficits None Infectious Disease Symptoms Patient states no symptoms Infectious Disease Recent Exposure No Alcohol and Drug Use No Employee of Institutional Living No Health Care Employee No History of Exposure to TB No History of Positive Chest X-Ray for TB No History of Positive TB Skin Test No Homeless No Known Immunosuppression No Recent Immigrant No Resident of Institutional Living No Bloody Sputum No Fatigue No Fever No Loss of Appetite No Night Sweats No Persistent Cough > 3 Weeks No Weight Loss No Barriers to Learning None evident Teaching Method Printed materials Preferred Written Language Cymro Preferred Spoken Language Cymro Information Given by Patient Patient's Current Physicians Zora Fleming- [facility] Discharge To, Anticipated Home with family care Prev Test Positive/Diagnosis w/COVID-19 Yes Previous COVID-19 Positive Date 05/08 Current Quarantine/Isolated any Illness No Any Contact with Sick Animals/Birds No Traveled Anywhere in Last 30 Days No N/A Personal Devices, Patient Valuables None Admission Note-Nursing Procedure/Therapy Intake . Assessment and Plan [place] [employer]hesi[employer] (ASA) physical status classification: Class III. Anesthetic Preoperative Plan Anesthetic technique: MAC. Informed consent: signed by patient. Digitally Signed by MEIR LUNDBERG on 11/03/2022 10:35 AM [facility] Evaluation noteNo assessment information available [facility] Work Phone: Evaluation note* Diagnosis Alcoholic cirrhosis of liver with ascites (HCC)- Primary Alcoholic cirrhosis of liver Encounter for immunization Need for other specified prophylactic vaccination against single bacterial disease Closed displaced segmental fracture of shaft of left humerus with routine healing, subsequent encounter [facility] Onset Date Resolution Status Alcoholic cirrhosis of liver with ascites acute Anemia acute [id number] acute Smokes cigarettes acute Umbilical hernia acute Immunization due noneactive Screening for cardiovascular condition noneactive Establishing care with new doctor, encounter for noneactive Low serum copper for age non eactive Low ceruloplasmin level none active Alcohol abuse, in remission noneactive Hospital discharge follow-up noneactive [facility] Work Phone: Evaluation note* Diagnosis Onset Date Resolution Status Alcoholic cirrhosis of liver with ascites acute Smokes cigarettes acute Umbilical hernia acute Meralgia paraesthetica nonea ctive Erectile dysfunction noneact alma Rash and nonspecific skin eruption noneactive Alcohol abuse, in remission noneactive [facility] Work Phone: Evaluation note* Diagnosis Onset Date Resolution Status Admit Date Alcoholic cirrhosis of liver with ascites acute October 31, 2024 2:26pm Smokes cigarettes acute October 312024 2:26pm Umbilical hernia acute October 2:26pm Screening for cardiovascular condition noneactive October 31, 2024 2:26pm Morbid obesity noneactive October 31, 2024 2:26pm Alcohol abuse, in remission noneacti ve October 31, 2024 2:26pm Vitamin d deficiency noneactive October 31, 2024 2:26pm Obesity (BMI 30-39.9) noneactive Oct 2:26pm [facility] Work Phone: Hospital course Narrative No data available for this section [facility] Reason for referral (narrative)No reason for referral information [facility] Work Phone: Chief Complaint and Reason for Visit Chief Complaint FALL WITH LEFT ARM D ISLOCATION Chief Complaint FALL WITH LEFT ARM D ISLOCATION 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 CARE - NEEDS PPW CBC ATTN LIVER CIRRHOSIS CIRRHOSIS Reason for Visit Alcoholic cirrhosis of liver with ascites Anemia [id number] Smokes cigarettes Umbilical hernia Immunization due Screening for cardiovascular condition Establishing care with new doctor, encounter for Low serum copper for age Low ceruloplasmin level Alcohol abuse, in remission Hospital discharge follow-up Chief Complaint CIRRHOSIS Alcoholic cirrhosis of liver without ascites MED FOLLOW UP CIRRHOSIS ABUSE OF ALCOHOL Reason for Visit Alcoholic cirrhosis of liver with ascites Smokes cigarettes Umbilical hernia Meralgia paraesthetica Erectile dysfunction Rash and nonspecific skin eruption Alcohol abuse, in remission Chief Complaint Admit Date 6 M FU October 31, 2024 2:26 pm Reason for Visit Admit Date Alcoholic cirrhosis of liver with ascite s October 31, 2024 2:26pm Smokes cigarettes October 31, 2024 2:26 pm Umbilical hernia October 31, 2024 2:26 pm Screening for cardiovascular condition J une 2024 2:26pm Morbid obesity October 31, 2024 2:26 pm Alcohol abuse, in remission October 31 2:26pm Vitamin d deficiency October 31, 2024 2:2 6pm Obesity (BMI 30-39.9) October 31, 2024 2: 26pm Advance Directives No Advanced Directives Records Found Advance Directive Response Recorded Date/ Time Living Will No September 09, 2022 5:38pm Power of Head Soft Sugar Operator No September 09 5:38pm Latest Code Status on File Code Status Date Activated Date Inactivated Comments Full Code 09/10/2022 6:45 AM 09/18/2022 6:52 PM Full Code Order Discussed With: Patient Latest Code Status on File Code Status Date Activated Date Inactivated Comments Full Code 09/10/2022 6:45 AM 09/18/2022 6:52 PM Advance Directive Response Recorded Date/ Time Living Will No September 09, 2022 4:38pm Power of Head Soft Sugar Operator No September 09 4:38pm Summary Purpose Family History No Family History Records Found Relationship Condition Age at Onset Recorded Date/T matthew grandfather Alcoholism Unknown father Alcoholism Unknown Anxiety Unknown Asthma Unknown Depression Unknown Diabetes mellitus Unknown Mental disorder Unknown brother Anxiety Unknown sister Anxiety Unknown grandmother Diabetes mellitus Unknown grandmother Cardiac disease Unknown Hypertension Unknown Reason for Referral Specialty Diagnoses / Procedures Referred By Contact Referred To Contact Gastroenterology / INTERNAL MEDICINE Diagnoses Alcoholic cirrhosis of liver with ascites (HCC) Procedures CONSULT TO GASTROENTEROLOGY OFFICE/OUTPATIENT [facility] 60-74 MINUTES Javier Alcala Ag Acc [address] [facility] [address] [place] [address] Referral ID Status Reason Start Date Expiration Date V isits Requested Visits Authorized [id number] Denied PCP Requested Referral 09/24/2022 09/24/2023 1 0 Additional Source Comments Care Teams (unrecognized sec tion and content) Team Status: Active Member Role Status Dates No Primary Care Physician Primary Care Provider Active Team Status: Inactive Member Role Status Dates Dr. Cameron Henderson DO Emergency Provider Active No Primary Care Physician Primary Care Provider Active Team Status: Active Member Role Status Dates Dr. Selene Fleming MD Primary Care Provider Active Team Status: Inactive Member Role Status Dates No Primary Care Physician Primary Care Provider, Refer ring Provider Active Dr. Selene Fleming MD Attending Provider Active Team Status: Inactive Member Role Status Dates Dr. Cameron Henderson DO Attending Provider, Emergency Provide r Active No Primary Care Physician Primary Care Provider Active Team Status: Active Member Role Status Dates Dr. Selene Fleming MD Primary Care Provider, Attendi ng Provider Active Team Status: Inactive Member Role Status Dates Dr. Selene Fleming MD Primary Care Provider Active Dr. Anup Nicholson MD Attending Provider, Referring Provider Active Team Status: Inactive Member Role Status Dates Dr. Selene Fleming MD Primary Care Provider, Attendi ng Provider Active Team Status: Inactive Member Role Status Dates Dr. Selene Fleming MD Primary Care Pro vider, Attending Provider, Referring Provider Active Team Status: Active Member Role Status Dates Dr. Selene Fleming MD Primary Care Provider Active Dr. Anup Nicholson MD Attending Provider, Referring Provider Active Team Status: Inactive Member Role Status Dates Dr. Selene Fleming MD Primary Care Provider Active Start: October 31, 2024 End: October 31, 2024 Dr. Selene Fleming MD Attending Provider Active Start: October 31, 2024 End: October 31, 2024 Dr. Selene Fleming MD Referring Provider Active Start: October 31, 2024 End: October 31, 2024 Goals (unrecognized section and content) Goals may be documented in a n alternate section No data available for this sectionGoals may be documented in an alternate sectionGoals may be documented in an alternate sectionGoals may be documented in an alternate sectionGoals may be documented in an alternate section No data available for this sectionGoals may be documented in an alternate section Source Comments (unrecognize d section and content) In the event this informatio n is protected by the Federal Confidentiality of Alcohol and Drug Abuse Patient Records regulations: The Federal rules restrict any use of the information to criminally investigate or prosecute any alcohol or drug abuse patient.[facility] the event this information is protected by the Federal Confidentiality of Alcohol and Drug Abuse Patient Records regulations: The Federal rules restrict any use of the information to criminally investigate or prosecute any alcohol or drug abuse patient.[facility] the event this information is protected by the Federal Confidentiality of Alcohol and Drug Abuse Patient Records regulations: The Federal rules restrict any use of the information to criminally investigate or prosecute any alcohol or drug abuse patient.[facility] the event this information is protected by the Federal Confidentiality of Alcohol and Drug Abuse Patient Records regulations: The Federal rules restrict any use of the information to criminally investigate or prosecute any alcohol or drug abuse patient.[facility] the event this information is protected by the Federal Confidentiality of Alcohol and Drug Abuse Patient Records regulations: The Federal rules restrict any use of the information to criminally investigate or prosecute any alcohol or drug abuse patient.[facility] Reason for Visit (unrecogniz ed section and content) Reason Comments Follow Up Phone Call Post Discharge F/U - attempt made. No answer Reason Comments Appointment Reason Comments Hospital Follow Up Specialty Diagnoses / Procedures Referred By Contac t Referred To Contact INTERNAL MEDICINE Diagnoses HOSPITAL FOLLOW UP Procedures OFFICE VISIT, NEW PT., LEVEL 1 TC Tamar Lamar MD [address] [facility] [address] [place] [address] Jerome Stuart DO [address] [facility] [address] [place] [address] Referral ID Status Reason Start Date Expiration Date V isits Requested Visits Authorized [id number] Closed OON/Self Pay Override Financial Clearance Required - Self Pay Financial Clearance Not Required 09/17/2022 12/16/2022 1 1 Reason Comments Results Opened In Error (unrecognized sect ion and content) No Status Records FoundNo Status Records FoundNo Status Records FoundNo Status Records FoundNo Status Records Found INFORMATION SOURCE (unrecogn ized section and content) DATE CREATED AUTHOR 09/21/2022 [facility] DATE CREATED AUTHOR AUTHOR'S ORGANIZ ATION 10/25/2022 [facility] DATE CREATED AUTHOR AUTHOR'S ORGANIZ ATION 04/05/2023 [facility] ([place] DATE CREATED AUTHOR AUTHOR'S ORGANIZ ATION 09/30/2024 [facility] DATE CREATED AUTHOR AUTHOR'S ORGANIZ ATION 11/02/2024 [facility] FOR RECORDS PERTAINING TO PATIENTS WHO ARE OR HAVE BEEN ENROLLED IN A CHEMICAL DEPENDENCY/SUBSTANCEABUSE PROGRAM, SOME INFORMATION MAY BE OMITTED. This clinical summary was aggregated from multiple sources. Caution should be exercised in using it in the provision of clinical care. This summary normalizes information from multiple sources, and as a consequence, information in this document may materially change the coding, format and clinical context of patient data. In addition, data may be omitted in some cases. CLINICAL DECISIONS SHOULD BE BASED ON THE PRIMARY CLINICAL RECORDS. [facility]. provides no warranty or guarantee of the accuracy or completeness of information in this document.
[2024-11-05 10:21] LABS: Cholesterol 171 mg/dL (<=200); High Density Lipoprotein 71 mg/dL; Low Density Lipoprotein Calc. 89 mg/dL; PSA,Total- Diagnostic 0.19 ng/mL (0.00-4.00); Thyroid Stim Hormone (TSH) 0.444 uIU/mL (0.300-4.200); Triglycerides 53 mg/dL; Very Low Density Lipoprotein 11 mg/dL (5-40); Vitamin D,25 Hydroxy 21.7 ng/mL (30-100); cholesterol:hdl ratio screen 2.41
== END | disposition home or self-care (01) ==
LOC: LAB 08:51
PROVIDERS: PCP Internal Medicine; Referring Provider Internal Medicine; Visit Provider Internal Medicine
DX: E66.01 Morbid (severe) obesity due to excess calories (principal); N52.9 Male erectile dysfunction, unspecified; E55.9 Vitamin D deficiency, unspecified; Z13.6 Encounter for screening for cardiovascular disorders
CPT/HCPCS: 36415; 80061; 82306; 84153; 84402; 84443